=== PATIENT | male | born 1970 | race African-American/Black ===

== ENCOUNTER 2020-06-03 21:47 | Emergency (ER) | payer MEDICARE, MEDICAID, SELFPAY ==
--- NOTE | 2020-06-03 | ECG_ITS ---
Test Reason : CHEST PAIN Blood Pressure : / mmHG Vent. Rate : 108 BPM Atrial Rate : 108 BPM P-R Int : 158 ms QRS Dur : 074 ms QT Int : 324 ms P-R-T Axes : 039 004 018 degrees QTc Int : 434 ms Sinus tachycardia Otherwise normal ECG When compared with ECG of 19-JAN-2020 23:32, No significant change was found Referred By: Generic ED Physician Electronically Signed By:REBEKA HOLM
[2020-06-03 22:00] VITALS: BP 131/77; PULSE 109; RESP 18; TEMP 37.2; O2SAT 97; BMI 41.6
--- NOTE | 2020-06-03 23:14 | XR_ITS ---
EXAMINATION: CHEST 1 VIEW CLINICAL INFORMATION: Chest pain. COMPARISON: 01/19/2020. TECHNIQUE: An AP view of the chest is provided. FINDINGS: The cardiac silhouette is not enlarged. The mediastinal and hilar contours are unremarkable. There are neither pleural effusions nor pneumothoraces. There are no consolidations. The osseous structures are unremarkable. IMPRESSION: No evidence for acute disease.
--- NOTE | 2020-06-03 23:21 | ED.CHESTPAIN ---
HPI - Chest Pain General Chief Complaint: Chest Pain <Sofia Sandra NP - Last Filed: 06/04/20 01:19> Stated Complaint: Chest Pain <Sofia Sandra NP - Last Filed: 06/04/20 01:19> Time Seen by Provider: 06/03/20 23:14 <Sofia Sandra NP - Last Filed: 06/04/20 01:19> Source: patient <Sofia Sandra NP - Last Filed: 06/04/20 01:19> Mode of arrival: ambulatory <Sofia Sandra NP - Last Filed: 06/04/20:19> Limitations: no limitations <Sofia Sandra NP - Last Filed: 06/04/20 01:19> History of Present Illness HPI narrative: Patient presents with palpitations and chest pressure starting at 6:00 p.m. today. He has had several episodes of chest pain and palpitations over the Past week. this chest pain is accompanied with shortness of breath on exertion which is something he has experienced over the past 2 years Since his MS. He had 2 stents placed 2 years ago. he does have intermittent blurred vision, has had headaches since Friday and reports to have significant stress and anxiety at this time. He was told by his landlord that he needed to move because they are selling the house that he lives in. He does not report any fevers, chills, abdominal pain, abdominal distention, dysuria, hematuria, nausea, vomiting, diarrhea, constipation, wounds that will not heal, trauma, falls, suicidal ideation and homicidal ideation. He denies illicit drug use and alcohol use. <Sofia Sandra NP - Last Filed: 06/04/20 01:19> MD complaint: chest pain and chest discomfort <BOYD Brewster Last Filed: 06/04/20 01:19> Pertinent past history: coronary artery disease and prior MS <Sofia Sandra NP - Last Filed: 06/04/20 01:19> Onset (ago): week(s) ( Intermittent chest pain and palpitations over the past 1 week) <BOYD Brewster Last Filed: 06/04/20 01:19> Timing of current episode: episodic <BOYD Brewster Last Filed: 06/04/20 01:19> Prior episodes: Yes <Sofia Sandra NP - Last Filed: 06/04/20 01:19> Pain location: substernal <Sofia Sandra NP - Last Filed: 06/04/20 01:19> Pain radiation: none <Sofia Sandra [employer] - Last Filed: 06/04/20 01:19> Severity: moderate <Sofia Sandra NP - Last Filed: 06/04/20 01:19> Quality: tightness and heaviness <Sofia Sandra [employer] - Last Filed: 06/04/20 01:19> Relieving factors: nothing <Sofia Sandra NP - Last Filed: 06/04/20 01:19> Exacerbating factors: nothing <Sofia Sandra NP - Last Filed: 06/04/20 01:19> Context: recent illness <Sofia Sandra NP - Last Filed: 06/04/20 01:19> Associated symptoms: palpitations <Sofia Sandra NP - Last Filed: 06/04/20 01:19> Risk Factors Coronary artery disease risk factors: diabetes, hyperlipidemia and hypertension <Sofia Sandra NP - Last Filed: 06/04/20 01:19> Thoracic aortic dissection risk factors: longstanding hypertension <Sofia Sandra NP - Last Filed: 06/04/20 01:19> Pulmonary embolism risk factors: morbid obesity <Sofia Sandra NP - Last Filed: 06/04/20 01:19> Related Data Home Medications: Previous Rx's Medication Instructions Recorded hydroxyzine HCl 50 mg PO TID PRN #30 tab 06/04/20 <Sofia Sandra NP - Last Filed: 06/04/20 01:19> Allergies/Adverse Reactions: Allergies Allergy/AdvReac Type Severity Reaction Status Date / Time gabapentin Allergy Unknown sleepiness Verified 06/04/20 00:51 zolpidem Allergy Unknown inadequate Verified 06/04/20 00:51 response <Sofia Sandra NP - Last Filed: 06/04/20 01:19> Review of Systems Review of Systems: Yes all other systems are reviewed and are negative <Sofia Sandra NP - Last Filed: 06/04/20 01:19> Constitutional: Constitutional: Reports headache(s) <Candy Jocy, [employer] - Last Filed: 06/04/20 01:19> Eyes: Eyes: Reports blurry vision ( intermittent) <Candy Jocy, [employer] - Last Filed: 06/04/20 01:19> ENT: Reports headache(s) <Candy Jocy, [employer] - Last Filed: 06/04/20 01:19> Cardiovascular: Cardiovascular: Reports chest pain, Reports chest pain at rest, Reports chest pain with activity, Reports rapid heart rate and Reports dyspnea on exertion <Candy Jocy, [employer] - Last Filed: 06/04/20 01:19> Respiratory: Respiratory: Reports dyspnea on exertion <Candy Jocy, [employer] - Last Filed: 06/04/20 01:19> Gastrointestinal: Gastrointestinal: Reports no additional gastrointestinal complaints <Candy Jocy, [employer] - Last Filed: 06/04/20 01:19> Genitourinary: Genitourinary: Reports no additional male genitourinary complaints <Candy Jocy, [employer] - Last Filed: 06/04/20 01:19> Musculoskeletal: Musculoskeletal: Reports no additional musculoskeletal complaints <Candy Jocy, [employer] - Last Filed: 06/04/20 01:19> Integumentary/Breasts: Skin/Breast: Reports system reviewed and no additional complaints, except as docu <Candy Jocy, [employer] - Last Filed: 06/04/20 01:19> Neurologic: Reports system reviewed and no additional complaints, except as documented and Reports headache(s) <Candy Jocy, [employer] - Last Filed: 06/04/20 01:19> Psychiatric: Psychiatric: Reports anxiety <Candy Jocy, [employer] - Last Filed: 06/04/20 01:19> Endocrine: Endocrine: Reports no additional endocrine complaints <Candy Jocy, [employer] - Last Filed: 06/04/20 01:19> Hematologic/Lymphatic: Hematologic/Lymphatic: Reports no additional hematologic/lymphatic complaints <Candy Jocy, [employer] - Last Filed: 06/04/20 01:19> PMFSH Past Medical History Attestation statement: The following information was validated with the patient. <Candsandeep Sandra, [employer] - Last Filed: 06/04/20 01:19> Source: old records reviewed <Sofia Sandra NP - Last Filed: 06/04/20 01:19> Medical History: Medical History Cardiac arrhythmia Diabetes mellitus, type 2 <Sofia Sandra NP - Last Filed: 06/04/20 01:19> Social History Social History: Social History Alcohol intake: unknown Smoking Status: Unknown if ever smoked Smoked in Last 30 Days: No Use of substances other than those prescribed or required for medical reasons: No Advance Directives: No Advance Directives Information Provided: No <Sofia Sandra NP - Last Filed: 06/04/20 01:19> Physical Exam Vital Signs and I&O and Narrative: Vital Signs and I&O: Vital Signs Temp 99.0 F 06/03/20 22:00 Pulse 96 06/04/20 00:18 Resp 14 06/04/20 00:18 BP 115/79 06/04/20 00:18 Pulse Ox 96 06/04/20 00:18 Intake & Output 06/03/20 06/03/20 06/04/20 06:59 18:59 06:59 Weight 106.633 kg Body Mass Index 41.6 <Sofia Sandra NP - Last Filed: 06/04/20 01:19> Vital Signs and I&O: Vital Signs Temp 99.0 F 06/03/20 22:00 Pulse 96 06/04/20 00:18 Resp 14 06/04/20 00:18 BP 115/79 06/04/20 00:18 Pulse Ox 96 06/04/20 00:18 Intake & Output 06/03/20 06/03/20 06/04/20 06:59 18:59 06:59 Weight 106.633 kg Body Mass Index 41.6 <Addison Bustos DO - Last Filed: 06/04/20 01:26> Const: General: cooperative, healthy appearing, well developed, alert, awake, Physically active, acute distress mild and anxious <Sofia Sandra NP - Last Filed: 06/04/20 01:19> Nutritional Appearance: obese centrally obese <Sofia Sandra [employer] - Last Filed: 06/04/20 01:19> Orientation/consciousness: patient oriented x3 <Sofia Sandra [employer] - Last Filed: 06/04/20 01:19> Limitations: no limitations <Sofia Sandra [employer] - Last Filed: 06/04/20 01:19> HENMT: Head: Yes normal to inspection <Sofia Sandra [employer] - Last Filed: 06/04/20 01:19> Ears: hearing grossly normal bilaterally <Sofia Sandra [employer] - Last Filed: 06/04/20 01:19> General nose exam: Normal external nose present <Sofia Sandra [employer] - Last Filed: 06/04/20 01:19> Face and sinus: Yes normal facial exam <Sofia Sandra [employer] - Last Filed: 06/04/20 01:19> Mouth: Normal oral and palatal mucosa present <Sofia Sandra [employer] - Last Filed: 06/04/20 01:19> Throat: Yes posterior oropharynx normal and Yes uvula midline <Sofia Sandra [employer] - Last Filed: 06/04/20 01:19> Eyes: General: appearance normal, both eyes and all related structures <Sofia Sandra [employer] - Last Filed: 06/04/20 01:19> Pupils: Equal, round and reactive pupils present <Sofia Sandra [employer] - Last Filed: 06/04/20 01:19> EOM: EOMs intact bilaterally <Sofia Sandra [employer] - Last Filed: 06/04/20 01:19> Neck: Neck: Yes normal visual inspection, Yes full ROM, Yes no lymphadenopathy, Yes no meningeal signs and Yes trachea midline <Sofia Sandra [employer] - Last Filed: 06/04/20 01:19> Chest: Chest palpation & inspection: normal inspection of the chest <Sofia Sandra [employer] - Last Filed: 06/04/20 01:19> Resp: Effort & Inspection: normal respiratory effort and able to speak in complete sentences <Sofia Sandra [employer] - Last Filed: 06/04/20 01:19> Auscultation: clear to auscultation bilaterally <Sofia Sandra [employer] - Last Filed: 06/04/20 01:19> Cardio: Rate: tachycardic <Sofia Sandra [employer] - Last Filed: 06/04/20 01:19> Rhythm: regular rhythm <Sofia Sandra [employer] - Last Filed: 06/04/20 01:19> Peripheral pulses: radial pulses present and dorsalis pedis present <Sofia Sandra [employer] - Last Filed: 06/04/20 01:19> GI: Inspection: Yes normal to inspection and Yes obesity <Sofia Sandra [employer] - Last Filed: 06/04/20 01:19> Palpation (GI): Soft to palpation and Tenderness to palpation present (GI) in the epigastrum and in the RUQ; not at McBurney's point, not periumbilically, not suprapubicly, John's sign negative, obturator sign negative, psoas sign negative, with no rebound tenderness and Rovsing's sign negative <Sofia Sandra [employer] - Last Filed: 06/04/20 01:19> Auscultation: normal bowel sounds <Sofia Sandra [employer] - Last Filed: 06/04/20 01:19> : General: Yes no CVA tenderness <Sofia Sandra [employer] - Last Filed: 06/04/20 01:19> Back/Spine/Pelvis: Back: no CVA tenderness <Sofia Sandra [employer] - Last Filed: 06/04/20 01:19> Thoracic/Lumbar Spine: thoracic and lumbar spine normal to inspection <Sofia Sandra [employer] - Last Filed: 06/04/20 01:19> Skin: General skin exam: no rashes or lesions noted <Sofia Sandra [employer] - Last Filed: 06/04/20 01:19> Rashes: no rashes <Sofia Sandra [employer] - Last Filed: 06/04/20 01:19> Wounds: no wounds <Sofia Sandra [employer] - Last Filed: 06/04/20 01:19> Neuro: General: patient oriented x3 and no meningeal signs <Sofia Sandra [employer] - Last Filed: 06/04/20 01:19> Cranial nerves: Yes CN's II-XII intact bilaterally, Yes Facial sensation intact/muscles of mastication intact, Yes Intact sense of smell present and Yes Equal, round and reactive pupils present <Sofia Sandra NP - Last Filed: 06/04/20 01:19> Cognition (Neuro): normal cognition <Sofia Sandra NP - Last Filed: 06/04/20 01:19> Gait exam (Neuro): Normal gait present ( awkward but steady) <Sofia Sandra NP - Last Filed: 06/04/20 01:19> Motor exam (neuro): 5/5 motor strength present throughout <Sofia Sandra [employer] - Last Filed: 06/04/20 01:19> Extrem: General: Yes normal to inspection, Yes full ROM and Yes capillary refill normal <Sofia Sandra NP - Last Filed: 06/04/20 01:19> Psych: Appearance: grossly normal <Sofia Sandra NP - Last Filed: 06/04/20 01:19> Mental Status: mental status grossly normal <Sofia Sandra NP - Last Filed: 06/04/20 01:19> Attitude: cooperative <Sofia Sandra NP - Last Filed: 06/04/20 01:19> Thought process: Normal thought process present <Sofia Sandra NP - Last Filed: 06/04/20 01:19> Thought content: Normal thought content present <Sofia Sandra NP - Last Filed: 06/04/20 01:19> Insight: Good insight present (Psych) <Sofia Sandra NP - Last Filed: 06/04/20 01:19> Judgement: Good judgement present (Psych) <Sofia Sandra NP - Last Filed: 06/04/20 01:19> Course Course Hospital Course: 49-year-old male with past medical history of MS with stent placement, insulin-dependent diabetes, hypertension, obesity, presents with intermittent chest pain and palpitations over the past week. He does report significant stress as he was just asked to move out of his home because the house that he is living and has been sold. While this could be anxiety related he does have significant comorbidities, we will rule out ACS, acute abdomen as he does have epigastric and right upper quadrant pain. <Sofia Sandra NP - Last Filed: 06/04/20 01:19> MDM - Chest Pain Differential Diagnosis Differential diagnosis: Likely stable angina, st elevation myocardial infarction, costochondritis, chest pain and biliary colic <Sofia Sandra NP - Last Filed: 06/04/20 01:19> Medical Records Data Attestation: I reviewed the patient's medical records. <Sofia Sandra NP - Last Filed: 06/04/20 01:19> Lab Data Attestation: I reviewed the patient's lab results. <Sofia Sandra NP - Last Filed: 06/04/20 01:19> Result diagrams: : 06/03/20 23:37 06/03/20 23:37 <Sofia Sandra NP - Last Filed: 06/04/20 01:19> Labs: Lab Results 06/03/20 06/03/20 06/03/20 Range/Units 23:37 23:37 23:37 WBC 9.5 (4.8-10.8) X10*3/uL RBC 4.60 (4.60-5.80) X10*6/uL Hgb 13.7 L (14.0-18.0) g/dl Hct 40.3 L (42-52) % MCV 87.6 (80-98) fL MCH 29.8 (27.0-33.0) pg MCHC 34.0 (31.0-36.0) g/dl RDW 13.2 (11.0-16.0) % Plt Count 300 (160-400) X10*3/uL MPV 10.4 (9.4-12.4) fL Immature Gran % (Auto) 0.3 (0.0-0.4) % Neut % (Auto) 55.3 (45-73) % Lymph % (Auto) 31.5 (20-40) % [place] % (Auto) 10.3 (2-11) % Eos % (Auto) 2.5 (0-4) % Baso % (Auto) 0.1 (0-2) % Neut # (Auto) 5.3 (2.0-8.3) X10*3/uL Lymph # (Auto) 3.0 (1.2-4.9) X10*3/uL [place] # (Auto) 1.0 (0.1-1.2) X10*3/uL Eos # (Auto) 0.2 (0.0-0.4) X10*3/uL Baso # (Auto) 0.0 (0.0-0.2) X10*3/uL Abs Immat Gran (auto) 0.03 (0.00-0.03) X10*3/uL Absolute Nucleated RBC 0.000 (0.0-0.012) X10*3/uL Nucleated RBC % (auto) 0.0 (0.0-0.2) /100WBC PT 10.6 L (10.8-13.0) SEC INR 0.9 (0.9-1.1) Sodium 139 (135-145) mmol/L Potassium 4.3 (3.3-5.1) mmol/l Chloride 103 (96-108) mmol/L Carbon Dioxide 26 (22-29) mmol/L Anion Gap 14 (12-20) BUN 16 (9-16) mg/dL Creatinine 1.07 (0.5-1.4) mg/dL Estim Creat Clear Calc 90.7 Estimated GFR > 60 Random Glucose 88 (60-115) mg/dL Calcium 9.2 (8.4-10.2) mg/dL Magnesium 2.0 (1.6-2.6) mg/dL Total Bilirubin 0.3 (0.0-1.0) mg/dL Direct Bilirubin < 0.2 (0.0-0.5) mg/dL AST 26 (5-37) U/L ALT 35 (0-40) U/L Alkaline Phosphatase 77 (39-117) U/L Troponin I High Sens (<3.5-35.0) ng/L B-Natriuretic Peptide (<100) pg/mL Total Protein 7.0 (6.5-8.0) g/dL Albumin 4.4 (3.5-5.0) g/dL Lipase 51 (8-78) U/L 06/03/20 06/03/20 Range/Units 23:37 23:37 WBC (4.8-10.8) X10*3/uL RBC (4.60-5.80) X10*6/uL Hgb (14.0-18.0) g/dl Hct (42-52) % MCV (80-98) fL MCH (27.0-33.0) pg MCHC (31.0-36.0) g/dl RDW (11.0-16.0) % Plt Count (160-400) X10*3/uL MPV (9.4-12.4) fL Immature Gran % (Auto) (0.0-0.4) % Neut % (Auto) (45-73) % Lymph % (Auto) (20-40) % [place] % (Auto) (2-11) % Eos % (Auto) (0-4) % Baso % (Auto) (0-2) % Neut # (Auto) (2.0-8.3) X10*3/uL Lymph # (Auto) (1.2-4.9) X10*3/uL [place] # (Auto) (0.1-1.2) X10*3/uL Eos # (Auto) (0.0-0.4) X10*3/uL Baso # (Auto) (0.0-0.2) X10*3/uL Abs Immat Gran (auto) (0.00-0.03) X10*3/uL Absolute Nucleated RBC (0.0-0.012) X10*3/uL Nucleated RBC % (auto) (0.0-0.2) /100WBC PT (10.8-13.0) SEC INR (0.9-1.1) Sodium (135-145) mmol/L Potassium (3.3-5.1) mmol/l Chloride (96-108) mmol/L Carbon Dioxide (22-29) mmol/L Anion Gap (12-20) BUN (9-16) mg/dL Creatinine (0.5-1.4) mg/dL Estim Creat Clear Calc Estimated GFR Random Glucose (60-115) mg/dL Calcium (8.4-10.2) mg/dL Magnesium (1.6-2.6) mg/dL Total Bilirubin (0.0-1.0) mg/dL Direct Bilirubin (0.0-0.5) mg/dL AST (5-37) U/L ALT (0-40) U/L Alkaline Phosphatase (39-117) U/L Troponin I High Sens < 3.5 (<3.5-35.0) ng/L B-Natriuretic Peptide < 10 (<100) pg/mL Total Protein (6.5-8.0) g/dL Albumin (3.5-5.0) g/dL Lipase (8-78) U/L <Sofia Sandra NP - Last Filed: 06/04/20 01:19> Lab Results 06/03/20 06/03/20 06/03/20 Range/Units 23:37 23:37 23:37 WBC 9.5 (4.8-10.8) X10*3/uL RBC 4.60 (4.60-5.80) X10*6/uL Hgb 13.7 L (14.0-18.0) g/dl Hct 40.3 L (42-52) % MCV 87.6 (80-98) fL MCH 29.8 (27.0-33.0) pg MCHC 34.0 (31.0-36.0) g/dl RDW 13.2 (11.0-16.0) % Plt Count 300 (160-400) X10*3/uL MPV 10.4 (9.4-12.4) fL Immature Gran % (Auto) 0.3 (0.0-0.4) % Neut % (Auto) 55.3 (45-73) % Lymph % (Auto) 31.5 (20-40) % [place] % (Auto) 10.3 (2-11) % Eos % (Auto) 2.5 (0-4) % Baso % (Auto) 0.1 (0-2) % Neut # (Auto) 5.3 (2.0-8.3) X10*3/uL Lymph # (Auto) 3.0 (1.2-4.9) X10*3/uL [place] # (Auto) 1.0 (0.1-1.2) X10*3/uL Eos # (Auto) 0.2 (0.0-0.4) X10*3/uL Baso # (Auto) 0.0 (0.0-0.2) X10*3/uL Abs Immat Gran (auto) 0.03 (0.00-0.03) X10*3/uL Absolute Nucleated RBC 0.000 (0.0-0.012) X10*3/uL Nucleated RBC % (auto) 0.0 (0.0-0.2) /100WBC PT 10.6 L (10.8-13.0) SEC INR 0.9 (0.9-1.1) Sodium 139 (135-145) mmol/L Potassium 4.3 (3.3-5.1) mmol/l Chloride 103 (96-108) mmol/L Carbon Dioxide 26 (22-29) mmol/L Anion Gap 14 (12-20) BUN 16 (9-16) mg/dL Creatinine 1.07 (0.5-1.4) mg/dL Estim Creat Clear Calc 90.7 Estimated GFR > 60 Random Glucose 88 (60-115) mg/dL Calcium 9.2 (8.4-10.2) mg/dL Magnesium 2.0 (1.6-2.6) mg/dL Total Bilirubin 0.3 (0.0-1.0) mg/dL Direct Bilirubin < 0.2 (0.0-0.5) mg/dL AST 26 (5-37) U/L ALT 35 (0-40) U/L Alkaline Phosphatase 77 (39-117) U/L Troponin I High Sens (<3.5-35.0) ng/L B-Natriuretic Peptide (<100) pg/mL Total Protein 7.0 (6.5-8.0) g/dL Albumin 4.4 (3.5-5.0) g/dL Lipase 51 (8-78) U/L 06/03/20 06/03/20 Range/Units 23:37 23:37 WBC (4.8-10.8) X10*3/uL RBC (4.60-5.80) X10*6/uL Hgb (14.0-18.0) g/dl Hct (42-52) % MCV (80-98) fL MCH (27.0-33.0) pg MCHC (31.0-36.0) g/dl RDW (11.0-16.0) % Plt Count (160-400) X10*3/uL MPV (9.4-12.4) fL Immature Gran % (Auto) (0.0-0.4) % Neut % (Auto) (45-73) % Lymph % (Auto) (20-40) % [place] % (Auto) (2-11) % Eos % (Auto) (0-4) % Baso % (Auto) (0-2) % Neut # (Auto) (2.0-8.3) X10*3/uL Lymph # (Auto) (1.2-4.9) X10*3/uL [place] # (Auto) (0.1-1.2) X10*3/uL Eos # (Auto) (0.0-0.4) X10*3/uL Baso # (Auto) (0.0-0.2) X10*3/uL Abs Immat Gran (auto) (0.00-0.03) X10*3/uL Absolute Nucleated RBC (0.0-0.012) X10*3/uL Nucleated RBC % (auto) (0.0-0.2) /100WBC PT (10.8-13.0) SEC INR (0.9-1.1) Sodium (135-145) mmol/L Potassium (3.3-5.1) mmol/l Chloride (96-108) mmol/L Carbon Dioxide (22-29) mmol/L Anion Gap (12-20) BUN (9-16) mg/dL Creatinine (0.5-1.4) mg/dL Estim Creat Clear Calc Estimated GFR Random Glucose (60-115) mg/dL Calcium (8.4-10.2) mg/dL Magnesium (1.6-2.6) mg/dL Total Bilirubin (0.0-1.0) mg/dL Direct Bilirubin (0.0-0.5) mg/dL AST (5-37) U/L ALT (0-40) U/L Alkaline Phosphatase (39-117) U/L Troponin I High Sens < 3.5 (<3.5-35.0) ng/L B-Natriuretic Peptide < 10 (<100) pg/mL Total Protein (6.5-8.0) g/dL Albumin (3.5-5.0) g/dL Lipase (8-78) U/L <Addison Bustos DO - Last Filed: 06/04/20 01:26> ECG Data ECG #1: Attestation: I personally reviewed and interpreted this ECG as follows: <Sofia Sandra NP - Last Filed: 06/04/20:19> ECG interpretation date: 06/03/20 <Sofia Sandra NP - Last Filed: 06/04/20:19> ECG interpretation time: 21:54 <Sofia Sandra NP - Last Filed: 06/04/20:19> Interpretation: sinus tachycardia at 108 beats per minute. CO interval 158, QT 324, QTC 434. No indication of ST elevation or depression. Otherwise normal EKG. No significant changes found when compared to EKG of January 19, 2020, which is similar with no changes when compared to September 12, 2019. <Sofia Sandra NP - Last Filed: 06/04/20 01:19> Discharge Plan Discharge Clinical Impression: Anxiety Chest pain Qualifiers: Chest pain type: unspecified Qualified Code(s): R07.9 - Chest pain, unspecified <Sofia Sandra NP - Last Filed: 06/04/20 01:19> Patient Disposition: Home, Self-Care <Sofia Sandra NP - Last Filed: 06/04/20:19> Instructions: Chest Pain (ED), Anxiety (ED) <Sofia Sandra NP - Last Filed: 06/04/20 01:19> Additional Instructions: you were evaluated for chest pain. Please follow-up with primary care for provider in 3-5 days. You also described a very stressful home situation. We prescribed hydroxyzine for anxiety. Please take this medication as directed. Please follow-up with primary care provider as needed. Return to the emergency department for any new, concerning, worsening symptoms. <Sofia Sandra NP - Last Filed: 06/04/20 01:19> Prescriptions: New hydroxyzine HCl 50 mg tablet 50 mg PO TID PRN (Reason: anxiety) Qty: 30 RF: 0 <Sofia Sandra NP - Last Filed: 06/04/20 01:19> Interventions: ED Discharge Assessment Last Done: 06/04/20 01:00 <Sofia Sandra NP - Last Filed: 06/04/20 01:19> Discharge Date/Time: 06/04/20 01:03 <Sofia Sandra NP - Last Filed: 06/04/20 01:19>
[2020-06-03 23:42] LABS: MANUAL DIFF FLAG NO
[2020-06-03 23:44] LABS: Basophils Percent Auto 0.1 % (0-2); Eosinophils Absolute Auto 0.2 X10*3/uL (0.0-0.4); Eosinophils Percent Auto 2.5 % (0-4); Hematocrit 40.3 % (42-52); Hemoglobin 13.7 g/dl (14.0-18.0); Imm Gran Abs Auto 0.03 X10*3/uL (0.00-0.03); Imm Gran Pct Auto 0.3 % (0.0-0.4); Lymphocytes Percent Auto 31.5 % (20-40); Mean Corpuscular Hemoglobin 29.8 pg (27.0-33.0); Mean Corpuscular Volume 87.6 fL (80-98); Mean Platelet Volume 10.4 fL (9.4-12.4); Monocytes Percent Auto 10.3 % (2-11); Neutrophils Absolute Auto 5.3 X10*3/uL (2.0-8.3); Neutrophils Percent Auto 55.3 % (45-73); Platelet Count 300 X10*3/uL (160-400); Red Cell Distribution Width 13.2 % (11.0-16.0); White Blood Count 9.5 X10*3/uL (4.8-10.8)
[2020-06-03 23:49] LABS: INTERNATIONAL NORM RATIO 0.9 (0.9-1.1); Prothrombin Time 10.6 SEC (10.8-13.0)
[2020-06-04 00:13] LABS: Alanine Aminotransferase 35 U/L (0-40); Albumin Level 4.4 g/dL (3.5-5.0); Alkaline Phosphatase 77 U/L (39-117); Anion Gap 14 (12-20); Aspartate Amino Transferase 26 U/L (5-37); Bilirubin Direct < 0.2 mg/dL (0.0-0.5); Bilirubin Total 0.3 mg/dL (0.0-1.0); Blood Urea Nitrogen 16 mg/dL (9-16); Calcium 9.2 mg/dL (8.4-10.2); Carbon Dioxide 26 mmol/L (22-29); Chloride 103 mmol/L (96-108); Creatinine Clr Calc Pharmacy 90.7; Estimated Glomerular Filt Rate > 60; Glucose Random 88 mg/dL (60-115); Lipase 51 U/L (8-78); Potassium 4.3 mmol/l (3.3-5.1); Sodium 139 mmol/L (135-145)
[2020-06-04 00:17] LABS: B Type Natriuretic Peptide < 10 pg/mL (<100)
[2020-06-04 00:18] VITALS: BP 115/79; PULSE 96; RESP 14; O2SAT 96
[2020-06-04 00:18] LABS: Troponin-I High Sensitivity < 3.5 ng/L (<3.5-35.0)
[2020-06-04] MEDS: hydrOXYzine HCL 50 MG TABLET PO (00:55)
== END 2020-06-04 01:03 | disposition home or self-care (01) ==
PROVIDERS: Nurse Practitioner Family; Emergency Provider Emergency Medicine; PCP Internal Medicine
DX: R07.9 Chest pain, unspecified (principal); F41.9 Anxiety disorder, unspecified; E11.9 Type 2 diabetes mellitus without complications; Z79.84 Long term (current) use of oral hypoglycemic drugs
CPT/HCPCS: 36415; 71045; 80048; 80076; 83690; 83735; 83880; 84484; 85025; 85610; 93005; 93010; 99283; 99284

== ENCOUNTER → 2020-06-20 14:16 | Outpatient (BNVA) | payer MEDICARE, MEDICAID, SELFPAY | PROVIDERS: PCP Internal Medicine; Referring Provider Internal Medicine; Visit Provider Nurse Practitioner Gerontology | DX: E11.42 Type 2 diabetes mellitus with diabetic polyneuropathy (principal); I10 Essential (primary) hypertension; E78.5 Hyperlipidemia, unspecified; E66.01 Morbid (severe) obesity due to excess calories; R79.89 Other specified abnormal findings of blood chemistry | CPT/HCPCS: 99213 ==

== ENCOUNTER 2020-06-21 07:01 | Outpatient (REF) | payer MEDICARE, MEDICAID, SELFPAY ==
[2020-06-21 07:43] LABS: Estimated Average Glucose 134 mg/dL; Hemoglobin A1c % 6.3 %
[2020-06-21 08:07] LABS: Free T4 (Free Thyroxine) 1.08 ng/dL (0.71-1.85); Thyroid Stimulating Hormone 2.16 mIU/mL (0.32-4.0)
== END 2020-06-21 07:02 | disposition home or self-care (01) ==
LOC: HO.LAB 07:01
PROVIDERS: PCP Internal Medicine; Visit Provider Nurse Practitioner Gerontology
DX: E11.42 Type 2 diabetes mellitus with diabetic polyneuropathy (principal); R79.89 Other specified abnormal findings of blood chemistry
CPT/HCPCS: 83036; 84439; 84443

== ENCOUNTER 2020-07-06 23:04 | Emergency (ER) | payer MEDICARE, MEDICAID, SELFPAY ==
[2020-07-07 01:00] VITALS: BP 121/69; PULSE 97; RESP 16; TEMP 36.8; O2SAT 97; BMI 41.1
--- NOTE | 2020-07-07 01:05 | XR_ITS ---
EXAMINATION: LEFT KNEE 2 VIEWS CLINICAL INFORMATION: Arthritis. Concern for effusion. COMPARISON: None. TECHNIQUE: AP and lateral views of the left knee were obtained. FINDINGS: There are no fractures or dislocations. There is no knee joint effusion. There is no significant soft tissue swelling. There is mild narrowing to the patellofemoral compartment. XR/XR knee LT 2V IMPRESSION: Mild joint space narrowing. No fracture or joint effusion demonstrable.
--- NOTE | 2020-07-07 01:12 | ED.LOWEXIN ---
HPI - Extremity Injury (Lower) General Chief Complaint: Extremity Injury, Lower Stated Complaint: R knee pain Time Seen by Provider: 07/07/20 01:04 Source: patient Mode of arrival: ambulatory Limitations: no limitations History of Present Illness HPI Narrative: patient's history of osteoarthritis noticed increasing pain in left knee for last few days got worse today with swelling increases pain on going on stairs patient has right knee replacement about 1 year ago patient denied any injury to the left knee. No history of gout no fever chills or skin color change around the left knee Related Data Home Medications Medication Instructions Recorded Confirmed allopurinol 100 mg tablet 100 mg PO DAILY 06/20/20 06/20/20 aspirin 81 mg tablet,delayed 81 mg PO DAILY 06/20/20 06/20/20 release blood sugar diagnostic #10 ea 06/20/20 06/20/20 dulaglutide 1.5 mg/0.5 mL 1.5 mg SUBCUT QWEEK 06/20/20 06/20/20 subcutaneous pen injector gabapentin 300 mg capsule 300 mg PO TID 06/20/20 06/20/20 glimepiride 1 mg tablet 1 mg PO DAILY 06/20/20 06/20/20 lancets 28 gauge #100 ea 06/20/20 06/20/20 lisinopril 10 mg tablet 10 mg PO DAILY 06/20/20 06/20/20 ropinirole 4 mg tablet 4 mg PO TID 06/20/20 06/20/20 Previous Rx's Medication Instructions Recorded hydroxyzine HCl 50 mg PO TID PRN #30 tab 06/04/20 metformin 500 mg tablet 1,000 mg PO BID 30 Days #120 tab 06/11/20 empagliflozin 25 mg tablet 25 mg PO QAM #30 tab 06/19/20 atorvastatin 80 mg tablet 80 mg PO DAILY #90 tab 06/28/20 metoprolol tartrate 50 mg tablet 50 mg PO BID #180 tab 06/28/20 tramadol 50 mg tablet 50 mg PO DAILY 30 Days #30 tab 06/28/20 Allergies Allergy/AdvReac Type Severity Reaction Status Date / Time gabapentin AdvReac Unknown sleepiness Verified 06/20/20 14:23 zolpidem AdvReac Unknown inadequate Verified 06/20/20 14:23 response Review of Systems Review of Systems: Yes all other systems are reviewed and are negative PMF Past Medical History Medical History Arthritis BMI 40.0-44.9, adult CAD (coronary artery disease) Cardiac arrhythmia Chronic back pain Diabetes mellitus, type 2 Erectile dysfunction Essential hypertension GERD (gastroesophageal reflux disease) Hyperlipidemia LDL goal <70 Kidney stones Morbid obesity due to excess calories RLS (restless legs syndrome) Type 2 diabetes mellitus with diabetic polyneuropathy Surgical History H/O heart artery stent History of arthroplasty of right knee Hx of left knee surgery Hx of lithotripsy Family History Family History Mother Diabetes Sister Diabetes Social History Social History Alcohol intake: unknown Smoking Status: Unknown if ever smoked Advance Directives: No Advance Directives Information Provided: No Physical Exam Vital Signs: Vital Signs: Last Vital Signs Temp 98.3 F 07/07/20 01:00 Pulse 97 07/07/20 01:00 Resp 16 07/07/20 01:00 BP 121/69 07/07/20 01:00 Pulse Ox 97 07/07/20 01:00 Body Mass Index 41.1 Appearance: Alert. Oriented X3. No acute distress. ENT: Pharynx normal. Neck: Normal inspection. Neck supple. CVS: Normal heart rate and rhythm. Pulses normal. Respiratory: No respiratory distress. Breath sounds normal. Abdomen: Soft and nontender. Skin: Skin warm and dry. Normal skin color. Normal skin turgor. Extremities: No lower extremity edema. Good range of movement diffuse swelling of left knee with mild effusion medial joint tenderness present crepitation on flexion and extension of the knee skin color normal patient able to ambulate Neuro: Oriented X 3. No motor deficit. No sensory deficit. Course Course Course Narrative: patient x-ray showed arthritis. Will put an Anish wrap advised to follow with Ortho Discharge Plan Discharge Prescriptions: No Action metformin 500 mg tablet 1,000 mg PO BID 30 Days Qty: 120 RF: 3 Jardiance 25 mg tablet 25 mg PO QAM Qty: 30 RF: 3 atorvastatin 80 mg tablet 80 mg PO DAILY Qty: 90 RF: 1 metoprolol tartrate 50 mg tablet 50 mg PO BID Qty: 180 RF: 1 tramadol 50 mg tablet 50 mg PO DAILY 30 Days Qty: 30 RF: 0 hydroxyzine HCl 50 mg tablet 50 mg PO TID PRN (Reason: anxiety) Qty: 30 RF: 0 aspirin [Adult Low Dose Aspirin] 81 mg tablet,delayed release (DR/EC) 81 mg PO DAILY RF: 0 lisinopril 10 mg tablet 10 mg PO DAILY RF: 0 gabapentin 300 mg capsule 300 mg PO TID RF: 0 ropinirole 4 mg tablet 4 mg PO TID RF: 0 glimepiride 1 mg tablet 1 mg PO DAILY RF: 0 allopurinol 100 mg tablet 100 mg PO DAILY RF: 0 (DME) FreeStyle Lite Strips Strip See Rx Instructions .ROUTE .MEDSUPPLY Qty: 10 RF: 0 (DME) lancets [FreeStyle Lancets] 28 gauge misc See Rx Instructions .ROUTE .MEDSUPPLY Qty: 100 RF: 0 Trulicity 1.5 mg/0.5 mL pen injector 1.5 mg subcut QWEEK RF: 0
[2020-07-07] MEDS: Ketorolac Tromethamine 60 MG/2 ML VIAL IM (01:24)
== END 2020-07-07 01:43 | disposition home or self-care (01) ==
PROVIDERS: Emergency Provider Internal Medicine; PCP Internal Medicine
DX: M17.11 Unilateral primary osteoarthritis, right knee (principal); I25.10 Atherosclerotic heart disease of native coronary artery without angina pectoris; Z79.899 Other long term (current) drug therapy
CPT/HCPCS: 73560; 96372; 99284; J1885

== ENCOUNTER → 2020-07-26 08:56 | Outpatient (BNVA) | payer MEDICARE, MEDICAID, SELFPAY | PROVIDERS: PCP Internal Medicine; Visit Provider Anesthesiology | DX: M79.2 Neuralgia and neuritis, unspecified (principal); E66.01 Morbid (severe) obesity due to excess calories; Z96.651 Presence of right artificial knee joint | CPT/HCPCS: 99202 ==

== ENCOUNTER 2020-08-07 13:05 | Outpatient (RCR) | payer MEDICARE, MEDICAID, SELFPAY | END 2020-08-07 23:55 | disposition home or self-care (01) | LOC: HO.PAOS 13:05 | PROVIDERS: Referring Provider Anesthesiology; Visit Provider Counselor Mental Health | DX: F43.21 Adjustment disorder with depressed mood (principal) | CPT/HCPCS: 90791 ==

== ENCOUNTER → 2020-08-09 08:50 | Outpatient (BNVA) | payer MEDICARE, MEDICAID, SELFPAY | PROVIDERS: PCP Internal Medicine; Referring Provider Internal Medicine; Visit Provider Anesthesiology | DX: E66.01 Morbid (severe) obesity due to excess calories (principal); Z96.651 Presence of right artificial knee joint; M79.2 Neuralgia and neuritis, unspecified; Z76.89 Persons encountering health services in other specified circumstances | CPT/HCPCS: 99211 ==

== ENCOUNTER 2020-08-15 05:35 | Outpatient (REF) | payer MEDICARE, MEDICAID, SELFPAY ==
--- NOTE | 2020-08-15 08:41 | FL_ITS ---
EXAMINATION: XR FLUOROSCOPY WITH IMAGES CLINICAL INFORMATION: M79.2 - Neuralgia and neuritis, unspecified COMPARISON: Standing AP knees radiograph 08/16/2020 TECHNIQUE: Fluoroscopy performed by Xochitl Boateng NP. Fluoroscopy time: 1 second. DAP: 0.50 Gycm2 Images: 2 FINDINGS: There is spinal needle adjacent to mid aspect proximal tibia medial side. There is hardware consistent with prior knee arthroplasty. There is a small round artifact overlying the tibia likely on the image monitor. FL/FL guidance in treatment room IMPRESSION: Fluoroscopy for pain management procedure.
== END 2020-08-15 05:36 | disposition home or self-care (01) ==
LOC: HO.RADIR 05:35
PROVIDERS: Visit Provider Anesthesiology
DX: M79.2 Neuralgia and neuritis, unspecified (principal); E66.01 Morbid (severe) obesity due to excess calories; Z96.651 Presence of right artificial knee joint
CPT/HCPCS: 64454; J0690

== ENCOUNTER 2020-08-16 13:44 | Outpatient (REF) | payer MEDICARE, MEDICAID, SELFPAY ==
--- NOTE | 2020-08-16 13:58 | XR_ITS ---
EXAMINATION: LEFT HAND, LEFT KNEE AND BILATERAL KNEES AP STANDING. CLINICAL INFORMATION: Injury. Pain. COMPARISON: None TECHNIQUE: Left hand 3 views. AP bilateral knee 1 view. Left knee 2 views. FINDINGS: LEFT HAND: There is no visible acute fracture, dislocation or subluxation. There is loss of PIP and DIP joints of all digits with hypertrophic spurring DIP joint second digit and PIP joint first digit with mild soft tissue swelling. Mild loss of first carpometacarpal joint space is seen as well. BILATERAL AP KNEES STANDING: There is a total right knee prosthesis with prosthetic components in satisfactory alignment. There is moderate loss of medial compartment joint space with periapical spurring. The lateral compartment joint space is normal. No bony erosive changes, acute fracture or dislocation seen. LEFT KNEE: There is moderate loss of patellofemoral compartment joint space with periarticular spurring. There is small anterior superior and inferior patellar enthesophytes. XR/XR knee LT 2V IMPRESSION: No acute fracture or dislocation left hand or wrist. Degenerative arthritic changes of PIP and DIP joints. Total right knee prosthesis in satisfactory alignment. There is moderate loss of patellofemoral and medial compartment joint space with periarticular spurring left knee. No loose bodies or bony erosive changes. No visible acute fracture or dislocation.
--- NOTE | 2020-08-16 13:58 | XR_ITS ---
EXAMINATION: LEFT HAND, LEFT KNEE AND BILATERAL KNEES AP STANDING. CLINICAL INFORMATION: Injury. Pain. COMPARISON: None TECHNIQUE: Left hand 3 views. AP bilateral knee 1 view. Left knee 2 views. FINDINGS: LEFT HAND: There is no visible acute fracture, dislocation or subluxation. There is loss of PIP and DIP joints of all digits with hypertrophic spurring DIP joint second digit and PIP joint first digit with mild soft tissue swelling. Mild loss of first carpometacarpal joint space is seen as well. BILATERAL AP KNEES STANDING: There is a total right knee prosthesis with prosthetic components in satisfactory alignment. There is moderate loss of medial compartment joint space with periapical spurring. The lateral compartment joint space is normal. No bony erosive changes, acute fracture or dislocation seen. LEFT KNEE: There is moderate loss of patellofemoral compartment joint space with periarticular spurring. There is small anterior superior and inferior patellar enthesophytes. XR/XR knee standing BI IMPRESSION: No acute fracture or dislocation left hand or wrist. Degenerative arthritic changes of PIP and DIP joints. Total right knee prosthesis in satisfactory alignment. There is moderate loss of patellofemoral and medial compartment joint space with periarticular spurring left knee. No loose bodies or bony erosive changes. No visible acute fracture or dislocation.
== END 2020-08-16 13:45 | disposition home or self-care (01) ==
LOC: HO.HOSX 13:44
PROVIDERS: PCP Internal Medicine; Visit Provider Orthopaedic Surgery
DX: M17.12 Unilateral primary osteoarthritis, left knee (principal); M25.561 Pain in right knee
CPT/HCPCS: 20610; 73560; 73565; 99212; J1040

== ENCOUNTER 2020-08-16 18:09 | Emergency (ER) | payer MEDICARE, MEDICAID, SELFPAY ==
--- NOTE | 2020-08-16 | XR_ITS ---
EXAMINATION: LEFT HAND, LEFT KNEE AND BILATERAL KNEES AP STANDING. CLINICAL INFORMATION: Injury. Pain. COMPARISON: None TECHNIQUE: Left hand 3 views. AP bilateral knee 1 view. Left knee 2 views. FINDINGS: LEFT HAND: There is no visible acute fracture, dislocation or subluxation. There is loss of PIP and DIP joints of all digits with hypertrophic spurring DIP joint second digit and PIP joint first digit with mild soft tissue swelling. Mild loss of first carpometacarpal joint space is seen as well. BILATERAL AP KNEES STANDING: There is a total right knee prosthesis with prosthetic components in satisfactory alignment. There is moderate loss of medial compartment joint space with periapical spurring. The lateral compartment joint space is normal. No bony erosive changes, acute fracture or dislocation seen. LEFT KNEE: There is moderate loss of patellofemoral compartment joint space with periarticular spurring. There is small anterior superior and inferior patellar enthesophytes. XR/XR hand LT min 3V IMPRESSION: No acute fracture or dislocation left hand or wrist. Degenerative arthritic changes of PIP and DIP joints. Total right knee prosthesis in satisfactory alignment. There is moderate loss of patellofemoral and medial compartment joint space with periarticular spurring left knee. No loose bodies or bony erosive changes. No visible acute fracture or dislocation.
[2020-08-16 20:01] VITALS: BP 160/61; PULSE 116; RESP 18; TEMP 36.3; O2SAT 98; BMI 39.8
--- NOTE | 2020-08-16 21:37 | ED_ITS ---
HPI - Extremity Problem General Chief complaint: Extremity Injury, Upper Stated complaint: Cat bite Time Seen by Provider: 08/16/20 21:37 Source: patient Mode of arrival: ambulatory Limitations: no limitations History of Present Illness HPI Narrative: This is a 50-year-old male who presents after stating the [place] holding a transmission collapsed onto his left hand at approximately 5:00 p.m. this evening and he states he is now experiencing pain when he flexes and extends his thumb. He denies any numbness or tingling into the thumb and he endorses that his tetanus was approximately 2 years ago. Related Data Home Medications Medication Instructions Recorded Confirmed allopurinol 100 mg tablet 100 mg PO DAILY 06/20/20 08/09/20 aspirin 81 mg tablet,delayed 81 mg PO DAILY 06/20/20 08/09/20 release blood sugar diagnostic #10 ea 06/20/20 08/09/20 gabapentin 300 mg capsule 300 mg PO TID 06/20/20 08/09/20 glimepiride 1 mg tablet 1 mg PO DAILY 06/20/20 08/09/20 lancets 28 gauge #100 ea 06/20/20 08/09/20 lisinopril 10 mg tablet 10 mg PO DAILY 06/20/20 08/09/20 ropinirole 4 mg tablet 4 mg PO TID 06/20/20 08/09/20 Previous Rx's Medication Instructions Recorded hydroxyzine HCl 50 mg PO TID PRN #30 tab 06/04/20 metformin 500 mg tablet 1,000 mg PO BID 30 Days #120 tab 06/11/20 empagliflozin 25 mg tablet 25 mg PO QAM #30 tab 06/19/20 atorvastatin 80 mg tablet 80 mg PO DAILY #90 tab 06/28/20 metoprolol tartrate 50 mg tablet 50 mg PO BID #180 tab 06/28/20 diclofenac sodium 50 mg PO Q12H PRN #20 tab 07/07/20 dulaglutide 1.5 mg/0.5 mL 1.5 mg SUBCUT QWEEK #2 ml 07/11/20 subcutaneous pen injector naloxone 4 mg/actuation nasal spray 4 mg INTRANASAL Q3M PRN #2 ea 08/02/20 hydrocodone 5 mg-acetaminophen 325 1 tab PO TID PRN 30 Days #90 tab 08/09/20 mg tablet Allergies Allergy/AdvReac Type Severity Reaction Status Date / Time gabapentin AdvReac Unknown sleepiness Verified 08/16/20 14:10 zolpidem AdvReac Unknown inadequate Verified 08/16/20 14:10 response Review of Systems Review of Systems: Pertinent positives and negatives as stated in HPI 10 point review of systems is otherwise negative. PMFSH Past Medical History Source: nursing notes reviewed Medical History Arthritis BMI 40.0-44.9, adult CAD (coronary artery disease) Cardiac arrhythmia Chronic back pain Diabetes Diabetes mellitus, type 2 Erectile dysfunction Essential hypertension GERD (gastroesophageal reflux disease) HTN (hypertension) Hyperlipidemia LDL goal <70 IDDM (insulin dependent diabetes mellitus) Intractable neuropathic pain of right knee Kidney stones Morbid obesity Morbid obesity due to excess calories RLS (restless legs syndrome) Type 2 diabetes mellitus with diabetic polyneuropathy Surgical History H/O heart artery stent History of arthroplasty of right knee Hx of left knee surgery Hx of lithotripsy Status post total knee replacement, right Family History Family History Mother Diabetes Sister Diabetes Social History Social History Household Members: Friend(s) Alcohol intake: never Smoking Status: Never smoker Advance Directives: No Advance Directives Information Provided: Yes Physical Exam Vital Signs: Vital Signs: Last Vital Signs Temp 97.3 F 08/16/20 20:01 Pulse 116 H 08/16/20 20:01 Resp 18 08/16/20 20:01 BP 160/61 H 08/16/20 20:01 Pulse Ox 98 08/16/20 20:01 Body Mass Index 39.8 VITAL SIGNS: Reviewed. GENERAL: Well developed, well nourished, in no acute distress. HEAD: Normocephalic/atraumatic, EYES: PERRLA, EOMI intact without pain, no nystagmus/pallor/icterus noted EARS: Ext canals without abnormality, TMs non-bulging and non-erythematous NOSE: Nares patent bilateral OROPHARYNX: no oral lesions noted, posterior pharynx clear and non-erythematous without noted tonsillar enlargement/erythema/exudates NECK: Supple, no adenopathy LUNGS: Normal breath sounds. No adventitious sounds or accessory muscle use. SpO2<98> CARDIOVASCULAR: Regular rate and rhythm without noted murmurs, no JVD or lower extremity edema. ABDOMEN: Soft, non-tender, non-distended with bowel sounds. No rigidity. No guarding. No palpable masses or hernias noted MUSCULOSKELETAL: No tenderness, deformities, or effusions noted on gross inspection. EXTREMITIES: No cyanosis, clubbing or edema; LEFT HAND: There is a small abrasion to the webspace between the left thumb and index finger but otherwise no noted deformity, no snuffbox tenderness, patient has full range of motion but with discomfort, capillary refill is less than 3 seconds SKIN: Inspection of the skin reveals no rashes, ulcerations, jaundice, pallor, or petechiae. NEUROLOGIC: Alert and oriented x 4. Strength and sensation to light touch were grossly intact x 4. Course Course Course Narrative: This is a 50-year-old male with history and clinical presentation most consistent with soft tissue contusion given that he has maintained full range of motion and x-ray is negative for any acute fractures or dislocations. Patient will be discharged with a course of NSAIDs and strongly encouraged to follow up with primary care provider for re-evaluation. Discharge Plan Discharge Clinical Impression: Contusion of hand, left Qualifiers: Encounter type: initial encounter Qualified Code(s): S60.222A - Contusion of left hand, initial encounter Patient Disposition: Home, Self-Care Instructions: Contusion in Adults (ED) Additional Instructions: 1. Tylenol 1000 mg, por v?a oral, cada 6 horas seg?n sea necesario para controlar el dolor. No exceda los 4000 mg en 24 horas. 2. Deber?a poder usar masters receta actual de diclofenaco, que se receta seg?n sea necesario para un control adicional del dolor. ?selo katarzyna se indica en la receta. 3. Ramírez un seguimiento con masters proveedor de atenci?n primaria para la reevaluaci?n y el manejo ambulatorio. El paciente y / o la teresa reconocen que comprenden los resultados (seg?n corresponda), el diagn?stico, el plan de tratamiento, la necesidad de seguimiento y los s?ntomas que deber?an impulsar el regreso a la tanvi de emergencias. Prescriptions: No Action metformin 500 mg tablet 1,000 mg PO BID 30 Days Qty: 120 RF: 3 Jardiance 25 mg tablet 25 mg PO QAM Qty: 30 RF: 3 atorvastatin 80 mg tablet 80 mg PO DAILY Qty: 90 RF: 1 metoprolol tartrate 50 mg tablet 50 mg PO BID Qty: 180 RF: 1 Trulicity 1.5 mg/0.5 mL pen injector 1.5 mg subcut QWEEK Qty: 2 RF: 1 Narcan 4 mg/actuation spray,non-aerosol 4 mg intranasal Q3M PRN (Reason: opioid overdose) Qty: 2 RF: 0 hydrocodone-acetaminophen [Harwood] 5-325 mg tablet 1 tab PO TID PRN (Reason: pain) 30 Days Qty: 90 RF: 0 hydroxyzine HCl 50 mg tablet 50 mg PO TID PRN (Reason: anxiety) Qty: 30 RF: 0 diclofenac sodium 50 mg tablet,delayed release (DR/EC) 50 mg PO Q12H PRN (Reason: pain) Qty: 20 RF: 0 aspirin [Adult Low Dose Aspirin] 81 mg tablet,delayed release (DR/EC) 81 mg PO DAILY RF: 0 lisinopril 10 mg tablet 10 mg PO DAILY RF: 0 gabapentin 300 mg capsule 300 mg PO TID RF: 0 ropinirole 4 mg tablet 4 mg PO TID RF: 0 glimepiride 1 mg tablet 1 mg PO DAILY RF: 0 allopurinol 100 mg tablet 100 mg PO DAILY RF: 0 (DME) FreeStyle Lite Strips Strip See Rx Instructions .ROUTE .MEDSUPPLY Qty: 10 RF: 0 (DME) lancets [FreeStyle Lancets] 28 gauge misc See Rx Instructions .ROUTE .MEDSUPPLY Qty: 100 RF: 0 Referrals: Peggy Barber MD [Primary Care Provider] - 2 days (Re-evaluation left hand contusion) Print Language: Macedonian
[2020-08-16] MEDS: Acetaminophen 325 MG TABLET 975 MG PO (22:29)
[2020-08-16] MEDS: Ketorolac Tromethamine 15 MG/ML VIAL IM (22:31)
== END 2020-08-16 22:45 | disposition home or self-care (01) ==
PROVIDERS: Emergency Provider Student in an Organized Health Care Education/Training Program; PCP Internal Medicine
DX: S60.222A Contusion of left hand, initial encounter (principal); S60.512A Abrasion of left hand, initial encounter; W20.8XXA Other cause of strike by thrown, projected or falling object, initial encounter; E11.9 Type 2 diabetes mellitus without complications; I10 Essential (primary) hypertension; Y93.89 Activity, other specified; Y92.9 Unspecified place or not applicable; Y99.9 Unspecified external cause status; Z79.4 Long term (current) use of insulin
CPT/HCPCS: 73130; 96372; 99284; J1885

== ENCOUNTER → 2020-08-21 10:34 | Outpatient (BNVA) | payer MEDICARE, MEDICAID, SELFPAY | PROVIDERS: PCP Internal Medicine; Referring Provider Internal Medicine; Visit Provider Anesthesiology | DX: E66.01 Morbid (severe) obesity due to excess calories (principal); M79.2 Neuralgia and neuritis, unspecified; Z96.651 Presence of right artificial knee joint | CPT/HCPCS: Q3014 ==

== ENCOUNTER → 2020-09-07 09:02 | Outpatient (BNVA) | payer MEDICARE, MEDICAID, SELFPAY | PROVIDERS: PCP Internal Medicine; Visit Provider Anesthesiology | DX: E66.01 Morbid (severe) obesity due to excess calories (principal); Z96.651 Presence of right artificial knee joint; M79.2 Neuralgia and neuritis, unspecified | CPT/HCPCS: 99212 ==

== ENCOUNTER → 2020-09-25 13:42 | Outpatient (BNVA) | payer MEDICARE, MEDICAID, SELFPAY | PROVIDERS: PCP Internal Medicine; Visit Provider Nurse Practitioner Gerontology | DX: E11.42 Type 2 diabetes mellitus with diabetic polyneuropathy (principal); I10 Essential (primary) hypertension; E78.5 Hyperlipidemia, unspecified; E66.01 Morbid (severe) obesity due to excess calories | CPT/HCPCS: 82947; 99212 ==

== ENCOUNTER → 2020-09-28 14:21 | Outpatient (BNVA) | payer MEDICARE, MEDICAID, SELFPAY | PROVIDERS: PCP Internal Medicine; Visit Provider Anesthesiology | DX: M79.2 Neuralgia and neuritis, unspecified (principal); E66.01 Morbid (severe) obesity due to excess calories; Z96.651 Presence of right artificial knee joint; Z79.899 Other long term (current) drug therapy | CPT/HCPCS: 99212 ==

== ENCOUNTER → 2020-10-26 15:32 | Outpatient (BNVA) | payer MEDICARE, MEDICAID, SELFPAY | PROVIDERS: PCP Internal Medicine; Visit Provider Anesthesiology | DX: E66.01 Morbid (severe) obesity due to excess calories (principal); M79.2 Neuralgia and neuritis, unspecified; Z96.651 Presence of right artificial knee joint | CPT/HCPCS: 99212 ==

== ENCOUNTER → 2020-10-30 12:44 | Outpatient (BNVA) | payer MEDICARE, MEDICAID, SELFPAY | PROVIDERS: PCP Internal Medicine; Visit Provider Nurse Practitioner Gerontology | DX: E11.42 Type 2 diabetes mellitus with diabetic polyneuropathy (principal); I10 Essential (primary) hypertension; E78.5 Hyperlipidemia, unspecified; E66.01 Morbid (severe) obesity due to excess calories | CPT/HCPCS: 82947; 99212 ==

== ENCOUNTER → 2020-11-13 12:00 | Outpatient (BNVA) | payer MEDICARE, MEDICAID, SELFPAY | PROVIDERS: PCP Internal Medicine; Visit Provider Nurse Practitioner Gerontology | DX: E11.42 Type 2 diabetes mellitus with diabetic polyneuropathy (principal); E66.01 Morbid (severe) obesity due to excess calories; Z68.41 Body mass index [BMI] 40.0-44.9, adult; E78.5 Hyperlipidemia, unspecified; I10 Essential (primary) hypertension; Z79.84 Long term (current) use of oral hypoglycemic drugs; Z71.3 Dietary counseling and surveillance | CPT/HCPCS: 82947; 99212 ==

== ENCOUNTER 2020-11-15 08:20 | Outpatient (REF) | payer MEDICARE, MEDICAID, SELFPAY ==
[2020-11-15 09:28] LABS: Creatinine Urine 79.46 mg/dL
[2020-11-15 09:30] LABS: Alanine Aminotransferase 35 U/L (0-40); Albumin Level 4.5 g/dL (3.5-5.0); Alkaline Phosphatase 98 U/L (39-117); Anion Gap 14 (12-20); Aspartate Amino Transferase 23 U/L (5-37); Bilirubin Total 0.8 mg/dL (0.0-1.0); Blood Urea Nitrogen 12 mg/dL (9-16); Calcium 9.5 mg/dL (8.4-10.2); Carbon Dioxide 27 mmol/L (22-29); Chloride 100 mmol/L (96-108); Cholesterol 132 mg/dL; Estimated Glomerular Filt Rate > 60; Glucose Fasting 119 mg/dL (60-99); HDL Cholesterol 36 mg/dL; LDL Cholesterol Calculated 68 mg/dl; Potassium 4.4 mmol/L (3.3-5.1); Sodium 137 mmol/L (135-145); Total Protein 7.4 g/dL (6.5-8.0); Triglycerides 144 mg/dL
[2020-11-16 13:16] LABS: LDL Cholesterol Direct 71 mg/dL (<100)
== END 2020-11-15 08:21 | disposition home or self-care (01) ==
LOC: HO.LAB 08:20
PROVIDERS: PCP Internal Medicine; Visit Provider Nurse Practitioner Gerontology
DX: E11.42 Type 2 diabetes mellitus with diabetic polyneuropathy (principal)
CPT/HCPCS: 36415; 80053; 80061; 82043; 83721

== ENCOUNTER → 2020-11-23 15:29 | Outpatient (BNVA) | payer MEDICARE, MEDICAID, SELFPAY | PROVIDERS: PCP Internal Medicine; Visit Provider Anesthesiology | DX: E66.01 Morbid (severe) obesity due to excess calories (principal); T84.84XA Pain due to internal orthopedic prosthetic devices, implants and grafts, initial encounter; Z96.651 Presence of right artificial knee joint; M79.2 Neuralgia and neuritis, unspecified | CPT/HCPCS: 99212 ==

== ENCOUNTER → 2020-11-28 09:45 | Outpatient (BNVA) | payer MEDICARE, MEDICAID, SELFPAY | PROVIDERS: PCP Internal Medicine; Visit Provider Orthopaedic Surgery | DX: M17.12 Unilateral primary osteoarthritis, left knee (principal) | CPT/HCPCS: 20610; 99212; J1040 ==

== ENCOUNTER 2020-12-15 09:53 | Day surgery (SDC) | payer MEDICARE, MEDICAID, SELFPAY ==
--- NOTE | 2020-12-13 13:18 | HO.ANESPROP2 ---
Documented by User: Ailyn Willett 12/13/20 13:21 HPI - Anesthesia Eval Consult details Narrative: 50yo M for Right Infrapatellar Saphenous Nerve Stimulator Trial Routine cardiology OV 08/2020 - stable for f/u in 1 year [facility] Active Problems Active Problems: All Active Problems (Updated 12/11/20 @ 11:56 by Yun Cummings) Primary osteoarthritis of left knee (Acute) Coarse tremors (Acute) Intractable neuropathic pain of right knee (Acute) Status post total knee replacement, right (Acute) Morbid obesity (Acute) Type 2 diabetes mellitus with diabetic polyneuropathy (Acute) Essential hypertension (Acute) Hyperlipidemia LDL goal <70 (Acute) Morbid obesity due to excess calories (Acute) Past Medical History Medical History Arthritis BMI 40.0-44.9, adult CAD (coronary artery disease) Cardiac arrhythmia Chronic back pain Coarse tremors Diabetes mellitus, type 2 Erectile dysfunction Essential hypertension GERD (gastroesophageal reflux disease) HTN (hypertension) Hyperlipidemia LDL goal <70 IDDM (insulin dependent diabetes mellitus) Intractable neuropathic pain of right knee Kidney stones Morbid obesity Morbid obesity due to excess calories SHARONDA (obstructive sleep apnea) RLS (restless legs syndrome) Type 2 diabetes mellitus with diabetic polyneuropathy Family History Family History Mother Diabetes Sister Diabetes Surgical History Surgical History H/O heart artery stent History of arthroplasty of right knee Hx of left knee surgery Hx of lithotripsy Status post total knee replacement, right Social History Social History Household Members: Family and Friend(s) Alcohol intake: former Smoking Status: Never smoker Tobacco Type: Cigarette Advance Directives: No Advance Directives Information Provided: Yes Meds Allergies Allergy/AdvReac Type Severity Reaction Status Date / Time gabapentin AdvReac Unknown sleepiness Verified 11/23/20 15:45 zolpidem AdvReac Unknown inadequate Verified 11/23/20 15:45 response Home Medications Medication Instructions Recorded Confirmed Last Taken Type allopurinol 100 mg tablet 100 mg PO DAILY 06/20/20 12/11/20 Unknown History blood sugar diagnostic #10 ea 06/20/20 11/23/20 Unknown History lancets 28 gauge #100 ea 06/20/20 11/23/20 Unknown History lisinopril 10 mg tablet 10 mg PO DAILY 06/20/20 12/11/20 Unknown History ropinirole 4 mg tablet 4 mg PO TID 06/20/20 12/11/20 Unknown History amlodipine 2.5 mg tablet 2.5 mg PO DAILY 09/25/20 12/11/20 Unknown History Exam Exam Date and Time: December 13, 2020 1318 Pertinent Lab Results Pertinent Lab Results: Laboratory Tests 06/03/20 11/15/20 23:37 08:31 WBC 9.5 Hgb 13.7 L Hct 40.3 L Plt Count 300 Sodium 137 Potassium 4.4 Chloride 100 Carbon Dioxide 27 BUN 12 Creatinine 0.92 Narrative Narrative: EKG 06/2020 Vent. Rate : 108 BPM Atrial Rate : 108 BPM P-R Int : 158 ms QRS Dur : 074 ms QT Int : 324 ms P-R-T Axes : 039 004 018 degrees QTc Int : 434 ms Sinus tachycardia Otherwise normal ECG When compared with ECG of 19-JAN-2020 23:32, No significant change was found Assessment and Plan Assessment Anesthesia Assessment: Chart Reviewed Documented by User: Smiley Batista 12/15/20 10:43 [facility] Past Medical History Medical History Arthritis BMI 40.0-44.9, adult CAD (coronary artery disease) Cardiac arrhythmia Chronic back pain Coarse tremors Diabetes mellitus, type 2 Erectile dysfunction Essential hypertension GERD (gastroesophageal reflux disease) HTN (hypertension) Hyperlipidemia LDL goal <70 IDDM (insulin dependent diabetes mellitus) Intractable neuropathic pain of right knee Kidney stones Morbid obesity Morbid obesity due to excess calories SHARONDA (obstructive sleep apnea) RLS (restless legs syndrome) Type 2 diabetes mellitus with diabetic polyneuropathy Family History Family History Mother Diabetes Sister Diabetes Surgical History Surgical History H/O heart artery stent History of arthroplasty of right knee Hx of left knee surgery Hx of lithotripsy Status post total knee replacement, right Social History Social History Household Members: Family and Friend(s) Alcohol intake: former Smoking Status: Never smoker Tobacco Type: Cigarette Advance Directives: No Advance Directives Information Provided: Yes Meds Allergies Allergy/AdvReac Type Severity Reaction Status Date / Time gabapentin AdvReac Unknown sleepiness Verified 11/23/20 15:45 zolpidem AdvReac Unknown inadequate Verified 11/23/20 15:45 response Home Medications Medication Instructions Recorded Confirmed Last Taken Type allopurinol 100 mg tablet 100 mg PO DAILY 06/20/20 12/11/20 Unknown History blood sugar diagnostic #10 ea 06/20/20 11/23/20 Unknown History lancets 28 gauge #100 ea 06/20/20 11/23/20 Unknown History lisinopril 10 mg tablet 10 mg PO DAILY 06/20/20 12/11/20 Unknown History ropinirole 4 mg tablet 4 mg PO TID 06/20/20 12/11/20 Unknown History amlodipine 2.5 mg tablet 2.5 mg PO DAILY 09/25/20 12/11/20 Unknown History Exam Airway Mallampati Class: II TM Dist: >3cm Neck ROM: Full Loose/Missing/Broken Teeth: No Heart: RRR Lungs: CTA Assessment and Plan Assessment Anesthesia Assessment: Anesthesia Plan Discussed and Chart Reviewed Final Anesthetic Review NPO: Yes ASA Class: III Final Preanesthetic Review: Meds/Allgs Chart Reviewed, Consent Obtained/Reviewed and Anes Risks/Benef Reviewed Patient Risk: Intermediate Procedure Risk: Intermediate Anesthetic Plan Anesthetic Plan: MAC: Disposition: Standard PACU
[2020-12-15] VITALS (7 sets, daily range): BP systolic 122–136; BP diastolic 59–89; PULSE 80–100; RESP 12–20; TEMP 36.1–36.9; O2SAT 92–99; BMI 40.4
--- NOTE | ~2020-12-15 | FL_ITS ---
EXAMINATION: XR FLUOROSCOPY WITH IMAGES CLINICAL INFORMATION: Peripheral stimulator trial COMPARISON: None. TECHNIQUE: Fluoroscopy performed by Dr. Santosh Paz. Fluoroscopy time: 0.7 minutes DAP: 3.3 Gycm2 Images: 2 FINDINGS: Fluoroscopy guidance was provided for peripheral stimulator trial of the right knee. Images demonstrate lead projecting over the proximal tibial shaft. Right knee replacement is partially visualized. FL/FL guidance in OR IMPRESSION: Fluoroscopy guidance for peripheral stimulator trial of the right knee
[2020-12-15 10:33] LABS: Glucose, Whole Blood 120 mg/dL (60-115)
[2020-12-15] MEDS: Lactated Ringers 1,000 ML 100 ML IVCONT (10:54)
--- NOTE | 2020-12-15 12:37 | MHC.SHP ---
Pre-Procedural Eval Section A The patient is an INPATIENT: No Changes since office visit: Yes Patient answered all questions The History & Physical has been completed within 30 days and I have reviewed it.: No Section B Chief Complaint: Intractable Neuropathic pain of right knee Details of Present Illness: as above Relevant Family History (Specify if Yes): No Relevant Social History: None Present Medications: see Short Stay Collaborative assessment Medical History: No relevant PMH History of Previous Operations: Relevant previous surgery/procedure and date(s) Allergies: Allergies Allergy/AdvReac Type Severity Reaction Status Date / Time gabapentin AdvReac Unknown sleepiness Verified 11/23/20 15:45 zolpidem AdvReac Unknown inadequate Verified 11/23/20 15:45 response Review of Systems Sugical H&P ROS: Negative: Constitution, Cardiovascular, Respiratory, Neurological, Psychiatric, Hem-Onc, Allergic/Immunologic, Gastrointestinal, Genitourinary, Musculoskeletal, Integumentary, Endocrine and Eyes/Ears/Nose/Throat Exam Surgical H&P Exam: Normal: HEENT, Normal: Heart, Normal: Lungs, Normal: Abdomen, Normal: Skin and Normal: Neurological and Significant Findings: Extremities (s/p TKR left) Plan Diagnosis/Plan: Unchanged I have reviewed the history and physical and performed a pertinent physical examination on my patient. No changes have occurred unless specified.
--- NOTE | 2020-12-15 14:09 | PM.OP ---
Brief Operative Note Date of Service: 12/15/20 Pre-op diagnosis: Severe right knee pain, neuropathic pain right knee. Post-op diagnosis: same Procedure: Trial of stimulation infrapatellar saphenous nerve on the right stim wave Implants: None term Surgeon: Santosh Paz MD Anesthesia: GLMA Estimated blood loss (mL): 1 Pathology: none sent Condition: stable Disposition: PACU
--- NOTE | 2020-12-15 16:33 | P.OP_ITS ---
Operative Note Operative Note Date of Service: 12/15/20 Narrative: Mr. Almaraz is very pleasant Tristanian-speaking 50 years old gentleman who came today into the operating room for the trial of peripheral nerve stimulation right infrapatellar saphenous nerve with stim wave technology. Preoperatively patient received 2 g cefazolin _approximately 30 minutes before the procedure. After obtaining informed consent patient was brought to the operating room, he was positioned supine on operating table, [place] [employer] monitors were applied and patient induced with general anesthesia LMA. Time-out was performed delineating correct site, side, the nature of the pro cedure, patient's allergy, preoperative antibiotic. All operating room staff was participating in OR time-out procedure. Patient's entire light rib right leg below the level of mid thigh was prepped with ChloraPrep twice and draped with full extremity drape with sterile foot cover. Sterilely draped C-arm was brought over operating field and picture of tibial bone was delineated on the screen. The target for the electrode position was chosen as the connection of the metaphysis and diaphysis of the medial silhouette of the right tibial bone. The projection of the point of interest to the skin was injected with small amount of mixture of lidocaine and bupivacaine. After that 22 gauge 3-1/2 inch spinal needle was driven to point of interest on anterior posterior and lateral views. When needle was appreciated on lateral view in mid shaft of the bone this was chosen as the final needle position. After that approximately 15 cm below the level of the needle in the projection of the mid shaft of the tibial bone on medial surface of the right sheen local anesthetic lidocaine was injected and small elier was performed using 11 blade scalpel. After that 16 gauge 6 in coude malleable introducer needle was inserted through the skin elier and need was advanced along side the medial border of the tibial bone in mid shaft position to were the projection of the spinal needle. When introducer needle reached the destination and was positioned in just above the projection of the spinal needle alongside the medial border of tibial border metaphysis on AP view and in mid shaft of the nee dle on the lateral view the guitar wire was inserted through the needle and advanced little bit further into the tissues. After that the stimulating electrode was inserted into the needle and position alongside the medial border of the tibial bone on AP projection and in mid shaft of the needle on the lateral projection. The navigating stylet was removed from the electrode and stimulating copper wire was inserted into the electrode. The electrode was glue to the skin using Steri-Strips after needle removal. Care was taking not to dislodge electrode with needle removal. After that sterile dressing with bacitracin was obtained and applied to the area of the injections. It was taped with Coban tape to the patient's leg. The stimulating paddle was applied over the electrodes antenna and taped to the skin. After that the patient was awaken extubated and transferred stable to PACU. He tolerated procedure well. He will continue oral antibiotics.
--- NOTE | 2020-12-19 07:06 | W.PM.OPN ---
Operative Note Operative Note Date of Service: 12/15/20 Narrative: Genicular nerve stimulation trial infrapatellar saphenous nerve stimulation. The patient was explained an informed consent with help of hospital staff pharmacist hospital. All risks benefits and alternatives were explained. The patient came to the OR where he was positioned supine on OR table. ASA monitors were applied and general anesthesia with LMA was induced. Time out was performed delineating correct site and side of the procedure, risks of DVT, risks of fire, preoperative antibiotics were discussed during the time out. The patient was positioned supine on the operating table with left leg elevated on a gel being. the patient's entire leg from the mid thigh all the way down to the toes was prepped with ChloraPrep twice. The foot was protected with the sterile foot cover and after that fenestrated drape was applied to the leg. Attention was concentrated on the INFRAPATELLAR SAPHENOUS NERVE. Sterilely draped C-arm was brought over the operating field and sq picture of tibial bone was demonstrated on the screen. The point of interest was delineated as the connection between metaphysis and diaphysis of the medial site of the tibial bone. 22 gauge 3-1/2 inch needle was driven to the point of interest where the advancement of the medial line of the shaft of the tibial bone changed its direction and formed an angle. The position of the needle in the projection of mid shaft of the bone was verified on anterior posterior view. The insertion of the 14 gauge introducer needle was performed 8 cm below the forementioned 22 gauge needle in the projection of the mid shaft of the tibial bone on the medial side. A guitar wire was inserted into the introducer needle and spread on anterior posterior and lateral views alongside the medial border of the tibial bone on anterior posterior view and in the projection of the mid shaft of the bone on the lateral view. Upon completion of the advancement of the guitar wire it was removed and stimulator catheter was inserted and advanced in the same fashion. After that the guiding stylet was removed from the stimulator catheter and antenna hydraulic lift operator copper wire was inserted into the catheter. After that the position of the catheter was verified again on anterior posterior and lateral views. At this moment the patient was awaken and stimulation was applied. Patient reported stimulation as vibration in the knee. The introducer needle was withdrawn. Care was taken not to dislodge the wire. Steri-Strips were applied to the entrance point of the catheter through the skin after benzoin application to the skin. The catheter outside of the skin was positioned in vertical fashion alongside the patient's medial flores. Sterile dressing Tegaderms were applied to the area of the operation. The patient was awaken and moved outside of the operating room to the recovery room where he recovered uneventfully.
== END 2020-12-15 15:08 ==
LOC: HO.SSS 09:53
PROVIDERS: PCP Internal Medicine; Visit Provider Anesthesiology
PROC: (CPT 64555; principal; 2020-12-15 12:10)
DX: M79.2 Neuralgia and neuritis, unspecified (principal); M25.561 Pain in right knee; I10 Essential (primary) hypertension; G47.33 Obstructive sleep apnea (adult) (pediatric); E11.42 Type 2 diabetes mellitus with diabetic polyneuropathy; E66.01 Morbid (severe) obesity due to excess calories; Z68.41 Body mass index [BMI] 40.0-44.9, adult; Z79.4 Long term (current) use of insulin; Z79.899 Other long term (current) drug therapy; Z79.82 Long term (current) use of aspirin
CPT/HCPCS: 64555; 82947; C1778; C1897; J0690; J2250; J2405; J3010

== ENCOUNTER → 2020-12-20 09:48 | Outpatient (BNVA) | payer MEDICARE, MEDICAID, SELFPAY | PROVIDERS: PCP Internal Medicine; Visit Provider Anesthesiology | DX: E66.01 Morbid (severe) obesity due to excess calories (principal); Z96.651 Presence of right artificial knee joint; M79.2 Neuralgia and neuritis, unspecified | CPT/HCPCS: 99212 ==

== ENCOUNTER → 2020-12-22 10:03 | Outpatient (BNVA) | payer MEDICARE, MEDICAID, SELFPAY | PROVIDERS: PCP Internal Medicine; Visit Provider Nurse Practitioner Family | DX: E66.01 Morbid (severe) obesity due to excess calories (principal); M79.2 Neuralgia and neuritis, unspecified; Z96.651 Presence of right artificial knee joint | CPT/HCPCS: 99212 ==

== ENCOUNTER 2021-01-07 16:39 | Emergency (ER) | payer MEDICARE, MEDICAID, SELFPAY ==
--- NOTE | ~2021-01-07 | XR_ITS ---
EXAMINATION: XR KNEE, LEFT CLINICAL INFORMATION: Knee pain status post fall COMPARISON: Knee radiographs 08/16/2020 as well as multiple other radiographs dating back to 05/04/2015 TECHNIQUE: 5 views of the left knee. FINDINGS: Tricompartmental degenerative changes are present with marginal tibial plateau osteophytes as well as bilateral lateral femoral condyle osteophytes. Narrowing is noted in the patellofemoral joint with osteophyte seen arising from the femoral condyles anteriorly and the posterior patella most marked inferiorly. Some rounded rim calcified material is seen inferior to the patella which probably represents intra-articular calcified free joint body. MRI of the knee would be helpful for further evaluation. XR/XR knee LT 4V IMPRESSION: Tricompartmental degenerative changes intra-articular calcified free joint body. This was not present in 2015 has been seen on more recent radiographs. MRI may be useful for further evaluation.
[2021-01-07 17:12] VITALS: BP 118/70; PULSE 101; RESP 16; TEMP 37.1; O2SAT 98; BMI 41.6
--- NOTE | 2021-01-07 18:53 | ED_ITS ---
HPI - Extremity Injury (Lower) General Chief Complaint: Extremity Injury, Lower Stated Complaint: L knee pain/R ear ache Time Seen by Provider: 01/07/21 17:04 Source: patient Mode of arrival: ambulatory History of Present Illness HPI Narrative: 50-year-old male with a past medical history of CAD, arthritis, chronic back pain, diabetes, hypertension, GERD, SHARONDA, presenting to the ED complaining of acute on chronic left knee pain s/p mechanical fall 1 week ago landing on left side, denies head trauma or LOC. Reports tripped over wiring, denies symptoms prior to fall including CP/SOB. Also reports right ear pain since last night with muffled hearing and radiation to throat. Denies fever, chills, drainage from ear, cough, recent swimming MD complaint: knee injury Related Data Home Medications Medication Instructions Recorded Confirmed allopurinol 100 mg tablet 100 mg PO DAILY 06/20/20 12/22/20 blood sugar diagnostic #10 ea 06/20/20 12/22/20 lancets 28 gauge #100 ea 06/20/20 12/22/20 lisinopril 10 mg tablet 10 mg PO DAILY 06/20/20 12/22/20 ropinirole 4 mg tablet 4 mg PO TID 06/20/20 12/22/20 amlodipine 2.5 mg tablet 2.5 mg PO DAILY 09/25/20 12/22/20 Previous Rx's Medication Instructions Recorded hydroxyzine HCl 50 mg PO TID PRN #30 tab 06/04/20 atorvastatin 80 mg tablet 80 mg PO DAILY #90 tab 06/28/20 metoprolol tartrate 50 mg tablet 50 mg PO BID #180 tab 06/28/20 diclofenac sodium 50 mg PO Q12H PRN #20 tab 07/07/20 naloxone 4 mg/actuation nasal spray 4 mg INTRANASAL Q3M PRN #2 ea 08/02/20 metformin 500 mg tablet 1,000 mg PO BID #360 tab 09/17/20 empagliflozin 25 mg tablet 25 mg PO QAM #30 tab 10/15/20 dulaglutide 1.5 mg/0.5 mL 1.5 mg SUBCUT QWEEK #2 ml 10/30/20 subcutaneous pen injector sildenafil 100 mg tablet 100 mg PO DAILY PRN 30 Days #20 tab 11/13/20 aspirin 81 mg tablet,delayed 81 mg PO DAILY #90 tab 11/26/20 release cephalexin 500 mg tablet 1,000 mg PO Q8H 2 Days #12 tab 12/20/20 oxycodone 5 mg tablet 5 mg PO TID PRN 30 Days #90 tab 12/20/20 acetaminophen [Tylenol Extra 500 mg PO Q6H PRN #20 tab 01/07/21 Strength] amoxicillin-pot clavulanate 1 tab PO Q12H 7 Days #14 tab 01/07/21 [Augmentin] ciprofloxacin-dexamethasone 4 drp OTIC (EARS) BID 7 Days #7.5 01/07/21 [Ciprodex] ml lidocaine [Lidoderm] 1 patch TOPICAL DAILY PRN #30 ea 01/07/21 MDD remove after 12 hours Allergies Allergy/AdvReac Type Severity Reaction Status Date / Time gabapentin AdvReac Unknown sleepiness Verified 12/22/20 10:19 zolpidem AdvReac Unknown inadequate Verified 12/22/20 10:19 response Review of Systems Review of Systems: Constitutional: No Fever, No Chills, No Fatigue, No Malaise ENT/Mouth: + decreased hearing to right ear hearing loss, + Ear Pain, No Nasal Congestion, No Sinus Pain, No Hoarseness, + sore throat, No Rhinorrhea, No Swallowing Difficulty Eyes: No Eye Pain, No Discharge, No Vision Changes Cardiovascular: No Chest Pain, No SOB Respiratory: No Cough, No Dyspnea Gastrointestinal: No Nausea, No Vomiting, No Abdominal pain Musculoskeletal: + joint pain, No Myalgias, + Joint Swelling Skin: No Skin Lesions, No rash Neuro: No Weakness, No Numbness, No Paresthesias, no LOC, no head trauma, no lightheadedness/dizziness Yes all other systems are reviewed and are negative COUNTS INCLUDE 234 BEDS AT THE [facility] Past Medical History Attestation statement: The following information was validated with the patient. Medical History Arthritis BMI 40.0-44.9, adult CAD (coronary artery disease) Cardiac arrhythmia Chronic back pain Coarse tremors Diabetes mellitus, type 2 Erectile dysfunction Essential hypertension GERD (gastroesophageal reflux disease) HTN (hypertension) Hyperlipidemia LDL goal <70 IDDM (insulin dependent diabetes mellitus) Intractable neuropathic pain of right knee Kidney stones Morbid obesity Morbid obesity due to excess calories SHARONDA (obstructive sleep apnea) RLS (restless legs syndrome) Type 2 diabetes mellitus with diabetic polyneuropathy Surgical History H/O heart artery stent History of arthroplasty of right knee Hx of left knee surgery Hx of lithotripsy Status post total knee replacement, right Family History Family History Mother Diabetes Sister Diabetes Social History Social History Household Members: Family and Friend(s) Alcohol intake: former Smoking Status: Never smoker Tobacco Type: Cigarette Smoked in Last 30 Days: No Use of substances other than those prescribed or required for medical reasons: No Any prior treatment program specific to substance use: No Advance Directives: No Advance Directives Information Provided: No Physical Exam Vital Signs: Vital Signs: Last Vital Signs Temp 98.8 F 01/07/21 17:12 Pulse 101 H 01/07/21 17:12 Resp 16 01/07/21 17:12 BP 118/70 01/07/21 17:12 Pulse Ox 98 01/07/21 17:12 Body Mass Index 41.6 Const: General: cooperative, healthy appearing and no acute distress Orientation/consciousness: patient oriented x3 Limitations: no limitations HENMT: Other: Cerumen impaction on the right cleared partially with this syringe irrigation/soaking. Visible TM with cloudiness. Right internal canal swollen. Mastoid normal Head: Yes normal to inspection Ears: hearing grossly normal bilaterally, TM normal on the left, mastoids normal, external ear abnormal auricular tenderness on the right and pain with movement of external ear on the right, no periauricular adenopathy and unable to visualize TM on the right (Due to cerumen impaction) General nose exam: Normal external nose present Face and sinus: Yes normal facial exam Mouth: Normal oral and palatal mucosa present Throat: Yes posterior oropharynx normal, Yes tonsils normal, Yes uvula midline, No abnormal tonsil and No peritonsillar mass Eyes: General: appearance normal, both eyes and all related structures EOM: EOMs intact bilaterally Neck: Neck: Yes normal visual inspection and Yes no lymphadenopathy Resp: Effort & Inspection: normal respiratory effort Cardio: Rate: regular rate GI: Inspection: Yes normal to inspection Skin: Rashes: no rashes Wounds: no wounds Neuro: General: patient oriented x3 Extrem: Other: Left knee with slight suprapatellar swelling and tenderness to palpation greater at lateral aspect. Decreased extension secondary to pain. Flexion intact. Neurovascularly intact. No evidence of cellulitis General: Yes normal to inspection Course Course Course Narrative: XR knee LT 4V IMPRESSION: Tricompartmental degenerative changes intra-articular calcified free joint body. This was not present in 2015 has been seen on more recent radiographs. MRI may be useful for further evaluation. >Findings discussed with patient with doorshaker. Recommended MRI which was discussed with patient. Anish wrap applied for comfort. Is to follow up with PCP/Orthopedics MDM - Extremity Injury (Lower) MDM Narrative Medical decision making narrative: 50-year-old male with a past medical history of CAD, arthritis, chronic back pain, diabetes, hypertension, GERD, SHARONDA, presenting to the ED complaining of acute on chronic left knee pain s/p mechanical fall 1 week ago landing on left side, denies head trauma or LOC. Also reports right ear pain since last night with muffled hearing and radiation to throat. On exam VSS, NAD, physical exam as above. Right TM cerumen impaction partially cleared with syringe irrigation/soaking. Consistent with otitis media and externa. Left knee concerning for ligamentous/tendon injury. Rule out fracture. Plan: X-rays, DC with antibiotic Medical Records Attestation: I reviewed the patient's medical records. Discharge Plan Discharge Clinical Impression: Osteoarthritis of left knee Qualifiers: Osteoarthritis type: unspecified Qualified Code(s): M17.12 - Unilateral primary osteoarthritis, left knee Otitis externa Qualifiers: Otitis externa type: unspecified type Chronicity: acute Laterality: right Qualified Code(s): H60.501 - Unspecified acute noninfective otitis externa, right ear Otitis media Qualifiers: Otitis media type: unspecified Chronicity: acute Qualified Code(s): H66.90 - Otitis media, unspecified, unspecified ear Patient Disposition: Home, Self-Care Instructions: Osteoarthritis (ED), Ear Infection (ED) Additional Instructions: Your x-ray showed degenerative changes of your left knee worse from prior X rays, an MRI is recommended. Take Tylenol at home for pain. Wear Anish wrap as needed. Ciprodex drops will help with your external ear infection/inflammation. Augmentin as an oral antibiotic that will help with your inner ear infection. Take as prescribed. Follow up with her doctor. If h er symptoms persist or worsen, fever, persistent or worsening ear pain please return to the ED for follow-up with ENT as needed Stevens radiograf?a mostr? cambios degenerativos de stevens rodilla izquierda peores de los anahi X anteriores, se recomienda rene resonancia magn?jem. [place] Tylenol en casa para el dolor. Use rene envoltura Anish seg?n sea necesario. Las gotas de Ciprodex ayudar?n con stevens infecci?n / inflamaci?n del o?do externo. Augmentin katarzyna antibi?radha oral que ayudar? con stevens infecci?n del o?do interno. Luz Marina seg?n lo prescrito. Ramírez un seguimiento con stevens m?dico. Si carol s?ntomas persisten o em peoran, fiebre, dolor de o?do persistente o que empeora, regrese al servicio de urgencias para un seguimiento con ENT seg?n sea necesario Prescriptions: New ciprofloxacin-dexamethasone [Ciprodex] 0.3-0.1 % drops,suspension 4 drp otic (ears) BID 7 Days Qty: 7.5 RF: 0 lidocaine [Lidoderm] 5 % adhesive patch,medicated 1 patch topical DAILY MDD remove after 12 hours PRN (Reason: pain) Qty: 30 RF: 0 acetaminophen [Tylenol Extra Strength] 500 mg tablet 500 mg PO Q6H PRN (Reason: pain or fever) Qty: 20 RF: 0 amoxicillin-pot clavulanate [Augmentin] 875-125 mg tablet 1 tab PO Q12H 7 Days Qty: 14 RF: 0 No Action atorvastatin 80 mg tablet 80 mg PO DAILY Qty: 90 RF: 1 metoprolol tartrate 50 mg tablet 50 mg PO BID Qty: 180 RF: 1 Narcan 4 mg/actuation spray,non-aerosol 4 mg intranasal Q3M PRN (Reason: opioid overdose) Qty: 2 RF: 0 metformin 500 mg tablet 1,000 mg PO BID Qty: 360 RF: 1 empagliflozin [Jardiance] 25 mg tablet 25 mg PO QAM Qty: 30 RF: 1 Trulicity 1.5 mg/0.5 mL pen injector 1.5 mg subcut QWEEK Qty: 2 RF: 3 sildenafil 100 mg tablet 100 mg PO DAILY PRN (Reason: sexual activity) 30 Days Qty: 20 RF: 0 aspirin 81 mg tablet,delayed release (DR/EC) 81 mg PO DAILY Qty: 90 RF: 1 hydroxyzine HCl 50 mg tablet 50 mg PO TID PRN (Reason: anxiety) Qty: 30 RF: 0 diclofenac sodium 50 mg tablet,delayed release (DR/EC) 50 mg PO Q12H PRN (Reason: pain) Qty: 20 RF: 0 lisinopril 10 mg tablet 10 mg PO DAILY RF: 0 ropinirole 4 mg tablet 4 mg PO TID RF: 0 allopurinol 100 mg tablet 100 mg PO DAILY RF: 0 (DME) FreeStyle Lite Strips Strip See Rx Instructions .ROUTE .MEDSUPPLY Qty: 10 RF: 0 (DME) lancets [FreeStyle Lancets] 28 gauge misc See Rx Instructions .ROUTE .MEDSUPPLY Qty: 100 RF: 0 amlodipine 2.5 mg tablet 2.5 mg PO DAILY RF: 0 cephalexin 500 mg tablet 1,000 mg PO Q8H 2 Days Qty: 12 RF: 0 oxycodone 5 mg tablet 5 mg PO TID PRN (Reason: pain) 30 Days Qty: 90 RF: 0 Referrals: Alia Blair MD [Physician] - 1 week Peggy Barber MD [Primary Care Provider] - 2 days Interventions: ED Discharge Assessment Last Done: 01/07/21 20:16 Discharge Date/Time: 01/07/21 20:18 Print Language: Lithuanian
--- NOTE | 2021-01-07 19:03 | PC.NURSE ---
BOYD CHAKRABORTY TO FLUSH OUT RIGHT EAR.
== END 2021-01-07 20:18 | disposition home or self-care (01) ==
PROVIDERS: Emergency Provider Emergency Medicine; PCP Internal Medicine
DX: M17.12 Unilateral primary osteoarthritis, left knee (principal); H66.91 Otitis media, unspecified, right ear; H60.501 Unspecified acute noninfective otitis externa, right ear; I25.10 Atherosclerotic heart disease of native coronary artery without angina pectoris; E11.9 Type 2 diabetes mellitus without complications; I10 Essential (primary) hypertension; Z79.899 Other long term (current) drug therapy; Z87.891 Personal history of nicotine dependence
CPT/HCPCS: 73564; 99284

== ENCOUNTER → 2021-01-17 13:02 | Outpatient (BNVA) | payer MEDICARE, MEDICAID, SELFPAY | PROVIDERS: PCP Internal Medicine; Visit Provider Anesthesiology | DX: M79.2 Neuralgia and neuritis, unspecified (principal); E66.01 Morbid (severe) obesity due to excess calories; Z96.651 Presence of right artificial knee joint; M17.12 Unilateral primary osteoarthritis, left knee | CPT/HCPCS: 99212 ==

== ENCOUNTER 2021-02-01 09:05 | Outpatient (REF) | payer MEDICARE, MEDICAID, SELFPAY ==
--- NOTE | ~2021-02-01 | US_ITS ---
EXAMINATION: US RETROPERITONEAL LIMITED (RENAL ONLY) CLINICAL INFORMATION: Renal calculus. COMPARISON: [facility] dated 12/08/2019 and 11/24/2018. Renals only ultrasound dated 12/01/2019 and 11/24/2018. CT abdomen and pelvis without contrast dated 11/18/2019. TECHNIQUE: Real-time imaging of the kidneys. FINDINGS: RIGHT KIDNEY: 12.4 x 5.4 x 5.0 cm (SAG x AP x TRV). An interpolar echogenic focus measures 0.4 cm. No hydronephrosis. LEFT KIDNEY: 13.4 x 5.8 x 6.5 cm (SAG x AP x TRV). An interpolar anechoic cyst measures 1.3 cm. No nephrolithiasis Color Doppler showed no abnormal vascular flow. US/US renal BI IMPRESSION: 1. Nonobstructing interpolar right intrarenal calculus without significant change. The previously seen lower pole calculus was not visualized. 2. Small left renal cyst demonstrates benign features without significant change.
== END 2021-02-01 09:06 | disposition home or self-care (01) ==
LOC: HO.US 09:05
PROVIDERS: PCP Internal Medicine; Visit Provider Urology
DX: N20.0 Calculus of kidney (principal)
CPT/HCPCS: 76775

== ENCOUNTER → 2021-02-26 12:36 | Outpatient (BNVA) | payer MEDICARE, MEDICAID, SELFPAY | PROVIDERS: PCP Internal Medicine; Visit Provider Anesthesiology | DX: E66.01 Morbid (severe) obesity due to excess calories (principal); M79.2 Neuralgia and neuritis, unspecified; Z96.651 Presence of right artificial knee joint | CPT/HCPCS: 99212 ==

== ENCOUNTER 2021-02-27 05:45 | Outpatient (REF) | payer MEDICARE, MEDICAID, SELFPAY ==
--- NOTE | ~2021-02-27 | FL_ITS ---
EXAMINATION: XR FLUOROSCOPY WITH IMAGES CLINICAL INFORMATION: Unilateral primary osteoarthritis COMPARISON: None. TECHNIQUE: Fluoroscopy performed by Xochitl Boateng NP. Fluoroscopy time: 0.1 minutes DAP: 1.26 Gycm2 Images: 3 FINDINGS: There are needles placed along the lateral cortex of distal femur and medial cortex of proximal tibia. The joint space is maintained normal. The soft tissues are normal FL/FL guidance in treatment room IMPRESSION: Fluoroscopy was provided to referring physician for pain management.
== END 2021-02-27 05:46 | disposition home or self-care (01) ==
LOC: HO.RADIR 05:45
PROVIDERS: Visit Provider Anesthesiology
DX: M17.12 Unilateral primary osteoarthritis, left knee (principal); M79.2 Neuralgia and neuritis, unspecified; E66.01 Morbid (severe) obesity due to excess calories; Z96.651 Presence of right artificial knee joint
CPT/HCPCS: 64454

== ENCOUNTER → 2021-03-08 11:15 | Outpatient (BNVA) | payer MEDICARE, MEDICAID, SELFPAY | PROVIDERS: PCP Internal Medicine; Visit Provider Anesthesiology | DX: E66.01 Morbid (severe) obesity due to excess calories (principal); M79.2 Neuralgia and neuritis, unspecified; Z96.651 Presence of right artificial knee joint | CPT/HCPCS: Q3014 ==

== ENCOUNTER 2021-03-12 12:47 | Outpatient (REF) | payer MEDICARE, MEDICAID, SELFPAY ==
--- NOTE | ~2021-03-12 | XR_ITS ---
EXAMINATION: XR ABDOMEN KUB CLINICAL INDICATION: Nephrolithiasis COMPARISON: Previous renal ultrasound January 2021, [facility] December [address] of the abdomen and pelvis October 2019 TECHNIQUE: AP view of the abdomen. FINDINGS: There are 3 small 2 mm densities projecting over the lower pole of the right kidney and one 2 mm density projecting over the lower pole of the left kidney questionable for small stones. There are stable left pelvic calcifications probably representing calcified phleboliths. Bowel gas pattern and bony structures are unremarkable. XR/XR KUB IMPRESSION: Question small bilateral renal stones.
== END 2021-03-12 12:48 | disposition home or self-care (01) ==
LOC: HO.XRAY 12:47
PROVIDERS: Visit Provider Urology
DX: N20.0 Calculus of kidney (principal)
CPT/HCPCS: 74018

== ENCOUNTER → 2021-03-16 10:18 | Outpatient (BNVA) | payer MEDICARE, MEDICAID, SELFPAY | PROVIDERS: PCP Internal Medicine; Visit Provider Urology | DX: Z13.89 Encounter for screening for other disorder (principal) | CPT/HCPCS: 99212 ==

== ENCOUNTER 2021-03-21 08:01 | Outpatient (REF) | payer MEDICARE, MEDICAID, SELFPAY ==
[2021-03-21 08:38] LABS: MANUAL DIFF FLAG NO
[2021-03-21 08:48] LABS: White Blood Count 10.2 X10*3/uL (4.8-10.8)
[2021-03-21 08:49] LABS: Basophils Percent Auto 0.3 % (0-2); Eosinophils Absolute Auto 0.3 X10*3/uL (0.0-0.4); Eosinophils Percent Auto 2.7 % (0-4); Hematocrit 42.5 % (42-52); Hemoglobin 14.1 g/dl (14.0-18.0); Imm Gran Abs Auto 0.04 X10*3/uL (0.00-0.03); Imm Gran Pct Auto 0.4 % (0.0-0.4); Lymphocytes Absolute Auto 2.6 X10*3/uL (1.2-4.9); Lymphocytes Percent Auto 25.7 % (20-40); Mean Corpuscular HGB Conc 33.2 g/dl (31.0-36.0); Mean Corpuscular Hemoglobin 29.1 pg (27.0-33.0); Mean Corpuscular Volume 87.6 fL (80-98); Mean Platelet Volume 10.6 fL (9.4-12.4); Monocytes Absolute Auto 1.1 X10*3/uL (0.1-1.2); Monocytes Percent Auto 10.4 % (2-11); Neutrophils Absolute Auto 6.2 X10*3/uL (2.0-8.3); Neutrophils Percent Auto 60.5 % (45-73); Platelet Count 272 X10*3/uL (160-400); Red Blood Count 4.85 X10*6/uL (4.60-5.80); Red Cell Distribution Width 13.5 % (11.0-16.0)
[2021-03-21 09:31] LABS: Alanine Aminotransferase 32 U/L (0-40); Albumin Level 4.5 g/dL (3.5-5.0); Alkaline Phosphatase 93 U/L (39-117); Anion Gap 14 (12-20); Aspartate Amino Transferase 24 U/L (5-37); Bilirubin Total 0.8 mg/dL (0.0-1.0); Blood Urea Nitrogen 12 mg/dL (9-16); Calcium 8.9 mg/dL (8.4-10.2); Carbon Dioxide 24 mmol/L (22-29); Chloride 102 mmol/L (96-108); Cholesterol 119 mg/dL; Estimated Glomerular Filt Rate > 60; Glucose Fasting 126 mg/dL (60-99); HDL Cholesterol 31 mg/dL; Iron 75 mcg/dL (45-160); LDL Cholesterol Calculated 63 mg/dl; Percent Iron Saturation 20 % (15-50); Sodium 136 mmol/L (135-145); Total Iron Binding Capacity 370 mcg/dL (228-428); Total Protein 7.4 g/dL (6.5-8.0); Triglycerides 127 mg/dL; Unsaturated Iron Binding 295 ug/dL; Uric Acid 4.5 mg/dL (3.4-7.0)
[2021-03-21 10:12] LABS: Creatinine Urine 108.05 mg/dL; Microalbum/Creatinine Ratio Ur 43.4 ug/mg cr
[2021-03-31 08:06] LABS: Vitamin D 25-OH, D2 <4 ng/mL; Vitamin D 25-OH, D3 31 ng/mL; Vitamin D 25-OH, Total 31 ng/mL (30-100)
== END 2021-03-21 08:02 | disposition home or self-care (01) ==
LOC: HO.LAB 08:01
PROVIDERS: PCP Internal Medicine; Visit Provider Internal Medicine
DX: M10.9 Gout, unspecified (principal); D64.9 Anemia, unspecified; E78.5 Hyperlipidemia, unspecified; E11.42 Type 2 diabetes mellitus with diabetic polyneuropathy; E55.9 Vitamin D deficiency, unspecified
CPT/HCPCS: 36415; 80053; 80061; 82043; 82306; 83540; 84550; 85025

== ENCOUNTER → 2021-03-29 14:19 | Outpatient (BNVA) | payer MEDICARE, MEDICAID, SELFPAY | PROVIDERS: PCP Internal Medicine; Visit Provider Anesthesiology | DX: Z51.81 Encounter for therapeutic drug level monitoring (principal); M79.2 Neuralgia and neuritis, unspecified; E66.01 Morbid (severe) obesity due to excess calories; Z96.651 Presence of right artificial knee joint | CPT/HCPCS: 99212 ==

== ENCOUNTER → 2021-04-20 09:35 | Outpatient (BNVA) | payer MEDICARE, MEDICAID, SELFPAY | PROVIDERS: PCP Internal Medicine; Visit Provider Nurse Practitioner Family | DX: K59.01 Slow transit constipation (principal) | CPT/HCPCS: 99202 ==

== ENCOUNTER → 2021-04-25 10:11 | Outpatient (BNVA) | payer MEDICARE, MEDICAID, SELFPAY | PROVIDERS: PCP Internal Medicine; Visit Provider Anesthesiology | DX: Z51.81 Encounter for therapeutic drug level monitoring (principal); M79.2 Neuralgia and neuritis, unspecified; E66.01 Morbid (severe) obesity due to excess calories; Z96.651 Presence of right artificial knee joint | CPT/HCPCS: 99212 ==

== ENCOUNTER 2021-05-01 06:20 | Outpatient (REF) | payer MEDICARE, MEDICAID, SELFPAY ==
--- NOTE | ~2021-05-01 | FL_ITS ---
EXAMINATION: XR FLUOROSCOPY WITH IMAGES CLINICAL INFORMATION: Neurology in the right is COMPARISON: February 27, 2021 TECHNIQUE: Fluoroscopy performed by Dr. Santosh Paz. Fluoroscopy time: 0.6 seconds DAP: 4.83 Gycm2 Images: 3 FINDINGS: 3 lateral images of the right knee performed. Patient status post right knee arthroplasty. Stimulator wires are seen with to overlying the anterior aspect of the distal femur and one overlying the proximal tibia. FL/FL guidance in treatment room IMPRESSION: Fluoroscopy for pain management with what appears to be stimulator wires.
== END 2021-05-01 06:21 | disposition home or self-care (01) ==
LOC: HO.RADIR 06:20
PROVIDERS: Visit Provider Anesthesiology
DX: M79.2 Neuralgia and neuritis, unspecified (principal); E66.01 Morbid (severe) obesity due to excess calories; Z96.651 Presence of right artificial knee joint
CPT/HCPCS: 64624; J0690; J3300

== ENCOUNTER → 2021-05-21 12:13 | Outpatient (BNVA) | payer MEDICARE, MEDICAID, SELFPAY | PROVIDERS: PCP Internal Medicine; Visit Provider Nurse Practitioner Gerontology | DX: E11.21 Type 2 diabetes mellitus with diabetic nephropathy (principal); E11.42 Type 2 diabetes mellitus with diabetic polyneuropathy; I10 Essential (primary) hypertension; I25.10 Atherosclerotic heart disease of native coronary artery without angina pectoris; E78.5 Hyperlipidemia, unspecified; E66.01 Morbid (severe) obesity due to excess calories; Z68.41 Body mass index [BMI] 40.0-44.9, adult; Z95.5 Presence of coronary angioplasty implant and graft; Z88.6 Allergy status to analgesic agent; Z88.8 Allergy status to other drugs, medicaments and biological substances; Z79.84 Long term (current) use of oral hypoglycemic drugs; Z79.899 Other long term (current) drug therapy | CPT/HCPCS: 82947; 99212 ==

== ENCOUNTER → 2021-05-23 08:06 | Outpatient (BNVA) | payer MEDICARE, MEDICAID, SELFPAY | PROVIDERS: PCP Internal Medicine; Referring Provider Internal Medicine; Visit Provider Nurse Practitioner Family | DX: Z51.81 Encounter for therapeutic drug level monitoring (principal); M79.2 Neuralgia and neuritis, unspecified; E66.01 Morbid (severe) obesity due to excess calories; Z96.651 Presence of right artificial knee joint; Z12.11 Encounter for screening for malignant neoplasm of colon; K58.2 Mixed irritable bowel syndrome; K21.9 Gastro-esophageal reflux disease without esophagitis | CPT/HCPCS: 99212 ==

== ENCOUNTER 2021-06-07 10:57 | Emergency (ER) | payer MEDICARE, MEDICAID, SELFPAY ==
[2021-06-07 12:03] VITALS: BP 127/69; PULSE 100; RESP 18; TEMP 36.2; O2SAT 98; BMI 35.4
--- NOTE | 2021-06-07 13:40 | ED.WOUNDLAC ---
HPI - Wound/Laceration General Chief Complaint: Wound/Laceration Stated Complaint: finger laceration Time Seen by Provider: 06/07/21 13:40 Source: patient Mode of arrival: ambulatory Limitations: language barrier History of Present Illness HPI narrative: 50-year-old male with past medical history of kidney stone, diabetes, hypertension, hyperlipidemia is here today after cutting his left hand index finger. Patient reports that he was reaching in to a bag and cut his finger on gambling box person. Patient reports that he had tetanus vaccine 2 years ago. Bleeding controlled. Patient denies cutting deep into the bone. Onset (ago): minute(s) Related Data Home Medications Medication Instructions Recorded Confirmed allopurinol 100 mg tablet 100 mg PO DAILY 06/20/20 05/21/21 lancets 28 gauge (FreeStyle #100 ea 06/20/20 05/21/21 Lancets) lisinopril 10 mg tablet 10 mg PO DAILY 06/20/20 05/21/21 amlodipine 2.5 mg tablet 2.5 mg PO DAILY 09/25/20 05/21/21 blood sugar diagnostic (FreeStyle #10 ea 05/21/21 05/21/21 Lite Strips) Previous Rx's Medication Instructions Recorded atorvastatin 80 mg tablet 80 mg PO DAILY #90 tab 06/28/20 metoprolol tartrate 50 mg tablet 50 mg PO BID #180 tab 06/28/20 diclofenac sodium 50 mg 50 mg PO Q12H PRN #20 tab 07/07/20 tablet,delayed release aspirin 81 mg tablet,delayed 81 mg PO DAILY #90 tab 11/26/20 release tadalafil 10 mg tablet 10 mg PO DAILY 90 Days #90 tab 03/16/21 sertraline 25 mg tablet 25 mg PO DAILY 90 Days #90 tab 03/20/21 dulaglutide 3 mg/0.5 mL 3 mg SUBCUT QWEEK 28 Days #2 ml 05/21/21 subcutaneous pen injector (Trulicity) empagliflozin 25 mg tablet 25 mg PO QAM #30 tab 05/21/21 (Jardiance) metformin 500 mg tablet 1,000 mg PO BID #360 tab 05/21/21 docusate sodium 100 mg capsule 100 mg PO BEDTIME #30 cap 05/23/21 omeprazole 20 mg capsule,delayed 20 mg PO BID 90 Days #180 cap 05/23/21 release oxycodone 5 mg tablet 5 mg PO TID PRN 30 Days #90 tab 05/23/21 sennosides 8.6 mg tablet (Natural 8.6 mg PO BEDTIME #30 tab 05/23/21 Senna Laxative) ropinirole 4 mg tablet 4 mg PO .every 6 hours 30 Days 06/02/21 #120 tab cephalexin 500 mg capsule 500 mg PO QID 7 Days #28 cap 06/07/21 tramadol 50 mg tablet 50 mg PO Q8H PRN 30 Days #90 tab 06/07/21 Allergies Allergy/AdvReac Type Severity Reaction Status Date / Time gabapentin AdvReac Intermediate sleepiness Verified 06/07/21 12:03 zolpidem AdvReac Intermediate inadequate Verified 06/07/21 12:03 response Review of Systems Review of Systems: Constitutional : No Weight loss, No Fever, No Chills, No Night Sweats, No Fatigue, No Malaise ENT/Mouth : No Hearing loss, No Ear Pain, No Nasal Congestion, No Sinus Pain, No Hoarseness, No sore throat, No Rhinorrhea, No Swallowing Difficulty Eyes: No Eye Pain, No Swelling, No Redness, No Foreign Body, No Discharge, No Vision Changes Cardiovascular : No Chest Pain, No SOB, No Dyspnea on Exertion, No Orthopnea, No Edema, No Palpitations Respiratory : No Cough, No Sputum, No Wheezing, No Smoke Exposure, No Dyspnea Gastrointestinal : No Nausea, No Vomiting, No Diarrhea, No Constipation, No abdominal Pain, No Hematochezia, No Melena Genitourinary : no irregular bleeding, No Dysuria, No Urinary Frequency, No Hematuria, No Urinary Incontinence, No Urgency, No Flank Pain, No Urinary Flow Changes, No Hesitancy Musculoskeletal : No joint pain, No Myalgias, No Joint Swelling Skin : No Skin Lesions, No rash, left index finger laceration Neuro : No Weakness, No Numbness, No Paresthesias, No Loss of Consciousness, No Dizziness, No Headache Yes all other systems are reviewed and are negative [facility] Past Medical History Medical History Arthritis BMI 40.0-44.9, adult CAD (coronary artery disease) Cardiac arrhythmia Chronic back pain Coarse tremors Depression with anxiety Diabetes mellitus, type 2 Erectile dysfunction Essential hypertension GERD (gastroesophageal reflux disease) Gout HTN (hypertension) Hyperlipidemia LDL goal <70 IDDM (insulin dependent diabetes mellitus) Intractable neuropathic pain of right knee Kidney stones Morbid obesity Morbid obesity due to excess calories SHARONDA (obstructive sleep apnea) RLS (restless legs syndrome) Type 2 diabetes mellitus with diabetic polyneuropathy Surgical History H/O heart artery stent History of arthroplasty of right knee Hx of left knee surgery Hx of lithotripsy Status post total knee replacement, right Family History Family History Mother Diabetes Sister Diabetes Social History Social History Household Members: Family and Friend(s) Housing: Apartment Alcohol intake: former Patient Tobacco Use Status: Never used Tobacco e-Cigarette/Vaping Use: Never Used Second Hand Smoke Exposure: No Advance Directives: No Advance Directives Information Provided: No service: No Current occupational status: disabled Physical Exam Vital Signs: Vital Signs: Last Vital Signs Temp 97.2 F 06/07/21 12:03 Pulse 100 06/07/21 12:03 Resp 18 06/07/21 12:03 BP 127/69 06/07/21 12:03 Pulse Ox 98 06/07/21 12:03 Body Mass Index 35.4 Const: General: healthy appearing, no acute distress and well developed Nutritional Appearance: well nourished Orientation/consciousness: patient oriented x3 Neck: Neck: Yes normal visual inspection, Yes full ROM and Yes trachea midline Thyroid: Thyroid normal Resp: Auscultation: clear to auscultation bilaterally Cardio: Rate: regular rate Rhythm: regular rhythm GI: Inspection: Yes normal to inspection and No distended Palpation (GI): No hepatosplenomegaly present Auscultation: normal bowel sounds Skin: General skin exam: elasticity normal, turgor normal and dry skin Neuro: General: patient oriented x3 Extrem: Right upper extremity: normal to inspection, full ROM and normal capillary refill Left upper extremity: full ROM, normal capillary refill and hand (Left index finger 1 cm laceration) Course Course Course Narrative: 50-year-old male is here today for left index finger laceration. Patient reports that he cut his finger on box supervisor sintering plant. Cut is about 2 mm deep to distal portion of his finger. Patient had tetanus 2 years ago. Will suture, will use lidocaine before. Will medicate the patient with Keflex. He is diabetic we will send him home with antibiotic for prophylaxis. Procedures Laceration Laceration 1: Site: hand (Index finger) Side (If applicable): left Size (cm): 1.2 Description: linear Depth: involves muscle layer Local Anesthetic: lidocaine 2% Amount of anesthesia used (mL): 3 Pre-repair: irrigated extensively Skin layer closed with: nylon Size (cm): 5-0 Number of sutures: 3 Technique: simple, interrupted Discharge Plan Discharge Clinical Impression: Laceration Patient Disposition: Home, Self-Care Instructions: Finger Laceration (ED) Additional Instructions: Lo vieron aqu? hoy por rene laceraci?n en el dedo ?ndice courtney. Se colocaron yonathan suturas. Le administrar? antibi?radha para prevenir rene infecci?n. Ramírez un seguimiento para la eliminaci?n de la sutura en 7 a 10 d?as con masters PCP o aqu?. Prescriptions: New cephalexin 500 mg capsule 500 mg PO QID 7 Days Qty: 28 RF: 0 No Action atorvastatin 80 mg tablet 80 mg PO DAILY Qty: 90 RF: 1 metoprolol tartrate 50 mg tablet 50 mg PO BID Qty: 180 RF: 1 aspirin 81 mg tablet,delayed release (DR/EC) 81 mg PO DAILY Qty: 90 RF: 1 ropinirole 4 mg tablet 4 mg PO .every 6 hours 30 Days Qty: 120 RF: 3 tramadol 50 mg tablet 50 mg PO Q8H PRN (Reason: pain) 30 Days Qty: 90 RF: 0 diclofenac sodium 50 mg tablet,delayed release (DR/EC) 50 mg PO Q12H PRN (Reason: pain) Qty: 20 RF: 0 sertraline 25 mg tablet 25 mg PO DAILY 90 Days Qty: 90 RF: 1 lisinopril 10 mg tablet 10 mg PO DAILY RF: 0 allopurinol 100 mg tablet 100 mg PO DAILY RF: 0 (DME) lancets [FreeStyle Lancets] 28 gauge misc See Rx Instructions .ROUTE .MEDSUPPLY Qty: 100 RF: 0 (DME) FreeStyle Lite Strips Strip See Rx Instructions .ROUTE .MEDSUPPLY Qty: 10 RF: 0 amlodipine 2.5 mg tablet 2.5 mg PO DAILY RF: 0 Trulicity 3 mg/0.5 mL pen injector 3 mg subcut QWEEK 28 Days Qty: 2 RF: 6 Jardiance 25 mg tablet 25 mg PO QAM Qty: 30 RF: 6 metformin 500 mg tablet 1,000 mg PO BID Qty: 360 RF: 1 oxycodone 5 mg tablet 5 mg PO TID PRN (Reason: pain) 30 Days Qty: 90 RF: 0 tadalafil 10 mg tablet 10 mg PO DAILY 90 Days Qty: 90 RF: 0 omeprazole 20 mg capsule,delayed release(DR/EC) 20 mg PO BID 90 Days Qty: 180 RF: 2 docusate sodium 100 mg capsule 100 mg PO BEDTIME Qty: 30 RF: 3 sennosides [Natural Senna Laxative] 8.6 mg tablet 8.6 mg PO BEDTIME Qty: 30 RF: 2 Interventions: ED Discharge Assessment Last Done: 06/07/21 15:20 Discharge Date/Time: 06/07/21 15:21
[2021-06-07] MEDS: Lidocaine HCl 2 % MPF 5 ML VIAL INFILTRATI (15:18)
[2021-06-07] MEDS: cephALEXin 500 MG CAPSULE PO (15:18)
== END 2021-06-07 15:21 | disposition home or self-care (01) ==
PROVIDERS: Emergency Provider Emergency Medicine
DX: S61.211A Laceration without foreign body of left index finger without damage to nail, initial encounter (principal); E11.9 Type 2 diabetes mellitus without complications; I10 Essential (primary) hypertension; I25.10 Atherosclerotic heart disease of native coronary artery without angina pectoris; Z79.82 Long term (current) use of aspirin; Z79.84 Long term (current) use of oral hypoglycemic drugs; Z79.899 Other long term (current) drug therapy; W45.8XXA Other foreign body or object entering through skin, initial encounter; Y93.9 Activity, unspecified; Y92.9 Unspecified place or not applicable; Y99.9 Unspecified external cause status
CPT/HCPCS: 12041; 99283; 99284

== ENCOUNTER → 2021-06-20 13:23 | Outpatient (BNVA) | payer MEDICARE, MEDICAID, SELFPAY | PROVIDERS: Visit Provider Anesthesiology | DX: Z51.81 Encounter for therapeutic drug level monitoring (principal); M79.2 Neuralgia and neuritis, unspecified; E66.01 Morbid (severe) obesity due to excess calories; Z96.651 Presence of right artificial knee joint | CPT/HCPCS: 99212 ==

== ENCOUNTER 2021-07-19 00:03 | Emergency (ER) | payer MEDICARE, MEDICAID, SELFPAY ==
[2021-07-19 00:14] VITALS: BP 136/75; PULSE 98; RESP 16; TEMP 37.3; O2SAT 97; BMI 41.6
--- NOTE | 2021-07-19 00:27 | ED_ITS ---
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 This is type 2 diabetic patient uncircumcised, came in with infection on the foreskin of his penis, patient had it once before, declined any fever chills, no dysuria or frequent urination, patient is sexually active with 1 partner, patient declined any absolute risk of STD, no discharge, no lesion Rash on the penis. Related Data Home Medications Medication Instructions Recorded Confirmed allopurinol 100 mg tablet 100 mg PO DAILY 06/20/20 05/21/21 lancets 28 gauge (FreeStyle #100 ea 06/20/20 05/21/21 Lancets) lisinopril 10 mg tablet 10 mg PO DAILY 06/20/20 05/21/21 amlodipine 2.5 mg tablet 2.5 mg PO DAILY 09/25/20 05/21/21 blood sugar diagnostic (FreeStyle #10 ea 05/21/21 05/21/21 Lite Strips) Previous Rx's Medication Instructions Recorded atorvastatin 80 mg tablet 80 mg PO DAILY #90 tab 06/28/20 metoprolol tartrate 50 mg tablet 50 mg PO BID #180 tab 06/28/20 diclofenac sodium 50 mg 50 mg PO Q12H PRN #20 tab 07/07/20 tablet,delayed release aspirin 81 mg tablet,delayed 81 mg PO DAILY #90 tab 11/26/20 release tadalafil 10 mg tablet 10 mg PO DAILY 90 Days #90 tab 03/16/21 sertraline 25 mg tablet 25 mg PO DAILY 90 Days #90 tab 03/20/21 dulaglutide 3 mg/0.5 mL 3 mg (0.5 mL) SUBCUT QWEEK 28 Days 05/21/21 subcutaneous pen injector #2 ml (Trulicity) empagliflozin 25 mg tablet 25 mg PO QAM #30 tab 05/21/21 (Jardiance) metformin 500 mg tablet 1,000 mg PO BID #360 tab 05/21/21 docusate sodium 100 mg capsule 100 mg PO BEDTIME #30 cap 05/23/21 omeprazole 20 mg capsule,delayed 20 mg PO BID 90 Days #180 cap 05/23/21 release sennosides 8.6 mg tablet (Natural 8.6 mg PO BEDTIME #30 tab 05/23/21 Senna Laxative) ropinirole 4 mg tablet 4 mg PO .every 6 hours 30 Days 06/02/21 #120 tab cephalexin 500 mg capsule 500 mg PO QID 7 Days #28 cap 06/07/21 tramadol 50 mg tablet 50 mg PO Q8H PRN 30 Days #90 tab 06/07/21 oxycodone 5 mg tablet 5 mg PO TID PRN 30 Days #90 tab 06/20/21 nystatin 100,000 unit/gram topical 1 appl TOPICAL TID #30 g 07/19/21 cream Allergies Allergy/AdvReac Type Severity Reaction Status Date / Time gabapentin AdvReac Intermediate sleepiness Verified 06/07/21 12:03 zolpidem AdvReac Intermediate inadequate Verified 06/07/21 12:03 response Review of Systems Review of Systems: all other systems are reviewed and are negative Constitutional: Reports as per HPI and Reports no additional constitutional complaints Eyes: Reports as per HPI and Reports no additional eye complaints Reports system reviewed and no additional complaints, except as documented Cardiovascular: Reports as per HPI and Reports no additional cardiovascular complaints Respiratory: Reports as per HPI and Reports no additional respiratory complaints Gastrointestinal: Reports as per HPI and Reports no additional gastrointestinal complaints Genitourinary: Reports no additional female genitourinary complaints Musculoskeletal: Reports no additional musculoskeletal complaints Skin/Breast: Reports system reviewed and no additional complaints, except as docu Psychiatric: Reports no additional psychiatric complaints Endocrine: Reports no additional endocrine complaints Hematologic/Lymphatic: Reports no additional hematologic/lymphatic complaints Allergic/Immunologic: Reports no additional allergic/immunologic complaints Reports system reviewed and no additional complaints, except as documented and Reports Abnormal speech present [facility] Past Medical History Medical History Arthritis BMI 40.0-44.9, adult CAD (coronary artery disease) Cardiac arrhythmia Chronic back pain Coarse tremors Depression with anxiety Diabetes mellitus, type 2 Erectile dysfunction Essential hypertension GERD (gastroesophageal reflux disease) Gout HTN (hypertension) Hyperlipidemia LDL goal <70 IDDM (insulin dependent diabetes mellitus) Intractable neuropathic pain of right knee Kidney stones Morbid obesity Morbid obesity due to excess calories SHARONDA (obstructive sleep apnea) RLS (restless legs syndrome) Type 2 diabetes mellitus with diabetic polyneuropathy Surgical History H/O heart artery stent History of arthroplasty of right knee Hx of left knee surgery Hx of lithotripsy Status post total knee replacement, right Family History Family History Mother Diabetes Sister Diabetes Social History Social History Household Members: Family and Friend(s) Housing: Apartment Alcohol intake: former Patient Tobacco Use Status: Never used Tobacco e-Cigarette/Vaping Use: Never Used Second Hand Smoke Exposure: No Use of substances other than those prescribed or required for medical reasons: No Advance Directives: No Advance Directives Information Provided: Yes service: No Current occupational status: disabled Physical Exam Vital Signs: Vital Signs: Last Vital Signs Temp 99.2 F 07/19/21 00:14 Pulse 98 07/19/21 00:14 Resp 16 07/19/21 00:14 BP 136/75 07/19/21 00:14 Pulse Ox 97 07/19/21 00:14 Body Mass Index 41.6 vital signs have been reviewed as appeared to be correct. Blood pressure normal. Heart rate normal. Respiration rate normal. Temperature normal. Oxygen saturation normal. Appearance: Alert. Oriented X3. No acute distress. Head: Normal external exam. Normocephalic. Atraumatic. No Connolly signs noted. No raccoon eyes noted Eyes: PERRLA. EOMI. Conjunctiva and sclera normal. Eyelids normal. ENT: TM's Normal. Pharynx normal. Uvula midline. Moist mucous membranes. No trismus noted. No drooling noted. No muffled voice noted. Neck: Normal inspection. Neck supple. FROM. No adenopathy. Thyroid Normal. No meningeal signs. No neck mass noted. CVS: Normal heart rate and rhythm. Heart sound normal. No murmurs noted. Pulses normal throughout. Respiratory: No respiratory distress. Painless inspiration. Breath sounds normal. No wheezes/rales/rhonchi noted. Chest nontender. No accessory muscle usage noted or decreased air movement noted. Abdomen: Soft and nontender. Bowel sounds normal in all 4 quadrants. No distention noted. No organomegaly noted. No visible injury noted. exam: Uncircumcised, redness on the glans penis and foreskin. Back: No CVA tenderness. Full range of motion noted. Skin: Skin warm and dry. Normal skin color. Normal skin turgor. No rashes/lesions/lacerations noted. Extremities: No lower extremity edema. Extremities exhibit normal range of mo tion. Extremities nontender. Neuro: Oriented X 3. Cranial nerve exam: II-XII are grossly intact No motor deficit. No sensory deficit. Reflexes normal. Course Course Course Narrative: assessment and plan. 5I year male diabetic, uncircumcised with Recurrent balanitis. Start patient on nystatin cream, patient was educated to keep his diabetes under good control, keep the area dry and clean, follow-up with urologist to discuss benefit of circumcision. Medical Decision Making Lab Data Lab results reviewed: Yes I reviewed the patient's lab results. Labs: Lab Results 07/19/21 07/19/21 Range/Units 00:25 00:36 POC Glucose 151 H (60-115) mg/dL Urine Color YELLOW Urine Appearance CLEAR Urine pH 6.0 (5.0-8.0) Ur Specific [place] 1.015 (1.005-1.025) Urine Protein NEG (NEG-TRACE) MG/DL Urine Glucose (UA) >=1000 H (NEG) MG/DL Urine Ketones NEG (NEG) MG/DL Urine Blood TRACE (NEG) Urine Nitrite NEG (NEG) Ur Leukocyte Esterase NEG (NEG) Urine RBC 0-2 (0) /HPF Urine WBC 0 (0-4) /HPF Ur Squamous Epith Cells TRACE /LPF Urine Bacteria NONE /LPF Urine Mucus 1+ /LPF Discharge Plan Discharge Clinical Impression: Candidal balanitis Patient Disposition: Home, Self-Care Instructions: Balanitis (ED) Prescriptions: New nystatin 100,000 unit/gram cream 1 appl topical TID Qty: 30 RF: 0 No Action atorvastatin 80 mg tablet 80 mg PO DAILY Qty: 90 RF: 1 metoprolol tartrate 50 mg tablet 50 mg PO BID Qty: 180 RF: 1 aspirin 81 mg tablet,delayed release (DR/EC) 81 mg PO DAILY Qty: 90 RF: 1 ropinirole 4 mg tablet 4 mg PO .every 6 hours 30 Days Qty: 120 RF: 3 tramadol 50 mg tablet 50 mg PO Q8H PRN (Reason: pain) 30 Days Qty: 90 RF: 0 diclofenac sodium 50 mg tablet,delayed release (DR/EC) 50 mg PO Q12H PRN (Reason: pain) Qty: 20 RF: 0 cephalexin 500 mg capsule 500 mg PO QID 7 Days Qty: 28 RF: 0 sertraline 25 mg tablet 25 mg PO DAILY 90 Days Qty: 90 RF: 1 lisinopril 10 mg tablet 10 mg PO DAILY RF: 0 allopurinol 100 mg tablet 100 mg PO DAILY RF: 0 (DME) lancets [FreeStyle Lancets] 28 gauge misc See Rx Instructions .ROUTE .MEDSUPPLY Qty: 100 RF: 0 (DME) FreeStyle Lite Strips Strip See Rx Instructions .ROUTE .MEDSUPPLY Qty: 10 RF: 0 amlodipine 2.5 mg tablet 2.5 mg PO DAILY RF: 0 Trulicity 3 mg/0.5 mL pen injector 3 mg subcut QWEEK 28 Days Qty: 2 RF: 6 Jardiance 25 mg tablet 25 mg PO QAM Qty: 30 RF: 6 metformin 500 mg tablet 1,000 mg PO BID Qty: 360 RF: 1 oxycodone 5 mg tablet 5 mg PO TID PRN (Reason: pain) 30 Days Qty: 90 RF: 0 tadalafil 10 mg tablet 10 mg PO DAILY 90 Days Qty: 90 RF: 0 omeprazole 20 mg capsule,delayed release(DR/EC) 20 mg PO BID 90 Days Qty: 180 RF: 2 docusate sodium 100 mg capsule 100 mg PO BEDTIME Qty: 30 RF: 3 sennosides [Natural Senna Laxative] 8.6 mg tablet 8.6 mg PO BEDTIME Qty: 30 RF: 2 Referrals: Mulugeta Bailey MD [Physician] - 2 days Physician,Susanne Ball [Primary Care Provider] - 2 days
[2021-07-19 00:29] LABS: Glucose, Whole Blood 151 mg/dL (60-115)
--- NOTE | 2021-07-19 00:36 | PC.NURSE ---
Pt a&o, no sob or chest pain. pt report have foreskin of penis red and tender. He had a similar episode last month. pt able to urinate , no foul odor. pt does report pain. provider into do a physical exam. Poc care completed and urine collected and sent.
[2021-07-19 00:41] LABS: Appearance Urine CLEAR; Color Urine YELLOW; Glucose Urine UA >=1000 MG/DL (NEG); Leukocyte Esterase Urine NEG (NEG); Nitrite Urine NEG (NEG); Specific Gravity - Urine 1.015 (1.005-1.025); UACC Culture Trigger NO; Urine Blood TRACE (NEG); Urine Ketones NEG (NEG); Urine Protein NEG (NEG-TRACE)
[2021-07-19 00:50] LABS: Mucus Urine 1+ /LPF; Squamous Epithelial Cell Urine TRACE /LPF
[2021-07-19 00:51] LABS: RBC Urine 0-2 /HPF (0); WBC Urine 0 /HPF (0-4)
[2021-07-19] MEDS: Ibuprofen 600 MG TABLET PO (00:52)
--- NOTE | 2021-07-19 00:57 | PC.NURSE ---
pt medicated per Mar.
== END 2021-07-19 01:33 | disposition home or self-care (01) ==
PROVIDERS: Emergency Provider Emergency Medicine
DX: B37.42 Candidal balanitis (principal); E11.9 Type 2 diabetes mellitus without complications; I10 Essential (primary) hypertension; E78.5 Hyperlipidemia, unspecified; Z79.02 Long term (current) use of antithrombotics/antiplatelets; Z79.82 Long term (current) use of aspirin; Z79.899 Other long term (current) drug therapy; Z79.4 Long term (current) use of insulin
CPT/HCPCS: 81001; 82947; 99212; 99283; 99284

== ENCOUNTER → 2021-08-09 13:57 | Outpatient (BNVA) | payer MEDICARE, MEDICAID, SELFPAY | PROVIDERS: PCP Internal Medicine; Referring Provider Nurse Practitioner Family; Visit Provider Internal Medicine | DX: I25.10 Atherosclerotic heart disease of native coronary artery without angina pectoris (principal); I35.9 Nonrheumatic aortic valve disorder, unspecified; I10 Essential (primary) hypertension; E11.42 Type 2 diabetes mellitus with diabetic polyneuropathy; E66.01 Morbid (severe) obesity due to excess calories; G47.33 Obstructive sleep apnea (adult) (pediatric) | CPT/HCPCS: 93005; 99212 ==

== ENCOUNTER → 2021-08-13 15:08 | Outpatient (BNVA) | payer MEDICARE, MEDICAID, SELFPAY | PROVIDERS: PCP Internal Medicine; Visit Provider Anesthesiology | DX: Z51.81 Encounter for therapeutic drug level monitoring (principal); F11.20 Opioid dependence, uncomplicated; M79.2 Neuralgia and neuritis, unspecified; E66.01 Morbid (severe) obesity due to excess calories; Z96.651 Presence of right artificial knee joint | CPT/HCPCS: 99212 ==

== ENCOUNTER 2021-08-28 05:58 | Outpatient (REF) | payer MEDICARE, MEDICAID, SELFPAY ==
--- NOTE | ~2021-08-28 | FL_ITS ---
EXAMINATION: XR FLUOROSCOPY WITH IMAGES CLINICAL INFORMATION: M17.12 - Unilateral primary osteoarthritis, left knee COMPARISON: Fluoroscopic spot views 02/27/2021 TECHNIQUE: Fluoroscopy performed by pain management physician. Fluoroscopy time: 0.2 minutes DAP: 0.608 Gycm2 Images: 2 FINDINGS: There are spinal needles adjacent to the distal femoral shaft, medial and lateral sides, mid depth. There is a spinal needle adjacent to the proximal tibia on medial side mid depth. FL/FL guidance in treatment room IMPRESSION: Fluoroscopy for pain management procedures.
== END 2021-08-28 05:59 | disposition home or self-care (01) ==
LOC: HO.RADIR 05:58
PROVIDERS: Visit Provider Anesthesiology
DX: M17.12 Unilateral primary osteoarthritis, left knee (principal); M79.2 Neuralgia and neuritis, unspecified; E66.01 Morbid (severe) obesity due to excess calories; Z96.651 Presence of right artificial knee joint
CPT/HCPCS: 64454

== ENCOUNTER 2021-08-31 23:03 | Emergency (ER) | payer MEDICARE, MEDICAID, SELFPAY ==
[2021-08-31 23:19] VITALS: BP 134/81; PULSE 99; RESP 15; O2SAT 97; BMI 41.6
--- NOTE | 2021-08-31 23:27 | ED_ITS ---
HPI - Eye Problem General Chief complaint: Eye Problems Stated complaint: Eye Injury? Time Seen by Provider: 08/31/21 23:26 Source: patient Mode of arrival: ambulatory Limitations: no limitations History of Present Illness HPI Narrative: Patient was working on the car staring wheel fluid went into his right eye yesterday since then increased redness and watering which is getting worse Related Data Home Medications Medication Instructions Recorded Confirmed allopurinol 100 mg tablet 100 mg PO DAILY 06/20/20 08/09/21 lancets 28 gauge (FreeStyle #100 ea 06/20/20 08/09/21 Lancets) lisinopril 10 mg tablet 10 mg PO DAILY 06/20/20 08/09/21 blood sugar diagnostic (FreeStyle #10 ea 05/21/21 08/09/21 Lite Strips) Previous Rx's Medication Instructions Recorded atorvastatin 80 mg tablet 80 mg PO DAILY #90 tab 06/28/20 metoprolol tartrate 50 mg tablet 50 mg PO BID #180 tab 06/28/20 aspirin 81 mg tablet,delayed 81 mg PO DAILY #90 tab 11/26/20 release tadalafil 10 mg tablet 10 mg PO DAILY 90 Days #90 tab 03/16/21 sertraline 25 mg tablet 25 mg PO DAILY 90 Days #90 tab 03/20/21 dulaglutide 3 mg/0.5 mL 3 mg (0.5 mL) SUBCUT QWEEK 28 Days 05/21/21 subcutaneous pen injector #2 ml (Trulicity) empagliflozin 25 mg tablet 25 mg PO QAM #30 tab 05/21/21 (Jardiance) metformin 500 mg tablet 1,000 mg PO BID #360 tab 05/21/21 docusate sodium 100 mg capsule 100 mg PO BEDTIME #30 cap 05/23/21 omeprazole 20 mg capsule,delayed 20 mg PO BID 90 Days #180 cap 05/23/21 release sennosides 8.6 mg tablet (Natural 8.6 mg PO BEDTIME #30 tab 05/23/21 Senna Laxative) ropinirole 4 mg tablet 4 mg PO .every 6 hours 30 Days 06/02/21 #120 tab nystatin 100,000 unit/gram topical 1 appl TOPICAL TID #30 g 07/19/21 cream oxycodone 5 mg tablet 5 mg PO TID PRN 30 Days #90 tab 08/13/21 ketorolac 0.5 % eye drops (Acular) 1 drp OPHTHALMIC (EYE) Q6-8H PRN 08/31/21 #5 ml tobramycin 0.3 % eye drops 2 drp OPHTHALMIC-RIGHT Q4H #5 ml 08/31/21 Allergies Allergy/AdvReac Type Severity Reaction Status Date / Time gabapentin AdvReac Intermediate sleepiness Verified 08/28/21 13:15 zolpidem AdvReac Intermediate inadequate Verified 08/28/21 13:15 response Review of Systems Review of Systems: Yes all other systems are reviewed and are negative [facility] Past Medical History Medical History Arthritis BMI 40.0-44.9, adult CAD (coronary artery disease) Cardiac arrhythmia Chronic back pain Coarse tremors Depression with anxiety Diabetes mellitus, type 2 Erectile dysfunction Essential hypertension GERD (gastroesophageal reflux disease) Gout HTN (hypertension) Hyperlipidemia LDL goal <70 IDDM (insulin dependent diabetes mellitus) Intractable neuropathic pain of right knee Kidney stones Morbid obesity Morbid obesity due to excess calories SHARONDA (obstructive sleep apnea) RLS (restless legs syndrome) Type 2 diabetes mellitus with diabetic polyneuropathy Surgical History H/O heart artery stent History of arthroplasty of right knee Hx of left knee surgery Hx of lithotripsy Status post total knee replacement, right Family History Family History Mother Diabetes Sister Diabetes Social History Social History Household Members: Family and Friend(s) Housing: Apartment Alcohol intake: former Patient Tobacco Use Status: Never used Tobacco e-Cigarette/Vaping Use: Never Used Second Hand Smoke Exposure: No Advance Directives: No Advance Directives Information Provided: Yes service: No Current occupational status: disabled Physical Exam Vital Signs: Vital Signs: Last Vital Signs Pulse 99 08/31/21 23:19 Resp 15 08/31/21 23:19 BP 134/81 08/31/21 23:19 Pulse Ox 97 08/31/21 23:19 BMI result Body Mass Index 41.6 Eyes: Visual Ricketts: normal visual ricketts by confrontation Eyelids: Yes eyelids normal Conjunctivae: conjunctival abnormal (Injected conjunctiva right) right Sclerae: scleral abnormal (Injected right) Corneas: corneas normal and fluorescein used (Negative uptake) Direct Ophthalmoscopy: normal light reflex Discharge Plan Discharge Clinical Impression: Conjunctivitis Patient Disposition: Home, Self-Care Instructions: Conjunctivitis (ED) Additional Instructions: You have chemical conjunctivitis in right eye Use eyedrops as advised till heals completely Tiene conjuntivitis qu?jemma en el be derecho. Use gotas para los ojos katarzyna se recomienda hasta que sane por completo Prescriptions: New ketorolac [Acular] 0.5 % drops 1 drp ophthalmic (eye) Q6-8H PRN (Reason: itching) Qty: 5 RF: 0 tobramycin 0.3 % drops 2 drp ophthalmic-Right Q4H Qty: 5 RF: 0 No Action atorvastatin 80 mg tablet 80 mg PO DAILY Qty: 90 RF: 1 metoprolol tartrate 50 mg tablet 50 mg PO BID Qty: 180 RF: 1 aspirin 81 mg tablet,delayed release (DR/EC) 81 mg PO DAILY Qty: 90 RF: 1 ropinirole 4 mg tablet 4 mg PO .every 6 hours 30 Days Qty: 120 RF: 3 nystatin 100,000 unit/gram cream 1 appl topical TID Qty: 30 RF: 0 sertraline 25 mg tablet 25 mg PO DAILY 90 Days Qty: 90 RF: 1 lisinopril 10 mg tablet 10 mg PO DAILY RF: 0 allopurinol 100 mg tablet 100 mg PO DAILY RF: 0 (DME) lancets [FreeStyle Lancets] 28 gauge misc See Rx Instructions .ROUTE .MEDSUPPLY Qty: 100 RF: 0 (DME) FreeStyle Lite Strips Strip See Rx Instructions .ROUTE .MEDSUPPLY Qty: 10 RF: 0 Trulicity 3 mg/0.5 mL pen injector 3 mg subcut QWEEK 28 Days Qty: 2 RF: 6 Jardiance 25 mg tablet 25 mg PO QAM Qty: 30 RF: 6 metformin 500 mg tablet 1,000 mg PO BID Qty: 360 RF: 1 tadalafil 10 mg tablet 10 mg PO DAILY 90 Days Qty: 90 RF: 0 omeprazole 20 mg capsule,delayed release(DR/EC) 20 mg PO BID 90 Days Qty: 180 RF: 2 docusate sodium 100 mg capsule 100 mg PO BEDTIME Qty: 30 RF: 3 sennosides [Natural Senna Laxative] 8.6 mg tablet 8.6 mg PO BEDTIME Qty: 30 RF: 2 oxycodone 5 mg tablet 5 mg PO TID PRN (Reason: pain) 30 Days Qty: 90 RF: 0 Interventions: ED Discharge Assessment Last Done: 08/31/21 23:58 Discharge Date/Time: 08/31/21 23:59 Print Language: German
[2021-08-31] MEDS: Tobramycin Sulfate 0.3% Sol Op 5 ML BTL 2 DROP EYE-RIGHT (23:38)
[2021-08-31] MEDS: Fluorescein Sodium STRIP 1 STRIP EYE-RIGHT (23:38)
== END 2021-08-31 23:59 | disposition home or self-care (01) ==
PROVIDERS: Emergency Provider Internal Medicine
DX: T65.891A Toxic effect of other specified substances, accidental (unintentional), initial encounter (principal); T26.61XA Corrosion of cornea and conjunctival sac, right eye, initial encounter; Y93.89 Activity, other specified; Y92.017 Garden or yard in single-family (private) house as the place of occurrence of the external cause; Y99.9 Unspecified external cause status
CPT/HCPCS: 99284

== ENCOUNTER → 2021-09-05 16:43 | Outpatient (BNVA) | payer MEDICARE, MEDICAID, SELFPAY | PROVIDERS: Visit Provider Anesthesiology | DX: Z13.89 Encounter for screening for other disorder (principal) | CPT/HCPCS: 99212 ==

== ENCOUNTER → 2021-09-17 14:45 | Outpatient (BNVA) | payer MEDICARE, MEDICAID, SELFPAY | PROVIDERS: Visit Provider Anesthesiology | DX: Z51.81 Encounter for therapeutic drug level monitoring (principal); F11.20 Opioid dependence, uncomplicated; M17.0 Bilateral primary osteoarthritis of knee; M79.2 Neuralgia and neuritis, unspecified; G90.523 Complex regional pain syndrome I of lower limb, bilateral; E66.01 Morbid (severe) obesity due to excess calories; Z96.651 Presence of right artificial knee joint; Z68.41 Body mass index [BMI] 40.0-44.9, adult | CPT/HCPCS: 99212 ==

== ENCOUNTER 2021-10-01 21:24 | Emergency (ER) | payer MEDICARE, MEDICAID, SELFPAY ==
--- NOTE | 2021-10-01 | ECG_ITS ---
Test Reason : CHEST PAIN Blood Pressure : / mmHG Vent. Rate : 108 BPM Atrial Rate : 108 BPM P-R Int : 136 ms QRS Dur : 092 ms QT Int : 326 ms P-R-T Axes : 062 017 016 degrees QTc Int : 436 ms Sinus tachycardia Otherwise normal ECG When compared with ECG of 03-JUN-2020 21:54, No significant change was found Referred By: Generic ED Physician Electronically Signed By:ED LAGUNAS
--- NOTE | ~2021-10-01 | XR_ITS ---
EXAMINATION: XR CHEST CLINICAL INFORMATION: Chest pain COMPARISON: Chest x-ray 06/03/2020 TECHNIQUE: Frontal view of the chest was obtained. 9:50 PM FINDINGS: No significant abnormality is noted involving the heart, lungs, mediastinum, bony thorax or soft tissues. XR/XR chest 1V IMPRESSION: Unremarkable examination.
[2021-10-01 21:27] VITALS: BP 151/92; PULSE 104; RESP 20; TEMP 36.8; O2SAT 97; BMI 41.6
[2021-10-01 21:59] LABS: MANUAL DIFF FLAG NO
[2021-10-01 22:00] LABS: Basophils Percent Auto 0.2 % (0-2); Eosinophils Absolute Auto 0.3 X10*3/uL (0.0-0.4); Eosinophils Percent Auto 3.2 % (0-4); Hematocrit 41.7 % (42.0-52.0); Hemoglobin 14.2 g/dl (14.0-18.0); Imm Gran Abs Auto 0.05 X10*3/uL (0.00-0.03); Imm Gran Pct Auto 0.6 % (0.0-0.4); Lymphocytes Percent Auto 35.3 % (20-40); Mean Corpuscular HGB Conc 34.1 g/dl (31.0-36.0); Mean Corpuscular Hemoglobin 29.6 pg (27.0-33.0); Mean Corpuscular Volume 87.1 fL (80.0-98.0); Mean Platelet Volume 10.3 fL (9.4-12.4); Monocytes Absolute Auto 0.7 X10*3/uL (0.1-1.2); Monocytes Percent Auto 8.5 % (2-11); Neutrophils Absolute Auto 4.4 x10*3/uL (2.0-8.3); Neutrophils Percent Auto 52.2 % (45-73); Platelet Count 286 X10*3/uL (160-400); Red Blood Count 4.79 X10*6/uL (4.60-5.80); Red Cell Distribution Width 13.1 % (11.0-16.0); White Blood Count 8.5 X10*3/uL (4.8-10.8)
[2021-10-01 22:34] LABS: Anion Gap 13 (12-20); Blood Urea Nitrogen 16 mg/dL (9-16); Calcium 9.4 mg/dL (8.4-10.2); Carbon Dioxide 25 mmol/L (22-29); Chloride 103 mmol/L (96-108); Creatinine Clr Calc Pharmacy 88.6; Estimated Glomerular Filt Rate > 60; Glucose Random 187 mg/dL (60-115); Potassium 4.2 mmol/L (3.3-5.1); Sodium 137 mmol/L (135-145)
--- NOTE | 2021-10-01 23:38 | ED_ITS ---
HPI - Chest Pain General Chief Complaint: Chest Pain Stated Complaint: chest pain Time Seen by Provider: 10/01/21 23:38 Source: patient Mode of arrival: ambulatory Limitations: no limitations History of Present Illness HPI narrative: Patient history of coronary artery disease status post 2 stents placed in 2019 comes here for intermittent chest pain started around 16:00 today with slight shortness of breath on ambulation no radiation of the pain since patient had stent placed did not have any significant pain is a first-time patient coming to the hospital for chest pain chest pain is not similar to what she had heart attack 2 years ago this pain feels different which more sharp in character lasting only for few seconds Related Data Home Medications Medication Instructions Recorded Confirmed allopurinol 100 mg tablet 100 mg PO DAILY 06/20/20 08/09/21 lancets 28 gauge (FreeStyle #100 ea 06/20/20 08/09/21 Lancets) lisinopril 10 mg tablet 10 mg PO DAILY 06/20/20 08/09/21 blood sugar diagnostic (FreeStyle #10 ea 05/21/21 08/09/21 Lite Strips) Previous Rx's Medication Instructions Recorded atorvastatin 80 mg tablet 80 mg PO DAILY #90 tab 06/28/20 metoprolol tartrate 50 mg tablet 50 mg PO BID #180 tab 06/28/20 aspirin 81 mg tablet,delayed 81 mg PO DAILY #90 tab 11/26/20 release tadalafil 10 mg tablet 10 mg PO DAILY 90 Days #90 tab 03/16/21 dulaglutide 3 mg/0.5 mL 3 mg (0.5 mL) SUBCUT QWEEK 28 05/21/21 Days subcutaneous pen injector #2 ml (Trulicity) empagliflozin 25 mg tablet 25 mg PO QAM #30 tab 05/21/21 (Jardiance) metformin 500 mg tablet 1,000 mg PO BID #360 tab 05/21/21 docusate sodium 100 mg capsule 100 mg PO BEDTIME #30 cap 05/23/21 omeprazole 20 mg capsule,delayed 20 mg PO BID 90 Days #180 cap 05/23/21 release sennosides 8.6 mg tablet (Natural 8.6 mg PO BEDTIME #30 tab 05/23/21 Senna Laxative) nystatin 100,000 unit/gram topical 1 appl TOPICAL TID #30 g 07/19/21 cream ketorolac 0.5 % eye drops (Acular) 1 drp OPHTHALMIC (EYE) Q6-8H PRN 08/31/21 #5 ml tobramycin 0.3 % eye drops 2 drp OPHTHALMIC-RIGHT Q4H #5 ml 08/31/21 sertraline 25 mg tablet 25 mg PO DAILY 90 Days #90 tab 09/14/21 oxycodone 5 mg tablet 5 mg PO TID PRN 30 Days #90 tab 09/17/21 ropinirole 4 mg tablet 4 mg PO .every 6 hours 30 Days 09/30/21 #120 tab Allergies Allergy/AdvReac Type Severity Reaction Status Date / Time gabapentin AdvReac Intermediate sleepiness Verified 10/01/21 21:32 zolpidem AdvReac Intermediate inadequate Verified 10/01/21 21:32 response Review of Systems Verdana 4l Review of Systems: Yes all other systems are reviewed and Verdana 4d are negative [facility] Past Medical History Medical History Arthritis Bilateral primary osteoarthritis of knee BMI 40.0-44.9, adult CAD (coronary artery disease) Cardiac arrhythmia Chronic back pain Coarse tremors Complex regional pain syndrome i of lower limb, bilateral Depression with anxiety Diabetes mellitus, type 2 Erectile dysfunction Essential hypertension GERD (gastroesophageal reflux disease) Gout HTN (hypertension) Hyperlipidemia LDL goal <70 IDDM (insulin dependent diabetes mellitus) Intractable neuropathic pain of right knee Kidney stones Morbid obesity Morbid obesity due to excess calories SHARONDA (obstructive sleep apnea) RLS (restless legs syndrome) Type 2 diabetes mellitus with diabetic polyneuropathy Surgical History H/O heart artery stent History of arthroplasty of right knee Hx of left knee surgery Hx of lithotripsy Status post total knee replacement, right Family History Family History Mother Diabetes Sister Diabetes Social History Social History Household Members: Family and Friend(s) Housing: Apartment Alcohol intake: former Patient Tobacco Use Status: Never used Tobacco e-Cigarette/Vaping Use: Never Used Second Hand Smoke Exposure: No Advance Directives: No service: No Current occupational status: disabled Physical Exam Verdana 4l Vital Signs: Verdana 4d Verdana 4d Vital Signs: Verdana 4d Verdana 4Bd Last Vital Signs Verdana 4d Spectrographer New 4d César Milligan 4d Temp 98.3 F 10/02/21 00:00 César New 4d Pulse 103 H 10/02/21 00:39 César Milligan 4d Resp 19 10/02/21 00:00 BP 121/96 H 10/02/21 00:39 Pulse Ox 97 10/02/21 00:00 BMI result Body Mass Index 41.6 Appearance: Alert. Oriented X3. No acute distress. Eyes: PERRLA, No Nystagmus ENT: Pharynx normal. Oral Mucosa moist Neck: Normal inspection. Neck supple. CVS: Normal heart rate and rhythm. Pulses normal. Left chest wall tenderness+ Respiratory: No respiratory distress. Equal air entry bilateral, no wheezing/rales/rhonchi Abdomen: Soft and nontender. Bowel sounds are present, no mass palpable, no CVA tenderness Skin: Skin warm and dry. Normal skin color. Normal skin turgor. Extremities: No lower extremity edema. No calf tenderness Neuro: Oriented X 3. MDM - Chest Pain MDM Narrative Medical decision making narrative: Patient atypical chest pain with significant cardiac history 2 sets of cardiac enzymes are negative without any acute ischemic EKG changes. Patient advised to follow with waste examiner to have further evaluation Lab Data Attestation: I reviewed the patient's lab results. Result diagrams: 10/01/21 21:38 10/01/21 21:38 Labs: Lab Results 10/01/21 10/01/21 10/01/21 Range/Units 21:38 21:38 21:38 WBC 8.5 (4.8-10.8) X10*3/uL RBC 4.79 (4.60-5.80) X10*6/uL Hgb 14.2 (14.0-18.0) g/dl Hct 41.7 L (42.0-52.0) % MCV 87.1 (80.0-98.0) fL MCH 29.6 (27.0-33.0) pg MCHC 34.1 (31.0-36.0) g/dl RDW 13.1 (11.0-16.0) % Plt Count 286 (160-400) X10*3/uL MPV 10.3 (9.4-12.4) fL Immature Gran % (Auto) 0.6 H (0.0-0.4) % Neut % (Auto) 52.2 (45-73) % Lymph % (Auto) 35.3 (20-40) % Pepin % (Auto) 8.5 (2-11) % Eos % (Auto) 3.2 (0-4) % Baso % (Auto) 0.2 (0-2) % Lymph # (Auto) 3.0 (1.2-4.9) X10*3/uL Pepin # (Auto) 0.7 (0.1-1.2) X10*3/uL Eos # (Auto) 0.3 (0.0-0.4) X10*3/uL Baso # (Auto) 0.0 (0.0-0.2) X10*3/uL Abs Immat Gran (auto) 0.05 H (0.00-0.03) X10*3/uL Absolute Neuts (auto) 4.4 (2.0-8.3) x10*3/uL Absolute Nucleated RBC 0.000 (0.0-0.012) X10*3/uL Nucleated RBC % (auto) 0.0 (0.0-0.2) /100WBC Sodium 137 (135-145) mmol/L Potassium 4.2 (3.3-5.1) mmol/L Chloride 103 (96-108) mmol/L Carbon Dioxide 25 (22-29) mmol/L Anion Gap 13 (12-20) BUN 16 (9-16) mg/dL Creatinine 1.07 (0.5-1.4) mg/dL Estim Creat Clear Calc 88.6 Estimated GFR > 60 Random Glucose 187 H D (60-115) mg/dL Calcium 9.4 (8.4-10.2) mg/dL Troponin I High Sens 4.0 (<3.5-35.0) ng/L B-Natriuretic Peptide (<100) pg/mL 10/02/21 Range/Units 00:22 WBC (4.8-10.8) X10*3/uL RBC (4.60-5.80) X10*6/uL Hgb (14.0-18.0) g/dl Hct (42.0-52.0) % MCV (80.0-98.0) fL MCH (27.0-33.0) pg MCHC (31.0-36.0) g/dl RDW (11.0-16.0) % Plt Count (160-400) X10*3/uL MPV (9.4-12.4) fL Immature Gran % (Auto) (0.0-0.4) % Neut % (Auto) (45-73) % Lymph % (Auto) (20-40) % Pepin % (Auto) (2-11) % Eos % (Auto) (0-4) % Baso % (Auto) (0-2) % Lymph # (Auto) (1.2-4.9) X10*3/uL Pepin # (Auto) (0.1-1.2) X10*3/uL Eos # (Auto) (0.0-0.4) X10*3/uL Baso # (Auto) (0.0-0.2) X10*3/uL Abs Immat Gran (auto) (0.00-0.03) X10*3/uL Absolute Neuts (auto) (2.0-8.3) x10*3/uL Absolute Nucleated RBC (0.0-0.012) X10*3/uL Nucleated RBC % (auto) (0.0-0.2) /100WBC Sodium (135-145) mmol/L Potassium (3.3-5.1) mmol/L Chloride (96-108) mmol/L Carbon Dioxide (22-29) mmol/L Anion Gap (12-20) BUN (9-16) mg/dL Creatinine (0.5-1.4) mg/dL Estim Creat Clear Calc Estimated GFR Random Glucose (60-115) mg/dL Calcium (8.4-10.2) mg/dL Troponin I High Sens < 3.5 (<3.5-35.0) ng/L B-Natriuretic Peptide < 10 (<100) pg/mL ECG Data ECG #1: Attestation: I personally reviewed and interpreted this ECG as follows: Interpretation: Sinus rhythm heart rate 108 beats per minute normal intervals normal axis no acute ST-T changes Discharge Plan Discharge Clinical Impression: Chest pain Patient Disposition: Home, Self-Care Instructions: Chest Pain (DC) Additional Instructions: Follow up with waste examiner for further evaluation report to the ER if pain gets worse Take medicine on time as prescribed Prescriptions: No Action atorvastatin 80 mg tablet 80 mg PO DAILY Qty: 90 1RF metoprolol tartrate 50 mg tablet 50 mg PO BID Qty: 180 1RF aspirin 81 mg tablet,delayed release (DR/EC) 81 mg PO DAILY Qty: 90 1RF sertraline 25 mg tablet 25 mg PO DAILY 90 Days Qty: 90 1RF ropinirole 4 mg tablet 4 mg PO .every 6 hours 30 Days Qty: 120 3RF nystatin 100,000 unit/gram cream 1 appl topical TID Qty: 30 0RF ketorolac [Acular] 0.5 % drops 1 drp ophthalmic (eye) Q6-8H PRN (Reason: itching) Qty: 5 0RF Rx Instructions: begin 24 hours prior to surgery tobramycin 0.3 % drops 2 drp ophthalmic-Right Q4H Qty: 5 0RF lisinopril 10 mg tablet 10 mg PO DAILY 0RF allopurinol 100 mg tablet 100 mg PO DAILY 0RF (DME) lancets [FreeStyle Lancets] 28 gauge misc See Rx Instructions .ROUTE .MEDSUPPLY Qty: 100 0RF Rx Instructions: As directed (DME) FreeStyle Lite Strips Strip See Rx Instructions .ROUTE .MEDSUPPLY Qty: 10 0RF Rx Instructions: As directed three times daily Trulicity 3 mg/0.5 mL pen injector 3 mg subcut QWEEK 28 Days Qty: 2 6RF Jardiance 25 mg tablet 25 mg PO QAM Qty: 30 6RF metformin 500 mg tablet 1,000 mg PO BID Qty: 360 1RF tadalafil 10 mg tablet 10 mg PO DAILY 90 Days Qty: 90 0RF omeprazole 20 mg capsule,delayed release(DR/EC) 20 mg PO BID 90 Days Qty: 180 2RF docusate sodium 100 mg capsule 100 mg PO BEDTIME Qty: 30 3RF Rx Instructions: orlando rene capsula cada noche sennosides [Natural Senna Laxative] 8.6 mg tablet 8.6 mg PO BEDTIME Qty: 30 2RF Rx Instructions: orlando rene tableta cada noche oxycodone 5 mg tablet 5 mg PO TID PRN (Reason: pain) 30 Days Qty: 90 0RF Print Language: Polish
[2021-10-02] VITALS: BP 140/87; PULSE 98; RESP 19; TEMP 36.8; O2SAT 97
[2021-10-02 00:39] VITALS: BP 121/96; PULSE 103
[2021-10-02] MEDS: Nitroglycerin 2 % Oint 1 GM Packet 0.5 INCH TRANSDERMA (00:39)
[2021-10-02 01:02] LABS: B Type Natriuretic Peptide < 10 pg/mL (<100); Troponin-I High Sensitivity < 3.5 ng/L (<3.5-35.0)
[2021-10-02 01:35] VITALS: BP 112/68; PULSE 98; RESP 18; O2SAT 96
--- NOTE | 2021-10-02 01:37 | PC.NURSE ---
pt chest pain has completey resolved, pt has no difficutly breathing, skin pink warm and dry and feels ready for discharge.
== END 2021-10-02 01:49 | disposition home or self-care (01) ==
PROVIDERS: Emergency Provider Internal Medicine; PCP Internal Medicine
DX: R07.9 Chest pain, unspecified (principal); R06.02 Shortness of breath; I10 Essential (primary) hypertension; E11.9 Type 2 diabetes mellitus without complications; E78.5 Hyperlipidemia, unspecified; Z79.4 Long term (current) use of insulin; Z79.02 Long term (current) use of antithrombotics/antiplatelets; Z79.899 Other long term (current) drug therapy
CPT/HCPCS: 36415; 71045; 80048; 83880; 84484; 85025; 93005; 99284

== ENCOUNTER → 2021-10-15 14:21 | Outpatient (BNVA) | payer MEDICARE, MEDICAID, SELFPAY | PROVIDERS: PCP Internal Medicine; Visit Provider Anesthesiology | DX: Z51.81 Encounter for therapeutic drug level monitoring (principal); F11.20 Opioid dependence, uncomplicated; M79.2 Neuralgia and neuritis, unspecified; M17.0 Bilateral primary osteoarthritis of knee; G90.523 Complex regional pain syndrome I of lower limb, bilateral; E66.01 Morbid (severe) obesity due to excess calories; Z96.651 Presence of right artificial knee joint; Z68.41 Body mass index [BMI] 40.0-44.9, adult | CPT/HCPCS: 99212 ==

== ENCOUNTER → 2021-11-05 10:04 | Outpatient (REF) | payer MEDICARE, MEDICAID, SELFPAY ==
--- NOTE | 2021-11-05 10:07 | CA_ITS ---
Transthoracic Echocardiogram Patient (Last, First, Middle): Chirag Mauricio, Gender: Male Date of : 1970 Age: 51 Procedure Date: 11/05/2021 Procedure Type: Transthoracic Echocardiogram Location: OP Height: 160.02 cm Weight: 104.33 kg BSA: 2.05 m2 Heart Rate: bpm BP: 130 / 80 mmHg Janitorial Services Supervisor: VH/OT Referring MD: Lenny Angel MD Product Safety Head: Jose Olivier MD Symptoms: I35.9 - Nonrheumatic aortic valve disorder, unspecified Study Quality: Fair ECG Rhythm: Sinus Conclusions: - 1. Normal LV systolic function with impaired relaxation filling pattern with regional wall motion abnormality in RCA territory 2. Moderate aortic stenosis 3. Normal RV systolic pressure 4. No gross pericardial effusion Findings Left Ventricle Normal left ventricular size and systolic function. There is mildly increased left ventricular wall thickness. The visually estimated ejection fraction is between 55-60%. Spectral Doppler is indicative of an impaired relaxation filling pattern. E/E prime ratio is between 8 and 15 consistent with indeterminate filling pressures. Wall Motion Rest Echo Findings The basal inferior and basal inferoseptal segments are hypokinetic. All other scored wall segments showed normal motion. Right Ventricle Normal right ventricular cavity size and systolic function. Atria The left atrium is likely dilated. There is no evidence of interatrial shunt. The right atrium is normal in size. Aortic Valve The aortic valve was not well visualized. There is moderate calcification of the aortic valve. There is moderate aortic valve stenosis. The peak aortic gradient is 25 mmHg.The mean gradient is 15 mmHg. The aortic valve area is 1.25 cm2. There is no aortic valve regurgitation. Mitral Valve There is mild anterior mitral leaflet thickening. There is moderate mitral annular calcification. There is trace mitral valve regurgitation. There is no mitral valve stenosis. Pulmonic Valve The pulmonic valve was not well visualized. Tricuspid Valve There is trace tricuspid valve regurgitation. The right ventricular systolic pressure is normal. The right ventricular systolic pressure is 19 mmHg. There is no evidence of pulmonary hypertension. Great Vessels All visible segments of the aorta are normal in size. The pulmonary artery was not well visualized. Venous The inferior vena cava is normal in size and collapses greater than 50% with inspiration. Pericardium/Pleural There is no evidence of pericardial effusion. Prior Study Comparison No prior study available for comparison. Measurements 2D Linear Measurements IVSd: 1.20 0.6-0.9/0.6-1.0 cm LVIDd: 5.08 3.9-5.3/4.2-5.9 cm LVIDd Index: 2.48 2.4-3.2/2.2-3.1 cm/m2 LVIDs: 3.08 2.0-3.6 cm LVPWd: 1.22 0.7-1.1 cm LA Diam: 3.50 2.7-3.8/3.0-4.0 cm LAIDs Index: 1.71 1.5-2.3 cm/m2 LV Mass: 302.41 67-162/88-224 g LV Mass Index: 147.52 43-95/49-115 g/m2 LVOT Diam: 2.20 3.0+(-)1.3 cm Mitral Valve MV Pk E: 0.88 MV PK A: 0.99 MV Decel Time: 115.00 E/A: 0.90 E'Lateral: 6.74 E'Medial: 5.84 E/E' Med: 15.00 E/E' Lat: 13.00 PHT: 34.00 MVA PHT: 6.47 Decel [place]: 7.66 Aortic Valve AoV Pk Nico: 2.52 AoV Mn Nico: 1.86 AoV VTI: 0.53 AoV Pk Grad: 25.00 Aov Mn Grad: 15.00 MAR Cont.VTI: 1.25 LVOT LVOT Pk Nico: 0.86 LVOT Mn Nico: 0.61 LVOT VTI: 0.17 LVOT Pk Grad: 3.00 LVOT Mn Grad: 2.00 LVOT Diam: 2.20 LVOT Area: 3.80 Diastolic Function MV Pk E: 0.88 MV Pk A: 0.99 E/A: 0.90 E'Medial: 5.84 E/E' Med: 15.00 E' Laterial: 6.74 E/E' Lat: 13.00 Right Ventricle TAPSE (mm): 22.00 TVS' Nico: 11.00 Tricuspid Valve TR Pk Nico: 1.99 TR Pk Grad: 16.00 RA Press: 3.00 RVSP: 19.00 Great Vessels Aorta Ao Asc: 3.20 2.1-3.4 cm Pulmonary Valve PV Pk Nico: 1.29 Peak PV Grad: 7.00 Updated in Other Vendor System with Status of Final Jose Olivier MD electronically signed on 11/05/2021 12:07:10 PM with status of Final
== END ==
LOC: HO.CARD 10:04
PROVIDERS: Visit Provider Internal Medicine
DX: I35.9 Nonrheumatic aortic valve disorder, unspecified (principal)
CPT/HCPCS: 93306

== ENCOUNTER → 2021-11-15 14:03 | Outpatient (BNVA) | payer MEDICARE, MEDICAID, SELFPAY | PROVIDERS: PCP Internal Medicine; Referring Provider Internal Medicine; Visit Provider Internal Medicine | DX: I25.10 Atherosclerotic heart disease of native coronary artery without angina pectoris (principal); I10 Essential (primary) hypertension; I35.0 Nonrheumatic aortic (valve) stenosis; E11.42 Type 2 diabetes mellitus with diabetic polyneuropathy; E66.01 Morbid (severe) obesity due to excess calories; G47.33 Obstructive sleep apnea (adult) (pediatric) | CPT/HCPCS: 99212 ==

== ENCOUNTER → 2021-11-19 12:59 | Outpatient (BNVA) | payer MEDICARE, MEDICAID, SELFPAY | PROVIDERS: PCP Internal Medicine; Visit Provider Anesthesiology | DX: Z51.81 Encounter for therapeutic drug level monitoring (principal); F11.20 Opioid dependence, uncomplicated; M79.2 Neuralgia and neuritis, unspecified; M17.0 Bilateral primary osteoarthritis of knee; G90.523 Complex regional pain syndrome I of lower limb, bilateral; E66.01 Morbid (severe) obesity due to excess calories; Z96.651 Presence of right artificial knee joint; Z68.41 Body mass index [BMI] 40.0-44.9, adult | CPT/HCPCS: 99212 ==

== ENCOUNTER → 2021-12-13 10:16 | Outpatient (BNVA) | payer MEDICARE, MEDICAID, SELFPAY | PROVIDERS: PCP Internal Medicine; Visit Provider Anesthesiology | DX: Z51.81 Encounter for therapeutic drug level monitoring (principal); F11.20 Opioid dependence, uncomplicated | CPT/HCPCS: 99211 ==

== ENCOUNTER → 2021-12-20 12:13 | Outpatient (BNVA) | payer MEDICARE, MEDICAID, SELFPAY | PROVIDERS: Visit Provider Nurse Practitioner Gerontology | DX: E11.42 Type 2 diabetes mellitus with diabetic polyneuropathy (principal); E11.21 Type 2 diabetes mellitus with diabetic nephropathy; I10 Essential (primary) hypertension; E78.5 Hyperlipidemia, unspecified; E66.01 Morbid (severe) obesity due to excess calories; Z68.41 Body mass index [BMI] 40.0-44.9, adult; Z79.84 Long term (current) use of oral hypoglycemic drugs | CPT/HCPCS: 82947; 83036; 99212 ==

== ENCOUNTER → 2022-01-10 10:18 | Outpatient (BNVA) | payer MEDICARE, MEDICAID, SELFPAY | PROVIDERS: Visit Provider Anesthesiology | DX: Z13.89 Encounter for screening for other disorder (principal) ==

== ENCOUNTER → 2022-02-06 08:39 | Outpatient (BNVA) | payer MEDICARE, MEDICAID, SELFPAY | PROVIDERS: Visit Provider Anesthesiology | DX: Z51.81 Encounter for therapeutic drug level monitoring (principal); F11.20 Opioid dependence, uncomplicated | CPT/HCPCS: 99211 ==

== ENCOUNTER 2022-02-26 13:08 | Outpatient (REF) | payer MEDICARE, MEDICAID, SELFPAY ==
--- NOTE | ~2022-02-26 | US_ITS ---
EXAMINATION: US RETROPERITONEAL LIMITED (RENAL ONLY) CLINICAL INFORMATION: Calculus of kidney. COMPARISON: X-ray KUB 03/12/2021 and 12/08/2019. Ultrasound. 02/01/2021. TECHNIQUE: Real-time imaging of the kidneys. FINDINGS: RIGHT KIDNEY: 12.4 x 5.5 x 6.3 cm (SAG x AP x TRV). The kidney is normal in size, contour, and echogenicity. Renal cortical thickness is normal. There is a 5 mm stone in the upper pole. No focal parenchymal lesions or hydronephrosis. LEFT KIDNEY: 13.4 x 5.8 x 5.5 cm (SAG x AP x TRV). The kidney is normal in size, contour, and echogenicity. Renal cortical thickness is normal. There is a 4 mm stone in the upper pole. There is a 1 cm cyst in the upper to midpole. No renal hydronephrosis. US/US renal BI IMPRESSION: Bilateral renal stones. Small left renal cyst.
== END 2022-02-26 13:09 | disposition home or self-care (01) ==
LOC: HO.US 13:08
PROVIDERS: Visit Provider Urology
DX: N20.0 Calculus of kidney (principal)
CPT/HCPCS: 76775

== ENCOUNTER → 2022-03-06 08:31 | Outpatient (BNVA) | payer MEDICARE, MEDICAID, SELFPAY | PROVIDERS: Visit Provider Anesthesiology | DX: Z13.89 Encounter for screening for other disorder (principal) | CPT/HCPCS: 99211 ==

== ENCOUNTER 2022-03-06 16:39 | Emergency (ER) | payer MEDICARE, MEDICAID, SELFPAY ==
--- NOTE | ~2022-03-06 | XR_ITS ---
EXAMINATION: XR SHOULDER, LEFT CLINICAL INFORMATION: Left shoulder injury COMPARISON: None TECHNIQUE: Three views of the left shoulder. FINDINGS: Visualized portion of the proximal left humerus demonstrate no fracture. Humeral head demonstrates good articulation with the glenoid fossa. There is a small osteophyte off the inferior glenoid. Mild soft tissue calcification region of the greater tuberosity. Possible subcentimeter intra-articular loose body within the inferior glenohumeral joint. The acromioclavicular joint demonstrates only mild hypertrophic changes. Visualized left-sided ribs and lung parenchyma are unremarkable. Cardiac stent is noted. XR/XR shoulder LT min 2V IMPRESSION: Mild degenerative changes of the left shoulder without fracture or dislocation.
[2022-03-06 17:03] VITALS: BP 132/72; PULSE 89; RESP 19; TEMP 36.4; O2SAT 98; BMI 39.8
--- NOTE | 2022-03-06 20:02 | ED.EXTPRO ---
HPI - Extremity Problem General Chief complaint: Extremity Injury, Upper Stated complaint: left shoulder pain Time Seen by Provider: 03/06/22 17:59 Source: patient Mode of arrival: ambulatory Limitations: no limitations History of Present Illness HPI Narrative: 51-year-old male presents with left shoulder pain after trying to catch a heavy tool box from falling. States that he caught the box in his hand and felt some pulling in his shoulder, and is unable to fully move the shoulder and arm. MD Complaint: extremity pain Onset (ago): hour(s) (Within the hour of arrival) Pain Consistency: constant Location: left and upper extremity Severity scale (1-10): 8 Quality: aching Radiation: none Relieving factors: nothing Exacerbating factors: range of motion and palpation Associated symptoms: denies other symptoms Related Data Home Medications Medication Instructions Recorded Confirmed allopurinol 100 mg tablet 100 mg PO DAILY 06/20/20 03/06/22 lancets 28 gauge (FreeStyle #100 ea 06/20/20 03/06/22 Lancets) lisinopril 10 mg tablet 10 mg PO DAILY 06/20/20 03/06/22 blood sugar diagnostic (FreeStyle #10 ea 05/21/21 03/06/22 Lite Strips) Previous Rx's Medication Instructions Recorded aspirin 81 mg tablet,delayed 81 mg PO DAILY #90 tabs 11/26/20 release tadalafil 10 mg tablet 10 mg PO DAILY sexual activity 90 03/16/21 days #90 tabs dulaglutide 3 mg/0.5 mL 3 mg (0.5 mL) subcut QWEEK 28 days 05/21/21 subcutaneous pen injector #2 mL (Trulicity) docusate sodium 100 mg capsule 100 mg PO BEDTIME #30 caps 05/23/21 omeprazole 20 mg capsule,delayed 20 mg PO BID 90 days #180 caps 05/23/21 release sennosides 8.6 mg tablet (Natural 8.6 mg PO BEDTIME constipation #30 05/23/21 Senna Laxative) tabs nystatin 100,000 unit/gram topical 1 appl topical TID #30 grams 07/19/21 cream ketorolac 0.5 % eye drops (Acular) 1 drp ophthalmic (eye) Q6-8H PRN 08/31/21 itching #5 mL tobramycin 0.3 % eye drops 2 drp ophthalmic-Right Q4H #5 mL 08/31/21 sertraline 25 mg tablet 25 mg PO DAILY 90 days #90 tabs 09/14/21 atorvastatin 80 mg tablet 80 mg PO DAILY #90 tabs 10/04/21 metoprolol tartrate 50 mg tablet 50 mg PO BID #180 tabs 10/04/21 metformin 500 mg tablet 1,000 mg PO BID #360 tabs 11/11/21 empagliflozin 25 mg tablet 25 mg PO QAM #30 tabs 12/03/21 (Jardiance) blood sugar diagnostic (FreeStyle #50 ea 12/20/21 Precision Sanket Strips) gabapentin 100 mg capsule 200 mg PO BEDTIME #60 caps 12/20/21 ropinirole 4 mg tablet 4 mg PO .every 6 hours 30 days 12/28/21 #120 tabs oxycodone 5 mg tablet 5 mg PO TID PRN pain 30 days #90 01/12/22 tabs Allergies Allergy/AdvReac Type Severity Reaction Status Date / Time gabapentin AdvReac Intermediate sleepiness Verified 03/06/22 17:03 zolpidem AdvReac Intermediate inadequate Verified 03/06/22 17:03 response Review of Systems Review of Systems: Constitutional: No Fever, No Chills ENT/Mouth: No Ear Pain, No Hoarseness, No sore throat Eyes: No Eye Pain, No Swelling, No Redness, No Foreign Body Cardiovascular: No Chest Pain, No SOB Respiratory: No Cough, No Dyspnea Gastrointestinal: No Nausea, No Vomiting, No Diarrhea, No abdominal Pain Genitourinary: No Dysuria, No Hematuria Musculoskeletal: positive left shoulder pain, No Myalgias, No Joint Swelling Skin: No Skin lacerations, No rash Neuro: No Weakness, No Numbness, No Paresthesias, No Loss of Consciousness, No Dizziness, No Headache Psych: No Anxiety/Panic, No Depression Heme/Lymph: no easy bruising, no Lymphadenopathy Endocrine: No Polyuria, No Polydipsia Yes all other systems are reviewed and are negative [facility] Past Medical History Attestation statement: The following information was validated with the patient. Source: old records reviewed Medical History Arthritis Bilateral primary osteoarthritis of knee BMI 40.0-44.9, adult CAD (coronary artery disease) Cardiac arrhythmia Chronic back pain Coarse tremors Complex regional pain syndrome i of lower limb, bilateral Depression with anxiety Diabetes mellitus, type 2 Erectile dysfunction Essential hypertension GERD (gastroesophageal reflux disease) Gout HTN (hypertension) Hyperlipidemia LDL goal <70 IDDM (insulin dependent diabetes mellitus) Intractable neuropathic pain of right knee Kidney stones Morbid obesity Morbid obesity due to excess calories SHARONDA (obstructive sleep apnea) RLS (restless legs syndrome) Type 2 diabetes mellitus with diabetic polyneuropathy Surgical History H/O heart artery stent History of arthroplasty of right knee Hx of left knee surgery Hx of lithotripsy Status post total knee replacement, right Family History Family History Mother Diabetes Sister Diabetes Social History Social History Household Members: Family and Friend(s) Housing: Apartment Alcohol intake: never Patient Tobacco Use Status: Never used Tobacco e-Cigarette/Vaping Use: Never Used Second Hand Smoke Exposure: No Advance Directives: No Advance Directives Information Provided: Yes service: No Current occupational status: disabled Physical Exam Vital Signs: Vital Signs: Last Vital Signs Temp 97.6 F 03/06/22 17:03 Pulse 89 03/06/22 17:03 Resp 19 03/06/22 17:03 BP 132/72 03/06/22 17:03 Pulse Ox 98 03/06/22 17:03 O2 Del Method 03/06/22 17:03 BMI result Body Mass Index 39.8 Appearance: Alert. Oriented X3. No acute distress. Eyes: Pupils equal, round and reactive to light. ENT: Pharynx normal. Neck: Normal inspection. Neck supple. CVS: Normal heart rate and rhythm. Pulses normal. Respiratory: No respiratory distress. Breath sounds normal. Abdomen: Soft and nontender. Skin: Skin warm and dry. Normal skin color. Normal skin turgor. Extremities: Brisk capillary refill and equal pulses to bilateral upper extremities. Decreased flexion extension abduction adduction and internal and external rotation to left shoulder. Able to pronate and supinate the wrist without difficulty. Flexion and extension of the elbow within normal limits. Strength 5/5 to bilateral hands and digits. Tenderness noted on minimal palpation to the acromioclavicular joint, and coracoacromial ligament. Neuro: No motor deficit. No sensory deficit. Cranial nerves 2-12 intact. Course Course Course Narrative: 51-year-old male presents with left upper extremity injury after trying to catch a heavy object that was falling. X-rays were completed in the emergency department waiting room, shows some degenerative changes to the left shoulder without fracture or dislocation, noted to have small osteophytes of the inferior glenoid and soft tissue calcification of the greater tuberosity. Physical exam indicates possible tendon injury to the acromioclavicular joint, and coracoacromial ligament, with significant decrease in active range of motion. Patient does have significant pain on passive range of motion to the left upper extremity. Plan of care is for sling and swathe, follow-up with Orthopedics, Tylenol and Motrin as needed for pain management. Rest ice and elevation. rn lpn cna utilized all correspondence. Google translate utilized for discharge instructions. Patient verbalized understanding of and agrees to plan of care discharge home. Verbalized understanding of signs and symptoms indicating need for emergent intervention. MDM - Extremity (Nontraumatic) MDM Narrative Medical decision making narrative: Fracture, dislocation, muscle strain, tendon injury, ligament injury Medical Records Attestation: I reviewed the patient's medical records. Imaging Data Left shoulder x-ray: Attestation: I personally reviewed and interpreted this imaging study as follows: Radiologist's impression: EXAMINATION: XR SHOULDER, LEFT CLINICAL INFORMATION: Left shoulder injury? COMPARISON: None? TECHNIQUE: Three views of the left shoulder. FINDINGS: Visualized portion of the proximal left humerus demonstrate no fracture. Humeral head demonstrates good articulation with the glenoid fossa. There is a small osteophyte off the inferior glenoid. Mild soft tissue calcification region of the greater tuberosity. Possible subcentimeter intra-articular loose body within the inferior glenohumeral joint. The acromioclavicular joint demonstrates only mild hypertrophic changes. Visualized left-sided ribs and lung parenchyma are unremarkable. Cardiac stent is noted. XR/XR shoulder LT min 2V IMPRESSION: Mild degenerative changes of the left shoulder without fracture or dislocation. Discharge Plan Discharge Clinical Impression: Arthritis of shoulder, Disorder of ligament of shoulder Patient Disposition: Home, Self-Care Instructions: Shoulder Sprain (ED), Arthritis (ED) Additional Instructions: Le evaluaron por dolor en el hombro. Las radiograf?as del hombro indican artritis y cambios degenerativos en la articulaci?n. Stevens examen f?sico es consistente con rene lesi?n de ligamento. Por favor, mantenga stevens brazo en cabestrillo y vendaje. Sparks Tylenol 650 mg cada 6 horas seg?n sea necesario y Motrin 600 mg cada 6 horas seg?n sea necesario para controlar el dolor. Anote a qu? hora art estos medicamentos para evitar rene sobredosis accidental. Descanse y eleve la extremidad para ayudar a reducir el dolor y la hinchaz?n. Seguimiento con ortopedia. Lo he referido a Negin BLANCHARD. por favor llame y solicite rene radha. Anna por elegir amita departamento de emergencias para stevens evaluaci?n. Por favor, simba un seguimiento con el m?dico de atenci?n primaria seg?n sea necesario. Regrese al departamento de emergencias por cualquier s?ntoma nuevo, preocupante o que empeore. You were evaluated for shoulder pain. Shoulder x-rays indicate arthritis and degenerative changes in the joint. Your physical exam is consistent with a ligament injury. Please keep your arm in sling and swathe. Take Tylenol 650 mg every 6 hours as needed and Motrin 600 mg every 6 hours as needed for pain management. Write down what time you take these medications to prevent accidental overdose. Rest and elevate the extremity to help reduce pain and swelling. Follow-up with orthopedics. I have referred you to Negin BLANCHARD. please call and request an appointment. Thank you for choosing this emergency department for evaluation. Please follow-up with primary care physician as needed. Return to the emergency department for any new, concerning, or worsening symptoms. Prescriptions: No Action aspirin 81 mg tablet,delayed release (DR/EC) 81 mg PO DAILY Qty: 90 1RF sertraline 25 mg tablet 25 mg PO DAILY 90 Days Qty: 90 1RF atorvastatin 80 mg tablet 80 mg PO DAILY Qty: 90 1RF metoprolol tartrate 50 mg tablet 50 mg PO BID Qty: 180 1RF metformin 500 mg tablet 1,000 mg PO BID Qty: 360 1RF Jardiance 25 mg tablet 25 mg PO QAM Qty: 30 4RF ropinirole 4 mg tablet 4 mg PO .every 6 hours 30 Days Qty: 120 3RF oxycodone 5 mg tablet 5 mg PO TID PRN (Reason: pain) 30 Days Qty: 90 0RF nystatin 100,000 unit/gram cream 1 appl topical TID Qty: 30 0RF ketorolac [Acular] 0.5 % drops 1 drp ophthalmic (eye) Q6-8H PRN (Reason: itching) Qty: 5 0RF Rx Instructions: begin 24 hours prior to surgery tobramycin 0.3 % drops 2 drp ophthalmic-Right Q4H Qty: 5 0RF lisinopril 10 mg tablet 10 mg PO DAILY allopurinol 100 mg tablet 100 mg PO DAILY (DME) lancets [FreeStyle Lancets] 28 gauge misc See Rx Instructions .ROUTE .MEDSUPPLY Qty: 100 Rx Instructions: As directed (DME) FreeStyle Lite Strips Strip See Rx Instructions .ROUTE .MEDSUPPLY Qty: 10 Rx Instructions: As directed three times daily Trulicity 3 mg/0.5 mL pen injector 3 mg subcut QWEEK 28 Days Qty: 2 6RF tadalafil 10 mg tablet 10 mg PO DAILY 90 Days Qty: 90 0RF omeprazole 20 mg capsule,delayed release(DR/EC) 20 mg PO BID 90 Days Qty: 180 2RF docusate sodium 100 mg capsule 100 mg PO BEDTIME Qty: 30 3RF Rx Instructions: [place] rene capsula cada noche sennosides [Natural Senna Laxative] 8.6 mg tablet 8.6 mg PO BEDTIME Qty: 30 2RF Rx Instructions: [place] rene tableta cada noche gabapentin 100 mg capsule 200 mg PO BEDTIME Qty: 60 3RF (DME) FreeStyle Precision Sanket Strips Strip See Rx Instructions .ROUTE .MEDSUPPLY Qty: 50 11RF Rx Instructions: As directed twice a day Referrals: Negin Topete PA-C [Physician [employer]] - (Left shoulder arthritis, possible AC ligament injury) Interventions: ED Discharge Assessment Last Done: 03/06/22 21:30 Discharge Date/Time: 03/06/22 21:31
== END 2022-03-06 21:31 | disposition home or self-care (01) ==
PROVIDERS: Emergency Provider Emergency Medicine Emergency Medical Services; PCP Internal Medicine
DX: M19.012 Primary osteoarthritis, left shoulder (principal); M24.212 Disorder of ligament, left shoulder; I10 Essential (primary) hypertension; E78.5 Hyperlipidemia, unspecified
CPT/HCPCS: 73030; 99211; 99283; 99284

== ENCOUNTER → 2022-03-15 13:14 | Outpatient (BNVA) | payer MEDICARE, MEDICAID, SELFPAY | PROVIDERS: PCP Internal Medicine; Visit Provider Urology | DX: N20.0 Calculus of kidney (principal); E11.69 Type 2 diabetes mellitus with other specified complication; N52.1 Erectile dysfunction due to diseases classified elsewhere; N28.1 Cyst of kidney, acquired | CPT/HCPCS: 99212 ==

== ENCOUNTER → 2022-04-03 08:14 | Outpatient (BNVA) | payer MEDICARE, MEDICAID, SELFPAY | PROVIDERS: PCP Internal Medicine; Visit Provider Anesthesiology | DX: F11.20 Opioid dependence, uncomplicated (principal); M17.0 Bilateral primary osteoarthritis of knee; M79.2 Neuralgia and neuritis, unspecified; G90.523 Complex regional pain syndrome I of lower limb, bilateral; E66.01 Morbid (severe) obesity due to excess calories; Z96.651 Presence of right artificial knee joint; Z68.39 Body mass index [BMI] 39.0-39.9, adult | CPT/HCPCS: 99212 ==

== ENCOUNTER 2022-04-16 06:18 | Outpatient (REF) | payer MEDICARE, MEDICAID, SELFPAY | END 2022-04-16 06:19 | disposition home or self-care (01) | LOC: HO.RADIR 06:18 | PROVIDERS: Visit Provider Anesthesiology | DX: M79.2 Neuralgia and neuritis, unspecified (principal); G90.523 Complex regional pain syndrome I of lower limb, bilateral; M17.12 Unilateral primary osteoarthritis, left knee; E66.01 Morbid (severe) obesity due to excess calories; Z96.651 Presence of right artificial knee joint | CPT/HCPCS: 64447; J2795 ==

== ENCOUNTER → 2022-04-22 09:00 | Outpatient (BNVA) | payer MEDICARE, MEDICAID, SELFPAY | PROVIDERS: PCP Internal Medicine; Visit Provider Anesthesiology | DX: M79.2 Neuralgia and neuritis, unspecified (principal); E66.01 Morbid (severe) obesity due to excess calories; G90.523 Complex regional pain syndrome I of lower limb, bilateral; M17.0 Bilateral primary osteoarthritis of knee; Z96.651 Presence of right artificial knee joint; Z68.39 Body mass index [BMI] 39.0-39.9, adult | CPT/HCPCS: 99212 ==

== ENCOUNTER → 2022-05-01 13:30 | Outpatient (BNVA) | payer MEDICARE, MEDICAID, SELFPAY | PROVIDERS: PCP Internal Medicine; Visit Provider Anesthesiology | DX: Z51.81 Encounter for therapeutic drug level monitoring (principal); F11.20 Opioid dependence, uncomplicated; M17.0 Bilateral primary osteoarthritis of knee; M79.2 Neuralgia and neuritis, unspecified; G90.523 Complex regional pain syndrome I of lower limb, bilateral; E66.01 Morbid (severe) obesity due to excess calories; Z68.39 Body mass index [BMI] 39.0-39.9, adult; Z96.651 Presence of right artificial knee joint | CPT/HCPCS: 99212 ==

== ENCOUNTER → 2022-05-29 13:06 | Outpatient (BNVA) | payer MEDICARE, MEDICAID, SELFPAY | PROVIDERS: PCP Internal Medicine; Visit Provider Anesthesiology | DX: Z79.891 Long term (current) use of opiate analgesic (principal) | CPT/HCPCS: 99211 ==

== ENCOUNTER 2022-06-06 09:41 | Day surgery (SDC) | payer MEDICARE, MEDICAID, SELFPAY ==
[2022-05-31 14:24] VITALS: BMI 39.3
--- NOTE | 2022-06-05 10:39 | HO.ANESPROP2 ---
Documented by User: Ailyn Willett NP 06/05/22 10:42 HPI - Anesthesia Eval Consult details Narrative: 51yo M for Left Femoral Nerve Stim Trial of peripheral nerve stimulation Stable at 10/2021 cardiac visit with yearly f/u. (CAD with PR/Stents 2017) [facility] Active Problems Active Problems: All Active Problems (Updated 05/31/22 @ 14:21 by Nena Flores RN) Primary osteoarthritis of left knee (Acute) Aortic valve calcification (Acute) Atherosclerotic cardiovascular disease (Acute) Non-rheumatic aortic stenosis (Acute) Erectile dysfunction associated with type 2 diabetes mellitus (Acute) Complex regional pain syndrome i of lower limb, bilateral (Acute) Bilateral primary osteoarthritis of knee (Acute) SHARONDA (obstructive sleep apnea) (Acute) Gout (Acute) Depression with anxiety (Acute) Erectile dysfunction (Acute) Kidney stones (Acute) Coarse tremors (Acute) Intractable neuropathic pain of right knee (Acute) Status post total knee replacement, right (Acute) Morbid obesity (Acute) Type 2 diabetes mellitus with diabetic polyneuropathy (Acute) Essential hypertension (Acute) Hyperlipidemia LDL goal <70 (Acute) Morbid obesity due to excess calories (Acute) Past Medical History Medical History (Updated 05/31/22 @ 14:21 by Nena Flores RN) Arthritis Bilateral primary osteoarthritis of knee BMI 40.0-44.9, adult CAD (coronary artery disease) Cardiac arrhythmia Chronic back pain Coarse tremors Complex regional pain syndrome i of lower limb, bilateral Depression with anxiety Diabetes mellitus, type 2 Erectile dysfunction Essential hypertension GERD (gastroesophageal reflux disease) Gout HTN (hypertension) Hyperlipidemia LDL goal <70 IDDM (insulin dependent diabetes mellitus) Intractable neuropathic pain of right knee Kidney stones Morbid obesity Morbid obesity due to excess calories SHARONDA (obstructive sleep apnea) RLS (restless legs syndrome) Type 2 diabetes mellitus with diabetic polyneuropathy Family History Family History Mother Diabetes Sister Diabetes Surgical History Surgical History (Updated 05/31/22 @ 14:23 by Nena Flores RN) H/O heart artery stent History of arthroplasty of right knee Hx of left knee surgery Hx of lithotripsy Social History Social History Household Members: Family and Friend(s) Housing: Apartment Alcohol intake: never Patient Tobacco Use Status: Never used Tobacco e-Cigarette/Vaping Use: Never Used Second Hand Smoke Exposure: No service: No Current occupational status: disabled Meds Allergies Allergy/AdvReac Type Severity Reaction Status Date / Time gabapentin AdvReac Intermediate sleepiness Verified 05/29/22 13:47 zolpidem AdvReac Intermediate inadequate Verified 05/29/22 13:47 response Home Medications Medication Instructions Recorded Confirmed Last Taken Type allopurinol 100 mg tablet 100 mg PO DAILY 06/20/20 05/31/22 Unknown History lancets 28 gauge (FreeStyle #100 ea 06/20/20 05/29/22 Unknown History Lancets) lisinopril 10 mg tablet 10 mg PO DAILY 06/20/20 05/31/22 Unknown History blood sugar diagnostic (FreeStyle #10 ea 05/21/21 05/29/22 Unknown History Lite Strips) Exam Exam Date and Time: June 05, 2022 104 Height,Weight and Vital Signs: Height 5 ft 3 in Weight 100.754 kg Narrative Narrative: EKG 09/2021 Vent. Rate : 108 BPM ? ? Atrial Rate : 108 BPM ?? P-R Int : 136 ms? QRS Dur : 092 ms ? ? QT Int : 326 ms ? ? ? P-R-T Axes : 062 017 016 degrees ?? QTc Int : 436 ms ? Sinus tachycardia Otherwise normal ECG When compared with ECG of 03-JUN-2020 21:54, No significant change was found From 10/2021 cardiac office visit: Status post LAD as well as circumflex stenting from 2018.? Repeat catheterization same year with patent stents.? Otherwise, nonobstructive disease.? Stress perfusion imaging from 2019 without any clear ischemia but only 5.8 Mets exercise capacity, 68% of max predicted heart rate.? In the recent echocardiogram, there is basal inferior/basal inferoseptal hypokinesis but otherwise unremarkable.? Possibly from prior coronary disease.? We can continue medical therapy for stable CAD as he has no symptoms. Assessment and Plan Assessment Anesthesia Assessment: Chart Reviewed Documented by User: Darnell Hilario MD 06/06/22 16:31 HPI - Anesthesia Eval Consult details Narrative: 51yo M for Left Femoral Nerve Stim Trial of peripheral nerve stimulation Stable at 10/2021 cardiac visit with yearly f/u. (CAD with PR/Stents 2017) Functional status greater than 4 METS [facility] Past Medical History Medical History (Updated 05/31/22 @ 14:21 by Nena Flores, JACKY) Arthritis Bilateral primary osteoarthritis of knee BMI 40.0-44.9, adult CAD (coronary artery disease) Cardiac arrhythmia Chronic back pain Coarse tremors Complex regional pain syndrome i of lower limb, bilateral Depression with anxiety Diabetes mellitus, type 2 Erectile dysfunction Essential hypertension GERD (gastroesophageal reflux disease) Gout HTN (hypertension) Hyperlipidemia LDL goal <70 IDDM (insulin dependent diabetes mellitus) Intractable neuropathic pain of right knee Kidney stones Morbid obesity Morbid obesity due to excess calories SHARONDA (obstructive sleep apnea) RLS (restless legs syndrome) Type 2 diabetes mellitus with diabetic polyneuropathy Family History Family History Mother Diabetes Sister Diabetes Family history of problems with anesthesia: No Surgical History Surgical History (Updated 05/31/22 @ 14:23 by Nena Flores RN) H/O heart artery stent History of arthroplasty of right knee Hx of left knee surgery Hx of lithotripsy History of Problems with Anesthesia: No Social History Social History Household Members: Family and Friend(s) Housing: Apartment Alcohol intake: never Patient Tobacco Use Status: Never used Tobacco e-Cigarette/Vaping Use: Never Used Second Hand Smoke Exposure: No service: No Current occupational status: disabled Meds Allergies Allergy/AdvReac Type Severity Reaction Status Date / Time gabapentin AdvReac Intermediate sleepiness Verified 05/29/22 13:47 zolpidem AdvReac Intermediate inadequate Verified 05/29/22 13:47 response Home Medications Medication Instructions Recorded Confirmed Last Taken Type allopurinol 100 mg tablet 100 mg PO DAILY 06/20/20 05/31/22 Unknown History lancets 28 gauge (FreeStyle #100 ea 06/20/20 05/29/22 Unknown History Lancets) lisinopril 10 mg tablet 10 mg PO DAILY 06/20/20 05/31/22 Unknown History blood sugar diagnostic (FreeStyle #10 ea 05/21/21 05/29/22 Unknown History Lite Strips) Exam Airway Mallampati Class: IV TM Dist: <=3cm Neck ROM: Full Loose/Missing/Broken Teeth: Yes Heart: S1,S2 Lungs: b/l breath sounds Assessment and Plan Assessment Anesthesia Assessment: Anesthesia Plan Discussed Final Anesthetic Review Family History of Problems with Anesthesia: No History of Problems with Anesthesia: No NPO: Yes ASA Class: III Final Preanesthetic Review: Meds/Allgs Chart Reviewed, Consent Obtained/Reviewed and Anes Risks/Benef Reviewed Patient Risk: Intermediate Procedure Risk: Intermediate Anesthetic Plan Anesthetic Plan: GA Disposition: Standard PACU
[2022-06-06] VITALS (7 sets, daily range): BP systolic 121–165; BP diastolic 77–96; PULSE 89–99; RESP 13–20; TEMP 36.1–36.6; O2SAT 94–97; BMI 40.4
[2022-06-06 10:01] LABS: Glucose, Whole Blood 107 mg/dL (60-115)
[2022-06-06] MEDS: Lactated Ringers 1,000 ML 100 ML IVCONT (10:52)
--- NOTE | 2022-06-06 11:30 | MHC.SHP ---
Pre-Procedural Eval Section A Date of Service: 06/06/22 Section B Chief Complaint: Bilateral primary osteoarthritis of knee Details of Present Illness: as above Relevant Family History (Specify if Yes): No Present Medications: see Short Stay Collaborative assessment Medical History: No relevant PMH History of Previous Operations: No relevant previous surgery Allergies: Allergies Allergy/AdvReac Type Severity Reaction Status Date / Time gabapentin AdvReac Intermediate sleepiness Verified 05/29/22 13:47 zolpidem AdvReac Intermediate inadequate Verified 05/29/22 13:47 response Review of Systems Sugical H&P ROS: Negative: Constitution, Cardiovascular, Respiratory, Neurological, Psychiatric, Hem-Onc, Allergic/Immunologic, Gastrointestinal, Genitourinary, Musculoskeletal, Integumentary, Endocrine and Eyes/Ears/Nose/Throat Exam Surgical H&P Exam: Normal: HEENT, Normal: Heart, Normal: Lungs, Normal: Extremities, Normal: Abdomen, Normal: Skin and Normal: Neurological Plan Diagnosis/Plan: Unchanged I have reviewed the history and physical and performed a pertinent physical examination on my patient. No changes have occurred unless specified.
[2022-06-06 12:25] LABS: MRSA Nasal PCR NEGATIVE (Negative); SA Nasal PCR POSITIVE (Negative)
--- NOTE | 2022-06-06 13:20 | PM.OP ---
Brief Operative Note Date of Service: 06/06/22 Pre-op diagnosis: left hip osteoarthritis Post-op diagnosis: same Procedure: PNS left femoral nerve Implants: none permanent Surgeon: Santosh Paz MD Was an Psychologist Clinical used for this Procedure?: No Estimated blood loss (mL): 1 Pathology: none sent Condition: stable Disposition: PACU
--- NOTE | 2022-06-06 13:25 | W.PM.OPN ---
Operative Note Operative Note Date of Service: 06/06/22 Narrative: Chirag is very pleasant Macedonian speaking gentleman who is suffering from consequences of severe arthritis of the left lower extremity, Complex regional pain syndrome of the left lower extremity with intractable pain in the projection of the left knee.? Today he came to the operating room for trial of peripheral nerve-left nerve femoral nerve stimulation stimwave technology in the attempt to alleviate her left knee pain. ?The informed consent was obtained before procedure delineating the risks of bleeding,? abscess, other infection, osteomyelitis, damage to the peripheral nerves, risk of paralysis and risk of loss of sensation.? After that the patient came to the operating room, HE was positioned supine on the operating table with elevation of the?left hip. ASA monitors were applied and the patient was induced with general endotracheal anesthesia. Time-out was performed delineating correct patient's name and date of , site, side of the procedure, need of antibiotics, risk of fire.? Before the procedure the patient received 2 GRAMS of cefazolin. Abdominal pannus was shifted cephalad using the silk tape. The patient's left groin was prepped with ChloraPrep and draped with full body drape.? Sterilely draped ultrasound probe was brought on the operating field and picture of femoral artery? and femoral nerve were delineated on the screen. 3 cm below the level of the ultrasound probe in the right groin the local anesthetic lidocaine mixture with bupivacaine was injected into the skin and subcutaneous tissue in the direction to the femoral nerve.? 18 gauge introducer needle was inserted through the skin and advanced paralel? to the ultrasound plain fashion to the femoral artery and femoral nerve.? When the tip of the needle entered the space below femoral nerve the needle stylet was removed? and stimulating lead with electrodes array was inserted into the needle and advanced into the foremention position. The testing device was sterilely draped and brought over the operating field.? It was positioned on the outside end of the electrode.? The area of the skin surrounding the electrode was smeared with Mastisol, and the electrode was fix it to the skin using long Steri-Strips. Upon completion of the procedure sterile dressing was applied to the area of injections, the electrode array and the area of the injections was taped to the skin.? The stimulating antenna was applied on top of the area of the dressing to correspond to the maintenance custodian electrodes of the wire device. Upon completion of the procedure patient was awaken he was taken outside of the operating room to recovery room where he recovered uneventfully.? He went home without immediate complications.?
[2022-06-07 12:54] LABS: Glucose, Whole Blood 20 mg/dL (60-115)
== END 2022-06-06 14:45 | disposition home or self-care (01) ==
PROVIDERS: Nurse Practitioner Family; PCP Internal Medicine; Visit Provider Anesthesiology
PROC: (CPT 64555; principal; 2022-06-06 11:30)
DX: M17.12 Unilateral primary osteoarthritis, left knee (principal); G90.522 Complex regional pain syndrome I of left lower limb; M25.562 Pain in left knee; M79.2 Neuralgia and neuritis, unspecified; Z96.651 Presence of right artificial knee joint; E66.01 Morbid (severe) obesity due to excess calories; Z68.39 Body mass index [BMI] 39.0-39.9, adult; I25.10 Atherosclerotic heart disease of native coronary artery without angina pectoris; Z98.61 Coronary angioplasty status; I10 Essential (primary) hypertension; G47.33 Obstructive sleep apnea (adult) (pediatric); E78.5 Hyperlipidemia, unspecified; E11.42 Type 2 diabetes mellitus with diabetic polyneuropathy; Z79.4 Long term (current) use of insulin; Z79.899 Other long term (current) drug therapy
CPT/HCPCS: 64555; 82947; 87640; 87641; C1778; J0690; J1100; J2250; J2405; J2795; J3010

== ENCOUNTER → 2022-06-12 09:21 | Outpatient (BNVA) | payer MEDICARE, MEDICAID, SELFPAY | PROVIDERS: PCP Internal Medicine; Visit Provider Anesthesiology | DX: M79.2 Neuralgia and neuritis, unspecified (principal); M17.0 Bilateral primary osteoarthritis of knee; G90.523 Complex regional pain syndrome I of lower limb, bilateral; E66.01 Morbid (severe) obesity due to excess calories; Z96.651 Presence of right artificial knee joint | CPT/HCPCS: 99212 ==

== ENCOUNTER → 2022-06-26 10:44 | Outpatient (BNVA) | payer MEDICARE, MEDICAID, SELFPAY | PROVIDERS: PCP Internal Medicine; Visit Provider Anesthesiology | DX: Z51.81 Encounter for therapeutic drug level monitoring (principal); F11.20 Opioid dependence, uncomplicated; E66.01 Morbid (severe) obesity due to excess calories; M79.2 Neuralgia and neuritis, unspecified; M17.0 Bilateral primary osteoarthritis of knee; G90.523 Complex regional pain syndrome I of lower limb, bilateral; Z96.651 Presence of right artificial knee joint | CPT/HCPCS: 99212 ==

== ENCOUNTER 2022-06-28 09:40 | Day surgery (SDC) | payer MEDICARE, MEDICAID, SELFPAY ==
--- NOTE | 2022-06-27 09:46 | P.CONAN_ITS ---
Documented by User: Ailyn Willett NP 06/27/22 09:50 HPI - Anesthesia Eval Consult details Narrative: 52yo M for Left Femoral Nerve Peripheral Nerve Stimulator Implant s/p trial 06/2022 with GA-ETT 7.5 Stable at 10/2021 cardiac visit with yearly f/u. (CAD with LA/Stents 2018) [facility] Active Problems Active Problems: All Active Problems (Updated 06/24/22 @ 16:29 by Yun Cummings, RN) Status post total knee replacement, right (Acute) Primary osteoarthritis of left knee (Acute) Aortic valve calcification (Acute) Atherosclerotic cardiovascular disease (Acute) Non-rheumatic aortic stenosis (Acute) Erectile dysfunction associated with type 2 diabetes mellitus (Acute) Complex regional pain syndrome i of lower limb, bilateral (Acute) Bilateral primary osteoarthritis of knee (Acute) SHARONDA (obstructive sleep apnea) (Acute) Gout (Acute) Depression with anxiety (Acute) Erectile dysfunction (Acute) Kidney stones (Acute) Coarse tremors (Acute) Intractable neuropathic pain of right knee (Acute) Morbid obesity (Acute) Type 2 diabetes mellitus with diabetic polyneuropathy (Acute) Essential hypertension (Acute) Hyperlipidemia LDL goal <70 (Acute) Morbid obesity due to excess calories (Acute) Past Medical History Medical History (Updated 06/24/22 @ 16:29 by Yun Cummings, JACKY) Arthritis Bilateral primary osteoarthritis of knee BMI 40.0-44.9, adult CAD (coronary artery disease) Cardiac arrhythmia Chronic back pain Coarse tremors Complex regional pain syndrome i of lower limb, bilateral Depression with anxiety Diabetes mellitus, type 2 Erectile dysfunction Essential hypertension GERD (gastroesophageal reflux disease) Gout HTN (hypertension) Hyperlipidemia LDL goal <70 IDDM (insulin dependent diabetes mellitus) Intractable neuropathic pain of right knee Kidney stones Morbid obesity Morbid obesity due to excess calories On beta rayo at home SHARONDA (obstructive sleep apnea) RLS (restless legs syndrome) Type 2 diabetes mellitus with diabetic polyneuropathy Family History Family History Mother Diabetes Sister Diabetes Family history of problems with anesthesia: No Surgical History Surgical History (Updated 05/31/22 @ 14:23 by Nena Flores RN) H/O heart artery stent History of arthroplasty of right knee Hx of left knee surgery Hx of lithotripsy History of Problems with Anesthesia: No Social History Social History Household Members: Family and Friend(s) Housing: Apartment Alcohol intake: never Patient Tobacco Use Status: Never used Tobacco e-Cigarette/Vaping Use: Never Used Second Hand Smoke Exposure: No Use of substances other than those prescribed or required for medical reasons: No Are you DNR?: No Advance Directives: No Advance Directives Information Provided: Yes service: No Current occupational status: disabled Meds Allergies Allergy/AdvReac Type Severity Reaction Status Date / Time gabapentin AdvReac Intermediate sleepiness Verified 06/26/22 11:02 zolpidem AdvReac Intermediate inadequate Verified 06/26/22 11:02 response Home Medications Medication Instructions Recorded Confirmed Last Taken Type allopurinol 100 mg tablet 100 mg PO DAILY 06/20/20 06/24/22 Unknown History lancets 28 gauge (FreeStyle #100 ea 06/20/20 06/12/22 Unknown History Lancets) blood sugar diagnostic (FreeStyle #10 ea 05/21/21 06/12/22 Unknown History Lite Strips) Exam Exam Date and Time: June 27, 2022 0946 Narrative Narrative: EKG 09/2021 Vent. Rate : 108 BPM ? ? Atrial Rate : 108 BPM ?? P-R Int : 136 ms? QRS Dur : 092 ms ? ? QT Int : 326 ms ? ? ? P-R-T Axes : 062 017 016 degrees ?? QTc Int : 436 ms ? Sinus tachycardia Otherwise normal ECG When compared with ECG of 03-JUN-2020 21:54, No significant change was found From 10/2021 cardiac office visit: Status post LAD as well as circumflex stenting from 2018.? Repeat catheterization same year with patent stents.? Otherwise, nonobstructive disease.? Stress perfusion imaging from 2019 without any clear ischemia but only 5.8 Mets exercise capacity, 68% of max predicted heart rate.? In the recent echocardiogram, there is basal inferior/basal inferoseptal hypokinesis but otherwise unremarkable.? Possibly from prior coronary disease.? We can continue medical therapy for stable CAD as he has no symptoms. Assessment and Plan Assessment Anesthesia Assessment: Chart Reviewed Final Anesthetic Review Family History of Problems with Anesthesia: No History of Problems with Anesthesia: No Documented by User: Serafin King MD 06/28/22 10:26 [facility] Past Medical History Medical History (Updated 06/24/22 @ 16:29 by Yun Cummings, RN) Arthritis Bilateral primary osteoarthritis of knee BMI 40.0-44.9, adult CAD (coronary artery disease) Cardiac arrhythmia Chronic back pain Coarse tremors Complex regional pain syndrome i of lower limb, bilateral Depression with anxiety Diabetes mellitus, type 2 Erectile dysfunction Essential hypertension GERD (gastroesophageal reflux disease) Gout HTN (hypertension) Hyperlipidemia LDL goal <70 IDDM (insulin dependent diabetes mellitus) Intractable neuropathic pain of right knee Kidney stones Morbid obesity Morbid obesity due to excess calories On beta rayo at home SHARONDA (obstructive sleep apnea) RLS (restless legs syndrome) Type 2 diabetes mellitus with diabetic polyneuropathy Family History Family History Mother Diabetes Sister Diabetes Surgical History Surgical History (Updated 05/31/22 @ 14:23 by Nena Flores RN) H/O heart artery stent History of arthroplasty of right knee Hx of left knee surgery Hx of lithotripsy Social History Social History Household Members: Family and Friend(s) Housing: Apartment Alcohol intake: never Patient Tobacco Use Status: Never used Tobacco e-Cigarette/Vaping Use: Never Used Second Hand Smoke Exposure: No Use of substances other than those prescribed or required for medical reasons: No Are you DNR?: No Advance Directives: No Advance Directives Information Provided: Yes service: No Current occupational status: disabled Meds Allergies Allergy/AdvReac Type Severity Reaction Status Date / Time gabapentin AdvReac Intermediate sleepiness Verified 06/26/22 11:02 zolpidem AdvReac Intermediate inadequate Verified 06/26/22 11:02 response Home Medications Medication Instructions Recorded Confirmed Last Taken Type allopurinol 100 mg tablet 100 mg PO DAILY 06/20/20 06/24/22 Unknown History lancets 28 gauge (FreeStyle #100 ea 06/20/20 06/12/22 Unknown History Lancets) blood sugar diagnostic (FreeStyle #10 ea 05/21/21 06/12/22 Unknown History Lite Strips) Exam Airway Mallampati Class: III TM Dist: >3cm Loose/Missing/Broken Teeth: No Heart: rrr Lungs: clear Assessment and Plan Assessment Anesthesia Assessment: Anesthesia Plan Discussed Final Anesthetic Review NPO: Yes ASA Class: III Final Preanesthetic Review: No Changes in Pt Med Stat, Meds/Allgs Chart Reviewed, Consent Obtained/Reviewed and Anes Risks/Benef Reviewed Patient Risk: Intermediate Procedure Risk: Low Anesthetic Plan Anesthetic Plan: GA Disposition: Standard PACU
[2022-06-28] VITALS (8 sets, daily range): BP systolic 116–133; BP diastolic 62–77; PULSE 90–104; RESP 14–16; TEMP 36.3–36.5; O2SAT 88–97; BMI 40.5
--- NOTE | 2022-06-28 08:28 | P.OP_ITS ---
Operative Note Operative Note Date of Service: 06/28/22 Narrative: Chirag is very pleasant 52 y/o. male who is suffering from Complex regional pain syndrome of the left lower extremity and terminal left knee osteoarthritis.? He had a successful trial of peripheral nerve stimulator of fem oral nerve position.?He came today for implantation of permanent implant of peripheral nerve stimulator femoral nerve position. After obtaining informed consent the patient was taking into the operating room where he was positioned supine on the operating table.? [employer] monitors were applied and patient was induced with general anesthesia via LMA. After that time-out was performed delineating correct site and side of the procedure, name and date of of the patient, allergies, risk of fire, need for DVT prophylaxis, need for antibiotics.? The patient received 2 g of cefazolin approximately 30 minutes before the onset of the incision. The patient's right upper thigh and right groin were prepped with ChloraPrep and draped with sterile utility towels.? Sterilely draped? straight ultrasound probe was brought on to the operating field and sq picture of the femoral nerve position lateral to the femoral artery was clearly demonstrated on the screen.?He had femoris profunda artery splitting from the main femoral artery very high on the course of the artery. The decision was made to place the stimulating electrode in the vicinity of the femoral nerve under direct dissection. the area of the anterior thigh approximately 3 cm below the groin was injected with lidocaine 2% with bupivacain mixture 1:1, anfter that a vertical incision was made using 15 blade approximately 4 cm long. The wound was widened and deepened using electrocautery device and after that femoral artery pulsation was located and vertical incision and fascia melissa approximately [address] and lateral from femoral artery pulsation.? The stimulating electrode was inserted under fascia melissa and advanced to the poupart ligament level.? Two anchoring sutures were applied to underlying fascia to keep stimulating electrode in place.? After that thorough hemostasis was checked and the incision in fascia melissa was closed using 2-0 Polysorb suture.? The wound was irrigated with copious amount of saline with vancomycin and packed with saline with vancomycin saturated 4 x 4 .? After that approximately 25 cm below the level of this incision another vertical incision was made to accommodate the coil and the antenna.? The incision was made 3 cm long.? It widened and deepened to the subcutaneous tissues.? Thorough hemostasis was obtained.? After that tunneling device was used to connect both incisions and stimulating electrode was dislodged into lower incision.? Irrigation was performed on the lower incision.? The same solution with vancomycin was used.? After that the stimulating e lectrode was tied on itself and a coil was made out of the tail of stimulating electrode.? It was trimmed appropriately and inserted into the wound.? After that irrigation was repeated and both wounds were closed using 2-0 Polysorb sutures and the skin level was approximated using 2-0 Polysorb sutures as well.? Sebree were applied to the skin level.? Sterile dressing with bacitracin was applied and stimulating pad was applied to the level of the stimulating electrode.? It was taped to the skin using Medipore tape.? Upon completion of the procedure the patient was awaken extubated and transferred stable to the recovery room.
[2022-06-28 10:18] LABS: Glucose, Whole Blood 100 mg/dL (60-115)
[2022-06-28] MEDS: Lactated Ringers 1,000 ML 100 ML IVCONT (10:26)
--- NOTE | 2022-06-28 13:31 | P.BOP_ITS ---
Brief Operative Note Date of Service: 06/28/22 Pre-op diagnosis: Complex regional pain syndrome of the left lower extremity Post-op diagnosis: same Procedure: stim wave peripheral nerve stimulation left femoral nerve permanent implant Implants: stim wave stimulating wire Surgeon: Santosh Paz MD Anesthesia: GLMA Was an [employer] Project Manager used for this Procedure?: No Estimated blood loss (mL): 8 Pathology: none sent Condition: stable Disposition: PACU
[2022-06-28] MEDS: Acetaminophen 325 MG TABLET 650 MG PO (14:36)
[2022-06-28] MEDS: oxyCODONE HCl Immed Release 5 MG TABLET PO (14:36)
== END 2022-06-28 14:41 | disposition home or self-care (01) ==
PROVIDERS: PCP Internal Medicine; Visit Provider Anesthesiology
PROC: (CPT 64555; principal; 2022-06-28 11:20)
DX: G90.522 Complex regional pain syndrome I of left lower limb (principal); M17.12 Unilateral primary osteoarthritis, left knee; M79.2 Neuralgia and neuritis, unspecified; M10.9 Gout, unspecified; E66.01 Morbid (severe) obesity due to excess calories; I10 Essential (primary) hypertension; E11.9 Type 2 diabetes mellitus without complications; Z79.4 Long term (current) use of insulin; Z79.82 Long term (current) use of aspirin; Z79.899 Other long term (current) drug therapy; Z88.8 Allergy status to other drugs, medicaments and biological substances; Z96.651 Presence of right artificial knee joint
CPT/HCPCS: 64555; 82947; C1787; C1816; J0690; J1100; J2250; J2405; J2795; J3010; J3370

== ENCOUNTER → 2022-07-03 14:24 | Outpatient (BNVA) | payer MEDICARE, MEDICAID, SELFPAY | PROVIDERS: PCP Internal Medicine; Visit Provider Anesthesiology | DX: M79.2 Neuralgia and neuritis, unspecified (principal); M17.0 Bilateral primary osteoarthritis of knee; M54.50 Low back pain, unspecified; G90.523 Complex regional pain syndrome I of lower limb, bilateral; E66.01 Morbid (severe) obesity due to excess calories; Z68.41 Body mass index [BMI] 40.0-44.9, adult; Z96.651 Presence of right artificial knee joint | CPT/HCPCS: 99212 ==

== ENCOUNTER → 2022-07-10 14:26 | Outpatient (BNVA) | payer MEDICARE, MEDICAID, SELFPAY | PROVIDERS: PCP Internal Medicine; Visit Provider Anesthesiology | DX: M17.0 Bilateral primary osteoarthritis of knee (principal); M79.2 Neuralgia and neuritis, unspecified; G90.523 Complex regional pain syndrome I of lower limb, bilateral; E66.01 Morbid (severe) obesity due to excess calories; Z96.651 Presence of right artificial knee joint | CPT/HCPCS: 99212 ==

== ENCOUNTER → 2022-07-22 15:59 | Outpatient (BNVA) | payer MEDICARE, MEDICAID, SELFPAY | PROVIDERS: PCP Internal Medicine; Visit Provider Anesthesiology | DX: Z48.01 Encounter for change or removal of surgical wound dressing (principal) | CPT/HCPCS: 99211 ==

== ENCOUNTER → 2022-07-24 09:30 | Outpatient (BNVA) | payer MEDICARE, MEDICAID, SELFPAY | PROVIDERS: PCP Internal Medicine; Visit Provider Anesthesiology | DX: Z79.891 Long term (current) use of opiate analgesic (principal) | CPT/HCPCS: 99211 ==

== ENCOUNTER → 2022-07-29 08:02 | Outpatient (BNVA) | payer MEDICARE, MEDICAID, SELFPAY | PROVIDERS: PCP Internal Medicine; Visit Provider Anesthesiology | DX: G90.523 Complex regional pain syndrome I of lower limb, bilateral (principal); M17.0 Bilateral primary osteoarthritis of knee; M79.2 Neuralgia and neuritis, unspecified; E66.01 Morbid (severe) obesity due to excess calories; Z96.651 Presence of right artificial knee joint; Z68.39 Body mass index [BMI] 39.0-39.9, adult | CPT/HCPCS: 99212 ==

== ENCOUNTER → 2022-08-14 12:49 | Outpatient (BNVA) | payer MEDICARE, MEDICAID, SELFPAY | PROVIDERS: PCP Internal Medicine; Visit Provider Anesthesiology | DX: M79.2 Neuralgia and neuritis, unspecified (principal); M17.0 Bilateral primary osteoarthritis of knee; G90.523 Complex regional pain syndrome I of lower limb, bilateral; E66.01 Morbid (severe) obesity due to excess calories; Z68.41 Body mass index [BMI] 40.0-44.9, adult; Z79.891 Long term (current) use of opiate analgesic; Z96.651 Presence of right artificial knee joint | CPT/HCPCS: 99212 ==

== ENCOUNTER → 2022-09-26 07:37 | Outpatient (REF) | payer MEDICARE, MEDICAID, SELFPAY ==
--- NOTE | 2022-09-26 07:48 | CA_ITS ---
Transthoracic Echocardiogram Patient (Last, First, Middle): Chirag Mauricio, Gender: Male Date of : 1970 Age: 52 Procedure Date: 09/26/2022 Procedure Type: Transthoracic Echocardiogram Location: OP Height: 160.02 cm Weight: 102.06 kg BSA: 2.03 m2 Heart Rate: bpm BP: 118 / 76 mmHg Scallop Raker: RICHARDSON Referring MD: Lenny Angel MD Symptoms: I35.0 - Nonrheumatic aortic (valve) stenosis Study Quality: Fair ECG Rhythm: Sinus Conclusions: - The left ventricular systolic function is normal. The calculated ejection fraction is 56% by biplane method. - There is moderate aortic valve stenosis. - There is mild mitral annular calcification. Findings Left Ventricle Normal left ventricular cavity size. There is mildly increased left ventricular wall thickness. The left ventricular systolic function is normal. The calculated ejection fraction is 56% by biplane method. There is no evidence of regional wall motion abnormalities. Diastolic function is normal for age. Right Ventricle Normal right ventricular cavity size and systolic function. Atria Both atria are normal in size. Aortic Valve There is moderate calcification of the aortic valve. There is moderate aortic valve stenosis. The peak aortic velocity is 3.21 m/s with a calculated peak gradient of 41 mmHg. The mean gradient is 26 mmHg. The aortic valve area is 1.19 cm2. There is no aortic valve regurgitation. Mitral Valve The mitral valve appears normal. There is mild mitral annular calcification. There is no mitral valve regurgitation. There is no mitral valve stenosis. Pulmonic Valve The pulmonic valve is likely normal. Tricuspid Valve There is no tricuspid valve regurgitation. Tricuspid regurgitation envelope is inadequate for calculation of right ventricular systolic pressure. Great Vessels The asc aorta is normal in size. Small plaque is seen in the sinuses of Valsalva. Venous The inferior vena cava is normal in size and collapses greater than 50% with inspiration. Pericardium/Pleural There is no evidence of pericardial effusion. Prior Study Comparison Changes noted compared to prior study dated: 11/05/2021. Slight progression of aortic stenosis. Measurements 2D Linear Measurements IVSd: 1.19 0.6-0.9/0.6-1.0 cm LVIDd: 4.09 3.9-5.3/4.2-5.9 cm LVIDd Index: 2.01 2.4-3.2/2.2-3.1 cm/m2 LVIDs: 2.98 2.0-3.6 cm LVPWd: 1.19 0.7-1.1 cm LA Diam: 3.50 2.7-3.8/3.0-4.0 cm LAIDs Index: 1.72 1.5-2.3 cm/m2 LV Mass: 210.52 67-162/88-224 g LV Mass Index: 103.70 43-95/49-115 g/m2 LVOT Diam: 2.10 3.0+(-)1.3 cm 2D Systolic Function EF 4C: 57.30 >55% EF 2C: 56.70 >55% EF BiP: 56.30 >55% Mitral Valve MV Pk E: 1.05 MV PK A: 0.93 MV Decel Time: 294.00 E/A: 1.10 E'Lateral: 9.46 E'Medial: 7.29 E/E' Med: 14.40 E/E' Lat: 11.10 PHT: 86.00 MVA PHT: 2.56 Decel Zapata: 3.59 Aortic Valve AoV Pk Nico: 3.21 AoV Mn Nico: 2.45 AoV VTI: 0.70 AoV Pk Grad: 41.00 Aov Mn Grad: 26.00 MAR Cont.VTI: 1.19 LVOT LVOT Pk Nico: 1.22 LVOT Mn Nico: 0.85 LVOT VTI: 0.24 LVOT Pk Grad: 6.00 LVOT Mn Grad: 3.00 LVOT Diam: 2.10 LVOT Area: 3.46 Diastolic Function MV Pk E: 1.05 MV Pk A: 0.93 E/A: 1.10 E'Medial: 7.29 E/E' Med: 14.40 E' Laterial: 9.46 E/E' Lat: 11.10 Right Ventricle TAPSE (mm): 21.40 TVS' Nico: 12.80 Tricuspid Valve RA Press: 3.00 Great Vessels Aorta Sinus of Valsalva: 3.12 2.0-3.[address] [place]: 2.17 1.7-3.4 cm Ao Asc: 3.30 2.1-3.4 cm Updated in Other Vendor System with Status of Final Lenny Angel MD electronically signed on 09/28/2022 12:10:38 PM with status of Final
== END ==
LOC: HO.CARD 07:37
PROVIDERS: PCP Internal Medicine; Visit Provider Internal Medicine
DX: I35.0 Nonrheumatic aortic (valve) stenosis (principal)
CPT/HCPCS: 93306

== ENCOUNTER 2022-11-29 07:37 | Outpatient (REF) | payer MEDICARE, MEDICAID, SELFPAY ==
[2022-11-29 07:51] LABS: MANUAL DIFF FLAG NO
[2022-11-29 08:13] LABS: Basophils Percent Auto 0.4 % (0-2); Eosinophils Absolute Auto 0.3 X10*3/uL (0.0-0.4); Eosinophils Percent Auto 4.4 % (0-4); Hematocrit 41.9 % (42.0-52.0); Hemoglobin 14.3 g/dl (14.0-18.0); Imm Gran Abs Auto 0.01 X10*3/uL (0.00-0.03); Imm Gran Pct Auto 0.1 % (0.0-0.4); Lymphocytes Absolute Auto 2.5 X10*3/uL (1.2-4.9); Lymphocytes Percent Auto 33.6 % (20-40); Mean Corpuscular HGB Conc 34.1 g/dl (31.0-36.0); Mean Corpuscular Hemoglobin 29.6 pg (27.0-33.0); Mean Corpuscular Volume 86.7 fL (80.0-98.0); Mean Platelet Volume 10.5 fL (9.4-12.4); Monocytes Absolute Auto 0.8 X10*3/uL (0.1-1.2); Monocytes Percent Auto 10.7 % (2-11); Neutrophils Absolute Auto 3.8 x10*3/uL (2.0-8.3); Neutrophils Percent Auto 50.8 % (45-73); Platelet Count 258 X10*3/uL (160-400); Red Blood Count 4.83 X10*6/uL (4.60-5.80); Red Cell Distribution Width 13.2 % (11.0-16.0); White Blood Count 7.5 X10*3/uL (4.8-10.8)
[2022-11-29 08:43] LABS: Alanine Aminotransferase 33 U/L (0-40); Albumin Level 4.2 g/dL (3.5-5.0); Alkaline Phosphatase 85 U/L (39-117); Anion Gap 13 (12-20); Aspartate Amino Transferase 24 U/L (5-37); Bilirubin Total 0.7 mg/dL (0.0-1.0); Blood Urea Nitrogen 13 mg/dL (9-16); Carbon Dioxide 25 mmol/L (22-29); Chloride 105 mmol/L (96-108); Cholesterol 122 mg/dL; Estimated Glomerular Filt Rate > 60; Glucose Fasting 115 mg/dL (60-99); Glucose Random 115 mg/dL (60-115); HDL Cholesterol 31 mg/dL; LDL Cholesterol Calculated 73 mg/dl; Potassium 4.3 mmol/L (3.3-5.1); Sodium 139 mmol/L (135-145); Total Protein 6.8 g/dL (6.5-8.0); Triglycerides 90 mg/dL
[2022-11-29 08:45] LABS: Uric Acid 4.1 mg/dL (3.4-7.0)
[2022-11-29 08:55] LABS: Erythrocyte Sedimentation Rate 6 MM/HR (0-15)
[2022-11-29 08:59] LABS: Vitamin D 25-OH Total 21.4 ng/mL (>30)
[2022-11-29 09:13] LABS: Folate 11.9 ng/mL (> or = 4.0); Vitamin B12 220 pg/mL (200-900)
[2022-11-29 09:53] LABS: Creatinine Urine 84.17 mg/dL
== END 2022-11-29 07:38 | disposition home or self-care (01) ==
LOC: HO.LAB 07:37
PROVIDERS: Anesthesiology; PCP Internal Medicine; Visit Provider Internal Medicine
DX: M1A.09X0 Idiopathic chronic gout, multiple sites, without tophus (tophi) (principal); E55.9 Vitamin D deficiency, unspecified; E53.8 Deficiency of other specified B group vitamins; E78.5 Hyperlipidemia, unspecified; E11.9 Type 2 diabetes mellitus without complications
CPT/HCPCS: 36415; 80053; 80061; 82043; 82306; 82607; 82746; 84550; 85025; 85652

== ENCOUNTER → 2022-12-23 12:30 | Outpatient (BNVA) | payer MEDICARE, MEDICAID, SELFPAY | PROVIDERS: PCP Internal Medicine; Referring Provider Internal Medicine; Visit Provider Internal Medicine | DX: I25.10 Atherosclerotic heart disease of native coronary artery without angina pectoris (principal); I35.0 Nonrheumatic aortic (valve) stenosis; I10 Essential (primary) hypertension; E11.42 Type 2 diabetes mellitus with diabetic polyneuropathy; E66.01 Morbid (severe) obesity due to excess calories; G47.33 Obstructive sleep apnea (adult) (pediatric); Z68.41 Body mass index [BMI] 40.0-44.9, adult | CPT/HCPCS: 93005; 99212 ==

== ENCOUNTER 2023-01-03 07:45 | Outpatient (REF) | payer MEDICARE, MEDICAID, SELFPAY ==
--- NOTE | ~2023-01-03 | XR_ITS ---
EXAMINATION: XR knee standing BI, XR knee LT 2V CLINICAL INFORMATION: Reason for Exam M25.569 - Pain in unspecified knee COMPARISON: 01/07/2021 TECHNIQUE: 2 views of the left knee and standing view of the bilateral knees XR/XR knee LT 2V FINDINGS/IMPRESSION: * No acute fracture or dislocation. * Status post right total knee arthroplasty without evidence of hardware complication. * Moderate degenerative changes of the left knee joint with joint space narrowing of the medial tibiofemoral compartment and tricompartmental osteophytes with a small left suprapatellar effusion.
--- NOTE | ~2023-01-03 | XR_ITS ---
EXAMINATION: XR knee standing BI, XR knee LT 2V CLINICAL INFORMATION: Reason for Exam M25.569 - Pain in unspecified knee COMPARISON: 01/07/2021 TECHNIQUE: 2 views of the left knee and standing view of the bilateral knees XR/XR knee standing BI FINDINGS/IMPRESSION: * No acute fracture or dislocation. * Status post right total knee arthroplasty without evidence of hardware complication. * Moderate degenerative changes of the left knee joint with joint space narrowing of the medial tibiofemoral compartment and tricompartmental osteophytes with a small left suprapatellar effusion.
== END 2023-01-03 07:46 | disposition home or self-care (01) ==
LOC: HO.HOSX 07:45
PROVIDERS: Visit Provider Physician Assistant
DX: M17.12 Unilateral primary osteoarthritis, left knee (principal)
CPT/HCPCS: 73560; 73565; 99212

== ENCOUNTER → 2023-01-13 10:37 | Outpatient (BNVA) | payer MEDICARE, MEDICAID, SELFPAY | PROVIDERS: PCP Internal Medicine; Visit Provider Orthopaedic Surgery | DX: M17.12 Unilateral primary osteoarthritis, left knee (principal); E66.01 Morbid (severe) obesity due to excess calories; E11.9 Type 2 diabetes mellitus without complications; I25.10 Atherosclerotic heart disease of native coronary artery without angina pectoris; Z68.41 Body mass index [BMI] 40.0-44.9, adult | CPT/HCPCS: 99212 ==

== ENCOUNTER 2023-01-13 23:21 | Emergency (ER) | payer MEDICARE, MEDICAID, SELFPAY ==
--- NOTE | ~2023-01-13 | CT_ITS ---
EXAMINATION: CT ABDOMEN AND PELVIS WITHOUT CONTRAST CLINICAL INFORMATION: Right flank pain COMPARISON: CT abdomen/pelvis dated 11/18/2019 TECHNIQUE: Multidetector volumetric imaging was performed from the superior aspect of the liver through the pubic symphysis. Sagittal and coronal reformatted images were obtained on the technologist's workstation. This CT examination was performed using dose optimization techniques as appropriate, variously including the following: *Automated exposure control *Adjustment of mA and/or kV according to patient size (this includes techniques or standardized protocols for targeted exams where dose is matched to indication/reason for exam; i.e. extremities or head) *Use of iterative reconstruction technique DLP: 727 mGy-cm FINDINGS: LUNG BASES: The visualized lung bases are unremarkable. Coronary calcifications present. LIVER, GALLBLADDER, AND BILIARY TREE: The liver is normal in size, shape, and attenuation. No focal hepatic lesion or biliary ductal dilatation is present. Gallbladder physiologically contracted. PANCREAS: Unremarkable. SPLEEN: Unremarkable. ADRENAL GLANDS: Unremarkable. KIDNEYS AND URETERS: The kidneys are normal in size, shape, and attenuation. Multiple bilateral nonobstructive intrarenal calculi number at least 5 within the left kidney and 8-10 in the right kidney, though assessment of the upper pole of the right kidney is limited due to motion artifact. No hydronephrosis. No ureteral calculi. No perinephric abnormalities. BLADDER: Unremarkable. GASTROINTESTINAL TRACT: The small and large bowel are unremarkable. The appendix is unremarkable. ABDOMINAL WALL: No significant hernia is appreciated. LYMPH NODES: Normal. VASCULAR: Unremarkable. PELVIC VISCERA: Unremarkable. OSSEOUS STRUCTURES: Unremarkable. CT/CT abdomen pelvis wo IV con IMPRESSION: * No acute findings within the abdomen or pelvis to explain the patient's symptomatology. * Bilateral nonobstructive intrarenal calculi. No ureteral calculi or hydronephrosis.
[2023-01-13 23:22] VITALS: BP 137/74; PULSE 81; RESP 18; TEMP 35.9; O2SAT 95; BMI 39.2
[2023-01-13 23:59] LABS: MANUAL DIFF FLAG NO
[2023-01-14] LABS: Basophils Percent Auto 0.4 % (0-2); Eosinophils Absolute Auto 0.2 X10*3/uL (0.0-0.4); Eosinophils Percent Auto 2.5 % (0-4); Hematocrit 40.4 % (42.0-52.0); Hemoglobin 13.8 g/dl (14.0-18.0); Imm Gran Abs Auto 0.03 X10*3/uL (0.00-0.03); Imm Gran Pct Auto 0.4 % (0.0-0.4); Lymphocytes Absolute Auto 2.6 X10*3/uL (1.2-4.9); Lymphocytes Percent Auto 31.8 % (20-40); Mean Corpuscular HGB Conc 34.2 g/dl (31.0-36.0); Mean Corpuscular Hemoglobin 29.5 pg (27.0-33.0); Mean Corpuscular Volume 86.3 fL (80.0-98.0); Mean Platelet Volume 10.8 fL (9.4-12.4); Monocytes Absolute Auto 0.8 X10*3/uL (0.1-1.2); Monocytes Percent Auto 9.6 % (2-11); Neutrophils Absolute Auto 4.5 x10*3/uL (2.0-8.3); Neutrophils Percent Auto 55.3 % (45-73); Platelet Count 290 X10*3/uL (160-400); Red Blood Count 4.68 X10*6/uL (4.60-5.80); Red Cell Distribution Width 13.4 % (11.0-16.0)
[2023-01-14] LABS: Appearance Urine Clear; Color Urine Yellow; Glucose Urine UA >=1000 mg/dL (Negative); Leukocyte Esterase Urine Negative (Negative); Nitrite Urine Negative (Negative); Specific Gravity - Urine >= 1.030 (1.005-1.025); UMIC TRIGGER UACC YES; Urine Blood Negative (Negative); Urine Ketones Negative (Negative); Urine Protein Negative (Neg-Trace)
[2023-01-14 00:11] LABS: Anion Gap 14 (12-20); Blood Urea Nitrogen 14 mg/dL (9-16); Calcium 9.1 mg/dL (8.4-10.2); Carbon Dioxide 23 mmol/L (22-29); Chloride 104 mmol/L (96-108); Creatinine Clr Calc Pharmacy 88.3; Estimated Glomerular Filt Rate > 60; Glucose Random 210 mg/dL (60-115); Potassium 4.3 mmol/L (3.3-5.1); Sodium 137 mmol/L (135-145)
[2023-01-14 01:03] VITALS: BP 121/64; PULSE 84; RESP 16; TEMP 37; O2SAT 98
--- NOTE | 2023-01-14 01:04 | MHC.EDTECH ---
THIS PCT JUST ASSUMED CARE OF PATIENT ,VITALS SIGN TAKEN .
[2023-01-14 01:22] LABS: Bacteria Urine None Seen (None Seen); Hyaline Casts Urine 0-2 /LPF (0-2); RBC Urine 0-2 /HPF (0-2); Squamous Epithelial Cell Urine 0-2 /HPF (0-2); WBC Urine 0-5 /HPF (0-5)
[2023-01-14 01:56] VITALS: BP 122/50; RESP 16; TEMP 37.1; O2SAT 98
--- NOTE | 2023-01-14 02:26 | ED_ITS ---
HPI - Male Genitourinary General Chief complaint: Urogenital-Male Stated complaint: Flank pain Time Seen by Provider: 01/14/23 02:26 Source: patient Mode of arrival: ambulatory Limitations: no limitations History of Present Illness HPI Narrative: Patient history of kidney stones comes here for right flank pain for last 2 days or so with nausea no vomiting no diarrhea no fever no chills no hematuria no urinary symptoms patient had history of lithotripsy in the past Related Data Home Medications Medication Instructions Recorded Confirmed allopurinol 100 mg tablet 100 mg PO DAILY 06/20/20 12/23/22 lancets 28 gauge (FreeStyle #100 ea 06/20/20 12/23/22 Lancets) blood sugar diagnostic (FreeStyle #10 ea 05/21/21 12/23/22 Lite Strips) sertraline 25 mg tablet 25 mg PO DAILY 12/23/22 12/23/22 tadalafil 10 mg tablet 10 mg PO DAILY sexual activity 12/23/22 12/23/22 Previous Rx's Medication Instructions Recorded ketorolac 0.5 % eye drops (Acular) 1 drp ophthalmic (eye) Q6-8H PRN 08/31/21 itching #5 mL blood sugar diagnostic (FreeStyle #50 ea 12/20/21 Precision Sanket Strips) ropinirole 4 mg tablet 4 mg PO .every 6 hours 30 days 09/24/22 #120 tabs aspirin 81 mg tablet,delayed 81 mg PO DAILY #90 tabs 10/10/22 release empagliflozin 25 mg tablet 25 mg PO QAM #30 tabs 10/10/22 (Jardiance) omeprazole 20 mg capsule,delayed 20 mg PO BID 90 days #180 caps 10/10/22 release docusate sodium 100 mg capsule 100 mg PO BEDTIME #30 caps 10/24/22 lisinopril 10 mg tablet 10 mg PO DAILY 90 days #90 tabs 10/24/22 metformin 500 mg tablet 1,000 mg PO BID #360 tabs 10/24/22 metoprolol tartrate 50 mg tablet 50 mg PO BID #180 tabs 10/24/22 atorvastatin 80 mg tablet 80 mg PO DAILY #90 tabs 11/22/22 dulaglutide 0.75 mg/0.5 mL 0.75 mg (0.5 mL) subcut QWEEK 90 12/02/22 subcutaneous pen injector days #6.5 mL (Trulicity) tramadol 50 mg tablet 50 mg PO Q6H PRN pain #20 tabs 01/14/23 Allergies Allergy/AdvReac Type Severity Reaction Status Date / Time gabapentin AdvReac Intermediate sleepiness Verified 01/03/23 09:24 zolpidem AdvReac Intermediate inadequate Verified 01/03/23 09:24 response Review of Systems Review of Systems: Yes all other systems are reviewed and are negative PMFSH Past Medical History Medical History Arthritis Bilateral primary osteoarthritis of knee BMI 40.0-44.9, adult CAD (coronary artery disease) Cardiac arrhythmia Chronic back pain Coarse tremors Complex regional pain syndrome i of lower limb, bilateral Depression with anxiety Diabetes mellitus, type 2 Erectile dysfunction Essential hypertension GERD (gastroesophageal reflux disease) Gout HTN (hypertension) Hyperlipidemia LDL goal <70 IDDM (insulin dependent diabetes mellitus) Intractable neuropathic pain of right knee Kidney stones Morbid obesity Morbid obesity due to excess calories On beta rayo at home SHARONDA (obstructive sleep apnea) RLS (restless legs syndrome) Type 2 diabetes mellitus with diabetic polyneuropathy Surgical History H/O heart artery stent History of arthroplasty of right knee Hx of left knee surgery Hx of lithotripsy Family History Family History Mother Diabetes Sister Diabetes Social History Social History Household Members: Family and Friend(s) Housing: Apartment Alcohol intake: never Patient Tobacco Use Status: Never used Tobacco e-Cigarette/Vaping Use: Never Used Second Hand Smoke Exposure: No Advance Directives: No Advance Directives Information Provided: Yes service: No Current occupational status: disabled Cognitive needs: Yes Hearing needs: No Vision needs: No Physical Exam Vital Signs: Vital Signs: Last Vital Signs Temp 98.8 F 01/14/23 01:56 Pulse 84 01/14/23 01:03 Resp 16 01/14/23 01:56 BP 122/50 L 01/14/23 01:56 Pulse Ox 98 01/14/23 01:56 O2 Del Method Room Air 01/14/23 01:03 BMI result Body Mass Index 39.2 Appearance: Alert. Oriented X3. No acute distress. Eyes: PERRLA, No Nystagmus ENT: Pharynx normal. Oral Mucosa moist Neck: Normal inspection. Neck supple. CVS: Normal heart rate and rhythm. Pulses normal. Respiratory: No respiratory distress. Equal air entry bilateral, no wheezing/r ales/rhonchi Abdomen: Soft and nontender. Bowel sounds are present, no mass palpable, right CVA tenderness Skin: Skin warm and dry. Normal skin color. Normal skin turgor. Extremities: No lower extremity edema. No calf tenderness Neuro: Oriented X 3. No motor deficit. Medications Administered Discontinued Medications Generic Name Dose Route Start Last Admin Trade Name Freq PRN Reason Stop Dose Admin Sodium Chloride 1,000 mls @ 999 mls/hr 01/14/23 02:26 01/14/23 03:06 Ns IV 01/14/23 03:26 999 mls/hr .Q1H1M ONE Administration Ketorolac Tromethamine 30 mg 01/14/23 02:28 01/14/23 03:06 Ketorolac Tromethamine 30 Mg/Ml Vial IVPUSH 01/14/23 02:29 30 mg ONCE ONE Administration Morphine Sulfate 4 mg 01/14/23 02:26 01/14/23 03:06 Morphine Sulfate 4 Mg/Ml Cartridge IVPUSH 01/14/23 02:27 4 mg ONCE ONE Administration Protocol Ondansetron HCl 4 mg 01/14/23 02:26 01/14/23 03:06 Ondansetron Hcl 4 Mg/2 Ml Vial IVPUSH 01/14/23 02:27 4 mg ONCE ONE Administration Medical Decision Making Medical Decision Making [facility] Narrative: . Nonobstructive bilateral kidney stone lab workup negative patient feels much better after pain medication discharge patient home for flank pain likely musculoskeletal Lab Data [facility] Lab Attestation statement: I reviewed the patient's lab results. 01/13/23 23:32 01/13/23 23:32 Labs: Lab Results 01/13/23 01/13/23 01/13/23 Range/Units 23:32 23:32 23:53 WBC 8.0 (4.8-10.8) X10*3/uL RBC 4.68 (4.60-5.80) X10*6/uL Hgb 13.8 L (14.0-18.0) g/dl Hct 40.4 L (42.0-52.0) % MCV 86.3 (80.0-98.0) fL MCH 29.5 (27.0-33.0) pg MCHC 34.2 (31.0-36.0) g/dl RDW 13.4 (11.0-16.0) % Plt Count 290 (160-400) X10*3/uL MPV 10.8 (9.4-12.4) fL Immature Gran % (Auto) 0.4 (0.0-0.4) % Neut % (Auto) 55.3 (45-73) % Lymph % (Auto) 31.8 (20-40) % [place] % (Auto) 9.6 (2-11) % Eos % (Auto) 2.5 (0-4) % Baso % (Auto) 0.4 (0-2) % Lymph # (Auto) 2.6 (1.2-4.9) X10*3/uL [place] # (Auto) 0.8 (0.1-1.2) X10*3/uL Eos # (Auto) 0.2 (0.0-0.4) X10*3/uL Baso # (Auto) 0.0 (0.0-0.2) X10*3/uL Abs Immat Gran (auto) 0.03 (0.00-0.03) X10*3/uL Absolute Neuts (auto) 4.5 (2.0-8.3) x10*3/uL Absolute Nucleated RBC 0.000 (0.0-0.012) X10*3/uL Nucleated RBC % (auto) 0.0 (0.0-0.2) /100WBC Sodium 137 (135-145) mmol/L Potassium 4.3 (3.3-5.1) mmol/L Chloride 104 (96-108) mmol/L Carbon Dioxide 23 (22-29) mmol/L Anion Gap 14 (12-20) BUN 14 (9-16) mg/dL Creatinine 1.14 (0.5-1.4) mg/dL Estim Creat Clear Calc 88.3 Estimated GFR > 60 Random Glucose 210 H (60-115) mg/dL Calcium 9.1 (8.4-10.2) mg/dL Urine Color Yellow Urine Appearance Clear Urine pH 6.0 (5.0-9.0) Ur Specific [place] >= 1.030 H (1.005-1.025) Urine Protein Negative (Neg-Trace) mg/dL Urine Glucose (UA) >=1000 H (Negative) mg/dL Urine Ketones Negative (Negative) mg/dL Urine Blood Negative (Negative) Urine Nitrite Negative (Negative) Ur Leukocyte Esterase Negative (Negative) Urine RBC 0-2 (0-2) /HPF Urine WBC 0-5 (0-5) /HPF Ur Squamous Epith Cells 0-2 (0-2) /HPF Urine Bacteria None Seen (None Seen) Hyaline Casts 0-2 (0-2) /LPF Discharge Plan Discharge Clinical Impression: Flank pain Patient Disposition: Home, Self-Care Instructions: Flank Pain (ED) Additional Instructions: Cause of your flank pain is likely musculoskeletal no obstructive stone were seen Tramadol for pain Follow with PCP Es probable que la causa de masters dolor en el costado sea musculoesquel?radha. No se observaron c?lculos obstructivos. tramadol para el dolor Seguir con PCP Prescriptions: New tramadol 50 mg tablet 50 mg PO Q6H PRN (Reason: pain) Qty: 20 0RF No Action ropinirole 4 mg tablet 4 mg PO .every 6 hours 30 Days Qty: 120 3RF aspirin 81 mg tablet,delayed release (DR/EC) 81 mg PO DAILY Qty: 90 1RF Jardiance 25 mg tablet 25 mg PO QAM Qty: 30 4RF omeprazole 20 mg capsule,delayed release(DR/EC) 20 mg PO BID 90 Days Qty: 180 2RF docusate sodium 100 mg capsule 100 mg PO BEDTIME Qty: 30 3RF Rx Instructions: orlando rene capsula cada noche lisinopril 10 mg tablet 10 mg PO DAILY 90 Days Qty: 90 1RF metformin 500 mg tablet 1,000 mg PO BID Qty: 360 1RF metoprolol tartrate 50 mg tablet 50 mg PO BID Qty: 180 1RF atorvastatin 80 mg tablet 80 mg PO DAILY Qty: 90 1RF ketorolac [Acular] 0.5 % drops 1 drp ophthalmic (eye) Q6-8H PRN (Reason: itching) Qty: 5 0RF Rx Instructions: begin 24 hours prior to surgery Trulicity 0.75 mg/0.5 mL pen injector 0.75 mg subcut QWEEK 90 Days Qty: 6.5 1RF allopurinol 100 mg tablet 100 mg PO DAILY (DME) lancets [FreeStyle Lancets] 28 gauge misc See Rx Instructions .ROUTE .MEDSUPPLY Qty: 100 Rx Instructions: As directed (DME) FreeStyle Lite Strips Strip See Rx Instructions .ROUTE .MEDSUPPLY Qty: 10 Rx Instructions: As directed three times daily (DME) FreeStyle Precision Sanket Strips Strip See Rx Instructions .ROUTE .MEDSUPPLY Qty: 50 11RF Rx Instructions: As directed twice a day tadalafil 10 mg tablet 10 mg PO DAILY sertraline 25 mg tablet 25 mg PO DAILY Interventions: ED Discharge Assessment Last Done: 01/14/23 03:56 Discharge Date/Time: 01/14/23 04:02 Print Language: Slovenian
[2023-01-14] MEDS: Ketorolac Tromethamine 30 MG/ML VIAL IVPUSH (03:06)
[2023-01-14] MEDS: Morphine Sulfate 4 MG/ML CARTRIDGE IVPUSH (03:06)
[2023-01-14] MEDS: 0.9 % Sodium Chloride 1,000 ML 999 ML IV (03:06)
[2023-01-14] MEDS: ondansetron HCL 4 MG/2 ML VIAL IVPUSH (03:06)
== END 2023-01-14 04:02 | disposition home or self-care (01) ==
PROVIDERS: Emergency Provider Internal Medicine; PCP Internal Medicine
DX: R10.9 Unspecified abdominal pain (principal); N20.0 Calculus of kidney; E11.9 Type 2 diabetes mellitus without complications; I10 Essential (primary) hypertension; E78.5 Hyperlipidemia, unspecified; Z79.899 Other long term (current) drug therapy; Z79.02 Long term (current) use of antithrombotics/antiplatelets; Z79.85 Long-term (current) use of injectable non-insulin antidiabetic drugs; Z79.84 Long term (current) use of oral hypoglycemic drugs
CPT/HCPCS: 36415; 74176; 80048; 81001; 81003; 85025; 96361; 96374; 96375; 99284; J1885; J2270; J2405

== ENCOUNTER 2023-01-18 22:30 | Emergency (ER) | payer MEDICARE, MEDICAID, SELFPAY ==
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
[2023-01-18 22:49] VITALS: BP 133/70; PULSE 85; RESP 17; TEMP 36.6; O2SAT 98; BMI 40.9
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
[2023-01-19 00:55] VITALS: BP 133/78; PULSE 68; RESP 16; O2SAT 99
[2023-01-19] MEDS: oxyCODONE HCl Immed Release 5 MG TABLET PO (00:56)
== END 2023-01-19 02:08 | disposition home or self-care (01) ==
PROVIDERS: Emergency Provider Emergency Medicine; PCP Internal Medicine
DX: M79.18 Myalgia, other site (principal); S80.811A Abrasion, right lower leg, initial encounter; S50.812A Abrasion of left forearm, initial encounter; V28.39XA Person boarding or alighting other motorcycle injured in noncollision transport accident, initial encounter; Y93.89 Activity, other specified; Y92.9 Unspecified place or not applicable; Y99.9 Unspecified external cause status
CPT/HCPCS: 71101; 73090; 73110; 73590; 99283; 99284

== ENCOUNTER 2023-01-26 01:33 | Emergency (ER) | payer MEDICARE, MEDICAID, SELFPAY ==
[2023-01-26 01:44] VITALS: BP 129/73; PULSE 95; RESP 16; TEMP 36.8; O2SAT 97; BMI 39.9
[2023-01-26 02:52] VITALS: BP 114/53; PULSE 100; RESP 14; TEMP 37; O2SAT 97
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
--- NOTE | 2023-01-26 03:29 | ED_ITS ---
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 Related Data Home Medications Medication Instructions Recorded Confirmed allopurinol 100 mg tablet 100 mg PO DAILY 06/20/20 12/23/22 lancets 28 gauge (FreeStyle #100 ea 06/20/20 12/23/22 Lancets) blood sugar diagnostic (FreeStyle #10 ea 05/21/21 12/23/22 Lite Strips) sertraline 25 mg tablet 25 mg PO DAILY 12/23/22 12/23/22 tadalafil 10 mg tablet 10 mg PO DAILY sexual activity 12/23/22 12/23/22 Previous Rx's Medication Instructions Recorded ketorolac 0.5 % eye drops (Acular) 1 drp ophthalmic (eye) Q6-8H PRN 08/31/21 itching #5 mL blood sugar diagnostic (FreeStyle #50 ea 12/20/21 Precision Sanket Strips) ropinirole 4 mg tablet 4 mg PO .every 6 hours 30 days 09/24/22 #120 tabs aspirin 81 mg tablet,delayed 81 mg PO DAILY #90 tabs 10/10/22 release empagliflozin 25 mg tablet 25 mg PO QAM #30 tabs 10/10/22 (Jardiance) omeprazole 20 mg capsule,delayed 20 mg PO BID 90 days #180 caps 10/10/22 release docusate sodium 100 mg capsule 100 mg PO BEDTIME #30 caps 10/24/22 lisinopril 10 mg tablet 10 mg PO DAILY 90 days #90 tabs 10/24/22 metformin 500 mg tablet 1,000 mg PO BID #360 tabs 10/24/22 metoprolol tartrate 50 mg tablet 50 mg PO BID #180 tabs 10/24/22 atorvastatin 80 mg tablet 80 mg PO DAILY #90 tabs 11/22/22 dulaglutide 0.75 mg/0.5 mL 0.75 mg (0.5 mL) subcut QWEEK 90 12/02/22 subcutaneous pen injector days #6.5 mL (Trulicity) tramadol 50 mg tablet 50 mg PO Q6H PRN pain #20 tabs 01/14/23 oxycodone 5 mg tablet 5 mg PO BID PRN pain #5 tabs 01/19/23 ketorolac 10 mg tablet 10 mg PO Q6H PRN pain 5 days #10 01/26/23 tabs Allergies Allergy/AdvReac Type Severity Reaction Status Date / Time gabapentin AdvReac Intermediate sleepiness Verified 01/18/23 22:47 zolpidem AdvReac Intermediate inadequate Verified 01/18/23 22:47 response Review of Systems Review of Systems: Pertinent positives and negatives as stated in HPI [facility] Past Medical History Source: nursing notes reviewed Medical History Arthritis Bilateral primary osteoarthritis of knee BMI 40.0-44.9, adult CAD (coronary artery disease) Cardiac arrhythmia Chronic back pain Coarse tremors Complex regional pain syndrome i of lower limb, bilateral Depression with anxiety Diabetes mellitus, type 2 Erectile dysfunction Essential hypertension GERD (gastroesophageal reflux disease) Gout HTN (hypertension) Hyperlipidemia LDL goal <70 IDDM (insulin dependent diabetes mellitus) Intractable neuropathic pain of right knee Kidney stones Morbid obesity Morbid obesity due to excess calories On beta rayo at home SHARONDA (obstructive sleep apnea) RLS (restless legs syndrome) Type 2 diabetes mellitus with diabetic polyneuropathy Surgical History H/O heart artery stent History of arthroplasty of right knee Hx of left knee surgery Hx of lithotripsy Family History Family History Mother Diabetes Sister Diabetes Social History Social History Household Members: Family and Friend(s) Housing: Apartment Alcohol intake: never Patient Tobacco Use Status: Never used Tobacco Smoked in Last 30 Days: No e-Cigarette/Vaping Use: Never Used Second Hand Smoke Exposure: No Use of substances other than those prescribed or required for medical reasons: No Advance Directives: No Advance Directives Information Provided: Yes service: No Current occupational status: disabled Cognitive needs: Yes Hearing needs: No Vision needs: No Physical Exam ED Vital Signs: Vital Signs - 24 hr 01/26/23 01:44 01/26/23 02:52 Temperature 98.3 F 98.6 F Pulse Rate 95 100 Respiratory Rate 16 14 Blood Pressure 129/73 114/53 L Pulse Oximetry 97 97 Oxygen Delivery Method Room Air Room Air BMI result Body Mass Index 39.9 VITAL SIGNS: Reviewed. GENERAL: Well developed, well nourished, in no acute distress. HEAD: Normocephalic/atraumatic EYES: PERRLA, EOMI EARS: Ext canals without abnormality NOSE: Nares patent bilateral OROPHARYNX: no oral lesions noted, posterior pharynx clear NECK: Supple, no adenopathy LUNGS: Normal breath sounds. No adventitious sounds or accessory muscle use. SpO2<97>; CHEST WALL: There is patient reported tenderness on palpation, there is no noted deformity/ecchymosis/crepitus CARDIOVASCULAR: Regular rate and rhythm without noted murmurs ABDOMEN: Soft, non-tender, non-distended with bowel sounds. MUSCULOSKELETAL: No tenderness, deformities, or effusions noted on gross inspection. EXTREMITIES: No cyanosis, clubbing or edema. SKIN: Inspection of the skin reveals no rashes NEUROLOGIC: Alert and oriented x 4. Strength and sensation to light touch were grossly intact x 4. Medical Decision Making Medical Decision Making MDM Narrative: 52-year-old male with review of all all prior visits and based on my clinical exam patient persists with chronic chest wall discomfort, he was provided with combination analgesics and encouraged to follow-up with his primary care provider on Friday. He is otherwise discharged home in stable condition. Differential Diagnosis Please see the discussion above Discharge Plan Discharge Clinical Impression: Left-sided chest wall pain Patient Disposition: Home, Self-Care Instructions: Chest Wall Pain (ED) Additional Instructions: 1. Tylenol 1000 mg, por v?a oral, cada 6 horas seg?n sea necesario para controlar el dolor. No exceda los 4000 mg dentro de las 24 horas. 2. Parche de lidoca?na, aplique en el ?barbara de m?xima sensibilidad katarzyna se indica en el empaque exterior. 3. Ramírez un seguimiento con masters proveedor de atenci?n primaria el keely por la ma?tonie para un manejo ambulatorio adicional. Regrese a la tanvi de emergencias si los s?ntomas empeoran. 1. Tylenol 1000 mg, orally, every 6 hours as needed for pain control. Do not exceed 4000 mg within 24 hours. 2. Lidocaine patch, apply to area of maximal tenderness as directed on the outsi de packaging. 3. Follow-up with your primary care provider on Friday morning for further outpatient management. Return to the ER for any worsening symptoms. Prescriptions: New ketorolac 10 mg tablet 10 mg PO Q6H PRN (Reason: pain) 5 Days Qty: 10 0RF Rx Instructions: Patient received Toradol in the emergency room No Action ropinirole 4 mg tablet 4 mg PO .every 6 hours 30 Days Qty: 120 3RF aspirin 81 mg tablet,delayed release (DR/EC) 81 mg PO DAILY Qty: 90 1RF Jardiance 25 mg tablet 25 mg PO QAM Qty: 30 4RF omeprazole 20 mg capsule,delayed release(DR/EC) 20 mg PO BID 90 Days Qty: 180 2RF docusate sodium 100 mg capsule 100 mg PO BEDTIME Qty: 30 3RF Rx Instructions: orlando rene capsula cada noche lisinopril 10 mg tablet 10 mg PO DAILY 90 Days Qty: 90 1RF metformin 500 mg tablet 1,000 mg PO BID Qty: 360 1RF metoprolol tartrate 50 mg tablet 50 mg PO BID Qty: 180 1RF atorvastatin 80 mg tablet 80 mg PO DAILY Qty: 90 1RF ketorolac [Acular] 0.5 % drops 1 drp ophthalmic (eye) Q6-8H PRN (Reason: itching) Qty: 5 0RF Rx Instructions: begin 24 hours prior to surgery oxycodone 5 mg tablet 5 mg PO BID PRN (Reason: pain) Qty: 5 0RF Rx Instructions: Partial Fill upon patient request. tramadol 50 mg tablet 50 mg PO Q6H PRN (Reason: pain) Qty: 20 0RF Trulicity 0.75 mg/0.5 mL pen injector 0.75 mg subcut QWEEK 90 Days Qty: 6.5 1RF allopurinol 100 mg tablet 100 mg PO DAILY (DME) lancets [FreeStyle Lancets] 28 gauge misc See Rx Instructions .ROUTE .MEDSUPPLY Qty: 100 Rx Instructions: As directed (DME) FreeStyle Lite Strips Strip See Rx Instructions .ROUTE .MEDSUPPLY Qty: 10 Rx Instructions: As directed three times daily (DME) FreeStyle Precision Sanket Strips Strip See Rx Instructions .ROUTE .MEDSUPPLY Qty: 50 11RF Rx Instructions: As directed twice a day tadalafil 10 mg tablet 10 mg PO DAILY sertraline 25 mg tablet 25 mg PO DAILY Print Language: [place]ese
[2023-01-26] MEDS: Lidocaine 4 % Patch ADH..PATCH 1 PATCH TRANSDERMA (04:03)
[2023-01-26] MEDS: Ketorolac Tromethamine 15 MG/ML VIAL IM (04:04)
[2023-01-26] MEDS: Acetaminophen 325 MG TABLET 975 MG PO (04:04)
== END 2023-01-26 04:11 | disposition home or self-care (01) ==
PROVIDERS: Emergency Provider Student in an Organized Health Care Education/Training Program
DX: R07.89 Other chest pain (principal); I25.10 Atherosclerotic heart disease of native coronary artery without angina pectoris; E11.9 Type 2 diabetes mellitus without complications; Z79.899 Other long term (current) drug therapy; Z79.4 Long term (current) use of insulin
CPT/HCPCS: 96372; 99284; J1885

== ENCOUNTER → 2023-02-04 15:05 | Outpatient (BNVA) | payer MEDICARE, MEDICAID, SELFPAY | PROVIDERS: Visit Provider Urology | DX: E11.69 Type 2 diabetes mellitus with other specified complication (principal); N52.1 Erectile dysfunction due to diseases classified elsewhere; N20.0 Calculus of kidney | CPT/HCPCS: 99212 ==

== ENCOUNTER → 2023-02-06 08:56 | Outpatient (REF) | payer MEDICARE, MEDICAID, SELFPAY | LOC: HO.CARD 08:56 | PROVIDERS: PCP Internal Medicine; Visit Provider Internal Medicine | DX: Z13.89 Encounter for screening for other disorder (principal) ==

== ENCOUNTER → 2023-02-14 09:05 | Outpatient (REF) | payer MEDICARE, MEDICAID, SELFPAY ==
--- NOTE | ~2023-02-14 | NM_ITS ---
Myocardial perfusion study Indication: Precordial chest pain to evaluate for myocardial ischemia Technique: The patient was brought in for a Lexiscan perfusion study on 02/14/2023. Patient performed low-level exercise and was injected 0.4 mg of Lexiscan intravenously. Within a minute of injection, 35 mCi of sestamibi was given intravenously. Images were obtained using the SPECT gamma camera interlaced with the gating device. Images were obtained in supine position. Resting perfusion study was performed on 02/17/2023. Patient was administered 35 mCi of sestamibi intravenously at rest. Images were then obtained in supine position. Images obtained with and attenuation. Total DLP for 134 mGy-cm Images were processed with the software and compared side to side in short axis, horizontal long axis and vertical long axis views. Findings: The stress perfusion study showed non attenuated images show moderately reduced uptake in the inferoapical as well as the adjacent apical and distal lateral wall of the LV myocardium. Remainder of the LV myocardium is normally perfused. Attenuation corrected images show mildly reduced uptake in the inferoapical and apical wall of the LV myocardium.. The gated study shows normal LV systolic function with calculated LVEF of 52%. LV cavity is minimally dilated size. The gated study shows normal systolic wall thickening and contraction of segments. Resting study shows both attenuated as well as non attenuated images show normal uptake of radiotracer in all segments of LV myocardium.. Gating at rest reveals normal systolic wall motion with ejection fraction at 63%. The findings are consistent with mild to moderate intensity inferoapical and apical ischemia. NM/NM cardiolite stress test Impression: 1. Myocardial perfusion imaging study shows moderate intensity inferoapical and apical ischemia 2. Gated LVEF is 52% with stress and 63% with rest 3. Transient ischemic dilatation present EKG is nondiagnostic for ischemia
--- NOTE | 2023-02-14 09:09 | CA_ITS ---
Acquisition Time: 2023-02-14 09:23:44 Total Exercise Time: 00:02:00 Test Indications: PREOP Medications: SEE H Protocol: LEXISCAN Max HR: 114 BPM 67% of Pred: 168 BPM Max BP: 124/066 mmHG Max Work Load: 1.0 METS Pharmacolgical stress test with Lexiscan injection while sitting and kicking his legs, without anginal symptoms, without arrhythmias, with normotensive response to injection, without EKG changes. Nuclear images pending. Test reviewed with Dr. Olivier. Referred By: Lenny Angel Overread By: ELENA MORA
== END ==
LOC: HO.CARD 09:05
PROVIDERS: Visit Provider Internal Medicine
DX: R07.2 Precordial pain (principal); I25.119 Atherosclerotic heart disease of native coronary artery with unspecified angina pectoris
CPT/HCPCS: 78452; 93017; A9500; J0280; J2785

== ENCOUNTER 2023-02-22 20:18 | Emergency (ER) | payer MEDICARE, MEDICAID, SELFPAY ==
--- NOTE | ~2023-02-22 | XR_ITS ---
EXAMINATION: XR HIP, RIGHT CLINICAL INFORMATION: Pain COMPARISON: None available. TECHNIQUE: Two views of the right hip. Also single view pelvis FINDINGS: Pelvic image shows catheter overlying the left femoral neck and medial left thigh region. No acute bony finding. Detailed imaging of the right hip 2 views demonstrates the femoral head contour to be smooth. No bony erosion. There is degenerative change along the greater trochanter. The joint spaces fairly well-preserved. XR/XR hip RT min 2V IMPRESSION: Some degeneration is seen here. No acute bony finding
--- NOTE | ~2023-02-22 | US_ITS ---
EXAMINATION: US VENOUS ULTRASOUND WITH DOPPLER LOWER EXTREMITY, RIGHT CLINICAL INFORMATION: Right leg pain COMPARISON: None available. TECHNIQUE: Ultrasound of the deep veins is performed from the hip to the calf with compression sonography and color and pulse Doppler assessment. Spectral analysis with color-flow imaging is performed. FINDINGS: There is normal venous compression and respiratory variation and augmented flow. The visualized common femoral vein, superficial femoral vein, profunda femoral vein, popliteal vein, and the trifurcation region shows no evidence of deep venous thrombosis. There is no significant popliteal fossa cyst. Incidental note is made of 2 right inguinal normal-appearing lymph nodes measuring 1.0 cm and 1.7 cm. If the patient's symptoms persist, followup ultrasound in 5 days 7 days might be of value to exclude proximal propagation from a non-visualized calf vein. US/US venous duplex LE RT IMPRESSION: No DVT demonstrated in the right lower extremity.
--- NOTE | 2023-02-22 20:31 | ED_ITS ---
HPI - Extremity Injury (Lower) General Chief Complaint: Back Pain/Injury Stated Complaint: right leg pain Time Seen by Provider: 02/22/23 21:36 History of Present Illness HPI Narrative: Patient is a 52-year-old male presents today with having pain to the right hip area. Long history of diabetes. Patient was fine prior. Went to sit inside his car, then had sudden onset of pain. No fever no chills. No chest pain or shortness breath no abdominal pain no nausea no vomiting no incontinence. No history of similar pain in the past. Patient from home. Related Data Home Medications Medication Instructions Recorded Confirmed allopurinol 100 mg tablet 100 mg PO DAILY 06/20/20 02/04/23 lancets 28 gauge (FreeStyle #100 ea 06/20/20 02/04/23 Lancets) blood sugar diagnostic (FreeStyle #10 ea 05/21/21 02/04/23 Lite Strips) sertraline 25 mg tablet 25 mg PO DAILY 12/23/22 02/04/23 Previous Rx's Medication Instructions Recorded ketorolac 0.5 % eye drops (Acular) 1 drp ophthalmic (eye) Q6-8H PRN 08/31/21 itching #5 mL blood sugar diagnostic (FreeStyle #50 ea 12/20/21 Precision Sanket Strips) aspirin 81 mg tablet,delayed 81 mg PO DAILY #90 tabs 10/10/22 release empagliflozin 25 mg tablet 25 mg PO QAM #30 tabs 10/10/22 (Jardiance) omeprazole 20 mg capsule,delayed 20 mg PO BID 90 days #180 caps 10/10/22 release docusate sodium 100 mg capsule 100 mg PO BEDTIME #30 caps 10/24/22 lisinopril 10 mg tablet 10 mg PO DAILY 90 days #90 tabs 10/24/22 metformin 500 mg tablet 1,000 mg PO BID #360 tabs 10/24/22 metoprolol tartrate 50 mg tablet 50 mg PO BID #180 tabs 10/24/22 atorvastatin 80 mg tablet 80 mg PO DAILY #90 tabs 11/22/22 dulaglutide 0.75 mg/0.5 mL 0.75 mg (0.5 mL) subcut QWEEK 90 12/02/22 subcutaneous pen injector days #6.5 mL (Trulicity) tramadol 50 mg tablet 50 mg PO Q6H PRN pain #20 tabs 01/14/23 oxycodone 5 mg tablet 5 mg PO BID PRN pain #5 tabs 01/19/23 ketorolac 10 mg tablet 10 mg PO Q6H PRN pain 5 days #10 01/26/23 tabs tadalafil 10 mg tablet 10 mg PO DAILY sexual activity 90 02/04/23 days #90 tabs tadalafil 20 mg tablet 20 mg PO ONCE PRN sexual activity 02/04/23 30 days #30 tabs ibuprofen 400 mg tablet 400 mg PO Q6H PRN pain #20 tabs 02/23/23 ropinirole 4 mg tablet 4 mg PO .every 6 hours 30 days 02/23/23 #120 tabs Allergies Allergy/AdvReac Type Severity Reaction Status Date / Time gabapentin AdvReac Intermediate sleepiness Verified 02/22/23 20:35 zolpidem AdvReac Intermediate inadequate Verified 02/22/23 20:35 response Review of Systems Review of Systems: Positive pain to the hip on the right side. No nausea no vomiting. Yes all other systems are reviewed and are negative [facility] Past Medical History Attestation statement: The following information was validated with the patient. Medical History Arthritis Bilateral primary osteoarthritis of knee BMI 40.0-44.9, adult CAD (coronary artery disease) Cardiac arrhythmia Chronic back pain Coarse tremors Complex regional pain syndrome i of lower limb, bilateral Depression with anxiety Diabetes mellitus, type 2 Erectile dysfunction Essential hypertension GERD (gastroesophageal reflux disease) Gout HTN (hypertension) Hyperlipidemia LDL goal <70 IDDM (insulin dependent diabetes mellitus) Intractable neuropathic pain of right knee Kidney stones Morbid obesity Morbid obesity due to excess calories On beta rayo at home SHARONDA (obstructive sleep apnea) RLS (restless legs syndrome) Type 2 diabetes mellitus with diabetic polyneuropathy Surgical History H/O heart artery stent History of arthroplasty of right knee Hx of left knee surgery Hx of lithotripsy Family History Family History Mother Diabetes Sister Diabetes Social History Social History Household Members: Family and Friend(s) Housing: Apartment Alcohol intake: never Patient Tobacco Use Status: Never used Tobacco e-Cigarette/Vaping Use: Never Used Second Hand Smoke Exposure: No Advance Directives: No Advance Directives Information Provided: Yes service: No Current occupational status: disabled Cognitive needs: Yes Hearing needs: No Vision needs: No Physical Exam Vital Signs: Vital Signs: Last Vital Signs Temp 97.4 F 02/23/23 00:00 Pulse 104 H 02/23/23 00:00 Resp 16 02/23/23 00:00 BP 108/40 L 02/23/23 00:00 Pulse Ox 97 02/23/23 00:00 O2 Del Method Room Air 02/23/23 00:00 BMI result Body Mass Index 39.9 Appearance: Alert. Oriented X3. No acute distress. Eyes: Pupils equal, round and reactive to light. ENT: Pharynx normal. Neck: Normal inspection. Neck supple. No lymph nodes noted. No crepitus CVS: Normal heart rate and rhythm. Pulses normal. Normal S1 and S2 Respiratory: No respiratory distress. Breath sounds normal. No Wheezing. No rales Abdomen: Soft and nontender. No rigidity. No distention. good BS x4 Skin: Skin warm and dry. Normal skin color. Normal skin turgor. Extremities: No lower extremity edema. Neurovascular intact to all extremities. No Lacerations. No Rash Neuro: Oriented X 3. Sensation in the lower extremity intact. Pain on movement of the right hip. No pain on movement of the right knee. No tenderness on palpation of the right knee. No tenderness on palpation of the right ankle. No deformity noted in the right foot. Sensation over the right foot intact able to move his toes well. Course Course Course Narrative: This is an RME: Additional HPI, ROS, PE not included below will be deferred to primary provider. Patient is a 52-year-old male who presents to the emergency department for evaluation; Atraumatic right lower back pain radiating to the right hip and down the right leg. Onset 3 days ago, progressively worsening. Also reporting dysuria and chills with onset last night. Plan: Serum labs, urinalysis Medications Administered Discontinued Medications Generic Name Dose Route Start Last Admin Trade Name Freq PRN Reason Stop Dose Admin Hydromorphone HCl 0.5 mg 02/22/23 22:03 02/22/23 22:21 Hydromorphone Hcl 0.5 Mg/0.5 Ml Syringe IVPUSH 02/22/23 22:04 0.5 mg ONCE ONE Administration Protocol Ketorolac Tromethamine 15 mg 02/22/23 22:04 02/22/23 22:21 Ketorolac Tromethamine 15 Mg/Ml Vial IVPUSH 02/22/23 22:05 15 mg ONCE ONE Administration Medical Decision Making Medical Decision Making [facility] Narrative: Patient is a 52-year-old male complaining of pain to the hip after trying to get into his car. My interpretation of patient's x-ray of the hip showed no acute fracture. No dislocation. Distal pulses sensation intact. No gross swelling noted. A Doppler of the lower extremity showed no evidence of DVT. Given pain medication with good relief of symptoms. Likely musculoskeletal no evidence for ischemic like as patient good pulses distally P no evidence for skin infection on exam good movement of joints no evidence of septic arthritis history not con sistent with septic arthritis. Will discharge patient home. No cauda equina syndrome no bowel urinary incontinence. No focal weakness. Differential Diagnosis Differential Diagnoses: The differential diagnosis associated with the present ation includes Sprain, dislocation, fracture, cauda equina syndrome Lab Data [facility] Lab Attestation statement: I reviewed the patient's lab results. 02/22/23 20:46 02/22/23 20:46 Labs: Lab Results 02/22/23 02/22/23 02/22/23 Range/Units 20:46 20:46 23:22 WBC 9.3 (4.8-10.8) X10*3/uL RBC 4.64 (4.60-5.80) X10*6/uL Hgb 13.4 L (14.0-18.0) g/dl Hct 39.8 L (42.0-52.0) % MCV 85.8 (80.0-98.0) fL MCH 28.9 (27.0-33.0) pg MCHC 33.7 (31.0-36.0) g/dl RDW 13.2 (11.0-16.0) % Plt Count 240 (160-400) X10*3/uL MPV 9.9 (9.4-12.4) fL Immature Gran % (Auto) 0.3 (0.0-0.4) % Neut % (Auto) 66.9 (45-73) % Lymph % (Auto) 20.5 (20-40) % [place] % (Auto) 10.9 (2-11) % Eos % (Auto) 1.3 (0-4) % Baso % (Auto) 0.1 (0-2) % Lymph # (Auto) 1.9 (1.2-4.9) X10*3/uL [place] # (Auto) 1.0 (0.1-1.2) X10*3/uL Eos # (Auto) 0.1 (0.0-0.4) X10*3/uL Baso # (Auto) 0.0 (0.0-0.2) X10*3/uL Abs Immat Gran (auto) 0.03 (0.00-0.03) X10*3/uL Absolute Neuts (auto) 6.2 (2.0-8.3) x10*3/uL Absolute Nucleated RBC 0.000 (0.0-0.012) X10*3/uL Nucleated RBC % (auto) 0.0 (0.0-0.2) /100WBC Sodium 138 (135-145) mmol/L Potassium 3.9 (3.3-5.1) mmol/L Chloride 104 (96-108) mmol/L Carbon Dioxide 24 (22-29) mmol/L Anion Gap 14 (12-20) BUN 15 (9-16) mg/dL Creatinine 0.88 (0.5-1.4) mg/dL Estim Creat Clear Calc 104.1 Estimated GFR > 60 Random Glucose 112 (60-115) mg/dL Calcium 9.3 (8.4-10.2) mg/dL Total Bilirubin 0.7 (0.0-1.0) mg/dL AST 13 (5-37) U/L ALT 13 (0-40) U/L Alkaline Phosphatase 79 (39-117) U/L Total Protein 7.8 (6.5-8.0) g/dL Albumin 4.2 (3.5-5.0) g/dL Urine Color Yellow Urine Appearance Clear Urine pH 5.5 (5.0-9.0) Ur Specific [place] >= 1.030 H (1.005-1.025) Urine Protein 30 (1+) H (Neg-Trace) mg/dL Urine Glucose (UA) >=1000 H (Negative) mg/dL Urine Ketones Negative (Negative) mg/dL Urine Blood Negative (Negative) Urine Nitrite Negative (Negative) Ur Leukocyte Esterase Negative (Negative) Urine RBC 0-2 (0-2) /HPF Urine WBC 0-5 (0-5) /HPF Ur Squamous Epith Cells 0-2 (0-2) /HPF Urine Bacteria None Seen (None Seen) Hyaline Casts 0-2 (0-2) /LPF Independent Interpretation I performed an independent interpretation of an: Plain X-Ray Interpretation: X-ray of the hip was negative Radiology Impression Discussion of test interpretation with radiology: I have reviewed the radiologist's reading. Prescription Management I considered prescription management with: Pain Medication Chronic Conditions Patient?s care impacted by: Diabetes and Hypertension Discharge Plan Discharge Clinical Impression: Acute hip pain Patient Disposition: Home, Self-Care Instructions: Arthralgia (ED) Prescriptions: New ibuprofen 400 mg tablet 400 mg PO Q6H PRN (Reason: pain) Qty: 20 0RF No Action aspirin 81 mg tablet,delayed release (DR/EC) 81 mg PO DAILY Qty: 90 1RF Jardiance 25 mg tablet 25 mg PO QAM Qty: 30 4RF omeprazole 20 mg capsule,delayed release(DR/EC) 20 mg PO BID 90 Days Qty: 180 2RF docusate sodium 100 mg capsule 100 mg PO BEDTIME Qty: 30 3RF Rx Instructions: orlando rene capsula cada noche lisinopril 10 mg tablet 10 mg PO DAILY 90 Days Qty: 90 1RF metformin 500 mg tablet 1,000 mg PO BID Qty: 360 1RF metoprolol tartrate 50 mg tablet 50 mg PO BID Qty: 180 1RF atorvastatin 80 mg tablet 80 mg PO DAILY Qty: 90 1RF ropinirole 4 mg tablet 4 mg PO .every 6 hours 30 Days Qty: 120 3RF ketorolac [Acular] 0.5 % drops 1 drp ophthalmic (eye) Q6-8H PRN (Reason: itching) Qty: 5 0RF Rx Instructions: begin 24 hours prior to surgery oxycodone 5 mg tablet 5 mg PO BID PRN (Reason: pain) Qty: 5 0RF Rx Instructions: Partial Fill upon patient request. tramadol 50 mg tablet 50 mg PO Q6H PRN (Reason: pain) Qty: 20 0RF ketorolac 10 mg tablet 10 mg PO Q6H PRN (Reason: pain) 5 Days Qty: 10 0RF Rx Instructions: Patient received Toradol in the emergency room Trulicity 0.75 mg/0.5 mL pen injector 0.75 mg subcut QWEEK 90 Days Qty: 6.5 1RF allopurinol 100 mg tablet 100 mg PO DAILY (DME) lancets [FreeStyle Lancets] 28 gauge misc See Rx Instructions .ROUTE .MEDSUPPLY Qty: 100 Rx Instructions: As directed (DME) FreeStyle Lite Strips Strip See Rx Instructions .ROUTE .MEDSUPPLY Qty: 10 Rx Instructions: As directed three times daily (DME) FreeStyle Precision Sanket Strips Strip See Rx Instructions .ROUTE .MEDSUPPLY Qty: 50 11RF Rx Instructions: As directed twice a day sertraline 25 mg tablet 25 mg PO DAILY tadalafil 10 mg tablet 10 mg PO DAILY 90 Days Qty: 90 1RF tadalafil 20 mg tablet 20 mg PO ONCE PRN (Reason: sexual activity) 30 Days Qty: 30 0RF Rx Instructions: On demand medication take 60 minutes before intended activity Referrals: Peggy Barber MD [Primary Care Provider] - 02/25/23 Interventions: ED Discharge Assessment Last Done: 02/23/23 00:37 Discharge Date/Time: 02/23/23 00:38
[2023-02-22 20:32] VITALS: BP 129/72; PULSE 110; RESP 22; TEMP 36.6; O2SAT 99; BMI 39.9
[2023-02-22 20:51] LABS: MANUAL DIFF FLAG NO
[2023-02-22 20:52] LABS: Basophils Percent Auto 0.1 % (0-2); Eosinophils Absolute Auto 0.1 X10*3/uL (0.0-0.4); Eosinophils Percent Auto 1.3 % (0-4); Hematocrit 39.8 % (42.0-52.0); Hemoglobin 13.4 g/dl (14.0-18.0); Imm Gran Abs Auto 0.03 X10*3/uL (0.00-0.03); Imm Gran Pct Auto 0.3 % (0.0-0.4); Lymphocytes Absolute Auto 1.9 X10*3/uL (1.2-4.9); Lymphocytes Percent Auto 20.5 % (20-40); Mean Corpuscular HGB Conc 33.7 g/dl (31.0-36.0); Mean Corpuscular Hemoglobin 28.9 pg (27.0-33.0); Mean Corpuscular Volume 85.8 fL (80.0-98.0); Mean Platelet Volume 9.9 fL (9.4-12.4); Monocytes Percent Auto 10.9 % (2-11); Neutrophils Absolute Auto 6.2 x10*3/uL (2.0-8.3); Neutrophils Percent Auto 66.9 % (45-73); Platelet Count 240 X10*3/uL (160-400); Red Blood Count 4.64 X10*6/uL (4.60-5.80); Red Cell Distribution Width 13.2 % (11.0-16.0); White Blood Count 9.3 X10*3/uL (4.8-10.8)
[2023-02-22 21:06] LABS: Alanine Aminotransferase 13 U/L (0-40); Albumin Level 4.2 g/dL (3.5-5.0); Alkaline Phosphatase 79 U/L (39-117); Anion Gap 14 (12-20); Aspartate Amino Transferase 13 U/L (5-37); Bilirubin Total 0.7 mg/dL (0.0-1.0); Blood Urea Nitrogen 15 mg/dL (9-16); Calcium 9.3 mg/dL (8.4-10.2); Carbon Dioxide 24 mmol/L (22-29); Chloride 104 mmol/L (96-108); Creatinine Clr Calc Pharmacy 104.1; Estimated Glomerular Filt Rate > 60; Glucose Random 112 mg/dL (60-115); Potassium 3.9 mmol/L (3.3-5.1); Sodium 138 mmol/L (135-145); Total Protein 7.8 g/dL (6.5-8.0)
--- NOTE | 2023-02-22 21:53 | PC.NURSE ---
Pt reporting 10/10 pain in the right thigh that started last night when he was getting into his car. Pt reports pain feels like a pulling sensation and radiates down to his heel. Pt reported that touch to the toes feels like an electric shock. Pt has positive ROM and is able to wiggle his toes. Pedal pulses in tact bilaterally.
[2023-02-22 21:57] VITALS: BP 113/64; PULSE 98; RESP 20; TEMP 36.6; O2SAT 97
[2023-02-22] MEDS: Ketorolac Tromethamine 15 MG/ML VIAL IVPUSH (22:21)
[2023-02-22] MEDS: HYDROmorphone HCl 0.5 MG/0.5 ML SYRINGE IVPUSH (22:21)
[2023-02-22 23:32] LABS: Appearance Urine Clear; Color Urine Yellow; Glucose Urine UA >=1000 mg/dL (Negative); Leukocyte Esterase Urine Negative (Negative); Nitrite Urine Negative (Negative); PH 5.5 (5.0-9.0); Specific Gravity - Urine >= 1.030 (1.005-1.025); UMIC TRIGGER UACC YES; Urine Blood Negative (Negative); Urine Ketones Negative (Negative); Urine Protein 30 (1+) mg/dL (Neg-Trace)
[2023-02-22 23:37] LABS: Bacteria Urine None Seen (None Seen); Hyaline Casts Urine 0-2 /LPF (0-2); RBC Urine 0-2 /HPF (0-2); Squamous Epithelial Cell Urine 0-2 /HPF (0-2); WBC Urine 0-5 /HPF (0-5)
[2023-02-23] VITALS: BP 108/40; PULSE 104; RESP 16; TEMP 36.3; O2SAT 97
== END 2023-02-23 00:38 | disposition home or self-care (01) ==
PROVIDERS: Nurse Practitioner Family; Emergency Provider Emergency Medicine Emergency Medical Services; PCP Internal Medicine
DX: M25.551 Pain in right hip (principal); M54.50 Low back pain, unspecified; M79.604 Pain in right leg; E11.9 Type 2 diabetes mellitus without complications; I10 Essential (primary) hypertension; E78.5 Hyperlipidemia, unspecified; E66.9 Obesity, unspecified; Z68.39 Body mass index [BMI] 39.0-39.9, adult; Z79.899 Other long term (current) drug therapy; Z79.02 Long term (current) use of antithrombotics/antiplatelets; Z79.4 Long term (current) use of insulin
CPT/HCPCS: 36415; 73502; 80053; 81001; 85025; 93971; 96374; 96375; 99284; J1170; J1885

== ENCOUNTER → 2023-03-07 11:41 | Outpatient (BNVA) | payer MEDICARE, MEDICAID, SELFPAY | PROVIDERS: Visit Provider Nurse Practitioner Family ==

== ENCOUNTER 2023-03-16 13:03 | Emergency (ER) | payer MEDICARE, MEDICAID, SELFPAY ==
--- NOTE | ~2023-03-16 | XR_ITS ---
EXAMINATION: XR WRIST, RIGHT XR HAND, RIGHT CLINICAL INFORMATION: Atraumatic right hand and wrist pain. COMPARISON: None available. TECHNIQUE: PA, lateral, and oblique views of the right wrist and PA, lateral, and oblique views of the right hand FINDINGS: Mild to moderate distal interphalangeal degenerative joint changes are seen with joint space narrowing, periarticular sclerosis and marginal osteophyte formation. There is no acute fracture or dislocation. The carpal bones are normally aligned. The distal radius and ulna are intact. Moderate atherosclerosis is noted. Mild to moderate soft tissue swelling. XR/XR hand wrist RT IMPRESSION: Mild to moderate soft tissue swelling with acute underlying mild to moderate osteoarthritis. No overt fracture.
[2023-03-16 13:10] VITALS: BP 139/76; PULSE 74; RESP 20; TEMP 36.1; O2SAT 97; BMI 39.9
--- NOTE | 2023-03-16 13:13 | ED_ITS ---
HPI - Extremity Problem General Chief complaint: Extremity Injury, Upper Stated complaint: swollen R hand Time Seen by Provider: 03/16/23 13:38 Source: patient Mode of arrival: ambulatory Limitations: language barrier ( [place]ian-speaking front worker utilized) History of Present Illness HPI Narrative: patient is a 52-year-old male presents emergency department for evaluation of right hand/ wrist pain, fell predominantly to the palmar aspect. Pain began last night without any precipitating injury. 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 Denies any numbness or tingling or cold sensati on to the hand. Denies any fevers or chills Related Data Home Medications Medication Instructions Recorded Confirmed allopurinol 100 mg tablet 100 mg PO DAILY 06/20/20 02/04/23 lancets 28 gauge (FreeStyle #100 ea 06/20/20 02/04/23 Lancets) blood sugar diagnostic (FreeStyle #10 ea 05/21/21 02/04/23 Lite Strips) Previous Rx's Medication Instructions Recorded ketorolac 0.5 % eye drops (Acular) 1 drp ophthalmic (eye) Q6-8H PRN 08/31/21 itching #5 mL blood sugar diagnostic (FreeStyle #50 ea 12/20/21 Precision Sanket Strips) aspirin 81 mg tablet,delayed 81 mg PO DAILY #90 tabs 10/10/22 release empagliflozin 25 mg tablet 25 mg PO QAM #30 tabs 10/10/22 (Jardiance) omeprazole 20 mg capsule,delayed 20 mg PO BID 90 days #180 caps 10/10/22 release docusate sodium 100 mg capsule 100 mg PO BEDTIME #30 caps 10/24/22 lisinopril 10 mg tablet 10 mg PO DAILY 90 days #90 tabs 10/24/22 metformin 500 mg tablet 1,000 mg PO BID #360 tabs 10/24/22 metoprolol tartrate 50 mg tablet 50 mg PO BID #180 tabs 10/24/22 atorvastatin 80 mg tablet 80 mg PO DAILY #90 tabs 11/22/22 dulaglutide 0.75 mg/0.5 mL 0.75 mg (0.5 mL) subcut QWEEK 90 12/02/22 subcutaneous pen injector days #6.5 mL (Trulicity) tramadol 50 mg tablet 50 mg PO Q6H PRN pain #20 tabs 01/14/23 oxycodone 5 mg tablet 5 mg PO BID PRN pain #5 tabs 01/19/23 ketorolac 10 mg tablet 10 mg PO Q6H PRN pain 5 days #10 01/26/23 tabs tadalafil 10 mg tablet 10 mg PO DAILY sexual activity 90 02/04/23 days #90 tabs tadalafil 20 mg tablet 20 mg PO ONCE PRN sexual activity 02/04/23 30 days #30 tabs ibuprofen 400 mg tablet 400 mg PO Q6H PRN pain #20 tabs 02/23/23 ropinirole 4 mg tablet 4 mg PO .every 6 hours 30 days 02/23/23 #120 tabs bisacodyl 5 mg tablet,delayed 10 mg PO ONCE 1 day #2 tabs 03/07/23 release (Dulcolax (bisacodyl)) polyethylene glycol 3350 17 238 g PO ONCE #238 grams 03/07/23 gram/dose oral powder (Miralax) sertraline 25 mg tablet 25 mg PO DAILY 90 days #90 tabs 03/11/23 Allergies Allergy/AdvReac Type Severity Reaction Status Date / Time gabapentin AdvReac Intermediate sleepiness Verified 03/07/23 11:48 zolpidem AdvReac Intermediate inadequate Verified 03/07/23 11:48 response Review of Systems Review of Systems: Yes all other systems are reviewed and are negative PMFSH Past Medical History Attestation statement: The following information was validated with the patient. Source: old records reviewed Medical History Arthritis Bilateral primary osteoarthritis of knee BMI 40.0-44.9, adult CAD (coronary artery disease) Cardiac arrhythmia Chronic back pain Coarse tremors Complex regional pain syndrome i of lower limb, bilateral Depression with anxiety Diabetes mellitus, type 2 Erectile dysfunction Essential hypertension GERD (gastroesophageal reflux disease) Gout HTN (hypertension) Hyperlipidemia LDL goal <70 IDDM (insulin dependent diabetes mellitus) Intractable neuropathic pain of right knee Kidney stones Morbid obesity Morbid obesity due to excess calories On beta rayo at home SHARONDA (obstructive sleep apnea) RLS (restless legs syndrome) Type 2 diabetes mellitus with diabetic polyneuropathy Surgical History H/O heart artery stent History of arthroplasty of right knee Hx of left knee surgery Hx of lithotripsy Family History Family History Mother Diabetes Sister Diabetes Social History Social History Household Members: Family and Friend(s) Housing: Apartment Alcohol intake: never Patient Tobacco Use Status: Never used Tobacco e-Cigarette/Vaping Use: Never Used Second Hand Smoke Exposure: No Advance Directives: No Advance Directives Information Provided: Yes service: No Current occupational status: disabled Cognitive needs: Yes Hearing needs: No Vision needs: No Physical Exam Vital Signs: Vital Signs: Last Vital Signs Temp 97.9 F 03/16/23 15:14 Pulse 80 03/16/23 15:14 Resp 16 03/16/23 15:14 BP 125/70 03/16/23 15:14 Pulse Ox 96 03/16/23 15:14 O2 Del Method Room Air 03/16/23 15:14 BMI result Body Mass Index 39.9 Appearance: Alert.?Oriented to person, place and time. No acute distress.?Normal affect. Neck: Normal inspection.? Neck supple.?? CVS: Heart sounds normal. Normal heart rate and rhythm.? Pulses normal.?? Respiratory: No respiratory distress.? Lung sounds clear to auscultation bilaterally?? Skin: Skin warm and dry.? Normal skin color.?? Extremities: right wrist/ hand with no obvious deformity, mild decreased AROM, 2+ radial pulse bilaterally, neurovascularly intact distally Neuro: Moves all extremities spontaneously. Sensation intact bilaterally. No focal neuro deficits. Ambulates with normal steady gait. Course Course Course Narrative: SANAZ- 13:13PM - 52yoM who is [place]ian-speaking presenting to the ER with complaints of right hand/wrist pain at the palmar proximal aspect of the hand. He reports this started since last night. He denies any injury he noticed after he placed his hand on the wall. 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 Denies any fevers, chills, chest pain or shortness of breath, extremity edema, paresthesias or any other symptoms complaints or concerns at this time. Plan: Patient is stable to go back to the waiting room he will be evaluated in [facility] x-ray of right hand and wrist ordered at this time. Medical Decision Making Medical Decision Making [facility] Narrative: patient is a 52-year-old male who presents emergency department for evaluation of atraumatic right hand/ wrist pain as per HPI. At the time examination he is overall well-appearing. Physical examination does not appear consistent with septic arthritis. There is no obvious deformity suggesting fracture dislocation. XR imaging was obtained which does not reveal any fracture dislocation there is however presence of osteoarthritis. Suspect that most likely the repetitive motions at work or a potential subtle injury that went unnoticed by patient is the cause for his pain. Discussed treatment with a cetaminophen/ ibuprofen, Anish bandage, rest. Advised outpatient follow-up with his primary care provider. All questions answered. Stable for discharge Differential Diagnosis Differential Diagnoses: The differential diagnosis associated with the presentation includes ( fracture, dislocation, septic arthritis, osteoarthritis, sprain) Independent Interpretation I performed an independent interpretation of an: Plain X-Ray ( I have personally interpreted x-ray of the right wrist and agree with radiologist impression no acute fracture is noted) Radiology Impression Discussion of test interpretation with radiology: I have reviewed the rad iologist's reading. Radiologist Impression: XR/XR hand wrist RT IMPRESSION: Mild to moderate soft tissue swelling with acute underlying mild to moderate osteoarthritis. No overt fracture. External Record Review External record reviewed: Prior outpatient labs Prescription Management I considered prescription management with: Pain Medication ( after physical examination felt that management with acetaminophen/ ibuprofen would be most appropriate at this time.) Discharge Plan Discharge Clinical Impression: Osteoarthritis of right wrist Patient Disposition: Home, Self-Care Instructions: Osteoarthritis (ED) Prescriptions: No Action aspirin 81 mg tablet,delayed release (DR/EC) 81 mg PO DAILY Qty: 90 1RF Jardiance 25 mg tablet 25 mg PO QAM Qty: 30 4RF omeprazole 20 mg capsule,delayed release(DR/EC) 20 mg PO BID 90 Days Qty: 180 2RF docusate sodium 100 mg capsule 100 mg PO BEDTIME Qty: 30 3RF Rx Instructions: orlando rene capsula cada noche lisinopril 10 mg tablet 10 mg PO DAILY 90 Days Qty: 90 1RF metformin 500 mg tablet 1,000 mg PO BID Qty: 360 1RF metoprolol tartrate 50 mg tablet 50 mg PO BID Qty: 180 1RF atorvastatin 80 mg tablet 80 mg PO DAILY Qty: 90 1RF ropinirole 4 mg tablet 4 mg PO .every 6 hours 30 Days Qty: 120 3RF sertraline 25 mg tablet 25 mg PO DAILY 90 Days Qty: 90 1RF ketorolac [Acular] 0.5 % drops 1 drp ophthalmic (eye) Q6-8H PRN (Reason: itching) Qty: 5 0RF Rx Instructions: begin 24 hours prior to surgery oxycodone 5 mg tablet 5 mg PO BID PRN (Reason: pain) Qty: 5 0RF Rx Instructions: Partial Fill upon patient request. tramadol 50 mg tablet 50 mg PO Q6H PRN (Reason: pain) Qty: 20 0RF ketorolac 10 mg tablet 10 mg PO Q6H PRN (Reason: pain) 5 Days Qty: 10 0RF Rx Instructions: Patient received Toradol in the emergency room ibuprofen 400 mg tablet 400 mg PO Q6H PRN (Reason: pain) Qty: 20 0RF Trulicity 0.75 mg/0.5 mL pen injector 0.75 mg subcut QWEEK 90 Days Qty: 6.5 1RF allopurinol 100 mg tablet 100 mg PO DAILY (DME) lancets [FreeStyle Lancets] 28 gauge misc See Rx Instructions .ROUTE .MEDSUPPLY Qty: 100 Rx Instructions: As directed (DME) FreeStyle Lite Strips Strip See Rx Instructions .ROUTE .MEDSUPPLY Qty: 10 Rx Instructions: As directed three times daily (DME) FreeStyle Precision Sanket Strips Strip See Rx Instructions .ROUTE .MEDSUPPLY Qty: 50 11RF Rx Instructions: As directed twice a day bisacodyl [Dulcolax (bisacodyl)] 5 mg tablet,delayed release (DR/EC) 10 mg PO ONCE 1 Days Qty: 2 0RF Rx Instructions: take 2 tabs at noon the day before your colonoscopy polyethylene glycol 3350 [Miralax] 17 gram/dose powder 238 g PO ONCE Qty: 238 0RF Rx Instructions: As directed by gastroenterology department at [facility] tadalafil 10 mg tablet 10 mg PO DAILY 90 Days Qty: 90 1RF tadalafil 20 mg tablet 20 mg PO ONCE PRN (Reason: sexual activity) 30 Days Qty: 30 0RF Rx Instructions: On demand medication take 60 minutes before intended activity Referrals: Physician,Unknown J [Primary Care Provider] - Interventions: ED Discharge Assessment Last Done: 03/16/23 15:25 Discharge Date/Time: 03/16/23 15:26
[2023-03-16 15:14] VITALS: BP 125/70; PULSE 80; RESP 16; TEMP 36.6; O2SAT 96
== END 2023-03-16 15:26 | disposition home or self-care (01) ==
PROVIDERS: Emergency Provider Student in an Organized Health Care Education/Training Program
DX: M19.031 Primary osteoarthritis, right wrist (principal); M79.641 Pain in right hand
CPT/HCPCS: 73110; 73130; 99283

== ENCOUNTER 2023-03-17 14:59 | Emergency (ER) | payer MEDICARE, MEDICAID, SELFPAY ==
[2023-03-17 16:17] VITALS: BP 145/79; PULSE 102; RESP 20; TEMP 36.6; O2SAT 96; BMI 39.9
--- NOTE | 2023-03-17 16:17 | ED_ITS ---
HPI - General Adult General Chief complaint: Extremity Problem Stated complaint: seen yesterday for hand pain, worse today Time Seen by Provider: 03/17/23 21:38 Source: patient Mode of arrival: ambulatory Limitations: no limitations History of Present Illness HPI narrative: Wrist pain for 2 days. Was seen yesterday but today it was worse. Patient has DM, HTN, and cholesterol. No fever no redness. There is some swelling Related Data Home Medications Medication Instructions Recorded Confirmed allopurinol 100 mg tablet 100 mg PO DAILY 06/20/20 02/04/23 lancets 28 gauge (FreeStyle #100 ea 06/20/20 02/04/23 Lancets) blood sugar diagnostic (FreeStyle #10 ea 05/21/21 02/04/23 Lite Strips) Previous Rx's Medication Instructions Recorded ketorolac 0.5 % eye drops (Acular) 1 drp ophthalmic (eye) Q6-8H PRN 08/31/21 itching #5 mL blood sugar diagnostic (FreeStyle #50 ea 12/20/21 Precision Sanket Strips) aspirin 81 mg tablet,delayed 81 mg PO DAILY #90 tabs 10/10/22 release empagliflozin 25 mg tablet 25 mg PO QAM #30 tabs 10/10/22 (Jardiance) omeprazole 20 mg capsule,delayed 20 mg PO BID 90 days #180 caps 10/10/22 release docusate sodium 100 mg capsule 100 mg PO BEDTIME #30 caps 10/24/22 lisinopril 10 mg tablet 10 mg PO DAILY 90 days #90 tabs 10/24/22 metformin 500 mg tablet 1,000 mg PO BID #360 tabs 10/24/22 metoprolol tartrate 50 mg tablet 50 mg PO BID #180 tabs 10/24/22 atorvastatin 80 mg tablet 80 mg PO DAILY #90 tabs 11/22/22 dulaglutide 0.75 mg/0.5 mL 0.75 mg (0.5 mL) subcut QWEEK 90 12/02/22 subcutaneous pen injector days #6.5 mL (Trulicity) tramadol 50 mg tablet 50 mg PO Q6H PRN pain #20 tabs 01/14/23 oxycodone 5 mg tablet 5 mg PO BID PRN pain #5 tabs 01/19/23 ketorolac 10 mg tablet 10 mg PO Q6H PRN pain 5 days #10 01/26/23 tabs tadalafil 10 mg tablet 10 mg PO DAILY sexual activity 90 02/04/23 days #90 tabs tadalafil 20 mg tablet 20 mg PO ONCE PRN sexual activity 02/04/23 30 days #30 tabs ibuprofen 400 mg tablet 400 mg PO Q6H PRN pain #20 tabs 02/23/23 ropinirole 4 mg tablet 4 mg PO .every 6 hours 30 days 02/23/23 #120 tabs bisacodyl 5 mg tablet,delayed 10 mg PO ONCE 1 day #2 tabs 03/07/23 release (Dulcolax (bisacodyl)) polyethylene glycol 3350 17 238 g PO ONCE #238 grams 03/07/23 gram/dose oral powder (Miralax) sertraline 25 mg tablet 25 mg PO DAILY 90 days #90 tabs 03/11/23 naproxen 500 mg tablet (Naprosyn) 500 mg PO BID #20 tabs 03/17/23 Allergies Allergy/AdvReac Type Severity Reaction Status Date / Time gabapentin AdvReac Intermediate sleepiness Verified 03/07/23 11:48 zolpidem AdvReac Intermediate inadequate Verified 03/07/23 11:48 response [facility] Past Medical History Medical History Arthritis Bilateral primary osteoarthritis of knee BMI 40.0-44.9, adult CAD (coronary artery disease) Cardiac arrhythmia Chronic back pain Coarse tremors Complex regional pain syndrome i of lower limb, bilateral Depression with anxiety Diabetes mellitus, type 2 Erectile dysfunction Essential hypertension GERD (gastroesophageal reflux disease) Gout HTN (hypertension) Hyperlipidemia LDL goal <70 IDDM (insulin dependent diabetes mellitus) Intractable neuropathic pain of right knee Kidney stones Morbid obesity Morbid obesity due to excess calories On beta rayo at home SHARONDA (obstructive sleep apnea) RLS (restless legs syndrome) Type 2 diabetes mellitus with diabetic polyneuropathy Surgical History H/O heart artery stent History of arthroplasty of right knee Hx of left knee surgery Hx of lithotripsy Family History Family History Mother Diabetes Sister Diabetes Social History Social History Household Members: Family and Friend(s) Housing: Apartment Alcohol intake: never Patient Tobacco Use Status: Never used Tobacco e-Cigarette/Vaping Use: Never Used Second Hand Smoke Exposure: No Advance Directives: No Advance Directives Information Provided: Yes service: No Current occupational status: disabled Cognitive needs: Yes Hearing needs: No Vision needs: No Physical Exam ED Vital Signs: Vital Signs - 24 hr 03/17/23 16:17 Temperature 98 F Pulse Rate 102 H Respiratory Rate 20 Blood Pressure 145/79 H Pulse Oximetry 96 Oxygen Delivery Method Room Air BMI result Body Mass Index 39.9 Const Other: obese male looking older than stated age Nutritional Appearance: obese Orientation/consciousness: oriented to person and patient oriented x3 Limitations: no limitations HENMT Head: Yes normal to inspection Ears: external ears normal General nose exam: Normal external nose present Mouth: Normal oral and palatal mucosa present and oropharynx normal Throat: Yes posterior oropharynx normal Eyes General: appearance normal, both eyes and all related structures Neck Neck: Yes normal visual inspection Chest Chest palpation & inspection: normal inspection of the chest Resp Auscultation: clear to auscultation bilaterally Cardio Jugular venous distension: no JVD Rate: regular rate Rhythm: regular rhythm Heart sounds: S1 normal heart sound present and S2 normal heart sound present GI Inspection: Yes normal to inspection Palpation (GI): Soft to palpation, nontender and No hepatosplenomegaly present Auscultation: normal bowel sounds General: Yes no CVA tenderness Back/Spine/Pelvis Back: no CVA tenderness Skin General skin exam: no rashes or lesions noted Neuro General: oriented to person and patient oriented x3 Cranial nerves: Yes CN's II-XII intact bilaterally Motor exam (neuro): 5/5 motor strength present throughout Extrem Other: right wrist with swelling, no erythema, no warmth, pain with range of motion Psych Appearance: grossly normal Course Course Course Narrative: This is an RME: Additional HPI, ROS, PE not included below will be deferred to primary provider. 52-year-old male presenting to the emergency department for evaluation of right wrist pain. Patient was seen yesterday in the emergency room was told he had osteoarthritis. On examination limited range of motion of the right wrist, appears swollen warm to touch. No obvious erythema. No known history of gout. No fevers or chills. Had x-ray yesterday which revealed osteoarthritis. VSS Plan: Basic labs, inflammatory markers, uric acid for rule out gout. Reevaluation(s) Reevaluation #1: patient with osteoarthritis and inflammation will treat with NSAIDS Time: 22:10 Medical Decision Making Differential Diagnosis Differential Diagnoses: The differential diagnosis associated with the presentation includes (cellulitis, osteomyelitis, septic joint, gout, osteoarthritis) Admission/Observation Consideration of admission/observation: Escalation of care including admission/observation considered (this 52yo male dm, HTN who presents with swollen wrist was considered for admission) Lab Data MDM Lab Attestation statement: I reviewed the patient's lab results. (labs were significant for normal WBC with no bandemia, elevated glucose, elevated CRP with a normal sedrate) 03/17/23 17:25 03/17/23 17:25 Labs: Lab Results 03/17/23 03/17/23 03/17/23 Range/Units 17:25 17:25 17:25 WBC 10.7 (4.8-10.8) X10*3/uL RBC 4.78 (4.60-5.80) X10*6/uL Hgb 14.0 (14.0-18.0) g/dl Hct 41.8 L (42.0-52.0) % MCV 87.4 (80.0-98.0) fL MCH 29.3 (27.0-33.0) pg MCHC 33.5 (31.0-36.0) g/dl RDW 13.3 (11.0-16.0) % Plt Count 243 (160-400) X10*3/uL MPV 10.7 (9.4-12.4) fL Immature Gran % (Auto) 0.4 (0.0-0.4) % Neut % (Auto) 67.9 (45-73) % Lymph % (Auto) 20.4 (20-40) % [place] % (Auto) 9.0 (2-11) % Eos % (Auto) 1.9 (0-4) % Baso % (Auto) 0.4 (0-2) % Lymph # (Auto) 2.2 (1.2-4.9) X10*3/uL [place] # (Auto) 1.0 (0.1-1.2) X10*3/uL Eos # (Auto) 0.2 (0.0-0.4) X10*3/uL Baso # (Auto) 0.0 (0.0-0.2) X10*3/uL Abs Immat Gran (auto) 0.04 H (0.00-0.03) X10*3/uL Absolute Neuts (auto) 7.3 (2.0-8.3) x10*3/uL Absolute Nucleated RBC 0.000 (0.0-0.012) X10*3/uL Nucleated RBC % (auto) 0.0 (0.0-0.2) /100WBC ESR 14 (0-15) MM/HR Sodium 135 (135-145) mmol/L Potassium 3.6 (3.3-5.1) mmol/L Chloride 100 (96-108) mmol/L Carbon Dioxide 22 (22-29) mmol/L Anion Gap 17 (12-20) BUN 13 (9-16) mg/dL Creatinine 1.15 (0.5-1.4) mg/dL Estim Creat Clear Calc 79.6 Estimated GFR > 60 Random Glucose 261 H (60-115) mg/dL Uric Acid 5.2 (3.4-7.0) mg/dL Calcium 9.1 (8.4-10.2) mg/dL C-Reactive Protein 2.34 H (< or = 0.50) mg/dL C-React Prot High Sens 03/17/23 Range/Units 17:25 WBC (4.8-10.8) X10*3/uL RBC (4.60-5.80) X10*6/uL Hgb (14.0-18.0) g/dl Hct (42.0-52.0) % MCV (80.0-98.0) fL MCH (27.0-33.0) pg MCHC (31.0-36.0) g/dl RDW (11.0-16.0) % Plt Count (160-400) X10*3/uL MPV (9.4-12.4) fL Immature Gran % (Auto) (0.0-0.4) % Neut % (Auto) (45-73) % Lymph % (Auto) (20-40) % [place] % (Auto) (2-11) % Eos % (Auto) (0-4) % Baso % (Auto) (0-2) % Lymph # (Auto) (1.2-4.9) X10*3/uL [place] # (Auto) (0.1-1.2) X10*3/uL Eos # (Auto) (0.0-0.4) X10*3/uL Baso # (Auto) (0.0-0.2) X10*3/uL Abs Immat Gran (auto) (0.00-0.03) X10*3/uL Absolute Neuts (auto) (2.0-8.3) x10*3/uL Absolute Nucleated RBC (0.0-0.012) X10*3/uL Nucleated RBC % (auto) (0.0-0.2) /100WBC ESR (0-15) MM/HR Sodium (135-145) mmol/L Potassium (3.3-5.1) mmol/L Chloride (96-108) mmol/L Carbon Dioxide (22-29) mmol/L Anion Gap (12-20) BUN (9-16) mg/dL Creatinine (0.5-1.4) mg/dL Estim Creat Clear Calc Estimated GFR Random Glucose (60-115) mg/dL Uric Acid (3.4-7.0) mg/dL Calcium (8.4-10.2) mg/dL C-Reactive Protein (< or = 0.50) mg/dL C-React Prot High Sens Cancelled External Record Review External record reviewed: Outpatient record (reviewed) and Prior outpatient radiology (old xrays reviewed) Tests considered The following testing was considered but not selected: MRI of wrist considered but no evidence of osteomyelitis Prescription Management I considered prescription management with: Pain Medication (narcotics considered but NsaidS much better for the inflammation) and Antibiotic (considered but no evidence of infection) Chronic Conditions Patient?s care impacted by: Diabetes, Hypertension and Other (obesity) Discharge Plan Discharge Clinical Impression: Osteoarthritis Patient Disposition: Home, Self-Care Instructions: Osteoarthritis (ED) Prescriptions: New naproxen [Naprosyn] 500 mg tablet 500 mg PO BID Qty: 20 0RF No Action aspirin 81 mg tablet,delayed release (DR/EC) 81 mg PO DAILY Qty: 90 1RF Jardiance 25 mg tablet 25 mg PO QAM Qty: 30 4RF omeprazole 20 mg capsule,delayed release(DR/EC) 20 mg PO BID 90 Days Qty: 180 2RF docusate sodium 100 mg capsule 100 mg PO BEDTIME Qty: 30 3RF Rx Instructions: orlando rene capsula cada noche lisinopril 10 mg tablet 10 mg PO DAILY 90 Days Qty: 90 1RF metformin 500 mg tablet 1,000 mg PO BID Qty: 360 1RF metoprolol tartrate 50 mg tablet 50 mg PO BID Qty: 180 1RF atorvastatin 80 mg tablet 80 mg PO DAILY Qty: 90 1RF ropinirole 4 mg tablet 4 mg PO .every 6 hours 30 Days Qty: 120 3RF sertraline 25 mg tablet 25 mg PO DAILY 90 Days Qty: 90 1RF ketorolac [Acular] 0.5 % drops 1 drp ophthalmic (eye) Q6-8H PRN (Reason: itching) Qty: 5 0RF Rx Instructions: begin 24 hours prior to surgery oxycodone 5 mg tablet 5 mg PO BID PRN (Reason: pain) Qty: 5 0RF Rx Instructions: Partial Fill upon patient request. tramadol 50 mg tablet 50 mg PO Q6H PRN (Reason: pain) Qty: 20 0RF ketorolac 10 mg tablet 10 mg PO Q6H PRN (Reason: pain) 5 Days Qty: 10 0RF Rx Instructions: Patient received Toradol in the emergency room ibuprofen 400 mg tablet 400 mg PO Q6H PRN (Reason: pain) Qty: 20 0RF Trulicity 0.75 mg/0.5 mL pen injector 0.75 mg subcut QWEEK 90 Days Qty: 6.5 1RF allopurinol 100 mg tablet 100 mg PO DAILY (DME) lancets [FreeStyle Lancets] 28 gauge misc See Rx Instructions .ROUTE .MEDSUPPLY Qty: 100 Rx Instructions: As directed (DME) FreeStyle Lite Strips Strip See Rx Instructions .ROUTE .MEDSUPPLY Qty: 10 Rx Instructions: As directed three times daily (DME) FreeStyle Precision Sanket Strips Strip See Rx Instructions .ROUTE .MEDSUPPLY Qty: 50 11RF Rx Instructions: As directed twice a day bisacodyl [Dulcolax (bisacodyl)] 5 mg tablet,delayed release (DR/EC) 10 mg PO ONCE 1 Days Qty: 2 0RF Rx Instructions: take 2 tabs at noon the day before your colonoscopy polyethylene glycol 3350 [Miralax] 17 gram/dose powder 238 g PO ONCE Qty: 238 0RF Rx Instructions: As directed by gastroenterology department at [facility] tadalafil 10 mg tablet 10 mg PO DAILY 90 Days Qty: 90 1RF tadalafil 20 mg tablet 20 mg PO ONCE PRN (Reason: sexual activity) 30 Days Qty: 30 0RF Rx Instructions: On demand medication take 60 minutes before intended activity
[2023-03-17 17:38] LABS: MANUAL DIFF FLAG NO
[2023-03-17 17:42] LABS: Basophils Percent Auto 0.4 % (0-2); Eosinophils Absolute Auto 0.2 X10*3/uL (0.0-0.4); Eosinophils Percent Auto 1.9 % (0-4); Hematocrit 41.8 % (42.0-52.0); Imm Gran Abs Auto 0.04 X10*3/uL (0.00-0.03); Imm Gran Pct Auto 0.4 % (0.0-0.4); Lymphocytes Absolute Auto 2.2 X10*3/uL (1.2-4.9); Lymphocytes Percent Auto 20.4 % (20-40); Mean Corpuscular HGB Conc 33.5 g/dl (31.0-36.0); Mean Corpuscular Hemoglobin 29.3 pg (27.0-33.0); Mean Corpuscular Volume 87.4 fL (80.0-98.0); Mean Platelet Volume 10.7 fL (9.4-12.4); Neutrophils Absolute Auto 7.3 x10*3/uL (2.0-8.3); Neutrophils Percent Auto 67.9 % (45-73); Platelet Count 243 X10*3/uL (160-400); Red Blood Count 4.78 X10*6/uL (4.60-5.80); Red Cell Distribution Width 13.3 % (11.0-16.0); White Blood Count 10.7 X10*3/uL (4.8-10.8)
[2023-03-17 18:02] LABS: Anion Gap 17 (12-20); Blood Urea Nitrogen 13 mg/dL (9-16); C Reactive Protein 2.34 mg/dL (< or = 0.50); Calcium 9.1 mg/dL (8.4-10.2); Carbon Dioxide 22 mmol/L (22-29); Chloride 100 mmol/L (96-108); Creatinine Clr Calc Pharmacy 79.6; Estimated Glomerular Filt Rate > 60; Glucose Random 261 mg/dL (60-115); Potassium 3.6 mmol/L (3.3-5.1); Sodium 135 mmol/L (135-145); Uric Acid 5.2 mg/dL (3.4-7.0)
[2023-03-17 18:26] LABS: Erythrocyte Sedimentation Rate 14 MM/HR (0-15)
[2023-03-17] MEDS: Ketorolac Tromethamine 60 MG/2 ML VIAL IM (22:17)
== END 2023-03-17 22:31 | disposition home or self-care (01) ==
PROVIDERS: Physician Assistant Medical; Emergency Provider Emergency Medicine; PCP Internal Medicine
DX: M19.031 Primary osteoarthritis, right wrist (principal); E11.9 Type 2 diabetes mellitus without complications; I10 Essential (primary) hypertension; E78.5 Hyperlipidemia, unspecified; E66.9 Obesity, unspecified; Z68.39 Body mass index [BMI] 39.0-39.9, adult; Z79.82 Long term (current) use of aspirin; Z79.899 Other long term (current) drug therapy; Z79.4 Long term (current) use of insulin
CPT/HCPCS: 36415; 80048; 84550; 85025; 85652; 86140; 96372; 99283; 99284; J1885

== ENCOUNTER → 2023-03-24 08:37 | Outpatient (BNVA) | payer MEDICARE, MEDICAID, SELFPAY | PROVIDERS: Visit Provider Orthopaedic Surgery ==

== ENCOUNTER → 2023-03-25 23:59 | Outpatient (BNV) | payer MEDICARE, MEDICAID, SELFPAY | PROVIDERS: PCP Internal Medicine; Visit Provider Internal Medicine Cardiovascular Disease | DX: I25.110 Atherosclerotic heart disease of native coronary artery with unstable angina pectoris (principal) | CPT/HCPCS: 92928; 92978; 93571; 99152 ==

== ENCOUNTER 2023-04-03 10:54 | Outpatient (AMB) | payer MEDICARE, MEDICAID, SELFPAY ==
[2023-04-03 11:06] VITALS: BP 130/82; BMI 41.6
--- NOTE | 2023-04-03 11:06 | MHC.PC.OV ---
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 Accompanied by: Self / Same As Patient Allergies gabapentin Adverse Reaction (Intermediate, Verified 04/03/23 11:16) sleepiness zolpidem Adverse Reaction (Intermediate, Verified 04/03/23 11:16) inadequate response Medication List - Last Reconciled 04/03/23 by Peggy Brown MD allopurinol 100 mg PO DAILY aspirin 81 mg PO DAILY atorvastatin 80 mg PO DAILY bisacodyl (Dulcolax (bisacodyl)) 10 mg (2 x 5 mg) PO ONCE 1 day blood sugar diagnostic (FreeStyle Lite Strips) As directed three times daily blood sugar diagnostic (FreeStyle Precision Sanket Strips) As directed twice a day docusate sodium 100 mg PO BEDTIME dulaglutide (Trulicity) 0.75 mg (0.5 mL) subcut QWEEK 90 days empagliflozin (Jardiance) 25 mg PO QAM ibuprofen 400 mg PO Q6H PRN ketorolac 0.5% (Acular) 1 drp ophthalmic (eye) Q6-8H PRN ketorolac 10 mg PO Q6H PRN 5 days lancets (FreeStyle Lancets) As directed lisinopril 10 mg PO DAILY 90 days metformin 1,000 mg (2 x 500 mg) PO BID metoprolol tartrate 50 mg PO BID naproxen (Naprosyn) 500 mg PO BID omeprazole 20 mg PO BID 90 days oxycodone 5 mg PO BID PRN polyethylene glycol 3350 (Miralax) 238 grams PO ONCE ropinirole 4 mg PO .every 6 hours 30 days sertraline 25 mg PO DAILY 90 days tadalafil 10 mg PO DAILY 90 days tadalafil 20 mg PO ONCE PRN 30 days ticagrelor (Brilinta) 90 mg PO BID tramadol 50 mg PO Q6H PRN Tobacco use date assessed: 10/21/22 Dental Screening Dental Screen Date: 04/03/23 Did you have a dental visit in the last 12 months?: No Did you have a dental problem in the last 6 months where you did not have access to dental care?: No Was dental information given to patient?: Patient declined HPI HPI Comments History of Present Illness Details This is a 52-year-old male with diabetes mellitus type 2, hypertension, hyperlipidemia and morbid obesity that comes today for follow-up on his conditions. A1c within goal. Blood pressure stable. Lipid panel will be order and his LDL goal should be less than 70. He is morbidly obese with a BMI of 41.6 and was advised to do diet and exercise to reach BMI goal less than 30. No chest pain or shortness of breath. Had cardiac catheterization recently and was placed on Brilinta. Will see Cardiology is 04/09/2023. COUNTS INCLUDE 234 BEDS AT THE [facility] Medical History Arthritis Bilateral primary osteoarthritis of knee BMI 40.0-44.9, adult CAD (coronary artery disease) Cardiac arrhythmia Chronic back pain Coarse tremors Complex regional pain syndrome i of lower limb, bilateral Depression with anxiety Diabetes mellitus, type 2 Erectile dysfunction Essential hypertension GERD (gastroesophageal reflux disease) Gout HTN (hypertension) Hyperlipidemia LDL goal <70 IDDM (insulin dependent diabetes mellitus) Intractable neuropathic pain of right knee Kidney stones Morbid obesity Morbid obesity due to excess calories On beta rayo at home SHARONDA (obstructive sleep apnea) RLS (restless legs syndrome) Type 2 diabetes mellitus with diabetic polyneuropathy Surgical History H/O heart artery stent History of arthroplasty of right knee Hx of left knee surgery Hx of lithotripsy Family History Mother Diabetes Sister Diabetes Social History Household Members: Family and Friend(s) Housing: Apartment Alcohol intake: never Patient Tobacco Use Status: Never used Tobacco e-Cigarette/Vaping Use: Never Used Second Hand Smoke Exposure: No service: No Current occupational status: disabled Cognitive needs: Yes Hearing needs: No Vision needs: No Questionnaire Thrive Questionnaire Date Thrive assessed: 10/21/22 MORRO-7 AMB Questionnaire MORRO-7 Date MORRO - 7 assessed: 10/21/22 Source: Developed by Drs. Cipriano Durand, Klaudia Yu, Maninder Del Castillo and colleagues, with an educational krishna from [employer]. Review of Systems Const All systems reviewed & are unremarkable except as noted in HPI and below Eyes Reports no additional complaints, Denies change in vision and Denies other visual disturbances Card Denies chest pain at rest, Denies chest pain with activity, Denies edema, Denies irregular heart rhythm, Denies claudication, Denies dyspnea, Denies dyspnea on exertion, Denies orthopnea, Denies paroxysmal nocturnal dyspnea and Denies slow heart rate Resp Denies cough, Denies dyspnea and Denies dyspnea on exertion GI Denies abdominal pain, Denies change in bowel habits, Denies excessive flatus, Denies nausea and Denies vomiting Denies urinary hesitancy, Denies urinary incontinence and Denies urinary urgency Musc Denies abnormal gait, Denies atrophy, Denies deformity and Denies limited range of motion Skin/Breast Denies bleeding lesions, Denies changing lesions and Denies rash Neuro Denies abnormal gait and Denies lack of coordination Physical exam (Primary Care) Vital Signs: Last Vital Signs BP 130/82 04/03/23 11:06 BMI result Body Mass Index 41.6 Tobacco/Smoking Status: Tobacco use Status Tobacco use date assessed 10/21/22 04/03/23 11:10 Patient Tobacco Use Status Never used Tobacco 04/03/23 11:10 e-Cigarette/Vaping Use Never Used 04/03/23 11:10 Thrive Assessment: Date of Thrive Assessment Date Thrive assessed 10/21/22 04/03/23 11:10 Eyes General: appearance normal, both eyes and all related structures Eyelids: Yes eyelids normal Conjunctivae: conjunctivae normal Neck Neck: Yes normal visual inspection and Yes supple Resp Effort & Inspection: normal respiratory effort Auscultation: clear to auscultation bilaterally Cardio Jugular venous distension: no JVD Rate: regular rate Rhythm: regular rhythm Heart sounds: S1 normal heart sound present and S2 normal heart sound present Extrem General: Yes full ROM Results AMB Hemoglobin A1c AMB Hemoglobin A1c 6.5 % Last Edit by ODALYS Giron on 04/03/23 11:13 Results Reviewed Results Reviewed: Laboratory Last Values Hgb A1c (Clinic) 6.5 % (4.0-6.0) H 04/03/23 11:02 Assessment and Plan Assessment & Plan (1) Diabetes: Code(s): E11.9 - Type 2 diabetes mellitus without complications Plan: Continue Trulicity, Jardiance and metformin. A1c goal is equal or less than 7%. (2) Morbid obesity with BMI of 40.0-44.9, adult: Code(s): E66.01 - Morbid (severe) obesity due to excess calories; Z68.41 - Body mass index [BMI] 40.0-44.9, adult Plan: Start diet and exercise. BMI goal is less than 30. (3) Essential hypertension: Code(s): I10 - Essential (primary) hypertension Plan: Continue lisinopril. Blood pressure goal is equal or less than 130/80. (4) Hyperlipidemia LDL goal <70: Code(s): E78.5 - Hyperlipidemia, unspecified Plan: Continue statins. LDL goal should be less than 70. Orders: Orders IRON PROFILE Today D64.9 - Anemia, unspecified Vitamin D 25-OH Total Today E55.9 - Vitamin D deficiency, unspecified Complete Blood Count Auto Diff Today D64.9 - Anemia, unspecified AMB Hemoglobin A1c Today E11.42 - Type 2 diabetes mellitus with diabetic polyneuropathy Coding Level of Care Code Est Pt Level 4 (56575) Diagnoses Diabetes E11.9 Morbid obesity with BMI of 40.0-44.9, adult E66.01; Z68.41 Essential hypertension I10 Hyperlipidemia LDL goal <70 E78.5 Time Spent (min) 23
== END 2023-04-03 11:24 | disposition home or self-care (01) ==
PROVIDERS: Visit Provider Internal Medicine
DX: E11.42 Type 2 diabetes mellitus with diabetic polyneuropathy (principal); E66.01 Morbid (severe) obesity due to excess calories; Z68.41 Body mass index [BMI] 40.0-44.9, adult; I10 Essential (primary) hypertension; E78.5 Hyperlipidemia, unspecified
CPT/HCPCS: 83036; 99214

== ENCOUNTER 2023-04-06 03:08 | Emergency (ER) | payer MEDICARE, MEDICAID, SELFPAY ==
--- NOTE | ~2023-04-06 | XR_ITS ---
EXAMINATION: XR CHEST CLINICAL INFORMATION: Difficulty breathing COMPARISON: 01/18/2023 TECHNIQUE: 2 views of the chest were obtained. FINDINGS: Normal symmetric lung volumes. No parenchymal consolidation. No pleural effusion. No pneumothorax. Cardiomediastinal silhouette and pulmonary vascularity are within normal limits. No acute osseous abnormalities. XR/XR chest 2V IMPRESSION: No acute findings
[2023-04-06 03:45] VITALS: BP 142/92; PULSE 90; RESP 16; TEMP 36.6; O2SAT 95; BMI 41.3
--- NOTE | 2023-04-06 04:10 | ECG_ITS ---
Test Reason : CHEST PAIN Blood Pressure : / mmHG Vent. Rate : 084 BPM Atrial Rate : 084 BPM P-R Int : 154 ms QRS Dur : 078 ms QT Int : 358 ms P-R-T Axes : 029 -01 012 degrees QTc Int : 423 ms Normal sinus rhythm Normal ECG When compared with ECG of 01-OCT-2021 21:26, T wave amplitude has increased in Anterior leads Referred By: Generic ED Physician Electronically Signed By:ED LAGUNAS
[2023-04-06 07:06] VITALS: BP 151/86; PULSE 75; RESP 22; TEMP 36.6; O2SAT 95
[2023-04-06 07:28] LABS: MANUAL DIFF FLAG NO
[2023-04-06 07:30] LABS: Basophils Percent Auto 0.3 % (0-2); Eosinophils Absolute Auto 0.2 X10*3/uL (0.0-0.4); Eosinophils Percent Auto 2.7 % (0-4); Hematocrit 41.8 % (42.0-52.0); Hemoglobin 13.9 g/dl (14.0-18.0); Imm Gran Abs Auto 0.04 X10*3/uL (0.00-0.03); Imm Gran Pct Auto 0.4 % (0.0-0.4); Lymphocytes Absolute Auto 2.1 X10*3/uL (1.2-4.9); Mean Corpuscular HGB Conc 33.3 g/dl (31.0-36.0); Mean Corpuscular Hemoglobin 28.8 pg (27.0-33.0); Mean Corpuscular Volume 86.7 fL (80.0-98.0); Mean Platelet Volume 10.1 fL (9.4-12.4); Monocytes Absolute Auto 0.9 X10*3/uL (0.1-1.2); Monocytes Percent Auto 9.7 % (2-11); Neutrophils Absolute Auto 5.8 x10*3/uL (2.0-8.3); Neutrophils Percent Auto 63.9 % (45-73); Platelet Count 271 X10*3/uL (160-400); Red Blood Count 4.82 X10*6/uL (4.60-5.80); Red Cell Distribution Width 13.5 % (11.0-16.0)
[2023-04-06 07:43] LABS: Alanine Aminotransferase 28 U/L (0-40); Albumin Level 4.3 g/dL (3.5-5.0); Alkaline Phosphatase 95 U/L (39-117); Anion Gap 14 (12-20); Aspartate Amino Transferase 24 U/L (5-37); Bilirubin Total 0.5 mg/dL (0.0-1.0); Blood Urea Nitrogen 13 mg/dL (9-16); Calcium 9.4 mg/dL (8.4-10.2); Carbon Dioxide 25 mmol/L (22-29); Chloride 102 mmol/L (96-108); Creatinine Clr Calc Pharmacy 102.6; Estimated Glomerular Filt Rate > 60; Glucose Random 164 mg/dL (60-115); Sodium 137 mmol/L (135-145); Total Protein 7.5 g/dL (6.5-8.0)
[2023-04-06 07:51] LABS: Troponin-I High Sensitivity < 2.7 ng/L (<3.5-35.0)
[2023-04-06 09:14] VITALS: BP 138/85; PULSE 80; RESP 16; O2SAT 98
--- NOTE | 2023-04-06 09:17 | ED.SOB ---
HPI - SOB/Dyspnea General Chief Complaint: Dyspnea Stated Complaint: difficulty breathing Time Seen by Provider: 04/06/23 08:51 Source: patient Mode of arrival: ambulatory Limitations: no limitations History of Present Illness HPI Narrative: this is a 52 years old male with history of CAD status post stent a [facility] on February 23 presented to emergency department with chief complaint of shortness of breath on exertion ongoing for few days. Also has a chest pain under the breast no radiations. Denies any fever chills. Pertinent past history: other (CAD) Onset (ago): day(s) (2) Timing: intermittent Exacerbating factors: exertion Relieving factors: nothing Associated symptoms: denies other symptoms Related Data Home Medications Medication Instructions Recorded Confirmed allopurinol 100 mg tablet 100 mg PO DAILY 06/20/20 04/03/23 lancets 28 gauge (FreeStyle #100 ea 06/20/20 04/03/23 Lancets) blood sugar diagnostic (FreeStyle #10 ea 05/21/21 04/03/23 Lite Strips) ticagrelor 90 mg tablet (Brilinta) 90 mg PO BID 04/03/23 04/03/23 Previous Rx's Medication Instructions Recorded ketorolac 0.5 % eye drops (Acular) 1 drp ophthalmic (eye) Q6-8H PRN 08/31/21 itching #5 mL blood sugar diagnostic (FreeStyle #50 ea 12/20/21 Precision Sanket Strips) aspirin 81 mg tablet,delayed 81 mg PO DAILY #90 tabs 10/10/22 release empagliflozin 25 mg tablet 25 mg PO QAM #30 tabs 10/10/22 (Jardiance) omeprazole 20 mg capsule,delayed 20 mg PO BID 90 days #180 caps 10/10/22 release docusate sodium 100 mg capsule 100 mg PO BEDTIME #30 caps 10/24/22 lisinopril 10 mg tablet 10 mg PO DAILY 90 days #90 tabs 10/24/22 metformin 500 mg tablet 1,000 mg PO BID #360 tabs 10/24/22 metoprolol tartrate 50 mg tablet 50 mg PO BID #180 tabs 10/24/22 atorvastatin 80 mg tablet 80 mg PO DAILY #90 tabs 11/22/22 dulaglutide 0.75 mg/0.5 mL 0.75 mg (0.5 mL) subcut QWEEK 90 12/02/22 subcutaneous pen injector days #6.5 mL (Trulicity) tramadol 50 mg tablet 50 mg PO Q6H PRN pain #20 tabs 01/14/23 oxycodone 5 mg tablet 5 mg PO BID PRN pain #5 tabs 01/19/23 ketorolac 10 mg tablet 10 mg PO Q6H PRN pain 5 days #10 01/26/23 tabs tadalafil 10 mg tablet 10 mg PO DAILY sexual activity 90 02/04/23 days #90 tabs tadalafil 20 mg tablet 20 mg PO ONCE PRN sexual activity 02/04/23 30 days #30 tabs ibuprofen 400 mg tablet 400 mg PO Q6H PRN pain #20 tabs 02/23/23 ropinirole 4 mg tablet 4 mg PO .every 6 hours 30 days 02/23/23 #120 tabs bisacodyl 5 mg tablet,delayed 10 mg PO ONCE 1 day #2 tabs 03/07/23 release (Dulcolax (bisacodyl)) polyethylene glycol 3350 17 238 g PO ONCE #238 grams 03/07/23 gram/dose oral powder (Miralax) sertraline 25 mg tablet 25 mg PO DAILY 90 days #90 tabs 03/11/23 naproxen 500 mg tablet (Naprosyn) 500 mg PO BID #20 tabs 03/17/23 Allergies Allergy/AdvReac Type Severity Reaction Status Date / Time gabapentin AdvReac Intermediate sleepiness Verified 04/03/23 11:16 zolpidem AdvReac Intermediate inadequate Verified 04/03/23 11:16 response Review of Systems Constitutional: Constitutional: Reports no additional constitutional complaints ENT: Reports system reviewed and no additional complaints, except as documented Cardiovascular: Cardiovascular: Reports dyspnea on exertion Respiratory: Respiratory: Reports dyspnea on exertion Neurologic: Reports system reviewed and no additional complaints, except as documented PMFSH Past Medical History Medical History Arthritis Bilateral primary osteoarthritis of knee BMI 40.0-44.9, adult CAD (coronary artery disease) Cardiac arrhythmia Chronic back pain Coarse tremors Complex regional pain syndrome i of lower limb, bilateral Depression with anxiety Diabetes mellitus, type 2 Erectile dysfunction Essential hypertension GERD (gastroesophageal reflux disease) Gout HTN (hypertension) Hyperlipidemia LDL goal <70 IDDM (insulin dependent diabetes mellitus) Intractable neuropathic pain of right knee Kidney stones Morbid obesity Morbid obesity due to excess calories On beta rayo at home SHARONDA (obstructive sleep apnea) RLS (restless legs syndrome) Type 2 diabetes mellitus with diabetic polyneuropathy Surgical History H/O heart artery stent History of arthroplasty of right knee Hx of left knee surgery Hx of lithotripsy Family History Family History Mother Diabetes Sister Diabetes Social History Social History Household Members: Family and Friend(s) Housing: Apartment Alcohol intake: never Patient Tobacco Use Status: Never used Tobacco e-Cigarette/Vaping Use: Never Used Second Hand Smoke Exposure: No Advance Directives: No Advance Directives Information Provided: Yes service: No Current occupational status: disabled Cognitive needs: Yes Hearing needs: No Vision needs: No Physical Exam Vital Signs: Vital Signs: Last Vital Signs Temp 97.8 F 04/06/23 07:06 Pulse 80 04/06/23 09:14 Resp 16 04/06/23 09:14 BP 138/85 04/06/23 09:14 Pulse Ox 98 04/06/23 09:14 O2 Del Method Room Air 04/06/23 09:14 BMI result Body Mass Index 41.3 Const: General: healthy appearing, comfortable, no acute distress, well developed, alert and awake HEENT: Head: Yes normal to inspection Ears: hearing grossly normal bilaterally Face and sinus: Yes normal facial exam Mouth: Normal oral and palatal mucosa present Neck: Neck: Yes normal visual inspection and Yes full ROM Chest: Chest palpation & inspection: normal inspection of the chest Resp: Effort & Inspection: normal respiratory effort Auscultation: clear to auscultation bilaterally Cardio: Jugular venous distension: no JVD Rate: regular rate Rhythm: regular rhythm GI: Inspection: Yes normal to inspection Palpation (GI): Soft to palpation, not firm and nontender : General: Yes no CVA tenderness Back/Spine/Pelvis: Back: no CVA tenderness Skin: General skin exam: no rashes or lesions noted, elasticity normal and turgor normal Lesions: no lesions Rashes: no rashes Trauma: no lacerations or abrasions Extrem: General: Yes normal to inspection, Yes full ROM and Yes capillary refill normal Right upper extremity: normal to inspection Left upper extremity: normal to inspection Course Reevaluation(s) Reevaluation #1: I reviewed the record of the cath from [facility] 03/25/23 pt had in stent restenosis LAD a new stent was placed Time: 09:40 Reevaluation #2: I discussed the case with cardiology Dr Angel who know pt well if tropi X 2 flat OK to d/c Time: 10:05 Reevaluation #3: He has appointment 04/[address] Angel Time: 10:07 Additional Reevaluation(s): 10:29 feels well at this time no chest pain no SOB Medical Decision Making Medical Decision Making [facility] Narrative: Patient presented shortness of breath on exertion will obtain troponin, D-dimer, BNP, chest x-ray Differential Diagnosis Differential Diagnoses: The differential diagnosis associated with the presentation includes CHF/ PE /pneumo thorax Admission/Observation Consideration of admission/observation: Escalation of care including admission/observation considered Consult Healthcare Provider Management of the patient was discussed with: Hog Raiser expanding machine operator Dr Angel Lab Data [facility] Lab Attestation statement: I reviewed the patient's lab results. 04/06/23 07:23 08 07:23 Labs: Lab Results 04/06/23 04/06/23 04/06/23 Range/Units 07:23 07:23 07:23 WBC 9.0 (4.8-10.8) X10*3/uL RBC 4.82 (4.60-5.80) X10*6/uL Hgb 13.9 L (14.0-18.0) g/dl Hct 41.8 L (42.0-52.0) % MCV 86.7 (80.0-98.0) fL MCH 28.8 (27.0-33.0) pg MCHC 33.3 (31.0-36.0) g/dl RDW 13.5 (11.0-16.0) % Plt Count 271 (160-400) X10*3/uL MPV 10.1 (9.4-12.4) fL Immature Gran % (Auto) 0.4 (0.0-0.4) % Neut % (Auto) 63.9 (45-73) % Lymph % (Auto) 23.0 (20-40) % [place] % (Auto) 9.7 (2-11) % Eos % (Auto) 2.7 (0-4) % Baso % (Auto) 0.3 (0-2) % Lymph # (Auto) 2.1 (1.2-4.9) X10*3/uL [place] # (Auto) 0.9 (0.1-1.2) X10*3/uL Eos # (Auto) 0.2 (0.0-0.4) X10*3/uL Baso # (Auto) 0.0 (0.0-0.2) X10*3/uL Abs Immat Gran (auto) 0.04 H (0.00-0.03) X10*3/uL Absolute Neuts (auto) 5.8 (2.0-8.3) x10*3/uL Absolute Nucleated RBC 0.000 (0.0-0.012) X10*3/uL Nucleated RBC % (auto) 0.0 (0.0-0.2) /100WBC D-Dimer High Sensitivty NG/ML Sodium 137 (135-145) mmol/L Potassium 4.0 (3.3-5.1) mmol/L Chloride 102 (96-108) mmol/L Carbon Dioxide 25 (22-29) mmol/L Anion Gap 14 (12-20) BUN 13 (9-16) mg/dL Creatinine 0.91 (0.5-1.4) mg/dL Estim Creat Clear Calc 102.6 Estimated GFR > 60 Random Glucose 164 H (60-115) mg/dL Calcium 9.4 (8.4-10.2) mg/dL Total Bilirubin 0.5 (0.0-1.0) mg/dL AST 24 (5-37) U/L ALT 28 (0-40) U/L Alkaline Phosphatase 95 (39-117) U/L Troponin I High Sens < 2.7 (<3.5-35.0) ng/L B-Natriuretic Peptide (<100) pg/mL Total Protein 7.5 (6.5-8.0) g/dL Albumin 4.3 (3.5-5.0) g/dL 04/06/23 04/06/2304/06/23 Range/Units 09:19 09:19 09:19 WBC (4.8-10.8) X10*3/uL RBC (4.60-5.80) X10*6/uL Hgb (14.0-18.0) g/dl Hct (42.0-52.0) % MCV (80.0-98.0) fL MCH (27.0-33.0) pg MCHC (31.0-36.0) g/dl RDW (11.0-16.0) % Plt Count (160-400) X10*3/uL MPV (9.4-12.4) fL Immature Gran % (Auto) (0.0-0.4) % Neut % (Auto) (45-73) % Lymph % (Auto) (20-40) % [place] % (Auto) (2-11) % Eos % (Auto) (0-4) % Baso % (Auto) (0-2) % Lymph # (Auto) (1.2-4.9) X10*3/uL [place] # (Auto) (0.1-1.2) X10*3/uL Eos # (Auto) (0.0-0.4) X10*3/uL Baso # (Auto) (0.0-0.2) X10*3/uL Abs Immat Gran (auto) (0.00-0.03) X10*3/uL Absolute Neuts (auto) (2.0-8.3) x10*3/uL Absolute Nucleated RBC (0.0-0.012) X10*3/uL Nucleated RBC % (auto) (0.0-0.2) /100WBC D-Dimer High Sensitivty < 150 NG/ML Sodium (135-145) mmol/L Potassium (3.3-5.1) mmol/L Chloride (96-108) mmol/L Carbon Dioxide (22-29) mmol/L Anion Gap (12-20) BUN (9-16) mg/dL Creatinine (0.5-1.4) mg/dL Estim Creat Clear Calc Estimated GFR Random Glucose (60-115) mg/dL Calcium (8.4-10.2) mg/dL Total Bilirubin (0.0-1.0) mg/dL AST (5-37) U/L ALT (0-40) U/L Alkaline Phosphatase (39-117) U/L Troponin I High Sens < 2.7 (<3.5-35.0) ng/L B-Natriuretic Peptide < 10 (<100) pg/mL Total Protein (6.5-8.0) g/dL Albumin (3.5-5.0) g/dL Independent Interpretation I performed an independent interpretation of an: EKG and Plain X-Ray Interpretation: normal sinus rhythm a rate [address]-T changes # EKG NSR 77 no ischemic changes Radiology Impression Discussion of test interpretation with radiology: I have reviewed the radiologist's reading. Radiologist Impression: Accession Number(s): [id number] cc: Generic ED Physician~ EXAMINATION: XR CHEST CLINICAL INFORMATION: Difficulty breathing COMPARISON: 01/18/2023 TECHNIQUE: 2 views of the chest were obtained. FINDINGS: Normal symmetric lung volumes. No parenchymal consolidation. No pleural effusion. No pneumothorax.? Cardiomediastinal silhouette and pulmonary vascularity are within normal limits. No acute osseous abnormalities. XR/XR chest 2V IMPRESSION: No acute findings Dictated By: Gabe Thao MD Signed By: <Electronically signed by Gabe Thao MD in OV> 04/06/23 0448 External Record Review External record reviewed: Inpatient record and Outpatient record reviewed cath from [facility] Chronic Conditions Patient?s care impacted by: Diabetes and Other (CAD) Discharge Plan Discharge Clinical Impression: Shortness of breath Patient Disposition: Home, Self-Care Instructions: Dyspnea (ED) Additional Instructions: keep your appointment with the expanding machine operator on April 09 as scheduled, return if you are worse any concern Prescriptions: No Action aspirin 81 mg tablet,delayed release (DR/EC) 81 mg PO DAILY Qty: 90 1RF Jardiance 25 mg tablet 25 mg PO QAM Qty: 30 4RF omeprazole 20 mg capsule,delayed release(DR/EC) 20 mg PO BID 90 Days Qty: 180 2RF docusate sodium 100 mg capsule 100 mg PO BEDTIME Qty: 30 3RF Rx Instructions: orlando rene capsula cada noche lisinopril 10 mg tablet 10 mg PO DAILY 90 Days Qty: 90 1RF metformin 500 mg tablet 1,000 mg PO BID Qty: 360 1RF metoprolol tartrate 50 mg tablet 50 mg PO BID Qty: 180 1RF atorvastatin 80 mg tablet 80 mg PO DAILY Qty: 90 1RF ropinirole 4 mg tablet 4 mg PO .every 6 hours 30 Days Qty: 120 3RF sertraline 25 mg tablet 25 mg PO DAILY 90 Days Qty: 90 1RF ketorolac [Acular] 0.5 % drops 1 drp ophthalmic (eye) Q6-8H PRN (Reason: itching) Qty: 5 0RF Rx Instructions: begin 24 hours prior to surgery oxycodone 5 mg tablet 5 mg PO BID PRN (Reason: pain) Qty: 5 0RF Rx Instructions: Partial Fill upon patient request. naproxen [Naprosyn] 500 mg tablet 500 mg PO BID Qty: 20 0RF tramadol 50 mg tablet 50 mg PO Q6H PRN (Reason: pain) Qty: 20 0RF ketorolac 10 mg tablet 10 mg PO Q6H PRN (Reason: pain) 5 Days Qty: 10 0RF Rx Instructions: Patient received Toradol in the emergency room ibuprofen 400 mg tablet 400 mg PO Q6H PRN (Reason: pain) Qty: 20 0RF Trulicity 0.75 mg/0.5 mL pen injector 0.75 mg subcut QWEEK 90 Days Qty: 6.5 1RF Brilinta 90 mg tablet 90 mg PO BID allopurinol 100 mg tablet 100 mg PO DAILY (DME) lancets [FreeStyle Lancets] 28 gauge misc See Rx Instructions .ROUTE .MEDSUPPLY Qty: 100 Rx Instructions: As directed (DME) FreeStyle Lite Strips Strip See Rx Instructions .ROUTE .MEDSUPPLY Qty: 10 Rx Instructions: As directed three times daily (DME) FreeStyle Precision Sanket Strips Strip See Rx Instructions .ROUTE .MEDSUPPLY Qty: 50 11RF Rx Instructions: As directed twice a day bisacodyl [Dulcolax (bisacodyl)] 5 mg tablet,delayed release (DR/EC) 10 mg PO ONCE 1 Days Qty: 2 0RF Rx Instructions: take 2 tabs at noon the day before your colonoscopy polyethylene glycol 3350 [Miralax] 17 gram/dose powder 238 g PO ONCE Qty: 238 0RF Rx Instructions: As directed by gastroenterology department at [facility] tadalafil 10 mg tablet 10 mg PO DAILY 90 Days Qty: 90 1RF tadalafil 20 mg tablet 20 mg PO ONCE PRN (Reason: sexual activity) 30 Days Qty: 30 0RF Rx Instructions: On demand medication take 60 minutes before intended activity Referrals: Lenny Angel MD [Physician] - 3 days Interventions: ED Discharge Assessment Last Done: 04/06/23 11:09 Discharge Date/Time: 04/06/23 11:10
[2023-04-06 09:49] LABS: B Type Natriuretic Peptide < 10 pg/mL (<100)
[2023-04-06 09:50] LABS: D Dimer High Sensitivity < 150 NG/ML
[2023-04-06 09:52] LABS: Troponin-I High Sensitivity < 2.7 ng/L (<3.5-35.0)
--- NOTE | 2023-04-06 10:05 | ECG_ITS ---
Test Reason : CP Blood Pressure : / mmHG Vent. Rate : 077 BPM Atrial Rate : 077 BPM P-R Int : 154 ms QRS Dur : 078 ms QT Int : 372 ms P-R-T Axes : 028 003 015 degrees QTc Int : 420 ms Normal sinus rhythm Normal ECG When compared with ECG of 06-APR-2023 04:14, No significant change was found Referred By: Ashutosh Walker Electronically Signed By:Mike Mario
== END 2023-04-06 11:10 | disposition home or self-care (01) ==
PROVIDERS: Emergency Provider Emergency Medicine; PCP Internal Medicine
DX: R06.02 Shortness of breath (principal); I25.10 Atherosclerotic heart disease of native coronary artery without angina pectoris; R07.89 Other chest pain; Z79.899 Other long term (current) drug therapy
CPT/HCPCS: 36415; 71046; 80053; 83880; 84484; 85025; 85379; 93005; 99284

== ENCOUNTER → 2023-04-06 04:10 | Outpatient (BNV) | payer MEDICARE, MEDICAID, SELFPAY | PROVIDERS: Emergency Provider Emergency Medicine; PCP Internal Medicine; Visit Provider Internal Medicine | DX: R07.9 Chest pain, unspecified (principal) | CPT/HCPCS: 93010 ==

== ENCOUNTER 2023-04-09 12:30 | Outpatient (AMB) | payer MEDICARE, MEDICAID, SELFPAY ==
--- NOTE | 2023-04-09 12:38 | MHC.OFFVIS ---
Intake Vital Signs 04/09/23 12:40 Height 5 ft 3 in Weight 235 lb 7.259 oz BMI 41.7 BP 120/78 Blood Pressure Location Lt brachial Position Sitting Pulse 63 Intake Visit Reasons: Follow up post cardiac cath Intake Note: follow up cath Pelts Skinner Required: Yes Pelts Skinner Language: Noodle Catalyst Maker Name: Patricia [id number] Accompanied by: Spouse Allergies gabapentin Adverse Reaction (Intermediate, Verified 04/09/23 12:39) sleepiness zolpidem Adverse Reaction (Intermediate, Verified 04/09/23 12:39) inadequate response Medication List - Last Reconciled 04/09/23 by Lenny Angel MD aspirin 81 mg PO DAILY atorvastatin 80 mg PO DAILY bisacodyl (Dulcolax (bisacodyl)) 10 mg (2 x 5 mg) PO ONCE 1 day blood sugar diagnostic (FreeStyle Lite Strips) As directed three times daily blood sugar diagnostic (FreeStyle Precision Sanket Strips) As directed twice a day docusate sodium 100 mg PO BEDTIME dulaglutide (Trulicity) 0.75 mg (0.5 mL) subcut QWEEK 90 days empagliflozin (Jardiance) 25 mg PO QAM ibuprofen 400 mg PO Q6H PRN ketorolac 0.5% (Acular) 1 drp ophthalmic (eye) Q6-8H PRN ketorolac 10 mg PO Q6H PRN 5 days lancets (FreeStyle Lancets) As directed lisinopril 10 mg PO DAILY 90 days metformin 1,000 mg (2 x 500 mg) PO BID metoprolol tartrate 50 mg PO BID naproxen (Naprosyn) 500 mg PO BID omeprazole 20 mg PO BID 90 days polyethylene glycol 3350 (Miralax) 238 grams PO ONCE ropinirole 4 mg PO .every 6 hours 30 days sertraline 25 mg PO DAILY tadalafil 10 mg PO DAILY 90 days ticagrelor (Brilinta) 90 mg PO BID HPI HPI Comments History of Present Illness Details Chirag is here for follow up regarding coronary disease. Previously seeing [facility]. He had a non ST elevation myocardial infarction in 2018. At that time, underwent cardiac catheterization and LAD/circumflex stenting. Subsequently, it seems that he had another catheterization few months later for chest pain but that showed patent stents. Multiple vascular risk factors including obesity, diabetes, hypertension, dyslipidemia, obstructive sleep apnea. More recently, he underwent stress testing due to upcoming knee surgery. That was positive for ischemia leading to our cardiac catheterization. That showed InStent restenoses in the mid LAD stent status post balloon angioplasty/drug-eluting stent. He is generally feeling okay. No clear angina. [facility] Medical History (Updated 04/09/23 @ 13:10 by Lenny Angel MD) Arthritis Bilateral primary osteoarthritis of knee BMI 40.0-44.9, adult CAD (coronary artery disease) Cardiac arrhythmia Chronic back pain Coarse tremors Complex regional pain syndrome i of lower limb, bilateral Depression with anxiety Diabetes mellitus, type 2 Erectile dysfunction Essential hypertension GERD (gastroesophageal reflux disease) Gout HTN (hypertension) Hyperlipidemia LDL goal <70 IDDM (insulin dependent diabetes mellitus) Intractable neuropathic pain of right knee Kidney stones Morbid obesity due to excess calories On beta rayo at home SHARONDA (obstructive sleep apnea) RLS (restless legs syndrome) Type 2 diabetes mellitus with diabetic polyneuropathy Surgical History H/O heart artery stent History of arthroplasty of right knee Hx of left knee surgery Hx of lithotripsy Family History Mother Diabetes Sister Diabetes Social History Household Members: Family and Friend(s) Housing: Apartment Alcohol intake: never Patient Tobacco Use Status: Never used Tobacco e-Cigarette/Vaping Use: Never Used Second Hand Smoke Exposure: No service: No Current occupational status: disabled Cognitive needs: Yes Hearing needs: No Vision needs: No Review of Systems Const Denies weakness ENT Denies dizziness Card Denies chest pain, Denies chest pain with activity, Denies syncope, Denies rapid heart rate, Denies pedal edema, Denies edema, Denies leg edema, Denies lightheadedness, Denies palpitations, Denies dyspnea, Denies dyspnea on exertion and Denies orthopnea Resp Denies cough, Denies dyspnea and Denies dyspnea on exertion GI Denies hematochezia and Denies change in stool character Musc Denies abnormal gait, Denies muscle cramps, Denies muscle weakness, Denies numbness, Denies radiating pain into limb and Denies tingling Neuro Denies abnormal gait, Denies dizziness, Denies syncope, Denies numbness, Denies tingling and Denies weakness Endo Denies palpitations Physical Exam Vital Signs: Last Vital Signs Pulse 63 04/09/23 12:40 BP 120/78 04/09/23 12:40 BMI result Body Mass Index 41.7 Const General: comfortable and no acute distress Orientation/consciousness: patient oriented x3 HEENT Other: Unremarkable Head: Yes normal to inspection Neck Neck: Yes normal visual inspection Chest Chest palpation & inspection: normal inspection of the chest Resp Auscultation: clear to auscultation bilaterally Cardio Palpation: normal PMI Heart sounds: S1 normal heart sound present, S2 normal heart sound present, no gallops, no murmurs and no rubs GI Palpation (GI): Soft to palpation Back/Spine/Pelvis Other: unremarkable Skin General skin exam: no rashes or lesions noted Neuro General: patient oriented x3 Extrem General: Yes normal to inspection Psych Mental Status: mental status grossly normal Assessment & Plan Assessment & Plan (1) Atherosclerotic cardiovascular disease: Code(s): I25.10 - Atherosclerotic heart disease of [place] coronary artery without angina pectoris Plan: Status post LAD as well as circumflex stenting from 2018. In the most recent cardiac catheterization, InStent restenoses in the mid LAD stent. Ostial LAD about 30-40% stenosis. Status post balloon angioplasty/drug-eluting stent. Continue aspirin indefinitely. Brilinta for 1 year. On high-dose statins. (2) Non-rheumatic aortic stenosis: Code(s): I35.0 - Nonrheumatic aortic (valve) stenosis Plan: Moderate aortic stenosis. Can be followed with echocardiograms. (3) Type 2 diabetes mellitus with diabetic polyneuropathy: Code(s): E11.42 - Type 2 diabetes mellitus with diabetic polyneuropathy Qualifiers: Diabetes mellitus retirement insulin use: without customer success associate use Qualified Code(s): E11.42 - Type 2 diabetes mellitus with diabetic polyneuropathy Plan: He is on Trulicity, Jardiance and metformin. Hemoglobin A1c is reasonable at 6.5%. (4) Essential hypertension: Code(s): I10 - Essential (primary) hypertension Plan: Stable blood pressure. On lisinopril. (5) Morbid obesity due to excess calories: Code(s): E66.01 - Morbid (severe) obesity due to excess calories Plan: He is morbidly obese but his weight has not changed much. If able to lose, will be of great help. (6) Preoperative cardiovascular examination: Code(s): Z01.810 - Encounter for preprocedural cardiovascular examination Plan: If completely elective knee surgery, then probably due to after 6 months when Brilinta can be held and he can just remain on aspirin for the surgery. If it is urgent, then there would be increased bleeding risk due to being on both aspirin/Brilinta. Medications: Changed From sertraline 25 mg PO DAILY 90 days 90 tabs 1RF F41.8 - Other specified anxiety disorders To sertraline 25 mg PO DAILY F41.8 - Other specified anxiety disorders Coding Level of Care Code Est Pt Level 4 (98712) Diagnoses Atherosclerotic cardiovascular disease I25.10 Non-rheumatic aortic stenosis I35.0 Type 2 diabetes mellitus with diabetic polyneuropathy E11.42 Diabetes mellitus retirement insulin use: without customer success associate use Essential hypertension I10 Morbid obesity due to excess calories E66.01 Preoperative cardiovascular examination Z01.810
[2023-04-09 12:40] VITALS: BP 120/78; PULSE 63; BMI 41.7
== END 2023-04-09 12:56 | disposition home or self-care (01) ==
PROVIDERS: PCP Internal Medicine; Referring Provider Internal Medicine; Visit Provider Internal Medicine
DX: I25.10 Atherosclerotic heart disease of native coronary artery without angina pectoris (principal); I35.0 Nonrheumatic aortic (valve) stenosis; E11.42 Type 2 diabetes mellitus with diabetic polyneuropathy; I10 Essential (primary) hypertension; E66.01 Morbid (severe) obesity due to excess calories; Z01.810 Encounter for preprocedural cardiovascular examination
CPT/HCPCS: 99214

== ENCOUNTER → 2023-04-09 12:30 | Outpatient (BNVA) | payer MEDICARE, MEDICAID, SELFPAY | PROVIDERS: PCP Internal Medicine; Referring Provider Internal Medicine; Visit Provider Internal Medicine | DX: Z01.810 Encounter for preprocedural cardiovascular examination (principal); I25.10 Atherosclerotic heart disease of native coronary artery without angina pectoris; I35.0 Nonrheumatic aortic (valve) stenosis; I10 Essential (primary) hypertension; E11.42 Type 2 diabetes mellitus with diabetic polyneuropathy; E66.01 Morbid (severe) obesity due to excess calories; Z68.41 Body mass index [BMI] 40.0-44.9, adult | CPT/HCPCS: 99212 ==

== ENCOUNTER 2023-04-21 06:06 | Outpatient (REF) | payer MEDICARE, MEDICAID, SELFPAY ==
[2023-04-25 18:48] LABS: Testosterone, Free 54.3 pg/mL (35.0-155.0); Testosterone, Total 208 ng/dL (250-1100)
== END 2023-04-21 06:07 | disposition home or self-care (01) ==
LOC: HO.LAB 06:06
PROVIDERS: Urology; PCP Internal Medicine; Visit Provider Internal Medicine
DX: E11.69 Type 2 diabetes mellitus with other specified complication (principal); N52.1 Erectile dysfunction due to diseases classified elsewhere
CPT/HCPCS: 36415; 84402; 84403

== ENCOUNTER 2023-08-29 02:03 | Emergency (ER) | payer MEDICARE, MEDICAID, SELFPAY ==
[2023-08-29 02:18] VITALS: BP 138/86; PULSE 88; RESP 18; TEMP 37.2; O2SAT 96; BMI 41.6
[2023-08-29] MEDS: Acetaminophen 325 MG TABLET 650 MG PO (03:41)
[2023-08-29 03:46] LABS: Appearance Urine Clear; Color Urine Yellow; Glucose Urine UA >=1000 mg/dL (Negative); Leukocyte Esterase Urine Negative (Negative); Nitrite Urine Negative (Negative); PH 6.5 (5.0-9.0); Specific Gravity - Urine >= 1.030 (1.005-1.025); UMIC TRIGGER UACC YES; Urine Blood Trace (Negative); Urine Ketones Negative (Negative); Urine Protein Trace mg/dL (Neg-Trace)
[2023-08-29 03:51] LABS: Bacteria Urine None Seen (None Seen); Hyaline Casts Urine 0-2 /LPF (0-2); RBC Urine 0-2 /HPF (0-2); Squamous Epithelial Cell Urine 0-2 /HPF (0-2); WBC Urine 0-5 /HPF (0-5)
[2023-08-29 04:59] VITALS: BP 114/82; PULSE 91; RESP 17; TEMP 36.7; O2SAT 97
--- NOTE | 2023-08-29 06:27 | ED.SKABFB ---
HPI - Skin/Abscess/Foreign Bdy General Chief complaint: Skin/Abscess/Foreign Body Stated complaint: groin pain ? Time Seen by Provider: 08/29/23 05:56 Source: patient Mode of arrival: ambulatory Limitations: no limitations History of Present Illness HPI narrative: Patient comes to the emergency room complaining of pain in the right inguinal area. Patient states the skin is erythematous and has been present for 3 days. Started as a pimple and now the redness is spreading. Patient denies fever chills, no drainage present. Patient denies testicular pain, no abdominal pain Related Data Home Medications Medication Instructions Recorded Confirmed lancets 28 gauge (FreeStyle #100 ea 06/20/20 04/09/23 Lancets) blood sugar diagnostic (FreeStyle #10 ea 05/21/21 04/09/23 Lite Strips) ticagrelor 90 mg tablet (Brilinta) 90 mg PO BID 04/03/23 04/09/23 sertraline 25 mg tablet 25 mg PO DAILY 04/09/23 04/09/23 Previous Rx's Medication Instructions Recorded ketorolac 0.5 % eye drops (Acular) 1 drp ophthalmic (eye) Q6-8H PRN 08/31/21 itching #5 mL blood sugar diagnostic (FreeStyle #50 ea 12/20/21 Precision Snaket Strips) aspirin 81 mg tablet,delayed 81 mg PO DAILY #90 tabs 10/10/22 release empagliflozin 25 mg tablet 25 mg PO QAM #30 tabs 10/10/22 (Jardiance) omeprazole 20 mg capsule,delayed 20 mg PO BID 90 days #180 caps 10/10/22 release docusate sodium 100 mg capsule 100 mg PO BEDTIME #30 caps 10/24/22 atorvastatin 80 mg tablet 80 mg PO DAILY #90 tabs 11/22/22 ketorolac 10 mg tablet 10 mg PO Q6H PRN pain 5 days #10 01/26/23 tabs tadalafil 10 mg tablet 10 mg PO DAILY sexual activity 90 02/04/23 days #90 tabs ibuprofen 400 mg tablet 400 mg PO Q6H PRN pain #20 tabs 02/23/23 bisacodyl 5 mg tablet,delayed 10 mg (2 x 5 mg) PO ONCE 1 day #2 03/07/23 release (Dulcolax (bisacodyl)) tabs polyethylene glycol 3350 17 238 g PO ONCE #238 grams 03/07/23 gram/dose oral powder (Miralax) naproxen 500 mg tablet (Naprosyn) 500 mg PO BID #20 tabs 03/17/23 lisinopril 10 mg tablet 10 mg PO DAILY 90 days #90 tabs 04/11/23 metformin 500 mg tablet 1,000 mg (2 x 500 mg) PO BID #360 05/05/23 tabs metoprolol tartrate 50 mg tablet 50 mg PO BID #180 tabs 05/05/23 dulaglutide 0.75 mg/0.5 mL 0.75 mg (0.5 mL) subcut QWEEK 90 06/06/23 subcutaneous pen injector days #6.5 mL (Trulicity) ropinirole 4 mg tablet 4 mg PO .every 6 hours 30 days 08/16/23 #120 tabs cephalexin 500 mg capsule 500 mg PO BID #20 caps 08/29/23 doxycycline hyclate 100 mg capsule 100 mg PO BID #20 caps 08/29/23 ibuprofen 600 mg tablet 600 mg PO TID PRN fever or pain 08/29/23 #14 tabs Allergies Allergy/AdvReac Type Severity Reaction Status Date / Time gabapentin AdvReac Intermediate sleepiness Verified 08/29/23 02:22 zolpidem AdvReac Intermediate inadequate Verified 08/29/23 02:22 response Review of Systems Review of Systems: Constitutional : No Weight loss, No Fever, No Chills, No Night Sweats, No Fatigue, No Malaise ENT/Mouth : No Hearing loss, No Ear Pain, No Nasal Congestion, No Sinus Pain, No Hoarseness, No sore throat, No Rhinorrhea, No Swallowing Difficulty Eyes: No Eye Pain, No Swelling, No Redness, No Foreign Body, No Discharge, No Vision Changes Cardiovascular : No Chest Pain, No SOB, No Dyspnea on Exertion, No Orthopnea, No Edema, No Palpitations Respiratory : No Cough, No Sputum, No Wheezing, No Smoke Exposure, No Dyspnea Gastrointestinal : No Nausea, No Vomiting, No Diarrhea, No Constipation, No abdominal Pain, No Hematochezia, No Melena Genitourinary : no irregular bleeding, No Dysuria, No Urinary Frequency, No Hematuria, No Urinary Incontinence, No Urgency, No Flank Pain, No Urinary Flow Changes, No Hesitancy Musculoskeletal : No joint pain, No Myalgias, No Joint Swelling Skin : Complaining of skin redness and very tender to touch around the right inguinal area Neuro : No Weakness, No Numbness, No Paresthesias, No Loss of Consciousness, No Dizziness, No Headache Psych : No Anxiety/Panic, No Depression, No SI/HI/AH/VH, No Social Issues, Heme/Lymph: No Bruising, No Bleeding,No Lymphadenopathy Endocrine : No Polyuria, No Polydipsia, No Temperature Intolerance [facility] Past Medical History Medical History On beta rayo at home Complex regional pain syndrome i of lower limb, bilateral Bilateral primary osteoarthritis of knee Gout Depression with anxiety SHARONDA (obstructive sleep apnea) Coarse tremors IDDM (insulin dependent diabetes mellitus) HTN (hypertension) Intractable neuropathic pain of right knee CAD (coronary artery disease) Erectile dysfunction Chronic back pain RLS (restless legs syndrome) GERD (gastroesophageal reflux disease) Kidney stones Arthritis Essential hypertension Hyperlipidemia LDL goal <70 Morbid obesity due to excess calories BMI 40.0-44.9, adult Type 2 diabetes mellitus with diabetic polyneuropathy Cardiac arrhythmia Diabetes mellitus, type 2 Surgical History H/O heart artery stent History of arthroplasty of right knee Hx of left knee surgery Hx of lithotripsy Family History Family History Mother Diabetes Sister Diabetes Social History Social History Household Members: Family and Friend(s) Housing: Apartment Alcohol intake: never Patient Tobacco Use Status: Never used Tobacco e-Cigarette/Vaping Use: Never Used Second Hand Smoke Exposure: No Use of substances other than those prescribed or required for medical reasons: No Advance Directives: No Advance Directives Information Provided: Yes service: No Current occupational status: disabled Cognitive needs: Yes Hearing needs: No Vision needs: No Physical Exam Vital Signs: Vital Signs: Last Vital Signs Temp 98.0 F 08/29/23 04:59 Pulse 91 08/29/23 04:59 Resp 17 08/29/23 04:59 BP 114/82 08/29/23 04:59 Pulse Ox 97 08/29/23 04:59 O2 Del Method Room Air 08/29/23 04:59 BMI result Body Mass Index 41.6 Const: Other: Appearance: Alert. Oriented X3. No acute distress. Eyes: Pupils equal, round and reactive to light. ENT: Pharynx normal. Neck: Normal inspection. Neck supple. No lymph nodes noted. No crepitus CVS: Normal heart rate and rhythm. Pulses normal. Normal S1 and S2 Respiratory: No respiratory distress. Breath sounds normal. No Wheezing. No rales Abdomen: Soft and nontender. No rigidity. No distention. Skin: There is erythema in the right inguinal area. There are 2 areas of erythema, Ultrasound shows 1 area is cobblestone pattern, no abscess. The 2nd zone of erythema, there is a 1 cm superficial area that could possibly contain pus. Extremities: No lower extremity edema. No Lacerations. No Rash Neuro: Oriented X 3. No motor deficit. No sensory deficit. Moving all extremities. No slurred speech. CN 2 through 12 grossly intact Psych: calm, cooperative, normal affect Medications Administered Discontinued Medications Generic Name Dose Route Start Last Admin Trade Name Ilirq PRN Reason Stop Dose Admin Acetaminophen 650 mg 08/29/23 03:34 08/29/23 03:41 Acetaminophen 325 Mg Tablet PO 08/29/23 03:35 650 mg ONCE ONE Administration Medical Decision Making Medical Decision Making MDM Narrative: -I discussed the physical exam with the patient. It is possible that we may not extract pus. However, there is a capsular may be containing pus. Patient agreeable to procedure. The area was cleaned and numbed with 1% lidocaine. Needle aspiration with an 18 gauge needle was attempted, less than 1 mL of pus was extracted. -in the ED, patient was given p.o. Keflex and doxycycline Differential Diagnosis Differential Diagnoses: The differential diagnosis associated with the presentation includes (Cellulitis, abscess) Lab Data Labs: Lab Results 08/29/23 Range/Units 03:37 Urine Color Yellow Urine Appearance Clear Urine pH 6.5 (5.0-9.0) Ur Specific Grandy >= 1.030 H (1.005-1.025) Urine Protein Trace (Neg-Trace) mg/dL Urine Glucose (UA) >=1000 H (Negative) mg/dL Urine Ketones Negative (Negative) mg/dL Urine Blood Trace H (Negative) Urine Nitrite Negative (Negative) Ur Leukocyte Esterase Negative (Negative) Urine RBC 0-2 (0-2) /HPF Urine WBC 0-5 (0-5) /HPF Ur Squamous Epith Cells 0-2 (0-2) /HPF Urine Bacteria None Seen (None Seen) Hyaline Casts 0-2 (0-2) /LPF Discharge Plan Discharge Clinical Impression: Cellulitis Patient Disposition: Home, Self-Care Instructions: Cellulitis (ED) Additional Instructions: Please follow-up with your primary care physician tomorrow. If you have any worsening or new symptoms, please return to the emergency room or call 911 Prescriptions: New cephalexin 500 mg capsule 500 mg PO BID Qty: 20 0RF doxycycline hyclate 100 mg capsule 100 mg PO BID Qty: 20 0RF ibuprofen 600 mg tablet 600 mg PO TID PRN (Reason: fever or pain) Qty: 14 0RF No Action aspirin 81 mg tablet,delayed release (DR/EC) 81 mg PO DAILY Qty: 90 1RF Jardiance 25 mg tablet 25 mg PO QAM Qty: 30 4RF omeprazole 20 mg capsule,delayed release(DR/EC) 20 mg PO BID 90 Days Qty: 180 2RF docusate sodium 100 mg capsule 100 mg PO BEDTIME Qty: 30 3RF Rx Instructions: [place] rene capsula cada noche atorvastatin 80 mg tablet 80 mg PO DAILY Qty: 90 1RF lisinopril 10 mg tablet 10 mg PO DAILY 90 Days Qty: 90 1RF metoprolol tartrate 50 mg tablet 50 mg PO BID Qty: 180 1RF metformin 500 mg tablet 1,000 mg PO BID Qty: 360 1RF Trulicity 0.75 mg/0.5 mL pen injector 0.75 mg subcut QWEEK 90 Days Qty: 6.5 1RF ropinirole 4 mg tablet 4 mg PO .every 6 hours 30 Days Qty: 120 3RF ketorolac [Acular] 0.5 % drops 1 drp ophthalmic (eye) Q6-8H PRN (Reason: itching) Qty: 5 0RF Rx Instructions: begin 24 hours prior to surgery naproxen [Naprosyn] 500 mg tablet 500 mg PO BID Qty: 20 0RF ketorolac 10 mg tablet 10 mg PO Q6H PRN (Reason: pain) 5 Days Qty: 10 0RF Rx Instructions: Patient received Toradol in the emergency room ibuprofen 400 mg tablet 400 mg PO Q6H PRN (Reason: pain) Qty: 20 0RF Brilinta 90 mg tablet 90 mg PO BID (DME) lancets [FreeStyle Lancets] 28 gauge misc See Rx Instructions .ROUTE .MEDSUPPLY Qty: 100 Rx Instructions: As directed (DME) FreeStyle Lite Strips Strip See Rx Instructions .ROUTE .MEDSUPPLY Qty: 10 Rx Instructions: As directed three times daily (DME) FreeStyle Precision Sanket Strips Strip See Rx Instructions .ROUTE .MEDSUPPLY Qty: 50 11RF Rx Instructions: As directed twice a day bisacodyl [Dulcolax (bisacodyl)] 5 mg tablet,delayed release (DR/EC) 10 mg PO ONCE 1 Days Qty: 2 0RF Rx Instructions: take 2 tabs at noon the day before your colonoscopy polyethylene glycol 3350 [Miralax] 17 gram/dose powder 238 g PO ONCE Qty: 238 0RF Rx Instructions: As directed by gastroenterology department at [facility] tadalafil 10 mg tablet 10 mg PO DAILY 90 Days Qty: 90 1RF sertraline 25 mg tablet 25 mg PO DAILY
[2023-08-29] MEDS: cephALEXin 500 MG CAPSULE PO (06:33)
[2023-08-29] MEDS: Doxycycline Monohydrate 100 MG CAPSULE PO (06:33)
[2023-08-29] MEDS: Lidocaine HCl 1 % MPF 5 ML VIAL INFILTRATI (06:33)
--- NOTE | 2023-08-29 06:40 | PC.NURSE ---
pt medicated per mar upon discharge, reviewed discharge instructions with pt. pt verbalized understanding. no sign of distress.
== END 2023-08-29 06:41 | disposition home or self-care (01) ==
PROVIDERS: Emergency Provider Emergency Medicine
DX: L03.311 Cellulitis of abdominal wall (principal); R10.30 Lower abdominal pain, unspecified; E11.9 Type 2 diabetes mellitus without complications; I10 Essential (primary) hypertension; E78.5 Hyperlipidemia, unspecified
CPT/HCPCS: 10160; 81001; 99284

== ENCOUNTER 2023-09-11 03:20 | Emergency (ER) | payer MEDICARE, MEDICAID, SELFPAY ==
--- NOTE | ~2023-09-11 | CT_ITS ---
EXAMINATION: HEAD CT WITHOUT CONTRAST CERVICAL SPINE CT WITHOUT CONTRAST CLINICAL INFORMATION: Possible fall. COMPARISON: None. TECHNIQUE: Contiguous axial imaging of the head was performed without the administration of IV contrast. Axial multidetector volumetric images were also performed through the cervical spine without intravenous contrast. Multiplanar reconstructed images in coronal and sagittal orientations were submitted. This CT examination was performed using dose optimization techniques as appropriate, variously including the following: *Automated exposure control *Adjustment of mA and/or kV according to patient size (this includes techniques or standardized protocols for targeted exams where dose is matched to indication/reason for exam; i.e. extremities or head) *Use of iterative reconstruction technique DOSE: 1412 mGy-cm FINDINGS: HEAD: There is no evidence of acute intracranial hemorrhage or territorial infarction. No abnormal mass-effect or midline shift. No extra-axial fluid collections. Linda to white matter differentiation is well preserved. The ventricles are normal in size and configuration. There is no abnormal attenuation within the brain parenchyma. The soft tissues and osseous structures are normal. The sinuses and mastoid air cells are clear. CERVICAL SPINE: Vertebral body heights are normal. No fractures of the vertebral bodies or posterior elements. Vertebral alignment is normal. No subluxation. The craniocervical and atlantoaxial articulations are normal. Minimal degenerative disc disease in the cervical spine, characterized primarily by small endplate osteophytes. Minimal facet arthropathy at the C6 to C7 level bilaterally.. Central canal and neural foramina appear patent without appreciable stenoses. No significant paravertebral soft tissue swelling. Atherosclerotic calcifications are present in the carotid arteries. Imaged portions of the lung apices are clear. CT/CT cervical spine wo IV con IMPRESSION: 1. No acute intracranial pathology. 2. No acute fracture or malalignment in the cervical spine.
[2023-09-11 03:32] VITALS: BP 138/79; PULSE 91; RESP 18; TEMP 36.7; O2SAT 96; BMI 41.6
--- NOTE | 2023-09-11 04:00 | ED.FALL ---
HPI - Fall General Chief Complaint: Headache Stated Complaint: fall head strike Time Seen by Provider: 09/11/23 03:57 Source: patient Mode of arrival: ambulatory Limitations: no limitations History of Present Illness HPI Narrative: Patient diabetic, coronary artery disease status post stent on Brilinta 2 days ago patient while coming out of the car slipped on black ice and fell hitting his head to the ground patient was days lost consciousness? For about 10-15 minute no seizures patient vomited once since then patient feeling off with severe headache in the back of the head and the neck on arrival patient's blood sugar was 528. Patient check his blood sugar earlier was 160 said that he had heavy meal and at lab on 8 just prior to arrival usually patient's blood sugar is less than 200 on metformin Related Data Home Medications Medication Instructions Recorded Confirmed lancets 28 gauge (FreeStyle #100 ea 06/20/20 04/09/23 Lancets) blood sugar diagnostic (FreeStyle #10 ea 05/21/21 04/09/23 Lite Strips) ticagrelor 90 mg tablet (Brilinta) 90 mg PO BID 04/03/23 04/09/23 sertraline 25 mg tablet 25 mg PO DAILY 04/09/23 04/09/23 Previous Rx's Medication Instructions Recorded ketorolac 0.5 % eye drops (Acular) 1 drp ophthalmic (eye) Q6-8H PRN 08/31/21 itching #5 mL blood sugar diagnostic (FreeStyle #50 ea 12/20/21 Precision Sanket Strips) aspirin 81 mg tablet,delayed 81 mg PO DAILY #90 tabs 10/10/22 release empagliflozin 25 mg tablet 25 mg PO QAM #30 tabs 10/10/22 (Jardiance) omeprazole 20 mg capsule,delayed 20 mg PO BID 90 days #180 caps 10/10/22 release docusate sodium 100 mg capsule 100 mg PO BEDTIME #30 caps 10/24/22 ketorolac 10 mg tablet 10 mg PO Q6H PRN pain 5 days #10 01/26/23 tabs tadalafil 10 mg tablet 10 mg PO DAILY sexual activity 90 02/04/23 days #90 tabs ibuprofen 400 mg tablet 400 mg PO Q6H PRN pain #20 tabs 02/23/23 bisacodyl 5 mg tablet,delayed 10 mg (2 x 5 mg) PO ONCE 1 day #2 07/07/23 release (Dulcolax (bisacodyl)) tabs polyethylene glycol 3350 17 238 g PO ONCE #238 grams 03/07/23 gram/dose oral powder (Miralax) naproxen 500 mg tablet (Naprosyn) 500 mg PO BID #20 tabs 03/17/23 lisinopril 10 mg tablet 10 mg PO DAILY 90 days #90 tabs 04/11/23 metformin 500 mg tablet 1,000 mg (2 x 500 mg) PO BID #360 05/05/23 tabs metoprolol tartrate 50 mg tablet 50 mg PO BID #180 tabs 05/05/23 dulaglutide 0.75 mg/0.5 mL 0.75 mg (0.5 mL) subcut QWEEK 90 06/06/23 subcutaneous pen injector days #6.5 mL (Trulicity) ropinirole 4 mg tablet 4 mg PO .every 6 hours 30 days 08/16/23 #120 tabs cephalexin 500 mg capsule 500 mg PO BID #20 caps 08/29/23 doxycycline hyclate 100 mg capsule 100 mg PO BID #20 caps 08/29/23 ibuprofen 600 mg tablet 600 mg PO TID PRN fever or pain 08/29/23 #14 tabs atorvastatin 80 mg tablet 80 mg PO DAILY #90 tabs 09/08/23 Allergies Allergy/AdvReac Type Severity Reaction Status Date / Time gabapentin AdvReac Intermediate sleepiness Verified 09/11/23 03:32 zolpidem AdvReac Intermediate inadequate Verified 09/11/23 03:32 response Review of Systems Review of Systems: Yes all other systems are reviewed and are negative PMFSH Past Medical History Onset Date is defined in the Problem List Problems that require an onset date and time if occurred within 24 hrs of arrival to the ED Aortic Dissection and Rupture; Neurologic impairment; Cardiopulmonary Arrest; Endotracheal Intubation; Insertion or Replacement of Mechanical Circulatory Assist Device Medical History On beta rayo at home Complex regional pain syndrome i of lower limb, bilateral Bilateral primary osteoarthritis of knee Gout Depression with anxiety SHARONDA (obstructive sleep apnea) Coarse tremors IDDM (insulin dependent diabetes mellitus) HTN (hypertension) Intractable neuropathic pain of right knee CAD (coronary artery disease) Erectile dysfunction Chronic back pain RLS (restless legs syndrome) GERD (gastroesophageal reflux disease) Kidney stones Arthritis Essential hypertension Hyperlipidemia LDL goal <70 Morbid obesity due to excess calories BMI 40.0-44.9, adult Type 2 diabetes mellitus with diabetic polyneuropathy Cardiac arrhythmia Diabetes mellitus, type 2 Surgical History History of arthroplasty of right knee Hx of left knee surgery Hx of lithotripsy H/O heart artery stent Family History Family History Mother Diabetes Sister Diabetes Social History Social History Household Members: Family and Friend(s) Housing: Apartment Alcohol intake: never Patient Tobacco Use Status: Never used Tobacco Smoked in Last 30 Days: No e-Cigarette/Vaping Use: Never Used Second Hand Smoke Exposure: No Use of substances other than those prescribed or required for medical reasons: No Advance Directives: No Advance Directives Information Provided: No service: No Current occupational status: disabled Cognitive needs: Yes Hearing needs: No Vision needs: No Physical Exam Vital Signs: Vital Signs: Last Vital Signs Temp 98.2 F 09/11/23 05:39 Pulse 85 09/11/23 05:39 Resp 18 09/11/23 05:39 BP 117/63 09/11/23 05:39 Pulse Ox 95 09/11/23 05:39 O2 Del Method Room Air 09/11/23 05:39 BMI result Body Mass Index 41.6 Appearance: Alert. Oriented X3. No acute distress. Eyes: PERRLA, No Nystagmus ENT: Pharynx normal. Oral Mucosa moist AT NC Neck: Normal inspection. Neck supple. No midline tenderness CVS: Normal heart rate and rhythm. Pulses normal. Respiratory: No respiratory distress. Equal air entry bilateral, no wheezing/rales/rhonchi Abdomen: Soft and nontender. Bowel sounds are present, no mass palpable, no CVA tenderness Skin: Skin warm and dry. Normal skin color. Normal skin turgor. Extremities: No lower extremity edema. No calf tenderness Neuro: Oriented X 3. No motor deficit. No sensory deficit.No cerebellar signs , cranial nerves II-XII intact Medications Administered Discontinued Medications Generic Name Dose Route Start Last Admin Trade Name Freq PRN Reason Stop Dose Admin Sodium Chloride 1,000 mls @ 999 mls/hr 09/11/23 05:32 09/11/23 05:36 Ns IV 09/11/23 06:32 999 mls/hr .Q1H1M ONE Administration Insulin Human Lispro 5 unit 09/11/23 04:16 09/11/23 04:28 Insulin Lispro 100 Unit/Ml 3 Ml Vial SUBCUT 09/11/23 04:17 5 unit ONCE ONE Administration Insulin Human Lispro 14 unit 09/11/23 05:30 09/11/23 05:36 Insulin Lispro 100 Unit/Ml 3 Ml Vial SUBCUT 09/11/23 05:31 14 unit ONCE ONE Administration Medical Decision Making Medical Decision Making [facility] Narrative: Patient with mechanical fall noted to have elevated blood sugar but patient patient was not diet compliant since last evening had lamonade and high carb foods patient does have metformin and Januvia at home and very compliant has a glucometer at home will check blood sugar more frequently and follow with PCP Differential Diagnosis Differential Diagnoses: The differential diagnosis associated with the presentation includes Metabolic encephalopathy/SAH/SDH/hyperglycemia Lab Data [facility] Lab Attestation statement: I reviewed the patient's lab results. 09/11/23 04:27 09/11/23 04:27 Labs: Lab Results 09/11/23 09/11/23 09/11/23 Range/Units 04:13 04:15 04:25 WBC (4.8-10.8) X10*3/uL RBC (4.60-5.80) X10*6/uL Hgb (14.0-18.0) g/dl Hct (42.0-52.0) % MCV (80.0-98.0) fL MCH (27.0-33.0) pg MCHC (31.0-36.0) g/dl RDW (11.0-16.0) % Plt Count (160-400) X10*3/uL MPV (9.4-12.4) fL Immature Gran % (Auto) (0.0-0.4) % Neut % (Auto) (45-73) % Lymph % (Auto) (20-40) % Schley % (Auto) (2-11) % Eos % (Auto) (0-4) % Baso % (Auto) (0-2) % Lymph # (Auto) (1.2-4.9) X10*3/uL Schley # (Auto) (0.1-1.2) X10*3/uL Eos # (Auto) (0.0-0.4) X10*3/uL Baso # (Auto) (0.0-0.2) X10*3/uL Abs Immat Gran (auto) (0.00-0.03) X10*3/uL Absolute Neuts (auto) (2.0-8.3) x10*3/uL Absolute Nucleated RBC (0.0-0.012) X10*3/uL Nucleated RBC % (auto) (0.0-0.2) /100WBC Sodium (135-145) mmol/L Potassium (3.3-5.1) mmol/L Chloride (96-108) mmol/L Carbon Dioxide (22-29) mmol/L Anion Gap (12-20) BUN (9-16) mg/dL Creatinine (0.5-1.4) mg/dL Estim Creat Clear Calc Estimated GFR POC Glucose 536 H* 528 H* (60-115) mg/dL Random Glucose (60-115) mg/dL Calcium (8.4-10.2) mg/dL Total Bilirubin (0.0-1.0) mg/dL AST (5-37) U/L ALT (0-40) U/L Alkaline Phosphatase (39-117) U/L Total Protein (6.5-8.0) g/dL Albumin (3.5-5.0) g/dL Urine Color Yellow Urine Appearance Clear Urine pH 6.0 (5.0-9.0) Ur Specific [place] >= 1.030 H (1.005-1.025) Urine Protein Negative (Neg-Trace) mg/dL Urine Glucose (UA) >=1000 H (Negative) mg/dL Urine Ketones Negative (Negative) mg/dL Urine Blood Trace H (Negative) Urine Nitrite Negative (Negative) Ur Leukocyte Esterase Negative (Negative) Urine RBC 0-2 (0-2) /HPF Urine WBC 0-5 (0-5) /HPF Ur Squamous Epith Cells 0-2 (0-2) /HPF Urine Bacteria None Seen (None Seen) Hyaline Casts 0-2 (0-2) /LPF 09/11/23 09/11/23 09/11/23 Range/Units 04:27 05:28 06:30 WBC 7.9 (4.8-10.8) X10*3/uL RBC 4.61 (4.60-5.80) X10*6/uL Hgb 13.5 L (14.0-18.0) g/dl Hct 38.4 L (42.0-52.0) % MCV 83.3 (80.0-98.0) fL MCH 29.3 (27.0-33.0) pg MCHC 35.2 (31.0-36.0) g/dl RDW 12.9 (11.0-16.0) % Plt Count 252 (160-400) X10*3/uL MPV 10.8 (9.4-12.4) fL Immature Gran % (Auto) 0.6 H (0.0-0.4) % Neut % (Auto) 56.5 (45-73) % Lymph % (Auto) 25.8 (20-40) % Schley % (Auto) 13.4 H (2-11) % Eos % (Auto) 3.3 (0-4) % Baso % (Auto) 0.4 (0-2) % Lymph # (Auto) 2.0 (1.2-4.9) X10*3/uL Schley # (Auto) 1.1 (0.1-1.2) X10*3/uL Eos # (Auto) 0.3 (0.0-0.4) X10*3/uL Baso # (Auto) 0.0 (0.0-0.2) X10*3/uL Abs Immat Gran (auto) 0.05 H (0.00-0.03) X10*3/uL Absolute Neuts (auto) 4.4 (2.0-8.3) x10*3/uL Absolute Nucleated RBC 0.000 (0.0-0.012) X10*3/uL Nucleated RBC % (auto) 0.0 (0.0-0.2) /100WBC Sodium 130 L (135-145) mmol/L Potassium 4.0 (3.3-5.1) mmol/L Chloride 97 (96-108) mmol/L Carbon Dioxide 23 (22-29) mmol/L Anion Gap 14 (12-20) BUN 13 (9-16) mg/dL Creatinine 1.26 (0.5-1.4) mg/dL Estim Creat Clear Calc 73.6 Estimated GFR 60 POC Glucose 449 H* 370 H* (60-115) mg/dL Random Glucose 575 H* (60-115) mg/dL Calcium 8.9 (8.4-10.2) mg/dL Total Bilirubin 0.4 (0.0-1.0) mg/dL AST 30 (5-37) U/L ALT 33 (0-40) U/L Alkaline Phosphatase 109 (39-117) U/L Total Protein 7.3 (6.5-8.0) g/dL Albumin 4.0 (3.5-5.0) g/dL Urine Color Urine Appearance Urine pH (5.0-9.0) Ur Specific [place] (1.005-1.025) Urine Protein (Neg-Trace) mg/dL Urine Glucose (UA) (Negative) mg/dL Urine Ketones (Negative) mg/dL Urine Blood (Negative) Urine Nitrite (Negative) Ur Leukocyte Esterase (Negative) Urine RBC (0-2) /HPF Urine WBC (0-5) /HPF Ur Squamous Epith Cells (0-2) /HPF Urine Bacteria (None Seen) Hyaline Casts (0-2) /LPF Independent Interpretation I performed an independent interpretation of an: CT Scan Interpretation: nad Radiology Impression Discussion of test interpretation with radiology: I have reviewed the radiologist's reading. Discharge Plan Discharge Clinical Impression: Closed head injury, Hyperglycemia due to diabetes mellitus Patient Disposition: Home, Self-Care Instructions: Head Injury (ED), Diabetic Hyperglycemia (ED) Additional Instructions: Diet control as advised, drink plenty of fluid Check blood sugar more frequently it should be less than 200 Take her diabetic medication metformin and Januvia Tylenol for headache Your CT scan of the head and C-spine is negative for acute Controle la dieta seg?n lo recomendado, krystle mucho l?quido. Controle el nivel de az?car en vanessa con m?s frecuencia, debe ser inferior a 200. [employer] medicamento para la diabetes metformina y Januvia. Tylenol para el dolor de olegario Masters tomograf?a computarizada de la olegario y la columna vertebral es negativa para pruebas agudas. Prescriptions: No Action aspirin 81 mg tablet,delayed release (DR/EC) 81 mg PO DAILY Qty: 90 1RF Jardiance 25 mg tablet 25 mg PO QAM Qty: 30 4RF omeprazole 20 mg capsule,delayed release(DR/EC) 20 mg PO BID 90 Days Qty: 180 2RF docusate sodium 100 mg capsule 100 mg PO BEDTIME Qty: 30 3RF Rx Instructions: [place] rene capsula cada noche lisinopril 10 mg tablet 10 mg PO DAILY 90 Days Qty: 90 1RF metoprolol tartrate 50 mg tablet 50 mg PO BID Qty: 180 1RF metformin 500 mg tablet 1,000 mg PO BID Qty: 360 1RF Trulicity 0.75 mg/0.5 mL pen injector 0.75 mg subcut QWEEK 90 Days Qty: 6.5 1RF ropinirole 4 mg tablet 4 mg PO .every 6 hours 30 Days Qty: 120 3RF atorvastatin 80 mg tablet 80 mg PO DAILY Qty: 90 1RF ketorolac [Acular] 0.5 % drops 1 drp ophthalmic (eye) Q6-8H PRN (Reason: itching) Qty: 5 0RF Rx Instructions: begin 24 hours prior to surgery naproxen [Naprosyn] 500 mg tablet 500 mg PO BID Qty: 20 0RF ketorolac 10 mg tablet 10 mg PO Q6H PRN (Reason: pain) 5 Days Qty: 10 0RF Rx Instructions: Patient received Toradol in the emergency room ibuprofen 400 mg tablet 400 mg PO Q6H PRN (Reason: pain) Qty: 20 0RF cephalexin 500 mg capsule 500 mg PO BID Qty: 20 0RF doxycycline hyclate 100 mg capsule 100 mg PO BID Qty: 20 0RF ibuprofen 600 mg tablet 600 mg PO TID PRN (Reason: fever or pain) Qty: 14 0RF Brilinta 90 mg tablet 90 mg PO BID (DME) lancets [FreeStyle Lancets] 28 gauge misc See Rx Instructions .ROUTE .MEDSUPPLY Qty: 100 Rx Instructions: As directed (DME) FreeStyle Lite Strips Strip See Rx Instructions .ROUTE .MEDSUPPLY Qty: 10 Rx Instructions: As directed three times daily (DME) FreeStyle Precision Sanket Strips Strip See Rx Instructions .ROUTE .MEDSUPPLY Qty: 50 11RF Rx Instructions: As directed twice a day bisacodyl [Dulcolax (bisacodyl)] 5 mg tablet,delayed release (DR/EC) 10 mg PO ONCE 1 Days Qty: 2 0RF Rx Instructions: take 2 tabs at noon the day before your colonoscopy polyethylene glycol 3350 [Miralax] 17 gram/dose powder 238 g PO ONCE Qty: 238 0RF Rx Instructions: As directed by gastroenterology department at [facility] tadalafil 10 mg tablet 10 mg PO DAILY 90 Days Qty: 90 1RF sertraline 25 mg tablet 25 mg PO DAILY Print Language: Niuean
[2023-09-11] MEDS: Insulin Lispro 100 UNIT/ML 3 ML VIAL SUBCUT (04:28)
[2023-09-11 04:30] LABS: MANUAL DIFF FLAG NO
[2023-09-11 04:31] LABS: Basophils Percent Auto 0.4 % (0-2); Eosinophils Absolute Auto 0.3 X10*3/uL (0.0-0.4); Eosinophils Percent Auto 3.3 % (0-4); Hematocrit 38.4 % (42.0-52.0); Hemoglobin 13.5 g/dl (14.0-18.0); Imm Gran Abs Auto 0.05 X10*3/uL (0.00-0.03); Imm Gran Pct Auto 0.6 % (0.0-0.4); Lymphocytes Percent Auto 25.8 % (20-40); Mean Corpuscular HGB Conc 35.2 g/dl (31.0-36.0); Mean Corpuscular Hemoglobin 29.3 pg (27.0-33.0); Mean Corpuscular Volume 83.3 fL (80.0-98.0); Mean Platelet Volume 10.8 fL (9.4-12.4); Monocytes Absolute Auto 1.1 X10*3/uL (0.1-1.2); Monocytes Percent Auto 13.4 % (2-11); Neutrophils Absolute Auto 4.4 x10*3/uL (2.0-8.3); Neutrophils Percent Auto 56.5 % (45-73); Platelet Count 252 X10*3/uL (160-400); Red Blood Count 4.61 X10*6/uL (4.60-5.80); Red Cell Distribution Width 12.9 % (11.0-16.0); White Blood Count 7.9 X10*3/uL (4.8-10.8)
[2023-09-11 04:32] LABS: Appearance Urine Clear; Color Urine Yellow; Glucose Urine UA >=1000 mg/dL (Negative); Leukocyte Esterase Urine Negative (Negative); Nitrite Urine Negative (Negative); Specific Gravity - Urine >= 1.030 (1.005-1.025); UMIC TRIGGER UACC YES; Urine Blood Trace (Negative); Urine Ketones Negative (Negative); Urine Protein Negative (Neg-Trace)
[2023-09-11 04:35] LABS: Bacteria Urine None Seen (None Seen); Hyaline Casts Urine 0-2 /LPF (0-2); RBC Urine 0-2 /HPF (0-2); Squamous Epithelial Cell Urine 0-2 /HPF (0-2); WBC Urine 0-5 /HPF (0-5)
[2023-09-11 05:03] LABS: Alanine Aminotransferase 33 U/L (0-40); Alkaline Phosphatase 109 U/L (39-117); Anion Gap 14 (12-20); Aspartate Amino Transferase 30 U/L (5-37); Bilirubin Total 0.4 mg/dL (0.0-1.0); Blood Urea Nitrogen 13 mg/dL (9-16); Calcium 8.9 mg/dL (8.4-10.2); Carbon Dioxide 23 mmol/L (22-29); Chloride 97 mmol/L (96-108); Creatinine Clr Calc Pharmacy 73.6; Estimated Glomerular Filt Rate 60; Glucose Random 575 mg/dL (60-115); Sodium 130 mmol/L (135-145); Total Protein 7.3 g/dL (6.5-8.0)
[2023-09-11 05:32] LABS: Glucose, Whole Blood 449 mg/dL (60-115)
[2023-09-11 05:32] LABS: Glucose, Whole Blood 528 mg/dL (60-115)
[2023-09-11 05:32] LABS: Glucose, Whole Blood 536 mg/dL (60-115)
[2023-09-11] MEDS: 0.9 % Sodium Chloride 1,000 ML 999 ML IV (05:36)
[2023-09-11] MEDS: Insulin Lispro 100 UNIT/ML 3 ML VIAL 14 UNIT SUBCUT (05:36)
[2023-09-11 05:39] VITALS: BP 117/63; PULSE 85; RESP 18; TEMP 36.8; O2SAT 95
--- NOTE | 2023-09-11 05:47 | PC.NURSE ---
Pt alert and oriented. arrived from waiting room with reports of headache after a recent syncopal episode on friday morning. PT states LOC for 15 minutes. Pt since has had a headache, dizziness and unsteady gait. Pt also states he has had increase in urination. States last POC 09/10 AM was 95. PT noted to have a steady gait when ambulating to bathroom. VSS. IV line place in left ac. Medications as administered as per OCT. call hummel within reach. Plan of care ongoing.
[2023-09-11 06:34] LABS: Glucose, Whole Blood 370 mg/dL (60-115)
== END 2023-09-11 06:57 | disposition home or self-care (01) ==
PROVIDERS: Emergency Provider Internal Medicine
DX: S09.90XA Unspecified injury of head, initial encounter (principal); W00.0XXA Fall on same level due to ice and snow, initial encounter; E11.65 Type 2 diabetes mellitus with hyperglycemia; I10 Essential (primary) hypertension; E78.5 Hyperlipidemia, unspecified; E66.9 Obesity, unspecified; Z68.41 Body mass index [BMI] 40.0-44.9, adult; Y93.01 Activity, walking, marching and hiking; Y92.9 Unspecified place or not applicable; Y99.9 Unspecified external cause status; Z79.82 Long term (current) use of aspirin; Z79.85 Long-term (current) use of injectable non-insulin antidiabetic drugs; Z79.84 Long term (current) use of oral hypoglycemic drugs; Z79.02 Long term (current) use of antithrombotics/antiplatelets
CPT/HCPCS: 36415; 70450; 72125; 80053; 81001; 82947; 85025; 99284; 99285

== ENCOUNTER 2023-10-16 13:25 | Outpatient (AMB) | payer MEDICARE, MEDICAID, SELFPAY ==
[2023-10-16 13:49] VITALS: BP 150/80; PULSE 87; BMI 41.6
--- NOTE | 2023-10-16 13:49 | MHC.OFFVIS ---
Intake Vital Signs 10/16/23 13:49 10/16/23 14:21 Height 5 ft 3 in Weight 235 lb 0.204 oz BMI 41.6 BP 150/80 H 110/70 Blood Pressure Location Lt brachial Lt brachial Position Sitting Sitting Pulse 87 Pulse Source Pulse Oximeter Intake Visit Reasons: 6 MON FUP Intake Note: pt its here fpr a 6 mnth f/up pt state that he its doing good but sometimes he have some shortness of breath while walking short and long distance. Polymerization Helper Required: Yes Polymerization Helper Name: Mushtaq Brothers/federico Accompanied by: Self / Same As Patient Allergies gabapentin Adverse Reaction (Intermediate, Verified 10/19/23 23:39) sleepiness zolpidem Adverse Reaction (Intermediate, Verified 10/19/23 23:39) inadequate response Medication List - Last Reconciled 10/16/23 by Shelley Ross NP aspirin 81 mg PO DAILY atorvastatin 80 mg PO DAILY bisacodyl (Dulcolax (bisacodyl)) 10 mg (2 x 5 mg) PO ONCE 1 day blood sugar diagnostic (FreeStyle Lite Strips) As directed three times daily blood sugar diagnostic (FreeStyle Precision Sanket Strips) As directed twice a day docusate sodium 100 mg PO BEDTIME dulaglutide (Trulicity) 0.75 mg (0.5 mL) subcut QWEEK 90 days empagliflozin (Jardiance) 25 mg PO QAM ibuprofen 400 mg PO Q6H PRN ibuprofen 600 mg PO TID PRN ketorolac 0.5% (Acular) 1 drp ophthalmic (eye) Q6-8H PRN ketorolac 10 mg PO Q6H PRN 5 days lancets (FreeStyle Lancets) As directed lisinopril 10 mg PO DAILY 90 days metformin 1,000 mg (2 x 500 mg) PO BID metoprolol tartrate 50 mg PO BID naproxen (Naprosyn) 500 mg PO BID omeprazole 20 mg PO BID 90 days polyethylene glycol 3350 (Miralax) 238 grams PO ONCE ropinirole 4 mg PO .every 6 hours 30 days sertraline 25 mg PO DAILY tadalafil 10 mg PO DAILY 90 days ticagrelor (Brilinta) 90 mg PO BID HPI HPI Comments History of Present Illness Details 53-year-old male presents today for his 6 month follow-up. He states he has been getting very short of breath with ambulation. This is not new but increasing in frequency. He has a history of HI in 2018 and got LAD/circumflex stenting. Got chest pains shortly after which the cardiac catheterization showed patent stents. He then had an abnormal stress test which showed ischemia and the cardiac catheterization showed a in-stent restenosis mid LAD stent. [facility] Medical History (Updated 10/21/23 @ 12:59 by Shelley Ross NP) Shortness of breath On beta rayo at home Complex regional pain syndrome i of lower limb, bilateral Bilateral primary osteoarthritis of knee Gout Depression with anxiety SHARONDA (obstructive sleep apnea) Coarse tremors IDDM (insulin dependent diabetes mellitus) HTN (hypertension) Intractable neuropathic pain of right knee CAD (coronary artery disease) Erectile dysfunction Chronic back pain RLS (restless legs syndrome) GERD (gastroesophageal reflux disease) Kidney stones Arthritis Essential hypertension Hyperlipidemia LDL goal <70 Morbid obesity due to excess calories BMI 40.0-44.9, adult Type 2 diabetes mellitus with diabetic polyneuropathy Cardiac arrhythmia Diabetes mellitus, type 2 Surgical History History of arthroplasty of right knee Hx of left knee surgery Hx of lithotripsy H/O heart artery stent Family History Mother Diabetes Sister Diabetes Social History Household Members: Family and Friend(s) Housing: Apartment Alcohol intake: never Patient Tobacco Use Status: Never used Tobacco Smoked in Last 30 Days: No e-Cigarette/Vaping Use: Never Used Second Hand Smoke Exposure: No Use of substances other than those prescribed or required for medical reasons: No Advance Directives: No Advance Directives Information Provided: No service: No Current occupational status: disabled Cognitive needs: Yes Hearing needs: No Vision needs: No Review of Systems Const Denies chills, Denies fatigue, Denies fever(s), Denies frequent falls, Denies weakness, Denies weight gain and Denies weight loss ENT Denies dizziness Card Denies chest pain, Denies leg edema, Denies lightheadedness, Denies palpitations, Denies dyspnea and Denies dyspnea on exertion Resp Denies cough, Denies dyspnea and Denies dyspnea on exertion GI Denies hematochezia Musc Denies abnormal gait, Denies muscle weakness, Denies numbness, Denies radiating pain into limb and Denies tingling Neuro Denies abnormal gait, Denies dizziness, Denies frequent falls, Denies numbness, Denies tingling and Denies weakness Endo Denies fatigue and Denies palpitations Physical Exam Vital Signs: Last Vital Signs Pulse 87 10/16/23 13:49 BP 110/70 10/16/23 14:21 BMI result Body Mass Index 41.6 Const General: healthy appearing and no acute distress Orientation/consciousness: patient oriented x3 HEENT Head: Yes normal to inspection Eyes General: appearance normal, both eyes and all related structures Neck Neck: Yes normal visual inspection Chest Chest palpation & inspection: normal inspection of the chest Resp Effort & Inspection: normal respiratory effort Auscultation: clear to auscultation bilaterally Cardio Jugular venous distension: no JVD Palpation: normal PMI Rate: regular rate Rhythm: regular rhythm Heart sounds: S1 normal heart sound present, S2 normal heart sound present, no click, no gallops, no murmurs and no rubs GI Inspection: Yes normal to inspection Palpation (GI): Soft to palpation Skin General skin exam: no rashes or lesions noted Neuro General: patient oriented x3 Extrem General: Yes normal to inspection Psych Appearance: grossly normal Assessment & Plan Assessment & Plan (1) Shortness of breath: Code(s): R06.02 - Shortness of breath Plan: Worsening shortness of breath. Will do stress test with nuclear images to assess perfusion. Multiple risk factors including, HTN, diabetes, past stents and restenosis, and obesity. (2) Atherosclerotic cardiovascular disease: Code(s): I25.10 - Atherosclerotic heart disease of [place] coronary artery without angina pectoris Plan: Had restensosis of mid LAD with balloon angioplasty/FABI. On aspirin indefinetly and brilinta for one year post stent. On atorvastatin 80mg. (3) Essential hypertension: Code(s): I10 - Essential (primary) hypertension Plan: Blood pressure stable. On lisinopril 10mg. (4) Type 2 diabetes mellitus with diabetic polyneuropathy: Code(s): E11.42 - Type 2 diabetes mellitus with diabetic polyneuropathy Qualifiers: Diabetes mellitus terminal computer operator insulin use: without terminal computer operator use Qualified Code(s): E11.42 - Type 2 diabetes mellitus with diabetic polyneuropathy Plan: Last A1C on 04/03/23 was 6.5%. On metformin, jardiance, and trulicity. (5) Morbid obesity: Code(s): E66.01 - Morbid (severe) obesity due to excess calories Plan: Has lost weight - encourage to lose weight. Orders: Orders CA stress test Today R06.02 - Shortness of breath NM cardiolite stress test Today R06.02 - Shortness of breath Coding Level of Care Code Tele Est Pt Level 4 (44442) Diagnoses Shortness of breath R06.02 Atherosclerotic cardiovascular disease I25.10 Essential hypertension I10 Type 2 diabetes mellitus with diabetic polyneuropathy, without long-term current use of insulin E11.42 Diabetes mellitus senior living insulin use: without terminal computer operator use Morbid obesity E66.01
[2023-10-16 14:21] VITALS: BP 110/70
== END 2023-10-16 14:28 | disposition home or self-care (01) ==
PROVIDERS: PCP Internal Medicine; Visit Provider Nurse Practitioner
DX: R06.02 Shortness of breath (principal); I25.10 Atherosclerotic heart disease of native coronary artery without angina pectoris; I10 Essential (primary) hypertension; E11.42 Type 2 diabetes mellitus with diabetic polyneuropathy; E66.01 Morbid (severe) obesity due to excess calories
CPT/HCPCS: 99214

== ENCOUNTER → 2023-10-16 13:25 | Outpatient (BNVA) | payer MEDICARE, MEDICAID, SELFPAY | PROVIDERS: PCP Internal Medicine; Visit Provider Nurse Practitioner | DX: I25.10 Atherosclerotic heart disease of native coronary artery without angina pectoris (principal); R06.02 Shortness of breath; I10 Essential (primary) hypertension; E11.42 Type 2 diabetes mellitus with diabetic polyneuropathy; E66.01 Morbid (severe) obesity due to excess calories; Z68.41 Body mass index [BMI] 40.0-44.9, adult | CPT/HCPCS: 99212 ==

== ENCOUNTER 2023-10-19 23:29 | Emergency (ER) | payer MEDICARE, MEDICAID, SELFPAY ==
--- NOTE | ~2023-10-19 | XR_ITS ---
EXAMINATION: 1. Left foot. 2. Left ankle. 3. Left knee. CLINICAL INFORMATION: Pain COMPARISON: Left knee January 07, 2021 TECHNIQUE: 1. Left foot. 3 views 2. Left ankle. 3 views 3. Left knee. 4 views FINDINGS: 1. Left foot. No fracture. No dislocation. Bone and joint are normal. 2. Left ankle. No fracture. No dislocation. Ankle mortise is congruent 3. Left knee. No fracture. No dislocation. No joint effusion. Mild to moderate tricompartment degenerative change of joint narrowing and marginal bone spurs. No bone erosion. XR/XR knee LT 3V IMPRESSION: 1. Left foot. No acute abnormality. 2. Left ankle. No acute osseous abnormality. 3. Left knee. No acute abnormality. Mild to moderate tricompartment degenerative joint disease.
--- NOTE | ~2023-10-19 | XR_ITS ---
EXAMINATION: 1. Left foot. 2. Left ankle. 3. Left knee. CLINICAL INFORMATION: Pain COMPARISON: Left knee January 07, 2021 TECHNIQUE: 1. Left foot. 3 views 2. Left ankle. 3 views 3. Left knee. 4 views FINDINGS: 1. Left foot. No fracture. No dislocation. Bone and joint are normal. 2. Left ankle. No fracture. No dislocation. Ankle mortise is congruent 3. Left knee. No fracture. No dislocation. No joint effusion. Mild to moderate tricompartment degenerative change of joint narrowing and marginal bone spurs. No bone erosion. XR/XR ankle LT min 3V IMPRESSION: 1. Left foot. No acute abnormality. 2. Left ankle. No acute osseous abnormality. 3. Left knee. No acute abnormality. Mild to moderate tricompartment degenerative joint disease.
--- NOTE | ~2023-10-19 | XR_ITS ---
EXAMINATION: 1. Left foot. 2. Left ankle. 3. Left knee. CLINICAL INFORMATION: Pain COMPARISON: Left knee January 07, 2021 TECHNIQUE: 1. Left foot. 3 views 2. Left ankle. 3 views 3. Left knee. 4 views FINDINGS: 1. Left foot. No fracture. No dislocation. Bone and joint are normal. 2. Left ankle. No fracture. No dislocation. Ankle mortise is congruent 3. Left knee. No fracture. No dislocation. No joint effusion. Mild to moderate tricompartment degenerative change of joint narrowing and marginal bone spurs. No bone erosion. XR/XR foot LT min 3V IMPRESSION: 1. Left foot. No acute abnormality. 2. Left ankle. No acute osseous abnormality. 3. Left knee. No acute abnormality. Mild to moderate tricompartment degenerative joint disease.
[2023-10-19 23:39] VITALS: BP 126/80; PULSE 92; RESP 14; TEMP 36.4; O2SAT 98; BMI 41.7
--- NOTE | 2023-10-20 00:42 | ED.LOWEXIN ---
HPI - Extremity Injury (Lower) General Chief Complaint: Extremity Injury, Lower Stated Complaint: Foot pain Time Seen by Provider: 10/20/23 00:25 Source: patient Mode of arrival: ambulatory History of Present Illness HPI Narrative: 53-year-old male who presents after the left back tire strained his left ankle and endorses ankle pain as well as knee pain. Related Data Home Medications Medication Instructions Recorded Confirmed lancets 28 gauge (FreeStyle #100 ea 06/20/20 10/16/23 Lancets) blood sugar diagnostic (FreeStyle #10 ea 05/21/21 10/16/23 Lite Strips) ticagrelor 90 mg tablet (Brilinta) 90 mg PO BID 04/03/23 10/16/23 sertraline 25 mg tablet 25 mg PO DAILY 04/09/23 10/16/23 Previous Rx's Medication Instructions Recorded ketorolac 0.5 % eye drops (Acular) 1 drp ophthalmic (eye) Q6-8H PRN 08/31/21 itching #5 mL blood sugar diagnostic (FreeStyle #50 ea 12/20/21 Precision Sanket Strips) omeprazole 20 mg capsule,delayed 20 mg PO BID 90 days #180 caps 10/10/22 release docusate sodium 100 mg capsule 100 mg PO BEDTIME #30 caps 10/24/22 ketorolac 10 mg tablet 10 mg PO Q6H PRN pain 5 days #10 01/26/23 tabs tadalafil 10 mg tablet 10 mg PO DAILY sexual activity 90 02/04/23 days #90 tabs ibuprofen 400 mg tablet 400 mg PO Q6H PRN pain #20 tabs 02/23/23 bisacodyl 5 mg tablet,delayed 10 mg (2 x 5 mg) PO ONCE 1 day #2 03/07/23 release (Dulcolax (bisacodyl)) tabs polyethylene glycol 3350 17 238 g PO ONCE #238 grams 03/07/23 gram/dose oral powder (Miralax) naproxen 500 mg tablet (Naprosyn) 500 mg PO BID #20 tabs 03/17/23 metformin 500 mg tablet 1,000 mg (2 x 500 mg) PO BID #360 05/05/23 tabs metoprolol tartrate 50 mg tablet 50 mg PO BID #180 tabs 05/05/23 ropinirole 4 mg tablet 4 mg PO .every 6 hours 30 days 08/16/23 #120 tabs ibuprofen 600 mg tablet 600 mg PO TID PRN fever or pain 08/29/23 #14 tabs atorvastatin 80 mg tablet 80 mg PO DAILY #90 tabs 09/08/23 aspirin 81 mg tablet,delayed 81 mg PO DAILY #90 tabs 09/11/23 release dulaglutide 0.75 mg/0.5 mL 0.75 mg (0.5 mL) subcut QWEEK 90 09/11/23 subcutaneous pen injector days #6.5 mL (Trulicity) empagliflozin 25 mg tablet 25 mg PO QAM #30 tabs 09/11/23 (Jardiance) lisinopril 10 mg tablet 10 mg PO DAILY 90 days #90 tabs 09/11/23 Allergies Allergy/AdvReac Type Severity Reaction Status Date / Time gabapentin AdvReac Intermediate sleepiness Verified 10/19/23 23:39 zolpidem AdvReac Intermediate inadequate Verified 10/19/23 23:39 response Review of Systems Review of Systems: Pertinent positives and negatives as stated in the HPI [facility] Past Medical History Source: nursing notes reviewed Medical History On beta rayo at home Complex regional pain syndrome i of lower limb, bilateral Bilateral primary osteoarthritis of knee Gout Depression with anxiety SHARONDA (obstructive sleep apnea) Coarse tremors IDDM (insulin dependent diabetes mellitus) HTN (hypertension) Intractable neuropathic pain of right knee CAD (coronary artery disease) Erectile dysfunction Chronic back pain RLS (restless legs syndrome) GERD (gastroesophageal reflux disease) Kidney stones Arthritis Essential hypertension Hyperlipidemia LDL goal <70 Morbid obesity due to excess calories BMI 40.0-44.9, adult Type 2 diabetes mellitus with diabetic polyneuropathy Cardiac arrhythmia Diabetes mellitus, type 2 Surgical History History of arthroplasty of right knee Hx of left knee surgery Hx of lithotripsy H/O heart artery stent Family History Family History Mother Diabetes Sister Diabetes Social History Social History Household Members: Family and Friend(s) Housing: Apartment Alcohol intake: never Patient Tobacco Use Status: Never used Tobacco e-Cigarette/Vaping Use: Never Used Second Hand Smoke Exposure: No service: No Current occupational status: disabled Cognitive needs: Yes Hearing needs: No Vision needs: No Physical Exam Vital Signs: Vital Signs: Last Vital Signs Temp 97.5 F 10/19/23 23:39 Pulse 92 10/19/23 23:39 Resp 14 10/19/23 23:39 BP 126/80 10/19/23 23:39 Pulse Ox 98 10/19/23 23:39 O2 Del Method Room Air 10/19/23 23:39 BMI result Body Mass Index 41.7 VITAL SIGNS: Reviewed. GENERAL: Well developed, well nourished, in no acute distress. HEAD: Normocephalic/atraumatic EYES: PERRLA, EOMI LUNGS: Normal breath sounds. No adventitious sounds or accessory muscle use. SpO2<98> CARDIOVASCULAR: Regular rate and rhythm without noted murmurs ABDOMEN: Soft, non-tender, non-distended with bowel sounds. MUSCULOSKELETAL: No tenderness, deformities, or effusions noted on gross inspection. EXTREMITIES: No cyanosis, clubbing or edema. LLE: No tenderness to palpation at the fibular head, no effusion noted at the knee, there is mild swelling at the left lateral malleolus as well as tenderness to palpation over the dorsal aspect of the foot, otherwise neurovascular is intact SKIN: Inspection of the skin reveals no rashes NEUROLOGIC: Alert and oriented x 4. Strength and sensation to light touch were grossly intact x 4. Medical Decision Making Medical Decision Making MDM Narrative: 53-year-old male with history and clinical presentation of possible fracture/dislocation of the ankle/foot and possible injury of the left knee. Patient was provided with combination analgesics, I reviewed the x-rays and there is no evidence of acute fracture or dislocation. Anish wrap was applied to the left ankle and patient was provided with crutches. Differential Diagnosis Differential Diagnoses: The differential diagnosis associated with the presentation includes Please see the discussion above Admission/Observation Consideration of admission/observation: Escalation of care including admission/observation considered Please see the discussion above Radiology Impression Discussion of test interpretation with radiology: I have reviewed the radiologist's reading. Radiologist Impression: Please see the discussion above Discharge Plan Discharge Clinical Impression: Left ankle sprain, Knee pain, left Patient Disposition: Home, Self-Care Instructions: R.I.C.E. Treatment (ED), Crutch Instructions (ED), Ankle Sprain (ED), How to Use an Elastic Bandage (ED), Knee Pain (ED) Additional Instructions: 1. Tylenol 1000 mg, por v?a oral, cada 6 horas seg?n sea necesario para controlar el dolor. No exceda los 4000 mg en 24 horas. 2. Ibuprofeno 400 mg, por v?a oral con leche o comida, cada 6 horas seg?n sea necesario para controlar el dolor. Recomiende el uso de amita medicamento con Tylenol para mejorar el alivio de los s?ntomas. 3. Recomendar hielo sobre la piel no expuesta marlo 10 a 15 minutos, 3 a 4 veces al d?a. 4. Deber? realizar un seguimiento con masters m?dico de atenci?n primaria en los pr?ximos 1 o 2 d?as. Regrese a la tanvi de emergencias si los s?ntomas empeoran. 1. Tylenol 1000 mg, orally, every 6 hours as needed for pain control. Do not exceed 4000 mg within 24 hours. 2. Ibuprofen 400 mg, orally with milk or food, every 6 hours as needed for pain control. Recommend using this medication with Tylenol for improved symptom relief. 3. Recommend ice to unexposed skin for 10-15 minutes, 3 to 4 times a day. 4. You will need to follow-up with primary care doctor in the next 1-2 days. Return to the ER for any worsening symptoms. Prescriptions: No Action omeprazole 20 mg capsule,delayed release(DR/EC) 20 mg PO BID 90 Days Qty: 180 2RF docusate sodium 100 mg capsule 100 mg PO BEDTIME Qty: 30 3RF Rx Instructions: orlando rene capsula cada noche metoprolol tartrate 50 mg tablet 50 mg PO BID Qty: 180 1RF metformin 500 mg tablet 1,000 mg PO BID Qty: 360 1RF ropinirole 4 mg tablet 4 mg PO .every 6 hours 30 Days Qty: 120 3RF atorvastatin 80 mg tablet 80 mg PO DAILY Qty: 90 1RF aspirin 81 mg tablet,delayed release (DR/EC) 81 mg PO DAILY Qty: 90 1RF Trulicity 0.75 mg/0.5 mL pen injector 0.75 mg subcut QWEEK 90 Days Qty: 6.5 1RF Jardiance 25 mg tablet 25 mg PO QAM Qty: 30 4RF lisinopril 10 mg tablet 10 mg PO DAILY 90 Days Qty: 90 1RF ketorolac [Acular] 0.5 % drops 1 drp ophthalmic (eye) Q6-8H PRN (Reason: itching) Qty: 5 0RF Rx Instructions: begin 24 hours prior to surgery naproxen [Naprosyn] 500 mg tablet 500 mg PO BID Qty: 20 0RF ketorolac 10 mg tablet 10 mg PO Q6H PRN (Reason: pain) 5 Days Qty: 10 0RF Rx Instructions: Patient received Toradol in the emergency room ibuprofen 400 mg tablet 400 mg PO Q6H PRN (Reason: pain) Qty: 20 0RF ibuprofen 600 mg tablet 600 mg PO TID PRN (Reason: fever or pain) Qty: 14 0RF Brilinta 90 mg tablet 90 mg PO BID (DME) lancets [FreeStyle Lancets] 28 gauge misc See Rx Instructions .ROUTE .MEDSUPPLY Qty: 100 Rx Instructions: As directed (DME) FreeStyle Lite Strips Strip See Rx Instructions .ROUTE .MEDSUPPLY Qty: 10 Rx Instructions: As directed three times daily (DME) FreeStyle Precision Sanket Strips Strip See Rx Instructions .ROUTE .MEDSUPPLY Qty: 50 11RF Rx Instructions: As directed twice a day bisacodyl [Dulcolax (bisacodyl)] 5 mg tablet,delayed release (DR/EC) 10 mg PO ONCE 1 Days Qty: 2 0RF Rx Instructions: take 2 tabs at noon the day before your colonoscopy polyethylene glycol 3350 [Miralax] 17 gram/dose powder 238 g PO ONCE Qty: 238 0RF Rx Instructions: As directed by gastroenterology department at [facility] tadalafil 10 mg tablet 10 mg PO DAILY 90 Days Qty: 90 1RF sertraline 25 mg tablet 25 mg PO DAILY Print Language: Icelandic
[2023-10-20] MEDS: Ibuprofen 400 MG TABLET PO (00:52)
[2023-10-20] MEDS: Acetaminophen 325 MG TABLET 975 MG PO (00:52)
--- NOTE | 2023-10-20 01:39 | PC.NURSE ---
pt medicated according to mar. ed provider provided radha wrap cms intact. pt provided with crutches crutch education provided sanitary plumber utilized. pt calm and cooperative assisted to car via wheelchair. pt provided with discharge packet pt verbalized understanding of discharge plan
== END 2023-10-20 01:43 | disposition home or self-care (01) ==
PROVIDERS: Emergency Provider Student in an Organized Health Care Education/Training Program; PCP Internal Medicine
DX: S83.92XA Sprain of unspecified site of left knee, initial encounter (principal); S93.402A Sprain of unspecified ligament of left ankle, initial encounter; M25.562 Pain in left knee; M79.672 Pain in left foot; X58.XXXA Exposure to other specified factors, initial encounter; Y93.9 Activity, unspecified; Y92.9 Unspecified place or not applicable; Y99.8 Other external cause status
CPT/HCPCS: 73562; 73610; 73630; 99283; 99284

== ENCOUNTER 2023-11-17 20:11 | Inpatient (IN) | payer MEDICARE, MEDICAID, SELFPAY ==
--- NOTE | 2023-11-17 | ECG_ITS ---
Test Reason : FEVER Blood Pressure : / mmHG Vent. Rate : 149 BPM Atrial Rate : 149 BPM P-R Int : 134 ms QRS Dur : 074 ms QT Int : 252 ms P-R-T Axes : 047 006 042 degrees QTc Int : 396 ms Sinus tachycardia Otherwise normal ECG When compared with ECG of 06-APR-2023 10:10, Vent. rate has increased BY 72 BPM Referred By: Generic ED Physician Electronically Signed By:ED LAGUNAS
--- NOTE | ~2023-11-17 | XR_ITS ---
EXAMINATION: XR CHEST CLINICAL INFORMATION: Chest pain. COMPARISON: Chest radiograph 04/06/2023. TECHNIQUE: 2 views of the chest were obtained. FINDINGS: Stable prominence of the cardiomediastinal silhouette. Mild to moderate diffuse interstitial thickening is not significantly changed. No focal consolidation, pleural effusion or pneumothorax. No acute osseous findings. Visualized upper abdomen is within normal limits. XR/XR chest 2V IMPRESSION: Findings suggesting chronic small airways disease without superimposed consolidation or pleural effusion.
--- NOTE | ~2023-11-17 | XR_ITS ---
EXAMINATION: XR CHEST CLINICAL INFORMATION: Dyspnea. COMPARISON: 11/17/2023. TECHNIQUE: Frontal view of the chest was obtained. FINDINGS: The lung volumes are low. The cardiomediastinal silhouette is within normal limits and stable. There is lower lung field increased markings. There is no focal lung consolidation or pleural effusion. The bony structures and soft tissues are unremarkable. XR/XR chest 1V IMPRESSION: Low lung volumes. Increased markings in the lower lung ricketts likely represent vascular crowding from low lung volumes. No focal lung consolidation.
[2023-11-17 20:58] VITALS: BP 117/71; PULSE 151; RESP 20; TEMP 39.6; O2SAT 96; BMI 39.1
[2023-11-17] MEDS: Acetaminophen 325 MG TABLET 975 MG PO (21:06)
[2023-11-17 21:58] LABS: Basophils Percent Auto 0.2 % (0-2); Eosinophils Percent Auto 0.2 % (0-4); Hematocrit 40.1 % (42.0-52.0); Hemoglobin 13.7 g/dl (14.0-18.0); Imm Gran Abs Auto 0.06 X10*3/uL (0.00-0.03); Imm Gran Pct Auto 0.5 % (0.0-0.4); Lymphocytes Absolute Auto 0.9 X10*3/uL (1.2-4.9); Lymphocytes Percent Auto 7.7 % (20-40); MANUAL DIFF FLAG NO; Mean Corpuscular HGB Conc 34.2 g/dl (31.0-36.0); Mean Corpuscular Hemoglobin 28.8 pg (27.0-33.0); Mean Corpuscular Volume 84.4 fL (80.0-98.0); Mean Platelet Volume 10.2 fL (9.4-12.4); Monocytes Percent Auto 8.3 % (2-11); Neutrophils Absolute Auto 10.1 x10*3/uL (2.0-8.3); Neutrophils Percent Auto 83.1 % (45-73); Platelet Count 217 X10*3/uL (160-400); Red Blood Count 4.75 X10*6/uL (4.60-5.80); Red Cell Distribution Width 12.8 % (11.0-16.0); White Blood Count 12.1 X10*3/uL (4.8-10.8)
[2023-11-17 22:04] VITALS: BP 126/51; PULSE 142; RESP 24; TEMP 38.3; O2SAT 94
[2023-11-17 22:12] LABS: Lactic Acid 1.7 mmol/L (0.5-2.0)
[2023-11-17 22:16] LABS: Alanine Aminotransferase 39 U/L (0-40); Alkaline Phosphatase 101 U/L (39-117); Anion Gap 15 (12-20); Aspartate Amino Transferase 39 U/L (5-37); Bilirubin Total 0.7 mg/dL (0.0-1.0); Blood Urea Nitrogen 12 mg/dL (9-16); Calcium 8.7 mg/dL (8.4-10.2); Carbon Dioxide 22 mmol/L (22-29); Chloride 97 mmol/L (96-108); Estimated Glomerular Filt Rate > 60; Glucose Random 260 mg/dL (60-115); Potassium 3.6 mmol/L (3.3-5.1); Sodium 130 mmol/L (135-145); Total Protein 7.3 g/dL (6.5-8.0)
[2023-11-17 22:29] LABS: Troponin-I High Sensitivity 503.2 ng/L (<3.5-35.0)
[2023-11-17 22:35] LABS: Influenza A PCR POSITIVE (Negative); Influenza B PCR NEGATIVE (Negative); Resp Syncy Virus RNA Qual PCR NEGATIVE (Negative); SARS COV2 PCR INHOUSE NEGATIVE (Negative)
[2023-11-18] VITALS (12 sets, daily range): BP systolic 97–156; BP diastolic 55–86; PULSE 88–139; RESP 11–25; TEMP 36.3–38.4; O2SAT 93–97
[2023-11-18 00:28] LABS: Troponin-I High Sensitivity 1399.1 ng/L (<3.5-35.0)
--- NOTE | 2023-11-18 00:47 | ED.FEVER ---
HPI - Fever General Chief Complaint: Fever Stated Complaint: fever, chest pain Time Seen by Provider: 11/17/23 22:04 Source: patient Mode of arrival: wheelchair Limitations: no limitations History of Present Illness HPI Narrative: Patient comes to the emergency room complaining of fever of 105 at home, chest pain with coughing for the last 2 days, no shortness of breath. Patient states he has diffuse body aches. Patient denies chest pain at rest other than with coughing. No abdominal pain. Related Data Home Medications Medication Instructions Recorded Confirmed lancets 28 gauge (FreeStyle #100 ea 06/20/20 10/16/23 Lancets) blood sugar diagnostic (FreeStyle #10 ea 05/21/21 10/16/23 Lite Strips) Previous Rx's Medication Instructions Recorded ketorolac 0.5 % eye drops (Acular) 1 drp ophthalmic (eye) Q6-8H PRN 08/31/21 itching #5 mL blood sugar diagnostic (FreeStyle #50 ea 12/20/21 Precision Sanket Strips) docusate sodium 100 mg capsule 100 mg PO BEDTIME #30 caps 10/24/22 ketorolac 10 mg tablet 10 mg PO Q6H PRN pain 5 days #10 01/26/23 tabs tadalafil 10 mg tablet 10 mg PO DAILY sexual activity 90 02/04/23 days #90 tabs ibuprofen 400 mg tablet 400 mg PO Q6H PRN pain #20 tabs 02/23/23 bisacodyl 5 mg tablet,delayed 10 mg (2 x 5 mg) PO ONCE 1 day #2 03/07/23 release (Dulcolax (bisacodyl)) tabs polyethylene glycol 3350 17 238 g PO ONCE #238 grams 03/07/23 gram/dose oral powder (Miralax) naproxen 500 mg tablet (Naprosyn) 500 mg PO BID #20 tabs 03/17/23 metformin 500 mg tablet 1,000 mg (2 x 500 mg) PO BID #360 05/05/23 tabs ibuprofen 600 mg tablet 600 mg PO TID PRN fever or pain 08/29/23 #14 tabs atorvastatin 80 mg tablet 80 mg PO DAILY #90 tabs 09/08/23 empagliflozin 25 mg tablet 25 mg PO QAM #30 tabs 09/11/23 (Jardiance) aspirin 81 mg tablet,delayed 81 mg PO DAILY #90 tabs 11/04/23 release dulaglutide 1.5 mg/0.5 mL 1.5 mg (0.5 mL) subcut QWEEK 30 11/04/23 subcutaneous pen injector days #2.5 mL (Trulicity) lisinopril 10 mg tablet 10 mg PO DAILY 90 days #90 tabs 11/04/23 metoprolol tartrate 50 mg tablet 50 mg PO BID #180 tabs 11/04/23 omeprazole 20 mg capsule,delayed 20 mg PO BID 90 days #180 caps 11/04/23 release sertraline 25 mg tablet 25 mg PO DAILY 90 days #90 tabs 11/04/23 ticagrelor 90 mg tablet (Brilinta) 90 mg PO BID 30 days #60 tabs 11/04/23 ropinirole 4 mg tablet 4 mg PO .every 6 hours 30 days 11/16/23 #120 tabs Allergies Allergy/AdvReac Type Severity Reaction Status Date / Time gabapentin AdvReac Intermediate sleepiness Verified 11/17/23 20:58 zolpidem AdvReac Intermediate inadequate Verified 11/17/23 20:58 response Review of Systems Review of Systems: Constitutional : No Weight loss, complaining of fever, chills, fatigue and generalized malaise ENT/Mouth : No Hearing loss, No Ear Pain, No Nasal Congestion, No Sinus Pain, No Hoarseness, No sore throat, No Rhinorrhea, No Swallowing Difficulty Eyes: No Eye Pain, No Swelling, No Redness, No Foreign Body, No Discharge, No Vision Changes Cardiovascular : Complaining of chest pain only with coughing,, No SOB, No Dyspnea on Exertion, No Orthopnea, No Edema, No Palpitations Respiratory : Dry cough No Wheezing, No Smoke Exposure, No Dyspnea Gastrointestinal : No Nausea, No Vomiting, No Diarrhea, No Constipation, No abdominal Pain, No Hematochezia, No Melena Genitourinary : no irregular bleeding, No Dysuria, No Urinary Frequency, No Hematuria, No Urinary Incontinence, No Urgency, No Flank Pain, No Urinary Flow Changes, No Hesitancy Musculoskeletal : No joint pain, complaining of diffuse Myalgias, No Joint Swelling Skin : No Skin Lesions, No rash Neuro : No Weakness, No Numbness, No Paresthesias, No Loss of Consciousness, No Dizziness, No Headache Psych : No Anxiety/Panic, No Depression, No SI/HI/AH/VH, No Social Issues, Heme/Lymph: No Bruising, No Bleeding,No Lymphadenopathy Endocrine : No Polyuria, No Polydipsia, No Temperature Intolerance [facility] Past Medical History Medical History Shortness of breath On beta rayo at home Complex regional pain syndrome i of lower limb, bilateral Bilateral primary osteoarthritis of knee Gout Depression with anxiety SHARONDA (obstructive sleep apnea) Coarse tremors IDDM (insulin dependent diabetes mellitus) HTN (hypertension) Intractable neuropathic pain of right knee CAD (coronary artery disease) Erectile dysfunction Chronic back pain RLS (restless legs syndrome) GERD (gastroesophageal reflux disease) Kidney stones Arthritis Essential hypertension Hyperlipidemia LDL goal <70 Morbid obesity due to excess calories BMI 40.0-44.9, adult Type 2 diabetes mellitus with diabetic polyneuropathy Cardiac arrhythmia Diabetes mellitus, type 2 Surgical History History of arthroplasty of right knee Hx of left knee surgery Hx of lithotripsy H/O heart artery stent Family History Family History Mother Diabetes Sister Diabetes Social History Social History Household Members: Family and Friend(s) Housing: Apartment Alcohol intake: never Patient Tobacco Use Status: Never used Tobacco e-Cigarette/Vaping Use: Never Used Second Hand Smoke Exposure: No Advance Directives: No Advance Directives Information Provided: No service: No Current occupational status: disabled Cognitive needs: Yes Hearing needs: No Vision needs: No Physical Exam Vital Signs: Vital Signs: Last Vital Signs Temp 101.2 F H 11/18/23 01:12 Pulse 139 H 11/18/23 01:12 Resp 17 11/18/23 01:12 BP 119/86 11/18/23 01:12 Pulse Ox 97 11/18/23 01:12 O2 Del Method Nasal Cannula 11/18/23 01:12 O2 Flow Rate 2 11/18/23 01:12 BMI result Body Mass Index 39.1 Const: Other: Appearance: Alert. Oriented X3. No acute distress. Eyes: Pupils equal, round and reactive to light. ENT: Pharynx normal. Neck: Normal inspection. Neck supple. No lymph nodes noted. No crepitus CVS: Normal heart rate and rhythm. Pulses normal. Normal S1 and S2 Respiratory: No respiratory distress. Breath sounds normal. No Wheezing. No rales Abdomen: Soft and nontender. No rigidity. No distention. Skin: Skin warm and dry. Normal skin color. Normal skin turgor. Extremities: No lower extremity edema. No Lacerations. No Rash Neuro: Oriented X 3. No motor deficit. No sensory deficit. Moving all extremities. No slurred speech. CN 2 through 12 grossly intact Psych: calm, cooperative, normal affect Medications Administered Generic Name Dose Route Start Last Admin Trade Name Freq PRN Reason Stop Dose Admin Heparin Sodium/Sodium Chloride 25,000 unit in 250 mls @ 0 mls/hr 11/18/23 00:45 11/18/23 01:32 Heparin Sodium,Porcine/1/2ns IVCONT 14 units/kg/hr .Q0M JAC 14.92 mls/hr Administration Protocol Per Protocol Discontinued Medications Generic Name Dose Route Start Last Admin Trade Name Freq PRN Reason Stop Dose Admin Acetaminophen 975 mg 11/17/23 21:04 11/17/23 21:06 Acetaminophen 325 Mg Tablet PO 11/17/23 21:05 975 mg ONCE ONE Administration Medical Decision Making Medical Decision Making [facility] Narrative: -my interpretation of labs, white blood cell count slightly elevated 12.1, sodium 130, patient receiving IV fluids. Patient's troponin 1 was 503. the troponin #2 was 1399. Patient tested positive for influenza -my interpretation of EKG: Sinus tachycardia, heart rate 149, no ST segment depression or elevation, no T-wave inversion, QTC 396 -I discussed the patient with Dr. Angel, I suspect myocarditis. Patient will be started on heparin, will need an echocardiogram tomorrow. -patient states that he does not have any chest pain unless he coughs -I discussed the patient with Dr. Palencia, patient being admitted. Patient's heart rate still in the 140s, once the heart rate improves into the 120s or below, patient will be admitted. Patient still has a fever, patient receiving IV fluids and ice packs -patient takes Brilinta daily, we will avoid ibuprofen, patient receiving IV Tylenol Differential Diagnosis Differential Diagnoses: The differential diagnosis associated with the presentation includes (ACS, NSTEMI, myocarditis, influenza, COVID, RSV, viral syndrome) Admission/Observation Consideration of admission/observation: Escalation of care including admission/observation considered Consult Healthcare Provider Management of the patient was discussed with: Hospitalist and Baling Machine Operator Lab Data MDM Lab Attestation statement: I reviewed the patient's lab results. 11/17/23 21:50 11/17/23 21:50 Labs: Lab Results 11/17/23 11/17/23 11/18/23 Range/Units 21:50 23:56 01:01 WBC 12.1 H (4.8-10.8) X10*3/uL RBC 4.75 (4.60-5.80) X10*6/uL Hgb 13.7 L (14.0-18.0) g/dl Hct 40.1 L (42.0-52.0) % MCV 84.4 (80.0-98.0) fL MCH 28.8 (27.0-33.0) pg MCHC 34.2 (31.0-36.0) g/dl RDW 12.8 (11.0-16.0) % Plt Count 217 (160-400) X10*3/uL MPV 10.2 (9.4-12.4) fL Immature Gran % (Auto) 0.5 H (0.0-0.4) % Neut % (Auto) 83.1 H (45-73) % Lymph % (Auto) 7.7 L (20-40) % [place] % (Auto) 8.3 (2-11) % Eos % (Auto) 0.2 (0-4) % Baso % (Auto) 0.2 (0-2) % Lymph # (Auto) 0.9 L (1.2-4.9) X10*3/uL [place] # (Auto) 1.0 (0.1-1.2) X10*3/uL Eos # (Auto) 0.0 (0.0-0.4) X10*3/uL Baso # (Auto) 0.0 (0.0-0.2) X10*3/uL Abs Immat Gran (auto) 0.06 H (0.00-0.03) X10*3/uL Absolute Neuts (auto) 10.1 H (2.0-8.3) x10*3/uL Absolute Nucleated RBC 0.000 (0.0-0.012) X10*3/uL Nucleated RBC % (auto) 0.0 (0.0-0.2) /100WBC PT 12.7 (11.1-13.3) SEC INR 1.0 (0.9-1.1) APTT 33.7 (26.0-36.8) SEC Sodium 130 L (135-145) mmol/L Potassium 3.6 (3.3-5.1) mmol/L Chloride 97 (96-108) mmol/L Carbon Dioxide 22 (22-29) mmol/L Anion Gap 15 (12-20) BUN 12 (9-16) mg/dL Creatinine 1.20 (0.5-1.4) mg/dL Estim Creat Clear Calc 80.0 Estimated GFR > 60 Random Glucose 260 H (60-115) mg/dL Lactic Acid 1.7 (0.5-2.0) mmol/L Calcium 8.7 (8.4-10.2) mg/dL Total Bilirubin 0.7 (0.0-1.0) mg/dL AST 39 H (5-37) U/L ALT 39 (0-40) U/L Alkaline Phosphatase 101 (39-117) U/L Troponin I High Sens 503.2 H* D 1399.1 H* D (<3.5-35.0) ng/L Total Protein 7.3 (6.5-8.0) g/dL Albumin 4.0 (3.5-5.0) g/dL Influenza Type A (PCR) POSITIVE A (Negative) Influenza Type B (PCR) NEGATIVE (Negative) RSV RNA Qual (PCR) NEGATIVE (Negative) SARS-CoV-2 RNA (RT-PCR) NEGATIVE (Negative) Independent Interpretation I performed an independent interpretation of an: EKG Radiology Impression Discussion of test interpretation with radiology: I have reviewed the radiologist's reading. Radiologist Impression: FINDINGS: Stable prominence of the cardiomediastinal silhouette. Mild to moderate diffuse interstitial thickening is not significantly changed. No focal consolidation, pleural effusion or pneumothorax. No acute osseous findings. Visualized upper abdomen is within normal limits. XR/XR chest 2V IMPRESSION: Findings suggesting chronic small airways disease without superimposed consolidation or pleural effusion. Critical Care Time Critical Care Time Critical Care Time: Yes Total Critical Care Time: 75 Attestation: I have personally provided critical care time. Time includes review of lab data, radiology results, discussion with consultants, and monitoring for potential decompensation. Intervention performed as documented. Discharge Plan Discharge Clinical Impression: Myocarditis, Influenza A Patient Disposition: Admitted As Inpatient Prescriptions: No Action docusate sodium 100 mg capsule 100 mg PO BEDTIME Qty: 30 3RF Rx Instructions: orlando rene capsula cada noche metformin 500 mg tablet 1,000 mg PO BID Qty: 360 1RF atorvastatin 80 mg tablet 80 mg PO DAILY Qty: 90 1RF Jardiance 25 mg tablet 25 mg PO QAM Qty: 30 4RF aspirin 81 mg tablet,delayed release (DR/EC) 81 mg PO DAILY Qty: 90 1RF Trulicity 1.5 mg/0.5 mL pen injector 1.5 mg subcut QWEEK 30 Days Qty: 2.5 3RF lisinopril 10 mg tablet 10 mg PO DAILY 90 Days Qty: 90 1RF metoprolol tartrate 50 mg tablet 50 mg PO BID Qty: 180 1RF omeprazole 20 mg capsule,delayed release(DR/EC) 20 mg PO BID 90 Days Qty: 180 2RF sertraline 25 mg tablet 25 mg PO DAILY 90 Days Qty: 90 1RF Brilinta 90 mg tablet 90 mg PO BID 30 Days Qty: 60 6RF ropinirole 4 mg tablet 4 mg PO .every 6 hours 30 Days Qty: 120 3RF ketorolac [Acular] 0.5 % drops 1 drp ophthalmic (eye) Q6-8H PRN (Reason: itching) Qty: 5 0RF Rx Instructions: begin 24 hours prior to surgery naproxen [Naprosyn] 500 mg tablet 500 mg PO BID Qty: 20 0RF ketorolac 10 mg tablet 10 mg PO Q6H PRN (Reason: pain) 5 Days Qty: 10 0RF Rx Instructions: Patient received Toradol in the emergency room ibuprofen 400 mg tablet 400 mg PO Q6H PRN (Reason: pain) Qty: 20 0RF ibuprofen 600 mg tablet 600 mg PO TID PRN (Reason: fever or pain) Qty: 14 0RF (DME) lancets [FreeStyle Lancets] 28 gauge misc See Rx Instructions .ROUTE .MEDSUPPLY Qty: 100 Rx Instructions: As directed (DME) FreeStyle Lite Strips Strip See Rx Instructions .ROUTE .MEDSUPPLY Qty: 10 Rx Instructions: As directed three times daily (DME) FreeStyle Precision Sanket Strips Strip See Rx Instructions .ROUTE .MEDSUPPLY Qty: 50 11RF Rx Instructions: As directed twice a day bisacodyl [Dulcolax (bisacodyl)] 5 mg tablet,delayed release (DR/EC) 10 mg PO ONCE 1 Days Qty: 2 0RF Rx Instructions: take 2 tabs at noon the day before your colonoscopy polyethylene glycol 3350 [Miralax] 17 gram/dose powder 238 g PO ONCE Qty: 238 0RF Rx Instructions: As directed by gastroenterology department at [facility] tadalafil 10 mg tablet 10 mg PO DAILY 90 Days Qty: 90 1RF
--- NOTE | 2023-11-18 01:00 | PC.NURSE ---
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 per previous rn and supercharger mechanic labs obtained and dr martinez previously seen pt. per dr martinez pt not meeting criteria for sepsis alert.
[2023-11-18 01:13] LABS: Prothrombin Time 12.7 SEC (11.1-13.3)
[2023-11-18 01:15] LABS: Partial Thromboplastin Time 33.7 SEC (26.0-36.8)
[2023-11-18] MEDS: Heparin Sodium,Porcine/1/2NS 25,000 UNIT/250 ML IV.SOLN 14.92 UNIT IVCONT (01:32)
[2023-11-18] MEDS: Oseltamivir Phosphate 75 MG CAPSULE PO ×3 (01:39→22:35)
[2023-11-18] MEDS: Acetaminophen 1,000 MG/100 ML PIGGYBACK 400 MG IV (01:39)
--- NOTE | 2023-11-18 02:00 | PC.NURSE ---
this discussed tachycardia with dr martinez HR 130s-140s this rn asked if new orders/ medications needed. no new orders placed
--- NOTE | 2023-11-18 02:24 | P.HPHOSP_ITS ---
History of Present Illness Date of Service: 11/18/23 Attending physician on admission: Collette Gibson Chief Complaint: Cough Chirag Mckeon is a 53 years old man with past medical history significant for type 2 diabetes mellitus, obesity, coronary artery disease status post stenting, essential hypertension and hyperlipidemia complains of productive cough, sore throat, retrosternal chest pain and fever (105) since yesterday. Denies shortness on breath. He also complained of nonbloody diarrhea but denied nausea or vomiting. He denies abdominal pain or any acute urinary symptoms. He denies tobacco smoking, alcohol abuse or illicit drug use. In the ED, he was found to have marked tachycardia and fever. He was placed on 2 liters/minute supplemental oxygen via nasal cannula. Blood workup showed leukocytosis and marked hyperglycemia. Renal function is adequate. There is no lactic acidosis. Troponin increased from 503.2 to 1399. Viral testing for influenza is positive. CXR showed findings suggestive chronic small airways disease without superimposed consolidation or pleural effusions. ED tx: Tamiflu 75 mg p.o., acetaminophen 975 mg p.o., heparin IV infusion [facility] Medical History Shortness of breath On beta rayo at home Complex regional pain syndrome i of lower limb, bilateral Bilateral primary osteoarthritis of knee Gout Depression with anxiety SHARONDA (obstructive sleep apnea) Coarse tremors IDDM (insulin dependent diabetes mellitus) HTN (hypertension) Intractable neuropathic pain of right knee CAD (coronary artery disease) Erectile dysfunction Chronic back pain RLS (restless legs syndrome) GERD (gastroesophageal reflux disease) Kidney stones Arthritis Essential hypertension Hyperlipidemia LDL goal <70 Morbid obesity due to excess calories BMI 40.0-44.9, adult Type 2 diabetes mellitus with diabetic polyneuropathy Cardiac arrhythmia Diabetes mellitus, type 2 Family History Mother Diabetes Sister Diabetes Surgical History History of arthroplasty of right knee Hx of left knee surgery Hx of lithotripsy H/O heart artery stent Social History Household Members: Family and Friend(s) Housing: Apartment Alcohol intake: never Patient Tobacco Use Status: Never used Tobacco e-Cigarette/Vaping Use: Never Used Second Hand Smoke Exposure: No Advance Directives: No Advance Directives Information Provided: No service: No Current occupational status: disabled Cognitive needs: Yes Hearing needs: No Vision needs: No Meds Allergies Allergy/AdvReac Type Severity Reaction Status Date / Time gabapentin AdvReac Intermediate sleepiness Verified 11/17/23 20:58 zolpidem AdvReac Intermediate inadequate Verified 11/17/23 20:58 response Active Medications: Current Medications Heparin Sodium (Porcine) (Heparin Sodium,Porcine 5,000 Unit/Ml Vial) 4,300 unit 40 unit/kg (4300 unit) IVPUSH PROTOCOL BOLUS PRN; Protocol PRN Reason: 40 unit/kg - Heparin Protocol Heparin Sodium (Porcine) (Heparin Sodium,Porcine 5,000 Unit/Ml Vial) 8,500 unit 80 unit/kg (8500 unit) IVPUSH PROTOCOL BOLUS PRN; Protocol PRN Reason: 80 unit/kg - Heparin Protocol Heparin Sodium/Sodium Chloride (Heparin Sodium,Porcine/1/2ns) 25,000 unit in 250 mls @ 0 mls/hr IVCONT .Q0M JAC; Protocol Last Admin: 11/18/23 01:32 Dose: 14 units/kg/hr, 14.92 mls/hr Home Medications Medication Instructions Recorded Confirmed Last Taken Type lancets 28 gauge (FreeStyle #100 ea 06/20/20 10/16/23 Unknown History Lancets) blood sugar diagnostic (FreeStyle #10 ea 05/21/21 10/16/23 Unknown History Lite Strips) lisinopril 10 mg tablet 10 mg PO DAILY 11/18/23 11/18/23 Unknown History metoprolol tartrate 50 mg tablet 50 mg PO BID 11/18/23 11/18/23 Unknown History omeprazole 20 mg capsule,delayed 20 mg PO BID 11/18/23 11/18/23 Unknown History release ropinirole 4 mg tablet 8 mg PO BID 11/18/23 11/18/23 Unknown History sertraline 25 mg tablet 25 mg DAILY 11/18/23 11/18/23 Unknown History ticagrelor 90 mg tablet (Brilinta) 90 mg PO BID 11/18/23 11/18/23 Unknown History Physical Exam 2 Vital Signs and Narrative: Vital Signs: Last Vital Signs Temp 101.2 F H 11/18/23 01:12 Pulse 139 H 11/18/23 01:12 Resp 17 11/18/23 01:12 BP 119/86 11/18/23 01:12 Pulse Ox 97 11/18/23 01:12 O2 Del Method Nasal Cannula 11/18/23 01:12 O2 Flow Rate 2 11/18/23 01:12 BMI result Body Mass Index 39.1 Constitutional - Awake and Alert, No apparent distress. Acutely ill. Nasal cannula in place HEENT - Pupils equally round. Normal sclerae. Dry oral mucosa. Cardiovascular - S1S2, RRR, No edema Respiratory - Normal lung expansion, Normal respiratory effort, tachypnea. End expiratory wheezes. Gastrointestinal - NT / ND; +BS; No rebound or guarding - No CVA tenderness Extremities - no calf tenderness bilaterally, no swelling Musculoskeletal - Normal inspection, normal ROM Skin - Warm/Dry Neurological - Alert & oriented x3. No focal weakness grossly noted. Psychological - Appropriate affect Results Labs 11/17/23 21:50 11/17/23 21:50 Labs: Laboratory Results - last 24 hr 11/17/23 11/17/23 11/18/23 21:50 23:56 01:01 MCV 84.4 MCH 28.8 MCHC 34.2 RDW 12.8 Plt Count 217 MPV 10.2 Immature Gran % (Auto) 0.5 H Neut % (Auto) 83.1 H Lymph % (Auto) 7.7 L [place] % (Auto) 8.3 Eos % (Auto) 0.2 Baso % (Auto) 0.2 Lymph # (Auto) 0.9 L [place] # (Auto) 1.0 Eos # (Auto) 0.0 Baso # (Auto) 0.0 Abs Immat Gran (auto) 0.06 H Absolute Neuts (auto) 10.1 H Absolute Nucleated RBC 0.000 Nucleated RBC % (auto) 0.0 PT 12.7 INR 1.0 APTT 33.7 Anion Gap 15 Estim Creat Clear Calc 80.0 Estimated GFR > 60 Random Glucose 260 H Lactic Acid 1.7 Calcium 8.7 Total Bilirubin 0.7 AST 39 H ALT 39 Alkaline Phosphatase 101 Troponin I High Sens 503.2 H* D 1399.1 H* D Total Protein 7.3 Albumin 4.0 Influenza Type A (PCR) POSITIVE A Influenza Type B (PCR) NEGATIVE RSV RNA Qual (PCR) NEGATIVE SARS-CoV-2 RNA (RT-PCR) NEGATIVE Imaging Radiologist's Impressions: Impressions Chest X-Ray 11/17/23 21:15 IMPRESSION: Findings suggesting chronic small airways disease without superimposed consolidation or pleural effusion. Assessment and Plan (1) Influenza A: Status: Acute (2) Myocarditis: Qualifiers: Infective myocarditis organism: viral Chronicity: acute Myocarditis type: infective Qualified Code(s): I40.0 - Infective myocarditis Status: Acute (3) Morbid obesity: Status: Acute (4) SHARONDA (obstructive sleep apnea): Status: Acute (5) Type 2 diabetes mellitus with diabetic polyneuropathy: Qualifiers: Diabetes mellitus half-way insulin use: without half-way use Qualified Code(s): E11.42 - Type 2 diabetes mellitus with diabetic polyneuropathy Status: Acute (6) Hyperlipidemia LDL goal <70: Status: Acute (7) Morbid obesity due to excess calories: Status: Acute (8) Essential hypertension: Status: Acute (9) Essential hypertension: Status: Acute (10) Non-rheumatic aortic stenosis: Status: Acute Plan Chirag Mckeon is a 53 years old man admitted with: * Sepsis secondary to influenza infection associated with upper respiratory tract infection. Admit to hospitalist service. Pulse oximeter. Telemetry. Supplemental oxygen to keep oxygen saturation > 90 %. Start treatment with vancomycin (hx of MRSA nasally) and Zosyn. Complete culture Tamiflu. Bronchodilator therapy as needed. Solu-Medrol 60 mg IV x1. Blood cultures were obtained -will follow results. * Diarrhea likely secondary to influenza infection. Supportive therapy with IV fluids and antidiarrhea medications as needed. * NSTEMI vs myocarditis vs demand ischemia secondary to influenza infection. Continue heparin IV infusion per protocol. Continue Brilinta, aspirin and beta blockers IV. Cardiology consult. Continue to monitor troponin. * Type 2 diabetes mellitus. Insulin sliding scale while NPO. * Hyperlipidemia. Continue atorvastatin. * GERD. Continue PPI. * Obstructive sleep apnea. Noncompliant with CPAP. * History of moderate aortic stenosis. * Restless leg syndrome. Continue Requip or alternative. * Obesity. BMI 39.1 kg/m2. Weight loss. DVT prophylaxis: Heparin IV infusion GI prophylaxis: Protonix IV Code status: Full Patient will need hospitalization for at least 2 midnights for influenza infection with supportive therapy: IV fluids, empiric IV antibiotic therapy and supplemental oxygen oxygen as well as Tamiflu. Patient also will need close monitoring of cardiac enzymes and treatment with heparin IV infusion and evaluation by subspecialty. Quality Stroke Does the patient have a stroke diagnosis?: No VTE Prior VTE?: No VTE Risk Level:: Medical - moderate - high VTE Device Contraindication: Treatment Not Indicated VTE Drug Contraindication: N/A - Med Ordered
--- NOTE | 2023-11-18 03:00 | PC.NURSE ---
this rn received critical reporting of troponin @ 0029 of 1393.[address] martinez aware bilateral iv placed pt medicated according to mar this rn and charge loader initiated heparin gtt according to protocol.
[2023-11-18] MEDS: Metoprolol Tartrate 5 MG/5 ML VIAL 2.5 MG IVPUSH (03:41)
[2023-11-18] MEDS: 0.9 % Sodium Chloride 1,000 ML 999 ML IVCONT (03:41)
[2023-11-18] MEDS: levalbuterol HCL 1.25 MG/3 ML VIAL.NEB 3.75 MG INHALE (04:00)
[2023-11-18] MEDS: 0.9 % Sodium Chloride 500 ML 999 ML IV (04:02)
[2023-11-18] MEDS: methylPREDNISolone Sod Succ 125 MG/2 ML VIAL 60 MG IVPUSH (04:02)
[2023-11-18 04:08] LABS: Glucose, Whole Blood 194 mg/dL (60-115)
[2023-11-18] MEDS: 0.9 % Sodium Chloride 1,000 ML 100 ML IVCONT ×2 (04:12→14:51)
[2023-11-18] MEDS: Insulin Lispro 100 UNIT/ML 3 ML VIAL SUBCUT ×4 (04:13→22:36)
[2023-11-18] MEDS: Piperacillin Sodium/Tazobactam 3.375 GM in 0.9 % Sodium Chloride 50 ML IV ×4 (04:49→23:03)
[2023-11-18] MEDS: Metoprolol Tartrate 5 MG/5 ML VIAL IVPUSH (04:50)
[2023-11-18 05:09] LABS: Basophils Percent Auto 0.2 % (0-2); Eosinophils Percent Auto 0.1 % (0-4); Hematocrit 36.8 % (42.0-52.0); Hemoglobin 12.7 g/dl (14.0-18.0); Imm Gran Abs Auto 0.06 X10*3/uL (0.00-0.03); Imm Gran Pct Auto 0.5 % (0.0-0.4); Lymphocytes Absolute Auto 1.4 X10*3/uL (1.2-4.9); Lymphocytes Percent Auto 10.4 % (20-40); MANUAL DIFF FLAG NO; Mean Corpuscular HGB Conc 34.5 g/dl (31.0-36.0); Mean Corpuscular Hemoglobin 29.3 pg (27.0-33.0); Mean Platelet Volume 10.2 fL (9.4-12.4); Monocytes Absolute Auto 0.9 X10*3/uL (0.1-1.2); Monocytes Percent Auto 6.8 % (2-11); Neutrophils Absolute Auto 10.7 x10*3/uL (2.0-8.3); Platelet Count 208 X10*3/uL (160-400); Red Blood Count 4.33 X10*6/uL (4.60-5.80); Red Cell Distribution Width 12.8 % (11.0-16.0)
[2023-11-18 05:21] LABS: Lactic Acid 0.9 mmol/L (0.5-2.0)
[2023-11-18 05:26] LABS: Alanine Aminotransferase 33 U/L (0-40); Albumin Level 3.6 g/dL (3.5-5.0); Alkaline Phosphatase 90 U/L (39-117); Anion Gap 13 (12-20); Aspartate Amino Transferase 45 U/L (5-37); Bilirubin Total 0.6 mg/dL (0.0-1.0); Blood Urea Nitrogen 9 mg/dL (9-16); Calcium 7.9 mg/dL (8.4-10.2); Carbon Dioxide 22 mmol/L (22-29); Chloride 100 mmol/L (96-108); Estimated Glomerular Filt Rate > 60; Glucose Random 244 mg/dL (60-115); Potassium 3.4 mmol/L (3.3-5.1); Sodium 132 mmol/L (135-145); Total Protein 6.5 g/dL (6.5-8.0)
[2023-11-18 05:32] LABS: B Type Natriuretic Peptide 55 pg/mL (<100)
[2023-11-18] MEDS: vancomycin/NS 2,000 MG/500 ML PLAST..BAG 250 MG IV (05:42)
[2023-11-18 05:59] LABS: Appearance Urine Clear; Color Urine Yellow; Glucose Urine UA >=1000 mg/dL (Negative); Leukocyte Esterase Urine Negative (Negative); Nitrite Urine Negative (Negative); PH 5.5 (5.0-9.0); UMIC TRIGGER UACC YES; Urine Blood Trace (Negative); Urine Ketones Negative (Negative); Urine Protein 100 (2+) mg/dL (Neg-Trace)
[2023-11-18 06:02] LABS: Bacteria Urine None Seen (None Seen); Hyaline Casts Urine 0-2 /LPF (0-2); RBC Urine 0-2 /HPF (0-2); Squamous Epithelial Cell Urine 0-2 /HPF (0-2); WBC Urine 0-5 /HPF (0-5)
[2023-11-18] MEDS: levalbuterol HCL 1.25 MG/3 ML VIAL.NEB INHALE ×2 (06:34→22:57)
--- NOTE | 2023-11-18 06:40 | PC.NURSE ---
this rn made dr bermudez hospitalist of increase in wheeze from pt. placed orders for breathing tx. made aware of HR 112
--- NOTE | 2023-11-18 06:55 | PHA.PROG ---
Admission Date/Time: November 18, 2023 03:47 Indication: Sepsis Weight in k.594 kg Adjusted body weight in Kg: [place] body weight in Kg: Obesity Dosing Indication % IBW: Serum Creatinine - Last 168 Hours 11/17/23 11/18/23 21:50 05:04 Creatinine 1.20 0.99 Estimated CrCl and GFR - Last 168 Hours 11/17/23 11/18/23 21:50 05:04 Estim Creat Clear Calc 80.0 97.0 Estimated GFR > 60 > 60 Vancomycin Loading Dose: 2000mg x 1 Current Vancomycin Dosing Regimen: 1000mg Q12H Vancomycin Monitoring using AUC goal of 400 - 600 range with trough as surrogate marker: 473 mg/L Date and Time for next Vancomycin Level to be drawn: 11/19/23 @1600 Pharmacist Comments on Vancomycin Plan: Predicted trough of 14.3 mg/L; obese model being used. Will continue to monitor renal function Vancomycin dosing will take advantage of [employer] as a clinical decision support tool that uses Bayesian modeling to calculate individual patient's pharmacokinetic parameters and forecast the patient's drug concentration time course with the target goal AUC 24 range of 400 - 600 mg/L/hr.
--- NOTE | 2023-11-18 07:00 | CA_ITS ---
Transthoracic Echocardiogram Patient (Last, First, Middle): Chirag Mauricio, Gender: Male Date of : 1970 Age: 53 Procedure Date: 11/18/2023 Procedure Type: Transthoracic Echocardiogram Location: ER Height: 165.1 cm Weight: 106.6 kg BSA: 2.12 m2 Heart Rate: bpm BP: 127 / 72 mmHg Licensed Nursing Assistant: Referring MD: Lenny Angel MD Symptoms: NSTEMI Study Quality: Adequate w contrast ECG Rhythm: Sinus Conclusions: - The left ventricular systolic function is normal. The calculated ejection fraction is 58% by biplane method. - The apical inferior, basal inferior, mid inferoseptal, and basal inferolateral segments are hypokinetic. - There is moderate aortic valve stenosis. Findings Procedure Information Contrast agent, definity, is being given per protocol without apparent complications. Left Ventricle Normal left ventricular cavity size. There is moderately increased left ventricular wall thickness. The left ventricular systolic function is normal. The calculated ejection fraction is 58% by biplane method. Diastolic function is normal for age. Wall Motion Rest Echo Findings The apical inferior, basal inferior, mid inferoseptal, and basal inferolateral segments are hypokinetic. Right Ventricle Moderately increased right ventricular cavity size. There is normal right ventricular systolic function. Atria The left atrium is moderately dilated. The right atrium is normal in size. Aortic Valve The aortic valve was not well visualized. There is moderate aortic valve stenosis. The peak aortic velocity is 3.54 m/s with a calculated peak gradient of 50 mmHg. The mean gradient is 26 mmHg. The aortic valve area is 1.06 cm2. There is no aortic valve regurgitation. Mitral Valve The mitral valve appears normal. There is mild mitral annular calcification. There is no mitral valve regurgitation. There is no mitral valve stenosis. Pulmonic Valve The pulmonic valve is likely normal. Tricuspid Valve There is trace tricuspid valve regurgitation. There is no evidence of pulmonary hypertension. Great Vessels The asc aorta is normal in size. Venous The inferior vena cava was not well visualized. The inferior vena cava is normal in size. Pericardium/Pleural There is no evidence of pericardial effusion. Prior Study Comparison Changes noted compared to prior study dated: 09/26/2022. see comment on wall motion. Measurements 2D Linear Measurements IVSd: 1.34 0.6-0.9/0.6-1.0 cm LVIDd: 4.27 3.9-5.3/4.2-5.9 cm LVIDd Index: 2.01 2.4-3.2/2.2-3.1 cm/m2 LVIDs: 2.78 2.0-3.6 cm LVPWd: 1.25 0.7-1.1 cm Ao Root: 3.10 2.1-3.5 cm LA Diam: 4.20 2.7-3.8/3.0-4.0 cm LAIDs Index: 1.98 1.5-2.3 cm/m2 LV Mass: 254.77 67-162/88-224 g LV Mass Index: 120.18 43-95/49-115 g/m2 LVOT Diam: 2.00 3.0+(-)1.3 cm 2D Systolic Function EF 4C: 62.70 >55% EF 2C: 55.30 >55% EF BiP: 58.40 >55% Mitral Valve MV Pk E: 1.01 MV PK A: 0.83 MV Decel Time: 194.00 E/A: 1.20 E'Lateral: 6.74 E'Medial: 8.27 E/E' Med: 12.20 E/E' Lat: 15.00 PHT: 57.00 MVA PHT: 3.86 Decel Hart: 5.20 Aortic Valve AoV Pk Nico: 3.54 AoV Mn Nico: 2.32 AoV VTI: 0.71 AoV Pk Grad: 50.00 Aov Mn Grad: 26.00 MAR Cont.VTI: 1.06 LVOT LVOT Pk Nico: 1.16 LVOT Mn Nico: 0.84 LVOT VTI: 0.24 LVOT Pk Grad: 5.00 LVOT Mn Grad: 3.00 LVOT Diam: 2.00 LVOT Area: 3.14 Diastolic Function MV Pk E: 1.01 MV Pk A: 0.83 E/A: 1.20 E'Medial: 8.27 E/E' Med: 12.20 E' Laterial: 6.74 E/E' Lat: 15.00 Right Ventricle TAPSE (mm): 36.00 TVS' Nico: 15.00 Tricuspid Valve TR Pk Nico: 2.33 TR Pk Grad: 22.00 Great Vessels Aorta Ao Root-2D: 3.10 2.0-3.7 cm Pulmonary Valve PV Pk Nico: 1.50 Peak PV Grad: 9.00 Updated in Other Vendor System with Status of Final Lenny Angel MD electronically signed on 11/18/2023 11:41:12 AM with status of Final
[2023-11-18 07:48] LABS: Glucose, Whole Blood 277 mg/dL (60-115)
--- NOTE | 2023-11-18 08:27 | PC.NURSE ---
PTT HD order was not placed when drip was started. Per OCT, order for follow up PTT HD was placed now
--- NOTE | 2023-11-18 08:28 | PHA.MEDREC ---
Pharmacy Consult ? Medication Reconciliation Pharmacy has completed the medication reconciliation.
[2023-11-18] MEDS: lisinopriL 10 MG TABLET PO (08:53)
[2023-11-18] MEDS: Metoprolol Tartrate 50 MG TABLET PO ×2 (08:54→22:34)
[2023-11-18] MEDS: Aspirin Enteric Coated 81 MG TABLET.DR PO (08:54)
[2023-11-18] MEDS: Pantoprazole Sodium 40 MG/10 ML VIAL IVPUSH (08:54)
[2023-11-18] MEDS: Atorvastatin Calcium 80 MG TABLET PO (08:54)
[2023-11-18] MEDS: Ticagrelor 90 MG TABLET PO ×2 (08:54→22:34)
[2023-11-18 08:56] LABS: PTT Heparin Drip 91.8 SEC (53-77.9)
[2023-11-18 08:58] LABS: C Reactive Protein 15.39 mg/dL (< or = 0.50)
[2023-11-18 09:23] LABS: Erythrocyte Sedimentation Rate 30 MM/HR (0-15)
[2023-11-18] MEDS: rOPINIRole HCL 2 MG TABLET 8 MG PO ×2 (09:43→22:34)
--- NOTE | 2023-11-18 10:00 | P.CONCA_ITS ---
History of Present Illness History of Present Illness Date of Service: 11/18/23 Chief complaint: Sepsis Narrative: This is a cardiology consultation regarding non ST-elevation myocardial infarction. He is multiple medical comorbidities including coronary disease and prior PCI, aortic stenosis, diabetes, hypertension, obesity among others. Current admission is for influenza/sepsis. In this context, he also has elevated troponins. With regard to symptoms, he essentially has aches and pains everywhere. When specifically questioned about chest pain he states there is also chest pain but very difficult to say if this independently of the influenza aches and pains or something generalized. Any case, troponins were checked and they were found to be quite high and he is also diagnosed with concurrent NSTEMI. Review of Systems 2 Review of Systems: Yes all other systems are reviewed and are negative Constitutional: Constitutional: Reports as per HPI, Reports fatigue, Reports fever(s), Reports headache(s), Reports lethargy, Reports malaise and Reports poor appetite Eyes: Eyes: Reports as per HPI and Denies no additional eye complaints ENT: Denies system reviewed and no additional complaints, except as documented, Reports as per HPI and Reports headache(s) Cardiovascular: Cardiovascular: Reports as per HPI, Reports no additional cardiovascular complaints, Denies acrocyanosis, Denies cool extremities, Denies chest pain, Denies leg edema, Denies lightheadedness, Denies palpitations and Denies dyspnea Respiratory: Respiratory: Reports as per HPI, Denies no additional respiratory complaints and Denies dyspnea Gastrointestinal: Gastrointestinal: Reports as per HPI and Denies no additional gastrointestinal complaints Genitourinary: Genitourinary: Reports no additional male genitourinary complaints and Reports as per HPI Musculoskeletal: Musculoskeletal: Reports no additional musculoskeletal complaints and Reports as per HPI Integumentary/Breasts: Skin/Breast: Reports system reviewed and no additional complaints, except as docu Neurologic: Reports system reviewed and no additional complaints, except as documented, Reports as per HPI and Reports headache(s) Psychiatric: Psychiatric: Reports no additional psychiatric complaints and Reports as per HPI Endocrine: Endocrine: Reports no additional endocrine complaints, Reports as per HPI, Reports fatigue and Denies palpitations Hematologic/Lymphatic: Hematologic/Lymphatic: Reports no additional hematologic/lymphatic complaints and Reports as per HPI Allergic/Immunologic: Allergic/Immunologic: Reports no additional allergic/immunologic complaints and Reports as per HPI [facility] Past Medical History Medical History Shortness of breath On beta rayo at home Complex regional pain syndrome i of lower limb, bilateral Bilateral primary osteoarthritis of knee Gout Depression with anxiety SHARONDA (obstructive sleep apnea) Coarse tremors IDDM (insulin dependent diabetes mellitus) HTN (hypertension) Intractable neuropathic pain of right knee CAD (coronary artery disease) Erectile dysfunction Chronic back pain RLS (restless legs syndrome) GERD (gastroesophageal reflux disease) Kidney stones Arthritis Essential hypertension Hyperlipidemia LDL goal <70 Morbid obesity due to excess calories BMI 40.0-44.9, adult Type 2 diabetes mellitus with diabetic polyneuropathy Cardiac arrhythmia Diabetes mellitus, type 2 Family History Family History Mother Diabetes Sister Diabetes Surgical History Surgical History History of arthroplasty of right knee Hx of left knee surgery Hx of lithotripsy H/O heart artery stent Social History Social History Household Members: Family and Friend(s) Housing: Apartment Alcohol intake: never Patient Tobacco Use Status: Never used Tobacco Smoked in Last 30 Days: No e-Cigarette/Vaping Use: Never Used Second Hand Smoke Exposure: No Use of substances other than those prescribed or required for medical reasons: No Advance Directives: No Advance Directives Information Provided: No service: No Current occupational status: disabled Cognitive needs: Yes Hearing needs: No Vision needs: No Meds Allergies Allergy/AdvReac Type Severity Reaction Status Date / Time gabapentin AdvReac Intermediate sleepiness Verified 11/17/23 20:58 zolpidem AdvReac Intermediate inadequate Verified 11/17/23 20:58 response Active Medications: Current Medications Acetaminophen (Acetaminophen 325 Mg Tablet) 975 mg PO Q6H PRN PRN Reason: Fever Aspirin (Aspirin Enteric Coated 81 Mg Tablet.) 81 mg PO DAILY [facility] Last Admin: 11/18/23 08:54 Dose: 81 mg Atorvastatin Calcium (Atorvastatin Calcium 80 Mg Tablet) 80 mg PO DAILY [facility] Last Admin: 11/18/23 08:54 Dose: 80 mg Dextrose (Dextrose 50 % 25 Gm/50 Ml Syringe) 25 gm IVPUSH Q15M PRN; Protocol PRN Reason: per Hypoglycemia Standing Ord. Dextrose (Dextrose 50 % 25 Gm/50 Ml Syringe) 25 gm IVPUSH Q15M PRN; Protocol PRN Reason: per Hypoglycemia Standing Ord. Glucose (Glucose Gel 15 Gm Gel..Gram.) 15 gm PO Q15M PRN; Protocol PRN Reason: per Hypoglycemia Standing Ord. Glucose (Glucose Gel 15 Gm Gel..Gram.) 15 gm PO Q15M PRN; Protocol PRN Reason: per Hypoglycemia Standing Ord. Heparin Sodium (Porcine) (Heparin Sodium,Porcine 5,000 Unit/Ml Vial) 4,300 unit 40 unit/kg (4300 unit) IVPUSH PROTOCOL BOLUS PRN; Protocol PRN Reason: 40 unit/kg - Heparin Protocol Heparin Sodium (Porcine) (Heparin Sodium,Porcine 5,000 Unit/Ml Vial) 8,500 unit 80 unit/kg (8500 unit) IVPUSH PROTOCOL BOLUS PRN; Protocol PRN Reason: 80 unit/kg - Heparin Protocol Heparin Sodium/Sodium Chloride (Heparin Sodium,Porcine/1/2ns) 25,000 unit in 250 mls @ 0 mls/hr IVCONT .Q0M [facility]; Protocol Last Titration: 11/18/23 09:17 Dose: 12 units/kg/hr, 12.79 mls/hr Sodium Chloride (Ns) 1,000 mls @ 100 mls/hr IVCONT .Q10H [facility] Last Admin: 11/18/23 04:12 Dose: 100 mls/hr Piperacillin Sod/Tazobactam (Sod 3.375 gm/ Sodium Chloride) 50 mls @ 100 mls/hr IV Q6H [facility] Last Infusion: 11/18/23 05:27 Dose: Infused Vancomycin HCl 1,000 mg/ (Sodium Chloride) 270 mls @ 270 mls/hr IV Q12H [facility] Insulin Human Lispro (Insulin Lispro 100 Unit/Ml 3 Ml Vial) 0 unit SUBCUT Q6H [facility]; Protocol Last Admin: 11/18/23 04:13 Dose: 2 unit Insulin Human Lispro (Insulin Lispro 100 Unit/Ml 3 Ml Vial) 0 unit SUBCUT QIDACHS [facility]; Protocol Levalbuterol HCl (Levalbuterol Hcl 1.25 Mg/3 Ml Vial.Neb) 1.25 mg INHALE Q3H PRN PRN Reason: Shortness of Breath/Wheezing Lisinopril (Lisinopril 10 Mg Tablet) 10 mg PO DAILY [facility]; Protocol Last Admin: 11/18/23 08:53 Dose: 10 mg Metoprolol Tartrate (Metoprolol Tartrate 5 Mg/5 Ml Vial) 5 mg IVPUSH Q4H PRN PRN Reason: Heart Rate >100 Last Admin: 11/18/23 04:50 Dose: 5 mg Metoprolol Tartrate (Metoprolol Tartrate 50 Mg Tablet) 50 mg PO BID [facility]; Protocol Last Admin: 11/18/23 08:54 Dose: 50 mg Oseltamivir Phosphate (Oseltamivir Phosphate 75 Mg Capsule) 75 mg PO Q12H [facility] Stop: 11/22/23 09:01 Last Admin: 11/18/23 08:54 Dose: 75 mg Pharmacy Consult (Consult Rx Vancomycin Dosing) 1 each MISCELLANE DAILY PRN PRN Reason: Consult order Ropinirole HCl (Ropinirole Hcl 2 Mg Tablet) 8 mg PO BID [facility] Last Admin: 11/18/23 09:43 Dose: 8 mg Sodium Chloride (0.9 % Sodium Chloride Flush 3 Ml Syringe) 3 ml IVFLUSH QSHIFT [facility] Last Admin: 11/18/23 08:53 Dose: Not Given Ticagrelor (Ticagrelor 90 Mg Tablet) 90 mg PO BID [facility] Last Admin: 11/18/23 08:54 Dose: 90 mg Home Medications Medication Instructions Recorded Confirmed Last Taken Type lancets 28 gauge (FreeStyle #100 ea 06/20/20 10/16/23 Unknown History Lancets) blood sugar diagnostic (FreeStyle #10 ea 05/21/21 10/16/23 Unknown History Lite Strips) lisinopril 10 mg tablet 10 mg PO DAILY 11/18/23 11/18/23 Unknown History metoprolol tartrate 50 mg tablet 50 mg PO BID 11/18/23 11/18/23 Unknown History omeprazole 20 mg capsule,delayed 20 mg PO BID 11/18/23 11/18/23 Unknown History release ropinirole 4 mg tablet 8 mg PO BID 11/18/23 11/18/23 Unknown History sertraline 25 mg tablet 25 mg DAILY 11/18/23 11/18/23 Unknown History ticagrelor 90 mg tablet (Brilinta) 90 mg PO BID 11/18/23 11/18/23 Unknown History Physical Exam 2 Vital Signs: Vital Signs: Last Vital Signs Temp 99.1 F 11/18/23 07:30 Pulse 114 H 11/18/23 07:30 Resp 21 H 11/18/23 07:30 BP 127/72 11/18/23 07:30 Pulse Ox 97 11/18/23 07:30 O2 Del Method Nasal Cannula 11/18/23 07:30 O2 Flow Rate 2 11/18/23 07:30 BMI result Body Mass Index 39.1 Const: General: comfortable and no acute distress O rientation/consciousness: patient oriented x3 HEENT: Other: Unremarkable Head: Yes normal to inspection Neck: Neck: Yes normal visual inspection Chest: Chest palpation & inspection: normal inspection of the chest Resp: Auscultation: diminished lung sounds Cardio: Palpation: normal PMI Heart sounds: S1 normal heart sound present, S2 normal heart sound present, no gallops, no murmurs and no rubs GI: Palpation (GI): Soft to palpation Back/Spine/Pelvis: Other: unremarkable Skin: General skin exam: no rashes or lesions noted Neuro: General: patient oriented x3 Extrem: General: Yes normal to inspection Psych: Mental Status: mental status grossly normal Objective Labs and Meds 11/18/23 05:04 11/18/23 05:04 Lab results: Laboratory Results - last 24 hr 11/17/23 11/17/23 11/18/23 21:50 23:56 01:01 WBC 12.1 H RBC 4.75 Hgb 13.7 L Hct 40.1 L MCV 84.4 MCH 28.8 MCHC 34.2 RDW 12.8 Plt Count 217 MPV 10.2 Immature Gran % (Auto) 0.5 H Neut % (Auto) 83.1 H Lymph % (Auto) 7.7 L [place] % (Auto) 8.3 Eos % (Auto) 0.2 Baso % (Auto) 0.2 Lymph # (Auto) 0.9 L [place] # (Auto) 1.0 Eos # (Auto) 0.0 Baso # (Auto) 0.0 Abs Immat Gran (auto) 0.06 H Absolute Neuts (auto) 10.1 H Absolute Nucleated RBC 0.000 Nucleated RBC % (auto) 0.0 ESR PT 12.7 INR 1.0 APTT 33.7 aPTT Heparin Protocol Sodium 130 L Potassium 3.6 Chloride 97 Carbon Dioxide 22 Anion Gap 15 BUN 12 Creatinine 1.20 Estim Creat Clear Calc 80.0 Estimated GFR > 60 POC Glucose Random Glucose 260 H Lactic Acid 1.7 Calcium 8.7 Total Bilirubin 0.7 AST 39 H ALT 39 Alkaline Phosphatase 101 Troponin I High Sens 503.2 H* D 1399.1 H* D C-Reactive Protein B-Natriuretic Peptide Total Protein 7.3 Albumin 4.0 Urine Color Urine Appearance Urine pH Ur Specific [place] Urine Protein Urine Glucose (UA) Urine Ketones Urine Blood Urine Nitrite Ur Leukocyte Esterase Urine RBC Urine WBC Ur Squamous Epith Cells Urine Bacteria Hyaline Casts Influenza Type A (PCR) POSITIVE A Influenza Type B (PCR) NEGATIVE RSV RNA Qual (PCR) NEGATIVE SARS-CoV-2 RNA (RT-PCR) NEGATIVE 11/18/23 11/18/23 11/18/23 04:04 05:04 05:52 WBC 13.0 H RBC 4.33 L Hgb 12.7 L Hct 36.8 L MCV 85.0 MCH 29.3 MCHC 34.5 RDW 12.8 Plt Count 208 MPV 10.2 Immature Gran % (Auto) 0.5 H Neut % (Auto) 82.0 H Lymph % (Auto) 10.4 L [place] % (Auto) 6.8 Eos % (Auto) 0.1 Baso % (Auto) 0.2 Lymph # (Auto) 1.4 [place] # (Auto) 0.9 Eos # (Auto) 0.0 Baso # (Auto) 0.0 Abs Immat Gran (auto) 0.06 H Absolute Neuts (auto) 10.7 H Absolute Nucleated RBC 0.000 Nucleated RBC % (auto) 0.0 ESR PT INR APTT aPTT Heparin Protocol 69.0 Sodium 132 L Potassium 3.4 Chloride 100 Carbon Dioxide 22 Anion Gap 13 BUN 9 Creatinine 0.99 Estim Creat Clear Calc 97.0 Estimated GFR > 60 POC Glucose 194 H Random Glucose 244 H Lactic Acid 0.9 Calcium 7.9 L D Total Bilirubin 0.6 AST 45 H ALT 33 Alkaline Phosphatase 90 Troponin I High Sens 2674.6 H* D C-Reactive Protein B-Natriuretic Peptide 55 Total Protein 6.5 Albumin 3.6 Urine Color Yellow Urine Appearance Clear Urine pH 5.5 Ur Specific [place] 1.020 Urine Protein 100 (2+) H Urine Glucose (UA) >=1000 H Urine Ketones Negative Urine Blood Trace H Urine Nitrite Negative Ur Leukocyte Esterase Negative Urine RBC 0-2 Urine WBC 0-5 Ur Squamous Epith Cells 0-2 Urine Bacteria None Seen Hyaline Casts 0-2 Influenza Type A (PCR) Influenza Type B (PCR) RSV RNA Qual (PCR) SARS-CoV-2 RNA (RT-PCR) 11/18/23 11/18/23 07:28 08:36 WBC RBC Hgb Hct MCV MCH MCHC RDW Plt Count MPV Immature Gran % (Auto) Neut % (Auto) Lymph % (Auto) [place] % (Auto) Eos % (Auto) Baso % (Auto) Lymph # (Auto) [place] # (Auto) Eos # (Auto) Baso # (Auto) Abs Immat Gran (auto) Absolute Neuts (auto) Absolute Nucleated RBC Nucleated RBC % (auto) ESR 30 H PT INR APTT aPTT Heparin Protocol 91.8 H D Sodium Potassium Chloride Carbon Dioxide Anion Gap BUN Creatinine Estim Creat Clear Calc Estimated GFR POC Glucose 277 H Random Glucose Lactic Acid Calcium Total Bilirubin AST ALT Alkaline Phosphatase Troponin I High Sens 2856.0 H* C-Reactive Protein 15.39 H B-Natriuretic Peptide Total Protein Albumin Urine Color Urine Appearance Urine pH Ur Specific [place] Urine Protein Urine Glucose (UA) Urine Ketones Urine Blood Urine Nitrite Ur Leukocyte Esterase Urine RBC Urine WBC Ur Squamous Epith Cells Urine Bacteria Hyaline Casts Influenza Type A (PCR) Influenza Type B (PCR) RSV RNA Qual (PCR) SARS-CoV-2 RNA (RT-PCR) ECG Interpretation: EKG with sinus tachycardia at 149/Min. No ischemic changes. Imaging Radiologist's impression: Impressions Chest X-Ray 11/17/23 21:15 IMPRESSION: Findings suggesting chronic small airways disease without superimposed consolidation or pleural effusion. Assessment and Plan (1) NSTEMI (non-ST elevated myocardial infarction): Status: Acute (2) Influenza A: Status: Acute Plan Troponin levels are 503; 1399; 2674; 2856. EKG not showing any ischemic changes. Clinically, lots of aches and pains but difficult to say if he has angina as well. He is influenza A positive. Last cardiac catheterization March 2023-underwent PCI for InStent restenosis of the mid LAD stent. Ostial LAD 30-40% stenosis. Patent OM1 stent. At the current time, NSTEMI in the setting of influenza. Continue IV heparin drip, aspirin, Brilinta, beta-blockers, high-dose statins. Obtain echocardiogram. We will check with Interventional Cardiology about cardiac catheterization. Procedures Date of Service Date of Service: 11/18/23
[2023-11-18 10:30] LABS: Glucose, Whole Blood 313 mg/dL (60-115)
--- NOTE | 2023-11-18 11:34 | PC.NURSE ---
waiting to hear from Dr. Beauchamp if pt is still NPO. Holding Insulin for now, waiting to hear if I should give insulin.
[2023-11-18 11:58] LABS: Glucose, Whole Blood 323 mg/dL (60-115)
--- NOTE | 2023-11-18 12:22 | MHC.CM.PN ---
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
--- NOTE | 2023-11-18 12:40 | PC.NURSE ---
pt diet order changed. per Dr Beauchamp give lispro sliding scale with meals.
[2023-11-18 15:35] LABS: PTT Heparin Drip 75.7 SEC (53-77.9)
[2023-11-18 16:33] LABS: Glucose, Whole Blood 406 mg/dL (60-115)
--- NOTE | 2023-11-18 16:46 | PM.EVENT ---
Event Note Date of Service: 11/18/23 Event Note: Patient seen and examined hospitalist team this morning seen and examined again. Patient says the chest pain improving, still has cough and phlegm, denies any nausea vomiting Labs and vital reviewed: Fever seems to be improving blood culture pending Leukocytosis mildly trending up 13k. cxr:Findings suggesting chronic small airways disease without superimposed consolidation or pleural effusion mild hyperglycemia Physical exam: unchanged from h&P. Plan: 53 years old man admitted with: Sepsis secondary to influenza infection associated with upper respiratory tract infection. continue Pulse oximeter. Telemetry.wean off Supplemental oxygen to keep oxygen saturation > 90 %( unclear if patient was hypoxic), vancomycin (hx of MRSA nasally) and Zosyn. Complete culture Tamiflu. Bronchodilator therapy as needed. Solu-Medrol 60 mg IV x1. Blood cultures were obtained -will follow results. Diarrhea likely secondary to influenza infection: improving, Supportive therapy with IV fluids and antidiarrhea medications as needed. possible NSTEMI vs myocarditis vs demand ischemia secondary to influenza infection. trops trending [id number]. echo noted- left ventricular systolic function is normal. The calculated ejection fraction is 58% by biplane method. - The apical inferior, basal inferior, mid inferoseptal, and basal inferolateral segments are hypokinetic. - There is moderate aortic valve stenosis d/w cardiology: Continue heparin IV infusion per protocol, Brilinta, aspirin and beta blockers IV. Cardiology consult. Continue to monitor troponin. Type 2 diabetes mellitus with hyperglycemia : fs with adjusted Insulin sliding scale. Hyperlipidemia. Continue atorvastatin. GERD. Continue PPI. Obstructive sleep apnea. Noncompliant with CPAP. Restless leg syndrome. Continue Requip or alternative. morbid Obesity. BMI 39.1 kg/m2. advised for Weight loss and cut down calories. Time Spent With Patient Time: Total time managing care of this patient today ____ minutes.
[2023-11-18] MEDS: 0.9 % Sodium Chloride Flush 3 ML SYRINGE IVFLUSH ×2 (18:14→22:37)
[2023-11-18] MEDS: vancomycin HCL 1,000 MG in 0.9 % Sodium Chloride 250 ML 270 MG IV (19:51)
[2023-11-18 20:20] LABS: Glucose, Whole Blood 345 mg/dL (60-115)
[2023-11-18] MEDS: Heparin Sodium,Porcine/1/2NS 25,000 UNIT/250 ML IV.SOLN 12.79 UNIT IVCONT (20:59)
[2023-11-18 22:09] LABS: PTT Heparin Drip 78.7 SEC (53-77.9)
[2023-11-18] MEDS: Acetaminophen 325 MG TABLET 975 MG PO (22:34)
[2023-11-19] VITALS (8 sets, daily range): BP systolic 91–131; BP diastolic 49–71; PULSE 78–98; RESP 18–22; TEMP 36.1–36.6; O2SAT 91–97
[2023-11-19] MEDS: ondansetron HCL 4 MG/2 ML VIAL IVPUSH (01:55)
[2023-11-19] MEDS: traMADoL HCL 50 MG TABLET 25 MG PO (01:55)
[2023-11-19] MEDS: levalbuterol HCL 1.25 MG/3 ML VIAL.NEB INHALE (02:08)
[2023-11-19 03:38] LABS: Glucose, Whole Blood 214 mg/dL (60-115)
[2023-11-19 04:44] LABS: PTT Heparin Drip 65.5 SEC (53-77.9)
[2023-11-19] MEDS: Piperacillin Sodium/Tazobactam 3.375 GM in 0.9 % Sodium Chloride 50 ML IV ×2 (05:13→11:08)
[2023-11-19] MEDS: vancomycin HCL 1,000 MG in 0.9 % Sodium Chloride 250 ML 270 MG IV (05:13)
[2023-11-19 07:28] LABS: Creatinine Clr Calc Pharmacy 107.9; Estimated Glomerular Filt Rate > 60
[2023-11-19 07:56] LABS: Glucose, Whole Blood 183 mg/dL (60-115)
[2023-11-19] MEDS: rOPINIRole HCL 2 MG TABLET 8 MG PO (07:56)
[2023-11-19] MEDS: Aspirin Enteric Coated 81 MG TABLET.DR PO (07:57)
[2023-11-19] MEDS: Atorvastatin Calcium 80 MG TABLET PO (07:57)
[2023-11-19] MEDS: Ticagrelor 90 MG TABLET PO (07:59)
[2023-11-19] MEDS: Oseltamivir Phosphate 75 MG CAPSULE PO (07:59)
--- NOTE | 2023-11-19 10:15 | PM.PNCARD ---
Subjective Subjective Date of Service: 11/19/23 Interval history: He states he feels okay. No active chest pain. Review of Systems Review of Systems Yes all other systems are reviewed and are negative Constitutional: Reports as per HPI and Reports no additional constitutional complaints Eyes: Reports as per HPI and Denies no additional eye complaints Denies system reviewed and no additional complaints, except as documented and Reports as per HPI Cardiovascular: Reports as per HPI, Reports no additional cardiovascular complaints, Denies acrocyanosis, Denies cool extremities, Denies chest pain, Denies leg edema, Denies lightheadedness, Denies palpitations and Denies dyspnea Respiratory: Reports as per HPI, Denies no additional respiratory complaints and Denies dyspnea Gastrointestinal: Reports as per HPI and Denies no additional gastrointestinal complaints Genitourinary: Reports no additional male genitourinary complaints and Reports as per HPI Musculoskeletal: Reports no additional musculoskeletal complaints and Reports as per HPI Skin/Breast: Reports system reviewed and no additional complaints, except as docu Reports system reviewed and no additional complaints, except as documented and Reports as per HPI Psychiatric: Reports no additional psychiatric complaints and Reports as per HPI Endocrine: Reports no additional endocrine complaints, Reports as per HPI and Denies palpitations Hematologic/Lymphatic: Reports no additional hematologic/lymphatic complaints and Reports as per HPI Allergic/Immunologic: Reports no additional allergic/immunologic complaints and Reports as per HPI Physical Exam Vital Signs: Last Vital Signs Temp 97.9 F 11/19/23 07:36 Pulse 86 11/19/23 07:36 Resp 18 11/19/23 07:36 BP 99/61 11/19/23 07:36 Pulse Ox 96 11/19/23 07:36 O2 Del Method Room Air 11/19/23 07:36 O2 Flow Rate 2 11/19/23 00:00 BMI result Body Mass Index 39.1 Const General: comfortable and no acute distress Orientation/consciousness: patient oriented x3 HEENT Other: Unremarkable Head: Yes normal to inspection Neck Neck: Yes normal visual inspection Chest Chest palpation & inspection: normal inspection of the chest Resp Auscultation: clear to auscultation bilaterally Cardio Palpation: normal PMI Heart sounds: S1 normal heart sound present, S2 normal heart sound present, no gallops, no murmurs and no rubs GI Palpation (GI): Soft to palpation Back/Spine/Pelvis Other: unremarkable Skin General skin exam: no rashes or lesions noted Neuro General: patient oriented x3 Extrem General: Yes normal to inspection Psych Mental Status: mental status grossly normal Objective Labs and Meds 11/18/23 05:04 11/19/23 04:27 Lab results: Laboratory Results - last 24 hr 11/18/23 11/18/23 11/18/23 10:26 11:52 15:16 aPTT Heparin Protocol 75.7 Creatinine Estim Creat Clear Calc Estimated GFR POC Glucose 313 H 323 H 11/18/23 11/18/23 11/18/23 16:28 20:17 21:52 aPTT Heparin Protocol 78.7 H Creatinine Estim Creat Clear Calc Estimated GFR POC Glucose 406 H* 345 H 11/19/23 11/19/23 11/19/23 03:31 04:27 07:45 aPTT Heparin Protocol 65.5 Creatinine 0.89 Estim Creat Clear Calc 107.9 Estimated GFR > 60 POC Glucose 214 H 183 H Imaging Radiologist's impression: Impressions Chest X-Ray 11/19/23 02:40 IMPRESSION: Low lung volumes. Increased markings in the lower lung ricketts likely represent vascular crowding from low lung volumes. No focal lung consolidation. Progress Note: A&P Assessment and plan (1) NSTEMI (non-ST elevated myocardial infarction): Status: Acute (2) Influenza A: Status: Acute Plan Troponin levels are 503; 1399; 2674; 2856. EKG not showing any ischemic changes. Echocardiogram with LVEF 50%. Inferior/inferoseptal/inferolateral wall motion abnormalities. Moderate aortic stenosis. Last cardiac catheterization March 2023-underwent PCI for InStent restenosis of the mid LAD stent. Ostial LAD 30-40% stenosis. Patent OM1 stent. Overall, NSTEMI in the setting of influenza. Continue IV heparin drip, aspirin, Brilinta, beta-blockers, high-dose statins. Obtain echocardiogram. Will transferred to [facility] for cardiac catheterization. Time Spent With Patient Time: Total time managing care of this patient today ____ minutes. Progress Note: Quality Stroke Does the patient have a stroke diagnosis?: No Procedures Date of Service Date of Service: 11/19/23
--- NOTE | 2023-11-19 11:17 | PM.DS ---
DS: Providers Provider Date of Service: 11/19/23 Date of admission: 11/18/23 03:47 Date of discharge: 11/19/23 Primary care physician: Unknown Physician Consults: 11/18/23 04:32 Consult to Cardiology Routine Consulting Provider: [facility] [place] Cardi[facility] Reason for consultation: Sepsis, check pain, elevated troponin Has provider been notified: Yes Attending physician on discharge: Marco Beauchamp Discharging clinician: Marco Beauchamp DS: Diagnosis Discharge Diagnosis (1) NSTEMI (non-ST elevated myocardial infarction): Status: Acute (2) Influenza A: Status: Acute DS: Summary Hospital Course Hospital Course: 53 years old man with past medical history significant for type 2 diabetes mellitus, obesity, coronary artery disease status post stenting, essential hypertension and hyperlipidemia complains of productive cough, sore throat, retrosternal chest pain and fever (105) since yesterday. Denies shortness on breath. He also complained of nonbloody diarrhea but denied nausea or vomiting. He denies abdominal pain or any acute urinary symptoms. He denies tobacco smoking, alcohol abuse or illicit drug use. In the ED, he was found to have marked tachycardia and fever. He was placed on 2 liters/minute supplemental oxygen via nasal cannula. Blood workup showed leukocytosis and marked hyperglycemia. Renal function is adequate. There is no lactic acidosis. Troponin increased from 503.2 to 1399. Viral testing for influenza is positive. CXR showed findings suggestive chronic small airways disease without superimposed consolidation or pleural effusions. ED tx: Tamiflu 75 mg p.o., acetaminophen 975 mg p.o., heparin IV infusion. Hospital course: Sepsis secondary to influenza infection associated with upper respiratory tract infection -has mild leukocytosis, chest x-ray negative,viral serology positive for Influenza A- started on Tamiflu ,also given nebulizers, and IV antibiotics for possible superimposed bacterial bronchitis: Patient shortness of breath seems to be improving, has cough, blood culture negative at 24 hours: Continue Tamiflu 75 mg p.o. b.i.d.(7 more doses ), nebs p.r.n., antibiotics switched doxycycline and Augmentin-for 7 days. Diarrhea probably viral improving, no abdominal pain. tolerating diet. htn : blood pressure softer ,hold lisinopril ,moniter blood pressure closely. Nsetmi: Patient is already on aspirin, Brilinta, statin, beta-rayo, added IV heparin drip, monitor PT PT per protocol, patient was seen by Cardiology recommended to transfer to [facility] for further cardiac workup and and intervention including cardiac catheterization. plan: nstemi-please see above. Tamiflu 75 mg p.o. b.i.d.(7 more doses ), nebs p.r.n., antibiotics switched doxycycline and Augmentin-for 7 days. blood pressure softer ,hold lisinopril ,moniter blood pressure closely. Assessment plan coordination time spent 50 minute. Time Attestation Total time managing care of this patient today: 50 mintues. Discharge Coordination Time (in mins): 50 Quality: Safe Use of Opioids Does Pt have an Active Cancer Diagnosis on the Problem List?: No Quality: Stroke Does the patient have a stroke diagnosis?: No Physical Exam Vital Signs: Vital Signs: Last Vital Signs Temp 97.9 F 11/19/23 07:36 Pulse 86 11/19/23 07:36 Resp 18 11/19/23 07:36 BP 99/61 11/19/23 07:36 Pulse Ox 96 11/19/23 07:36 O2 Del Method Room Air 11/19/23 07:36 O2 Flow Rate 2 11/19/23 00:00 BMI result Body Mass Index 39.1 Appearance: Alert.? Oriented X3.? cvs: rrr, [id number] , no murmur res: air entry fair ,few rhonchii, no rales abd: no rebound or guarding ,nt, bs present. ext pulses present , no cyanosis . neuro: axo3 , nonfocal. DS: Data Data Completed and Pending Labs on day of discharge: Laboratory Results - last 24 hr 11/18/23 11/18/23 11/18/23 11:52 15:16 16:28 aPTT Heparin Protocol 75.7 Creatinine Estim Creat Clear Calc Estimated GFR POC Glucose 323 H 406 H* 11/18/23 11/18/23 11/19/23 20:17 21:52 03:31 aPTT Heparin Protocol 78.7 H Creatinine Estim Creat Clear Calc Estimated GFR POC Glucose 345 H 214 H 11/19/23 11/19/23 04:27 07:45 aPTT Heparin Protocol 65.5 Creatinine 0.89 Estim Creat Clear Calc 107.9 Estimated GFR > 60 POC Glucose 183 H Preliminary micro results at discharge 11/17/23 21:51 Blood Culture - Preliminary Blood - Venous No growth after 24 hours. 11/17/23 21:50 Blood Culture - Preliminary Blood - Venous No growth after 24 hours. Imaging Chest x-ray: Radiologist's impression: ITS Impressions Chest X-Ray 11/17/23 21:15 IMPRESSION: Findings suggesting chronic small airways disease without superimposed consolidation or pleural effusion. Chest X-Ray 11/19/23 02:40 IMPRESSION: Low lung volumes. Increased markings in the lower lung ricketts likely represent vascular crowding from low lung volumes. No focal lung consolidation. Discharge Plan Discharge Anticipated Discharge Date/Time: 11/19/23 10:54 Patient Disposition: Xfer Acute Care Hospital Discharge Diagnosis: nstemi,influenza A. Referrals: Physician,Unknown J [Primary Care Provider] - 1 Week Discharge Medications: New levalbuterol HCl 1.25 mg/3 mL Solution For Nebulization 1.25 mg inhalation Q3H PRN (Reason: Shortness Of Breath/Wheezing) Qty: 1 0RF heparin(porcine) in 0.45% NaCl 25,000 unit/250 mL Parenteral Solution 25,000 unit continuous IV infusion .Q0M Qty: 1 0RF Rx Instructions: continue current rate heparin drip, moniter pt/ptt. oseltamivir [Tamiflu] 75 mg Capsule 75 mg PO Q12H Qty: 7 0RF guaifenesin 100 mg/5 mL Liquid 100 mg PO Q4H PRN (Reason: Cough) Qty: 1 0RF Continued atorvastatin 80 mg tablet 80 mg PO DAILY Qty: 90 1RF aspirin 81 mg tablet,delayed release (DR/EC) 81 mg PO DAILY Qty: 90 1RF Trulicity 1.5 mg/0.5 mL pen injector 1.5 mg subcut QWEEK 30 Days Qty: 2.5 3RF Brilinta 90 mg tablet 90 mg PO BID metoprolol tartrate 50 mg tablet 50 mg PO BID omeprazole 20 mg capsule,delayed release(DR/EC) 20 mg PO BID ropinirole 4 mg tablet 8 mg PO BID sertraline 25 mg tablet 25 mg DAILY (DME) lancets [FreeStyle Lancets] 28 gauge misc See Rx Instructions .ROUTE .MEDSUPPLY Qty: 100 Rx Instructions: As directed (DME) FreeStyle Lite Strips Strip See Rx Instructions .ROUTE .MEDSUPPLY Qty: 10 Rx Instructions: As directed three times daily (DME) FreeStyle Precision Sanket Strips Strip See Rx Instructions .ROUTE .MEDSUPPLY Qty: 50 11RF Rx Instructions: As directed twice a day Held lisinopril 10 mg tablet 10 mg PO DAILY Hold Instructions: Resume on 11/21/23. on hold due to boderline bp. Discharge Orders: Discharge Order (Routine); Ordered 11/19/23 Ordered By: Marco Beauchamp Diet: Advance to usual diet Activity on Discharge: As tolerated Stand Alone Forms: Patient Portal Discharge page Care Plan Goals: Sepsis secondary to influenza infection associated with upper respiratory tract infection -has mild leukocytosis, chest x-ray negative,viral serology positive for Influenza A- started on Tamiflu ,also given nebulizers, and IV antibiotics for possible superimposed bacterial bronchitis: Patient shortness of breath seems to be improving, has cough, blood culture negative at 24 hours: Continue Tamiflu 75 mg p.o. b.i.d.(7 more doses ), nebs p.r.n., antibiotics switched doxycycline and Augmentin-for 7 days. Diarrhea probably viral improving, no abdominal pain. tolerating diet. htn : blood pressure softer ,hold lisinopril ,moniter blood pressure closely. Nsetmi: Patient is already on aspirin, Brilinta, statin, beta-rayo, added IV heparin drip, monitor PT PT per protocol, patient was seen by Cardiology recommended to transfer to [facility] for further cardiac workup and and intervention including cardiac catheterization. Health Concerns: As above. Plan of Treatment: As above. Assessment: As above.
[2023-11-19 11:24] LABS: PTT Heparin Drip 53.2 SEC (53-77.9)
[2023-11-19] MEDS: guaiFENesin 200 MG/10 ML 10 ML LIQUID PO (11:26)
[2023-11-19] MEDS: Amoxicillin/Potassium Clav 875 MG TABLET PO (11:30)
[2023-11-19] MEDS: Doxycycline Monohydrate 100 MG CAPSULE PO (11:30)
[2023-11-19 11:42] LABS: Glucose, Whole Blood 229 mg/dL (60-115)
--- NOTE | 2023-11-19 11:42 | P.CDIM_ITS ---
PROVIDER RESPONSE TEXT: To clarify, the appropriate diagnosis supported by the clinical indicators: Other (explain): pseudohyponatremia sec to hyperglycemia . QUERY TEXT: PHYSICIAN'S DOCUMENTATION REQUEST Date of Query: 11/19/2023 08:21 AM EDT Patient Name: Chirag Mauricio Admit Date: 11/18/2023 Dear Marco Beauchamp, A review of the medical record indicates additional documentation may be needed. Please review below and update the documentation accordingly. Clinical Indicators: LAB FINDINGS: 130 L 132 L Fluids Based on the above, is there a diagnosis that correlates with these lab findings: Hyponatremia resolved, suspected etc. Labs indicate a diagnosis of (please specify) Other (explain) Clinically unable to determine (explain) Thank you, Tere Esquivel, CCS, CDIS Use of terms such as suspected, likely, concern for, or probable (associated with a specific diagnosi s that is being evaluated, monitored, or treated as if it exists) are acceptable and can be coded in the inpatient se tting, when documented at the time of discharge. Please use your independent medical judgment in providing your response. THIS QUERY IS PART OF THE PERMANENT MEDICAL RECORD
[2023-11-19] MEDS: Insulin Lispro 100 UNIT/ML 3 ML VIAL SUBCUT (12:17)
[2023-11-19 16:41] LABS: Glucose, Whole Blood 260 mg/dL (60-115)
== END 2023-11-19 17:00 | disposition short-term general hospital (02) | DRG 871 ==
LOC: HO.ED 11-18 01:44 → HO.EDOVER 11-18 03:52 → HO.IMC 11-18 15:44
PROVIDERS: Internal Medicine; Student in an Organized Health Care Education/Training Program; Admitting Provider Internal Medicine; Emergency Provider Emergency Medicine; PCP Internal Medicine; Visit Provider Internal Medicine
DX: A41.89 Other specified sepsis (principal); I21.4 Non-ST elevation (NSTEMI) myocardial infarction; J10.82 Influenza due to other identified influenza virus with myocarditis; I25.10 Atherosclerotic heart disease of native coronary artery without angina pectoris; G47.33 Obstructive sleep apnea (adult) (pediatric); E78.5 Hyperlipidemia, unspecified; J10.2 Influenza due to other identified influenza virus with gastrointestinal manifestations; I35.0 Nonrheumatic aortic (valve) stenosis; E11.65 Type 2 diabetes mellitus with hyperglycemia; G25.81 Restless legs syndrome; Z68.39 Body mass index [BMI] 39.0-39.9, adult; E66.01 Morbid (severe) obesity due to excess calories; E11.42 Type 2 diabetes mellitus with diabetic polyneuropathy; I10 Essential (primary) hypertension; Z20.822 Contact with and (suspected) exposure to COVID-19; Z95.5 Presence of coronary angioplasty implant and graft; Z91.199 Patient's noncompliance with other medical treatment and regimen due to unspecified reason; Z79.4 Long term (current) use of insulin; Z79.82 Long term (current) use of aspirin; Z79.84 Long term (current) use of oral hypoglycemic drugs; Z79.899 Other long term (current) drug therapy
CPT/HCPCS: 0241U; 36415; 71045; 71046; 80053; 81001; 81003; 82565; 82947; 83605; 83880; 84484; 85025; 85610; 85652; 85730; 86140; 87040; 93005; 93306; 94640; 99285; C9113; J0131; J1644; J2405; J2543; J2930; J3370; Q9957

== ENCOUNTER → 2023-11-17 21:53 | Outpatient (BNV) | payer MEDICARE, MEDICAID, SELFPAY | PROVIDERS: Admitting Provider Internal Medicine; Emergency Provider Emergency Medicine; Visit Provider Internal Medicine | DX: R00.0 Tachycardia, unspecified (principal) | CPT/HCPCS: 93010 ==

== ENCOUNTER → 2023-11-18 03:47 | Outpatient (BNV) | payer MEDICARE, MEDICAID, SELFPAY | PROVIDERS: Admitting Provider Internal Medicine; Emergency Provider Emergency Medicine; Visit Provider Internal Medicine | DX: I21.4 Non-ST elevation (NSTEMI) myocardial infarction (principal); J10.1 Influenza due to other identified influenza virus with other respiratory manifestations; I35.0 Nonrheumatic aortic (valve) stenosis | CPT/HCPCS: 93306; 99223; 99233 ==

== ENCOUNTER → 2023-11-18 03:47 | Outpatient (BNV) | payer MEDICARE, MEDICAID, SELFPAY | PROVIDERS: Admitting Provider Internal Medicine; Emergency Provider Emergency Medicine; Visit Provider Internal Medicine | DX: I21.4 Non-ST elevation (NSTEMI) myocardial infarction (principal); J10.1 Influenza due to other identified influenza virus with other respiratory manifestations; E11.65 Type 2 diabetes mellitus with hyperglycemia | CPT/HCPCS: 99223; 99239; 99499 ==

== ENCOUNTER → 2023-11-20 23:59 | Outpatient (BNV) | payer MEDICARE, MEDICAID, SELFPAY | PROVIDERS: PCP Internal Medicine; Visit Provider Internal Medicine Cardiovascular Disease | DX: I21.4 Non-ST elevation (NSTEMI) myocardial infarction (principal) | CPT/HCPCS: 93458; 99152 ==

== ENCOUNTER 2023-12-06 23:02 | Emergency (ER) | payer MEDICARE, MEDICAID, SELFPAY ==
--- NOTE | ~2023-12-06 | XR_ITS ---
EXAMINATION: XR CHEST CLINICAL INFORMATION: Cough. Hemoptysis. COMPARISON: 11/19/2023 TECHNIQUE: Frontal view of the chest was obtained. FINDINGS: The cardiomediastinal silhouette is within normal limits. There is no focal lung consolidation or pleural effusion. The bony structures and soft tissues are unremarkable. XR/XR chest 1V IMPRESSION: No acute cardiopulmonary process.
[2023-12-06 23:40] VITALS: BP 144/90; PULSE 88; RESP 16; TEMP 37.3; O2SAT 97; BMI 39.7
[2023-12-07 02:10] VITALS: BP 135/90; PULSE 108; RESP 20; O2SAT 95
--- NOTE | 2023-12-07 02:36 | ED.URI ---
HPI - URI/Sore Throat General Chief Complaint: Upper Respiratory Symptoms Stated Complaint: Coughing up blood Time Seen by Provider: 12/07/23 02:28 Source: patient Mode of arrival: ambulatory Limitations: no limitations History of Present Illness HPI Narrative: Patient with history of coronary artery disease status post stent on Brilinta diagnosed with influenza A on 11/17/23 since then patient has been coughing followed by vomiting with slight motor bright blood no significant shortness of breath no chest cough is mostly dry no fever no chills no abdominal pain no melena Related Data Home Medications ?Medication ?Instructions ?Recorded ?Confirmed lancets 28 gauge (FreeStyle #100 ea 06/20/20 10/16/23 Lancets) blood sugar diagnostic (FreeStyle #10 ea 05/21/21 10/16/23 Lite Strips) lisinopril 10 mg tablet 10 mg PO DAILY 11/18/23 11/18/23 metoprolol tartrate 50 mg tablet 50 mg PO BID 11/18/23 11/18/23 omeprazole 20 mg capsule,delayed 20 mg PO BID 11/18/23 11/18/23 release ropinirole 4 mg tablet 8 mg PO BID 11/18/23 11/18/23 sertraline 25 mg tablet 25 mg DAILY 11/18/23 11/18/23 ticagrelor 90 mg tablet (Brilinta) 90 mg PO BID 11/18/23 11/18/23 Previous Rx's ?Medication ?Instructions ?Recorded blood sugar diagnostic (FreeStyle #50 ea 12/20/21 Precision Sanket Strips) atorvastatin 80 mg tablet 80 mg PO DAILY #90 tabs 09/08/23 aspirin 81 mg tablet,delayed 81 mg PO DAILY #90 tabs 11/04/23 release dulaglutide 1.5 mg/0.5 mL 1.5 mg (0.5 mL) subcut QWEEK 30 11/04/23 subcutaneous pen injector days #2.5 mL (Trulicity) guaifenesin 100 mg/5 mL oral liquid 100 mg (5 mL) PO Q4H PRN Cough #1 11/19/23 mL heparin (porcine) 25,000 unit/250 25,000 unit (250 mL) continuous IV 11/19/23 mL in 0.45 % sodium chloride IV infusion .Q0M #1 mL soln levalbuterol HCl 1.25 mg/3 mL 1.25 mg (3 mL) inhalation Q3H PRN 11/19/23 solution for nebulization Shortness Of Breath/Wheezing #1 mL oseltamivir 75 mg capsule (Tamiflu) 75 mg PO Q12H #7 caps 11/19/23 benzonatate 200 mg capsule 200 mg PO TID PRN cough #30 caps 12/07/23 codeine 10 mg-guaifenesin 100 mg/5 10 ml PO Q6H PRN cough #237 mL 12/07/23 mL oral liquid Allergies Allergy/AdvReac Type Severity Reaction Status Date / Time gabapentin AdvReac Intermediate sleepiness Verified 12/06/23 23:44 zolpidem AdvReac Intermediate inadequate Verified 11/17/23 20:58 response Review of Systems Review of Systems: Yes all other systems are reviewed and are negative FOR[facility]LY [facility] Past Medical History Medical History Shortness of breath On beta rayo at home Complex regional pain syndrome i of lower limb, bilateral Bilateral primary osteoarthritis of knee Gout Depression with anxiety SHARONDA (obstructive sleep apnea) Coarse tremors IDDM (insulin dependent diabetes mellitus) HTN (hypertension) Intractable neuropathic pain of right knee CAD (coronary artery disease) Erectile dysfunction Chronic back pain RLS (restless legs syndrome) GERD (gastroesophageal reflux disease) Kidney stones Arthritis Essential hypertension Hyperlipidemia LDL goal <70 Morbid obesity due to excess calories BMI 40.0-44.9, adult Type 2 diabetes mellitus with diabetic polyneuropathy Cardiac arrhythmia Diabetes mellitus, type 2 Surgical History History of arthroplasty of right knee Hx of left knee surgery Hx of lithotripsy H/O heart artery stent Family History Family History Mother Diabetes Sister Diabetes Social History Social History Household Members: Family Housing: Apartment Do you presently have visiting nurse or other home services: Yes Alcohol intake: never Patient Tobacco Use Status: Never used Tobacco e-Cigarette/Vaping Use: Never Used Second Hand Smoke Exposure: No Advance Directives: No Advance Directives Information Provided: No service: No Current occupational status: disabled Cognitive needs: Yes Hearing needs: No Vision needs: No Physical Exam Vital Signs: Vital Signs: Last Vital Signs Temp 99.1 F 12/06/23 23:40 Pulse 103 H 12/07/23 04:37 Resp 16 12/07/23 04:37 BP 126/95 H 12/07/23 04:37 Pulse Ox 97 12/07/23 04:37 O2 Del Method Room Air 12/07/23 04:37 BMI result Body Mass Index 39.7 Appearance: Alert. Oriented X3. No acute distress. Eyes: No pallor or icterus ENT: Pharynx normal. Oral Mucosa moist Neck: Normal inspection. Neck supple. CVS: Normal heart rate and rhythm. Pulses normal. Respiratory: No respiratory distress. Equal air entry bilateral, no wheezing/rales/rhonchi Abdomen: Soft and nontender. Bowel sounds are present, no mass palpable, no CVA tenderness Skin: Skin warm and dry. Normal skin color. Normal skin turgor. Extremities: No lower extremity edema. No calf tenderness Neuro: Oriented X 3. Medications Administered Discontinued Medications Generic Name Dose Route Start Last Admin Trade Name Freq PRN Reason Stop Dose Admin Guaifenesin/Codeine Phosphate 10 ml 12/07/23 02:42 12/07/23 03:21 Guaifen/Codeine Sf 200/20/10ml 10 Ml Liquid PO 12/07/23 02:43 10 ml ONCE ONE Administration Medical Decision Making Medical Decision Making [facility] Narrative: Patient with influenza a with cough with) bleeding on Brilinta likely the cause chest x-rays negative for infiltrate. Will discharge patient home on Tessalon to decrease the cough. Advised to follow with PCP if not better Independent Interpretation I performed an independent interpretation of an: Plain X-Ray Radiology Impression Discussion of test interpretation with radiology: I have reviewed the radiologist's reading. Discharge Plan Discharge Clinical Impression: Influenza A, Bronchitis Patient Disposition: Home, Self-Care Instructions: Influenza (ED), Acute Bronchitis (ED) Additional Instructions: Take cough syrup for cough as advised Your chest x-ray is negative for pneumonia Report to the ER if bleeding continues Prescriptions: New codeine-guaifenesin 10-100 mg/5 mL liquid 10 ml PO Q6H PRN (Reason: cough) Qty: 237 0RF benzonatate 200 mg capsule 200 mg PO TID PRN (Reason: cough) Qty: 30 0RF No Action atorvastatin 80 mg tablet 80 mg PO DAILY Qty: 90 1RF aspirin 81 mg tablet,delayed release (DR/EC) 81 mg PO DAILY Qty: 90 1RF Trulicity 1.5 mg/0.5 mL pen injector 1.5 mg subcut QWEEK 30 Days Qty: 2.5 3RF Brilinta 90 mg tablet 90 mg PO BID lisinopril 10 mg tablet 10 mg PO DAILY Hold Instructions: Resume on 11/21/23. on hold due to boderline bp. metoprolol tartrate 50 mg tablet 50 mg PO BID omeprazole 20 mg capsule,delayed release(DR/EC) 20 mg PO BID ropinirole 4 mg tablet 8 mg PO BID sertraline 25 mg tablet 25 mg DAILY levalbuterol HCl 1.25 mg/3 mL Solution For Nebulization 1.25 mg inhalation Q3H PRN (Reason: Shortness Of Breath/Wheezing) Qty: 1 0RF heparin(porcine) in 0.45% NaCl 25,000 unit/250 mL Parenteral Solution 25,000 unit continuous IV infusion .Q0M Qty: 1 0RF Rx Instructions: continue current rate heparin drip, moniter pt/ptt. oseltamivir [Tamiflu] 75 mg Capsule 75 mg PO Q12H Qty: 7 0RF guaifenesin 100 mg/5 mL Liquid 100 mg PO Q4H PRN (Reason: Cough) Qty: 1 0RF (DME) lancets [FreeStyle Lancets] 28 gauge misc See Rx Instructions .ROUTE .MEDSUPPLY Qty: 100 Rx Instructions: As directed (DME) FreeStyle Lite Strips Strip See Rx Instructions .ROUTE .MEDSUPPLY Qty: 10 Rx Instructions: As directed three times daily (DME) FreeStyle Precision Sanket Strips Strip See Rx Instructions .ROUTE .MEDSUPPLY Qty: 50 11RF Rx Instructions: As directed twice a day Print Language: Icelandic
[2023-12-07] MEDS: guaiFEN/Codeine SF 200/20/10ML 10 ML LIQUID PO (03:21)
[2023-12-07 04:37] VITALS: BP 126/95; PULSE 103; RESP 16; O2SAT 97
[2023-12-07 07:15] VITALS: BP 126/95; PULSE 103; RESP 16; TEMP -17.7; TEMP 0; O2SAT 97
== END 2023-12-07 04:30 | disposition home or self-care (01) ==
PROVIDERS: Emergency Provider Internal Medicine; PCP Internal Medicine
DX: J10.1 Influenza due to other identified influenza virus with other respiratory manifestations (principal); J40 Bronchitis, not specified as acute or chronic; R04.2 Hemoptysis
CPT/HCPCS: 71045; 99283

== ENCOUNTER 2023-12-09 09:55 | Outpatient (AMB) | payer MEDICARE, MEDICAID, SELFPAY ==
--- NOTE | 2023-12-09 10:01 | MHC.PC.OV ---
Vital Signs 12/09/23 10:04 Height 5 ft 3 in Weight 227 lb BMI 40.2 BP 112/80 Blood Pressure Location Lt brachial Position Sitting Intake Visit Reasons: Annual exam Intake Note: Patient here for an annual physical exam Tour Conductor Required: No Accompanied by: Self / Same As Patient Allergies gabapentin Adverse Reaction (Intermediate, Verified 12/09/23 10:19) sleepiness zolpidem Adverse Reaction (Intermediate, Verified 12/09/23 10:19) inadequate response Medication List - Last Reconciled 12/09/23 by Peggy Brown MD aspirin 81 mg PO DAILY atorvastatin 80 mg PO DAILY blood sugar diagnostic (FreeStyle Lite Strips) As directed three times daily blood sugar diagnostic (FreeStyle Precision Sanket Strips) As directed twice a day dulaglutide (Trulicity) 1.5 mg (0.5 mL) subcut QWEEK 30 days lancets (FreeStyle Lancets) As directed levalbuterol HCl 1.25 mg (3 mL) inhalation Q3H PRN lisinopril 10 mg PO DAILY metformin 1,000 mg PO BID metoprolol tartrate 50 mg PO BID omeprazole 20 mg PO BID ropinirole 8 mg PO BID sertraline 25 mg DAILY ticagrelor (Brilinta) 90 mg PO BID Tobacco use date assessed: 12/09/23 Dental Screening Dental Screen Date: 12/09/23 Did you have a dental visit in the last 12 months?: No Did you have a dental problem in the last 6 months where you did not have access to dental care?: No Was dental information given to patient?: Patient has dentist HPI HPI Comments History of Present Illness Details This is a 53-year-old male with morbid obesity and diabetes mellitus type 2 that comes for his physical exam. Was advised to diet and exercise for his weight. A1c not on goal and I will start him on insulin. Diabetic eye exam was less than a year ago. Colonoscopy is on hold due to Brilinta. Denies any chest pain or shortness of breath. [facility] Medical History (Updated 12/09/23 @ 12:19 by Peggy Brown MD) Shortness of breath On beta rayo at home Complex regional pain syndrome i of lower limb, bilateral Bilateral primary osteoarthritis of knee Gout Depression with anxiety SHARONDA (obstructive sleep apnea) Coarse tremors IDDM (insulin dependent diabetes mellitus) HTN (hypertension) Intractable neuropathic pain of right knee CAD (coronary artery disease) Erectile dysfunction Chronic back pain RLS (restless legs syndrome) GERD (gastroesophageal reflux disease) Kidney stones Arthritis Essential hypertension Hyperlipidemia LDL goal <70 Morbid obesity due to excess calories BMI 40.0-44.9, adult Type 2 diabetes mellitus with diabetic polyneuropathy Cardiac arrhythmia Diabetes mellitus, type 2 Surgical History (Updated 12/09/23 @ 10:24 by Peggy Brown MD) History of arthroplasty of right knee Hx of lithotripsy H/O heart artery stent Family History (Updated 12/09/23 @ 10:24 by Peggy Brown MD) Mother Diabetes Sister Diabetes CAD (coronary artery disease) Social History Household Members: Family Housing: Apartment Do you presently have visiting nurse or other home services: Yes Alcohol intake: never Patient Tobacco Use Status: Never used Tobacco e-Cigarette/Vaping Use: Never Used Second Hand Smoke Exposure: No service: No Current occupational status: disabled Cognitive needs: Yes Hearing needs: No Vision needs: No Questionnaire PHQ-9 Over the last 2 weeks, how often have you been bothered by any of the following problems? 1. Little interest or pleasure in doing things: not at all 2. Feeling down, depressed, or hopeless: not at all 3. Trouble falling or staying asleep, or sleeping too much: not at all 4. Feeling tired or having little energy: not at all 5. Poor appetite or overeating: not at all 6. Feeling bad about yourself - or that you are a failure or have let yourself or your family down: not at all 7. Trouble concentrating on things, such as reading the newspaper or watching television: not at all 8. Moving or speaking so slowly that other people could have noticed. Or the opposite - being so fidgety or restless that you have been moving around a lot more than usual: not at all 9. Thoughts that you would be better off or of hurting yourself in some way: not at all Total score: 0 Depression Screening Interpretation: Negative Depression Screening Done: Yes 63607 - PHQ-9 Billing: Yes Source: Developed by Drs. Cipriano Durand, Klaudia BManinder Lugo and colleagues, with an educational krishna from [employer]. Thrive Questionnaire Date Thrive assessed: 12/09/23 I am a: Patient What is your living situation today?: I have a steady place to live Within the past 12 months, did the food you bought not last and you didn't have the money to get more?: Never true Within the past 12 months, did you worry whether your food would run out before you got money to buy more?: Never true Do you have trouble paying for medicines?: No Do you have trouble getting transportation to medical appointments?: No Do you have trouble paying your heating and electricity bill?: No Do you have trouble taking care of your child, family member or friend?: No Do you have trouble with day-to-day activities such as bathing, preparing meals, shopping, managing finances, etc.?: No Are you currently unemployed and looking for a job?: No Are you interested in more education?: No Please select the resources that you would like help with: None Currently or been in a relationship where the following occur: no concerns reported THRIVE Score: 0 AUDIT C Alcohol Use Questionnaire (AUDIT-C) 1. How often do you have a drink containing alcohol?: Never Total Score: 0 MORRO-7 AMB Questionnaire MORRO-7 Date MORRO - 7 assessed: 12/09/23 Feeling nervous, anxious, or on edge: 0 = Not at all Not being able to stop or control worryin = Not at all Worrying too much about different things: 0 = Not at all Trouble relaxin = Not at all Being so restless that it is hard to sit still: 0 = Not at all Becoming easily annoyed or irritable: 0 = Not at all Feeling afraid as if something awful might happen: 0 = Not at all Total MORRO-7 score (0-4 normal; 5-9 mild; 10-14 moderate; 15-21 severe): 0 Source: Developed by Drs. Cipriano Durand, Maninder Gonzalez and colleagues, with an educational krishna from [employer]. MORRO-7 Assessment Billing MORRO-7 Assessment Tool: MORRO-7 Assessment 79922 Review of Systems Const All systems reviewed & are unremarkable except as noted in HPI and below Eyes Reports no additional complaints, Denies change in vision and Denies other visual disturbances Card Denies chest pain at rest, Denies chest pain with activity, Denies edema, Denies irregular heart rhythm, Denies claudication, Denies dyspnea, Denies dyspnea on exertion, Denies orthopnea, Denies paroxysmal nocturnal dyspnea and Denies slow heart rate Resp Denies cough, Denies dyspnea and Denies dyspnea on exertion GI Denies abdominal pain, Denies change in bowel habits, Denies excessive flatus, Denies nausea and Denies vomiting Denies urinary hesitancy, Denies urinary incontinence and Denies urinary urgency Physical exam (Primary Care) Vital Signs: Last Vital Signs BP 112/80 12/09/23 10:04 BMI result Body Mass Index 40.2 Tobacco/Smoking Status: Tobacco use Status Tobacco use date assessed 12/09/23 12/09/23 10:12 Patient Tobacco Use Status Never used Tobacco 12/09/23 10:12 e-Cigarette/Vaping Use Never Used 12/09/23 10:12 PHQ-9: PHQ-9 Score PHQ-9: Total score 0 12/09/23 10:25 Depression Screening Interpretation: Negative Thrive Assessment: Date of Thrive Assessment Date Thrive assessed 12/09/23 12/09/23 10:12 Currently or been in a relationship where the following occur: no concerns reported Const Orientation/consciousness: patient oriented x3 [facility] Head: Yes normal to inspection, Yes normocephalic and Yes atraumatic Ears: external ears normal Eyes General: appearance normal, both eyes and all related structures Eyelids: Yes eyelids normal Conjunctivae: conjunctivae normal Neck Neck: Yes normal visual inspection and Yes supple Resp Effort & Inspection: normal respiratory effort Auscultation: clear to auscultation bilaterally Cardio Jugular venous distension: no JVD Rate: regular rate Rhythm: regular rhythm Heart sounds: Murmur heart sound present systolic GI Inspection: Yes normal to inspection Palpation (GI): Soft to palpation and nontender Auscultation: normal bowel sounds Skin General skin exam: no rashes or lesions noted Neuro General: patient oriented x3 and no focal motor deficits Extrem General: Yes full ROM Psych Appearance: grossly normal Results AMB Hemoglobin A1c AMB Hemoglobin A1c 12.7 % Last Edit by ODALYS Giron on 12/09/23 10:16 Results Reviewed Results Reviewed: Laboratory Last Values Hgb A1c (Clinic) 12.7 % (4.0-6.0) H 12/09/23 10:01 Assessment and Plan Assessment & Plan (1) Physical exam: Code(s): Z00.00 - Encounter for general adult medical examination without abnormal findings Plan: Repeat in a year. (2) Diabetes: Code(s): E11.9 - Type 2 diabetes mellitus without complications Qualifiers: Diabetes mellitus type: type 2 Diabetes mellitus senior care insulin use: with termite control representative use Diabetes mellitus complication status: with hyperglycemia Qualified Code(s): E11.65 - Type 2 diabetes mellitus with hyperglycemia; Z79.4 - custodial (current) use of insulin Plan: Continue metformin. Discontinue Trulicity. Start Ozempic. Start insulin. A1c goal is equal or less than 7%. (3) Morbid obesity with BMI of 40.0-44.9, adult: Code(s): E66.01 - Morbid (severe) obesity due to excess calories; Z68.41 - Body mass index [BMI] 40.0-44.9, adult Plan: Start diet and exercise. BMI goal is less than 30. Orders: Orders AMB Hemoglobin A1c Today E11.42 - Type 2 diabetes mellitus with diabetic polyneuropathy IRON PROFILE Today D64.9 - Anemia, unspecified Vitamin B12 and Folate Today E53.8 - Deficiency of other specified B group vitamins Lipid Panel Today E78.5 - Hyperlipidemia, unspecified Microalbumin, Random (w Creat) Today E11.9 - Type 2 diabetes mellitus without complications Complete Blood Count Auto Diff Today D64.9 - Anemia, unspecified Vitamin D 25-OH Total Today E55.9 - Vitamin D deficiency, unspecified Comprehensive [place]. Panel Fast Today E11.9 - Type 2 diabetes mellitus without complications Medications: New insulin glargine (Lantus Solostar U-100 Insulin) 10 units (0.1 mL) subcut QPM 9 mL 3RF 90 days E11.9 - Type 2 diabetes mellitus without complications pen needle, diabetic (1st Tier Unifine Pentips) Use 1 pen needle once a day 100 ea 3RF E11.9 - Type 2 diabetes mellitus without complications semaglutide (Ozempic) for 4 weeks 0.25 mg (0.368 mL) subcut QWEEK 1.84 mL 0RF 30 days E11.9 - Type 2 diabetes mellitus without complications Discontinued dulaglutide (Trulicity) Discontinued Reason: Patient Completed Course 1.5 mg (0.5 mL) subcut QWEEK 30 days 2.5 mL 3RF Coding Level of Care Code Est Pt Level 4 (63125) Diagnoses Physical exam Z00.00 Type 2 diabetes mellitus with hyperglycemia, with long-term current use of insulin E11.65; Z79.4 Diabetes mellitus type: type 2 Diabetes mellitus senior care insulin use: with termite control representative use Diabetes mellitus complication status: with hyperglycemia Morbid obesity with BMI of 40.0-44.9, adult E66.01; Z68.41 Additional Codes MORRO-7 Assessment Billing - MORRO-7 Assessment Tool: MORRO-7 Assessment 19571 ([id number]) Time Spent (min) 34
[2023-12-09 10:04] VITALS: BP 112/80; BMI 40.2
== END 2023-12-09 10:35 | disposition home or self-care (01) ==
PROVIDERS: Visit Provider Internal Medicine
DX: E11.65 Type 2 diabetes mellitus with hyperglycemia (principal); E66.01 Morbid (severe) obesity due to excess calories; Z68.41 Body mass index [BMI] 40.0-44.9, adult; Z79.4 Long term (current) use of insulin; E11.42 Type 2 diabetes mellitus with diabetic polyneuropathy
CPT/HCPCS: 83036; 99214

== ENCOUNTER 2023-12-14 03:02 | Emergency (ER) | payer MEDICARE, MEDICAID, SELFPAY ==
[2023-12-14 03:15] VITALS: BP 145/83; PULSE 87; RESP 16; TEMP 37.1; O2SAT 98; BMI 41.5
[2023-12-14 03:39] LABS: MANUAL DIFF FLAG NO
[2023-12-14 03:40] LABS: Basophils Percent Auto 0.4 % (0-2); Eosinophils Absolute Auto 0.5 X10*3/uL (0.0-0.4); Hematocrit 37.1 % (42.0-52.0); Hemoglobin 13.1 g/dl (14.0-18.0); Imm Gran Abs Auto 0.06 X10*3/uL (0.00-0.03); Imm Gran Pct Auto 0.6 % (0.0-0.4); Lymphocytes Absolute Auto 2.8 X10*3/uL (1.2-4.9); Mean Corpuscular HGB Conc 35.3 g/dl (31.0-36.0); Mean Corpuscular Volume 82.1 fL (80.0-98.0); Mean Platelet Volume 10.2 fL (9.4-12.4); Monocytes Percent Auto 8.9 % (2-11); Neutrophils Absolute Auto 6.3 x10*3/uL (2.0-8.3); Neutrophils Percent Auto 59.1 % (45-73); Platelet Count 310 X10*3/uL (160-400); Red Blood Count 4.52 X10*6/uL (4.60-5.80); Red Cell Distribution Width 12.9 % (11.0-16.0); White Blood Count 10.7 X10*3/uL (4.8-10.8)
[2023-12-14 04:00] LABS: Alanine Aminotransferase 24 U/L (0-40); Alkaline Phosphatase 101 U/L (39-117); Anion Gap 15 (12-20); Aspartate Amino Transferase 17 U/L (5-37); Bilirubin Total 0.4 mg/dL (0.0-1.0); Blood Urea Nitrogen 11 mg/dL (9-16); Calcium 9.2 mg/dL (8.4-10.2); Carbon Dioxide 25 mmol/L (22-29); Chloride 96 mmol/L (96-108); Creatinine Clr Calc Pharmacy 99.2; Estimated Glomerular Filt Rate > 60; Glucose Random 389 mg/dL (60-115); Potassium 3.8 mmol/L (3.3-5.1); Sodium 132 mmol/L (135-145); Total Protein 7.4 g/dL (6.5-8.0)
== END 2023-12-14 07:36 | disposition left against medical advice (07) ==
PROVIDERS: Emergency Provider Emergency Medicine; PCP Internal Medicine
DX: R22.1 Localized swelling, mass and lump, neck (principal)
CPT/HCPCS: 36415; 80053; 85025; 99281; 99283

== ENCOUNTER → 2024-04-06 23:59 | Outpatient (BNV) | payer MEDICARE, MEDICAID, SELFPAY | PROVIDERS: PCP Internal Medicine; Visit Provider Internal Medicine | DX: E11.69 Type 2 diabetes mellitus with other specified complication (principal); I10 Essential (primary) hypertension; I25.110 Atherosclerotic heart disease of native coronary artery with unstable angina pectoris | CPT/HCPCS: G0179 ==

== ENCOUNTER 2024-06-11 21:00 | Emergency (ER) | payer MEDICARE, MEDICAID, SELFPAY ==
--- NOTE | 2024-06-11 | ECG_ITS ---
Test Reason : CHEST PAIN Blood Pressure : / mmHG Vent. Rate : 122 BPM Atrial Rate : 122 BPM P-R Int : 144 ms QRS Dur : 074 ms QT Int : 320 ms P-R-T Axes : 036 000 030 degrees QTc Int : 456 ms Sinus tachycardia Otherwise normal ECG When compared with ECG of 17-NOV-2023 21:53, No significant change was found Referred By: Generic ED Physician Electronically Signed By:MONAE SANCHEZ MD
--- NOTE | 2024-06-11 | ECG_ITS ---
Test Reason : CHEST PAIN Blood Pressure : / mmHG Vent. Rate : 116 BPM Atrial Rate : 116 BPM P-R Int : 146 ms QRS Dur : 074 ms QT Int : 322 ms P-R-T Axes : 046 012 040 degrees QTc Int : 447 ms Sinus tachycardia Otherwise normal ECG When compared with ECG of 11-JUN-2024 21:02, No significant change was found Referred By: Jose Alejandro Harris Electronically Signed By:MONAE SANCHEZ MD
--- NOTE | ~2024-06-11 | XR_ITS ---
EXAMINATION: XR CHEST CLINICAL INFORMATION: Chest pain and cough. COMPARISON: Chest radiograph dated December 07, 2023. TECHNIQUE: 2 views of the chest were obtained. FINDINGS: The heart is normal in size. The lungs are clear. No pleural effusion. No pneumothorax. No acute osseous abnormality. XR/XR chest 2V IMPRESSION: No acute cardiopulmonary disease. Electronically signed by: Elliott Minor DO 06/12/2024 12:11 AM EDT
[2024-06-11 21:13] VITALS: BP 125/78; PULSE 121; RESP 22; TEMP 37; O2SAT 96; BMI 40.7
[2024-06-11 21:23] LABS: MANUAL DIFF FLAG NO
[2024-06-11 21:38] LABS: Basophils Percent Auto 0.4 % (0-2); Eosinophils Absolute Auto 0.6 X10*3/uL (0.0-0.4); Eosinophils Percent Auto 7.2 % (0-4); Hematocrit 35.4 % (42.0-52.0); Hemoglobin 12.3 g/dl (14.0-18.0); Imm Gran Abs Auto 0.04 X10*3/uL (0.00-0.03); Imm Gran Pct Auto 0.5 % (0.0-0.4); Lymphocytes Absolute Auto 2.1 X10*3/uL (1.2-4.9); Lymphocytes Percent Auto 26.5 % (20-40); Mean Corpuscular HGB Conc 34.7 g/dl (31.0-36.0); Mean Corpuscular Hemoglobin 29.6 pg (27.0-33.0); Mean Corpuscular Volume 85.3 fL (80.0-98.0); Mean Platelet Volume 10.5 fL (9.4-12.4); Monocytes Absolute Auto 0.8 X10*3/uL (0.1-1.2); Monocytes Percent Auto 10.1 % (2-11); Neutrophils Absolute Auto 4.4 x10*3/uL (2.0-8.3); Neutrophils Percent Auto 55.3 % (45-73); Platelet Count 301 X10*3/uL (160-400); Red Blood Count 4.15 X10*6/uL (4.60-5.80); Red Cell Distribution Width 14.5 % (11.0-16.0)
[2024-06-11 21:39] LABS: Alanine Aminotransferase 18 U/L (0-40); Alkaline Phosphatase 88 U/L (39-117); Anion Gap 13 (12-20); Aspartate Amino Transferase 16 U/L (5-37); Bilirubin Total 0.4 mg/dL (0.0-1.0); Blood Urea Nitrogen 13 mg/dL (9-16); Calcium 8.9 mg/dL (8.4-10.2); Carbon Dioxide 23 mmol/L (22-29); Chloride 107 mmol/L (96-108); Creatinine Clr Calc Pharmacy 92.5; Estimated Glomerular Filt Rate > 60; Glucose Random 189 mg/dL (60-115); Potassium 3.9 mmol/L (3.3-5.1); Sodium 139 mmol/L (135-145)
[2024-06-11 21:47] LABS: Troponin-I High Sensitivity < 2.7 ng/L (<3.5-35.0)
[2024-06-11 22:01] VITALS: BP 127/76; PULSE 116; RESP 18; TEMP 36.8; O2SAT 96
[2024-06-11 22:08] LABS: Influenza A PCR NEGATIVE (Negative); Influenza B PCR NEGATIVE (Negative); Resp Syncy Virus RNA Qual PCR NEGATIVE (Negative); SARS COV2 PCR INHOUSE NEGATIVE (Negative)
--- NOTE | 2024-06-11 22:35 | ED_ITS ---
HPI - Chest Pain General Chief Complaint: Chest Pain Stated Complaint: chest pain Time Seen by Provider: 06/11/24 22:26 Source: patient Mode of arrival: ambulatory Limitations: no limitations History of Present Illness ED Provider: zane STRICKLAND narrative: Patient with history of diabetes, aortic stenosis aortic area 1.06 cm2 history of coronary artery disease status post LAD stent comes here for chest pain for last 6 hours with cough and shortness a breath patient has had a cardiac catheterization in 11/22 which showed patent stent comes here for about 1 week of chest pain bilateral shoulder pain increases on movements also feel short of breath patient is on aspirin and Brilinta patient had cardiac enzymes done prior to my evaluation which were normal EKG showed tachycardia without any ischemic changes patient does use cocaine last use was 5 days ago Related Data Home Medications ?Medication ?Instructions ?Recorded ?Confirmed lancets 28 gauge (FreeStyle #100 ea 06/20/20 12/09/23 Lancets) blood sugar diagnostic (FreeStyle #10 ea 05/21/21 12/09/23 Lite Strips) lisinopril 10 mg tablet 10 mg PO DAILY 11/18/23 12/09/23 omeprazole 20 mg capsule,delayed 20 mg PO BID 11/18/23 12/09/23 release ropinirole 4 mg tablet 8 mg PO BID 11/18/23 12/09/23 sertraline 25 mg tablet 25 mg DAILY 11/18/23 12/09/23 ticagrelor 90 mg tablet (Brilinta) 90 mg PO BID 11/18/23 12/09/23 metformin 500 mg tablet 1,000 mg PO BID 12/09/23 12/09/23 Previous Rx's ?Medication ?Instructions ?Recorded blood sugar diagnostic (FreeStyle #50 ea 12/20/21 Precision Sanket Strips) aspirin 81 mg tablet,delayed 81 mg PO DAILY #90 tabs 11/04/23 release levalbuterol HCl 1.25 mg/3 mL 1.25 mg (3 mL) inhalation Q3H PRN 11/19/23 solution for nebulization Shortness Of Breath/Wheezing #1 mL pen needle, diabetic 32 gauge x #100 ea 12/09/23 (1st Tier Unifine Pentips) atorvastatin 80 mg tablet 80 mg PO DAILY #90 tabs 03/05/24 insulin glargine 100 unit/mL (3 10 unit (0.1 mL) subcut QPM 90 03/09/24 mL) subcutaneous pen (Lantus days #9 mL Solostar U-100 Insulin) semaglutide 0.25 mg or 0.5 mg (2 0.25 mg (0.368 mL) subcut QWEEK 30 05/20/24 mg/3 mL) subcutaneous pen injector days #1.84 mL (Ozempic) metoprolol tartrate 50 mg tablet 50 mg PO BID #180 tabs 05/27/24 Allergies Allergy/AdvReac Type Severity Reaction Status Date / Time gabapentin AdvReac Intermediate sleepiness Verified 06/11/24 21:17 zolpidem AdvReac Intermediate inadequate Verified 06/11/24 21:17 response Review of Systems 2 Review of Systems: Yes all other systems are reviewed and are negative [facility] Past Medical History Medical History Myocarditis Essential hypertension Non-rheumatic aortic stenosis Shortness of breath On beta rayo at home Complex regional pain syndrome i of lower limb, bilateral Bilateral primary osteoarthritis of knee Gout Depression with anxiety SHARONDA (obstructive sleep apnea) Coarse tremors IDDM (insulin dependent diabetes mellitus) HTN (hypertension) Intractable neuropathic pain of right knee CAD (coronary artery disease) Erectile dysfunction Chronic back pain RLS (restless legs syndrome) GERD (gastroesophageal reflux disease) Kidney stones Arthritis Essential hypertension Hyperlipidemia LDL goal <70 Morbid obesity due to excess calories BMI 40.0-44.9, adult Type 2 diabetes mellitus with diabetic polyneuropathy Cardiac arrhythmia Diabetes mellitus, type 2 Surgical History History of arthroplasty of right knee Hx of lithotripsy H/O heart artery stent Family History Family History Mother Diabetes Sister Diabetes CAD (coronary artery disease) Social History Social History Household Members: Family Housing: Apartment Do you presently have visiting nurse or other home services: Yes Alcohol intake: never Patient Tobacco Use Status: Never used Tobacco Smoked in Last 30 Days: No e-Cigarette/Vaping Use: Never Used Second Hand Smoke Exposure: No Use of substances other than those prescribed or required for medical reasons: No Advance Directives: No Advance Directives Information Provided: No service: No Current occupational status: disabled Cognitive needs: Yes Hearing needs: No Vision needs: No Physical Exam 2 Vital Signs: Vital Signs: Last Vital Signs Temp 98.9 F 06/12/24 02:25 Pulse 100 06/12/24 02:25 Resp 13 06/12/24 02:25 BP 122/67 06/12/24 02:25 Pulse Ox 97 06/12/24 02:25 O2 Del Method Room Air 06/12/24 02:25 O2 Flow Rate 2 06/11/24 23:46 BMI result Body Mass Index 40.7 Appearance: Alert. Oriented X3. No acute distress. Eyes: PERRLA, No Nystagmus ENT: Pharynx normal. Oral Mucosa moist Neck: Normal inspection. Neck supple. CVS: Regular tachycardic heart rate Pulses normal. Systolic murmur at the base Respiratory: No respiratory distress. Equal air entry bilateral, no wheezing/rales/rhonchi Abdomen: Soft and nontender. Bowel sounds are present, no mass palpable, no CVA tenderness Skin: Skin warm and dry. Normal skin color. Normal skin turgor. Extremities: No lower extremity edema. No calf tenderness bilateral tenderness of the shoulder increases on movements the arm Neuro: Oriented X 3. No motor deficit. Medications Administered Discontinued Medications Generic Name Dose Route Start Last Admin Trade Name Ilirq PRN Reason Stop Dose Admin Morphine Sulfate 4 mg 06/11/24 22:58 06/11/24 23:19 Morphine Sulfate 4 Mg/Ml Cartridge IVPUSH 06/11/24 22:59 4 mg ONCE ONE Administration Protocol Nitroglycerin 0.5 inch 06/11/24 22:58 06/11/24 23:16 Nitroglycerin 2 % Oint 1 Gm Packet TRANSDERMA 06/11/24 22:59 0.5 inch ONCE ONE Administration Ondansetron HCl 4 mg 06/11/24 22:58 06/11/24 23:19 Ondansetron Hcl 4 Mg/2 Ml Vial IVPUSH 06/11/24 22:59 4 mg ONCE ONE Administration Medical Decision Making Medical Decision Making [facility] Narrative: Patient has significant coronary disease status post stent comes with a chest pain for last 1 week 3 sets of cardiac enzymes negative for delta change EKG without any ischemic changes will discharge patient home advised to follow up with telehealth coordinator patient does take Brilinta and aspirin Differential Diagnosis Differential Diagnoses: The differential diagnosis associated with the presentation includes Lab Data MDM Lab Attestation statement: I reviewed the patient's lab results. 06/11/24 21:13 06/11/24 21:13 Labs: Lab Results 06/11/24 06/11/24 06/11/24 Range/Units 21:13 21:23 23:33 WBC 8.0 (4.8-10.8) X10*3/uL RBC 4.15 L (4.60-5.80) X10*6/uL Hgb 12.3 L (14.0-18.0) g/dl Hct 35.4 L (42.0-52.0) % MCV 85.3 (80.0-98.0) fL MCH 29.6 (27.0-33.0) pg MCHC 34.7 (31.0-36.0) g/dl RDW 14.5 (11.0-16.0) % Plt Count 301 (160-400) X10*3/uL MPV 10.5 (9.4-12.4) fL Immature Gran % (Auto) 0.5 H (0.0-0.4) % Neut % (Auto) 55.3 (45-73) % Lymph % (Auto) 26.5 (20-40) % [place] % (Auto) 10.1 (2-11) % Eos % (Auto) 7.2 H (0-4) % Baso % (Auto) 0.4 (0-2) % Lymph # (Auto) 2.1 (1.2-4.9) X10*3/uL [place] # (Auto) 0.8 (0.1-1.2) X10*3/uL Eos # (Auto) 0.6 H (0.0-0.4) X10*3/uL Baso # (Auto) 0.0 (0.0-0.2) X10*3/uL Abs Immat Gran (auto) 0.04 H (0.00-0.03) X10*3/uL Absolute Neuts (auto) 4.4 (2.0-8.3) x10*3/uL Absolute Nucleated RBC 0.000 (0.0-0.012) X10*3/uL Nucleated RBC % (auto) 0.0 (0.0-0.2) /100WBC Sodium 139 (135-145) mmol/L Potassium 3.9 (3.3-5.1) mmol/L Chloride 107 (96-108) mmol/L Carbon Dioxide 23 (22-29) mmol/L Anion Gap 13 (12-20) BUN 13 (9-16) mg/dL Creatinine 0.99 (0.5-1.4) mg/dL Estim Creat Clear Calc 92.5 Estimated GFR > 60 Random Glucose 189 H (60-115) mg/dL Calcium 8.9 (8.4-10.2) mg/dL Total Bilirubin 0.4 (0.0-1.0) mg/dL AST 16 (5-37) U/L ALT 18 (0-40) U/L Alkaline Phosphatase 88 (39-117) U/L Troponin I High Sens < 2.7 D 4.2 D (<3.5-35.0) ng/L Total Protein 7.0 (6.5-8.0) g/dL Albumin 4.0 (3.5-5.0) g/dL Influenza Type A (PCR) NEGATIVE (Negative) Influenza Type B (PCR) NEGATIVE (Negative) RSV RNA Qual (PCR) NEGATIVE (Negative) SARS-CoV-2 RNA (RT-PCR) NEGATIVE (Negative) 06/12/24 Range/Units 02:01 WBC (4.8-10.8) X10*3/uL RBC (4.60-5.80) X10*6/uL Hgb (14.0-18.0) g/dl Hct (42.0-52.0) % MCV (80.0-98.0) fL MCH (27.0-33.0) pg MCHC (31.0-36.0) g/dl RDW (11.0-16.0) % Plt Count (160-400) X10*3/uL MPV (9.4-12.4) fL Immature Gran % (Auto) (0.0-0.4) % Neut % (Auto) (45-73) % Lymph % (Auto) (20-40) % [place] % (Auto) (2-11) % Eos % (Auto) (0-4) % Baso % (Auto) (0-2) % Lymph # (Auto) (1.2-4.9) X10*3/uL [place] # (Auto) (0.1-1.2) X10*3/uL Eos # (Auto) (0.0-0.4) X10*3/uL Baso # (Auto) (0.0-0.2) X10*3/uL Abs Immat Gran (auto) (0.00-0.03) X10*3/uL Absolute Neuts (auto) (2.0-8.3) x10*3/uL Absolute Nucleated RBC (0.0-0.012) X10*3/uL Nucleated RBC % (auto) (0.0-0.2) /100WBC Sodium (135-145) mmol/L Potassium (3.3-5.1) mmol/L Chloride (96-108) mmol/L Carbon Dioxide (22-29) mmol/L Anion Gap (12-20) BUN (9-16) mg/dL Creatinine (0.5-1.4) mg/dL Estim Creat Clear Calc Estimated GFR Random Glucose (60-115) mg/dL Calcium (8.4-10.2) mg/dL Total Bilirubin (0.0-1.0) mg/dL AST (5-37) U/L ALT (0-40) U/L Alkaline Phosphatase (39-117) U/L Troponin I High Sens 4.1 (<3.5-35.0) ng/L Total Protein (6.5-8.0) g/dL Albumin (3.5-5.0) g/dL Influenza Type A (PCR) (Negative) Influenza Type B (PCR) (Negative) RSV RNA Qual (PCR) (Negative) SARS-CoV-2 RNA (RT-PCR) (Negative) Independent Interpretation I performed an independent interpretation of an: EKG Interpretation: Sinus tachycardia heart rate 116 beats per minute normal interval normal axis no acute ST-T changes no acute ischemia Discharge Plan Discharge Clinical Impression: Chest pain Patient Disposition: Home, Self-Care Instructions: Chest Pain (ED) Additional Instructions: Continue medications as prescribed by a telehealth coordinator and follow up with them At this time there is no evidence of cardiac damage Do not use cocaine Prescriptions: No Action aspirin 81 mg tablet,delayed release (/EC) 81 mg PO DAILY Qty: 90 1RF atorvastatin 80 mg tablet 80 mg PO DAILY Qty: 90 1RF insulin glargine [Lantus Solostar U-100 Insulin] 100 unit/mL (3 mL) insulin pen 10 unit subcut QPM 90 Days Qty: 9 3RF Ozempic 0.25 mg or 0.5 mg (2 mg/3 mL) pen injector 0.25 mg subcut QWEEK 30 Days Qty: 1.84 1RF Rx Instructions: for 4 weeks metoprolol tartrate 50 mg tablet 50 mg PO BID Qty: 180 1RF Brilinta 90 mg tablet 90 mg PO BID lisinopril 10 mg tablet 10 mg PO DAILY omeprazole 20 mg capsule,delayed release(DR/EC) 20 mg PO BID ropinirole 4 mg tablet 8 mg PO BID sertraline 25 mg tablet 25 mg DAILY levalbuterol HCl 1.25 mg/3 mL Solution For Nebulization 1.25 mg inhalation Q3H PRN (Reason: Shortness Of Breath/Wheezing) Qty: 1 0RF metformin 500 mg tablet 1,000 mg PO BID (DME) pen needle, diabetic [1st Tier Unifine Pentips] 32 gauge x 5/32 needle See Rx Instructions .Route Qty: 100 3RF Rx Instructions: Use 1 pen needle once a day (DME) lancets [FreeStyle Lancets] 28 gauge misc See Rx Instructions .ROUTE .MEDSUPPLY Qty: 100 Rx Instructions: As directed (DME) FreeStyle Lite Strips Strip See Rx Instructions .ROUTE .MEDSUPPLY Qty: 10 Rx Instructions: As directed three times daily (DME) FreeStyle Precision Sanket Strips Strip See Rx Instructions .ROUTE .MEDSUPPLY Qty: 50 11RF Rx Instructions: As directed twice a day Print Language: [place]an
[2024-06-11 22:42] VITALS: BP 122/82; PULSE 114; RESP 19; O2SAT 98
--- NOTE | 2024-06-11 22:59 | PC.NURSE ---
pt had a second of being 74% on RA with good pleath on monitor, PCT and this RN entered room pt is axox4 speakin full clear sentences. sats up to 98% on own, lung sounds cta. IV established. repeat ekg obtained. Dr. Harris made aware and to bedside.
[2024-06-11 23:16] VITALS: BP 129/79; PULSE 112
[2024-06-11] MEDS: Nitroglycerin 2 % Oint 1 GM Packet 0.5 INCH TRANSDERMA (23:16)
[2024-06-11] MEDS: ondansetron HCL 4 MG/2 ML VIAL IVPUSH (23:19)
[2024-06-11] MEDS: Morphine Sulfate 4 MG/ML CARTRIDGE IVPUSH (23:19)
[2024-06-11 23:35] VITALS: BP 131/78; PULSE 105; RESP 15; O2SAT 96
[2024-06-11 23:46] VITALS: O2SAT 84; O2SAT 98
--- NOTE | 2024-06-11 23:46 | PC.NURSE ---
pt placed on 2L NC. arousable to name. aware.
[2024-06-11 23:56] LABS: Troponin-I High Sensitivity 4.2 ng/L (<3.5-35.0)
--- NOTE | 2024-06-12 02:08 | PC.NURSE ---
pt appears more comfortable. cp 10/11. skin wpd. pt reports he feels he is able to rest better with o2 on. pt states he has sleep apnea does not use cpap as it gives him anxiety. vss. awaiting 3rd repeat troponin.
[2024-06-12 02:25] VITALS: BP 122/67; PULSE 100; RESP 13; TEMP 37.2; O2SAT 97
[2024-06-12 02:26] LABS: Troponin-I High Sensitivity 4.1 ng/L (<3.5-35.0)
[2024-06-12 03:54] LABS: Amphetamine Screen Urine Not Detected (Not Detect); Barbiturates, Urine Not Detected (Not Detect); Benzodiazepines Screen Urine Not Detected (Not Detect); Buprenorphine Scr Not Detected (Not Detect); Cannabinoid Screen Urine Not Detected (Not Detect); Cocaine Screen Urine POSITIVE (Not Detect); Fentanyl, urine Not Detected (Not Detect); Methadone Screen, Urine Not Detected (Not Detect); Opiate Screen Urine POSITIVE (Not Detect); Oxycodone Screen Urine Not Detected (Not Detect); Phencyclidine Screen Urine Not Detected (Not Detect)
[2024-06-12 04:18] VITALS: BP 114/68; PULSE 99; RESP 15; TEMP 37.2; O2SAT 96
== END 2024-06-12 04:22 | disposition home or self-care (01) ==
PROVIDERS: Emergency Provider Internal Medicine; PCP Internal Medicine
DX: R07.9 Chest pain, unspecified (principal); R05.9 Cough, unspecified; R00.0 Tachycardia, unspecified; E11.9 Type 2 diabetes mellitus without complications; I10 Essential (primary) hypertension; E78.5 Hyperlipidemia, unspecified; Z03.818 Encounter for observation for suspected exposure to other biological agents ruled out; Z79.4 Long term (current) use of insulin; Z79.02 Long term (current) use of antithrombotics/antiplatelets; Z79.899 Other long term (current) drug therapy
CPT/HCPCS: 0241U; 36415; 71046; 80053; 80307; 84484; 85025; 93005; 96374; 96375; 99284; 99285; J2270; J2405

== ENCOUNTER → 2024-06-11 21:02 | Outpatient (BNV) | payer MEDICARE, MEDICAID, SELFPAY | PROVIDERS: Emergency Provider Internal Medicine; PCP Internal Medicine; Visit Provider Internal Medicine Cardiovascular Disease | DX: R00.0 Tachycardia, unspecified (principal) | CPT/HCPCS: 93010 ==

== ENCOUNTER 2024-09-01 23:10 | Emergency (ER) | payer MEDICARE, MEDICAID, SELFPAY ==
[2024-09-01 23:54] VITALS: BP 157/89; PULSE 99; RESP 18; TEMP 37; O2SAT 97; BMI 41.2
[2024-09-02 00:17] LABS: MANUAL DIFF FLAG NO
[2024-09-02 00:18] LABS: Basophils Percent Auto 0.4 % (0-2); Eosinophils Absolute Auto 0.3 X10*3/uL (0.0-0.4); Eosinophils Percent Auto 3.5 % (0-4); Hematocrit 39.2 % (42.0-52.0); Imm Gran Abs Auto 0.02 X10*3/uL (0.00-0.03); Imm Gran Pct Auto 0.3 % (0.0-0.4); Lymphocytes Absolute Auto 2.7 X10*3/uL (1.2-4.9); Lymphocytes Percent Auto 36.1 % (20-40); Mean Corpuscular HGB Conc 35.7 g/dl (31.0-36.0); Mean Corpuscular Hemoglobin 29.8 pg (27.0-33.0); Mean Corpuscular Volume 83.4 fL (80.0-98.0); Mean Platelet Volume 10.1 fL (9.4-12.4); Monocytes Absolute Auto 0.7 X10*3/uL (0.1-1.2); Monocytes Percent Auto 9.8 % (2-11); Neutrophils Absolute Auto 3.7 x10*3/uL (2.0-8.3); Neutrophils Percent Auto 49.9 % (45-73); Platelet Count 287 X10*3/uL (160-400); Red Cell Distribution Width 12.6 % (11.0-16.0); White Blood Count 7.5 X10*3/uL (4.8-10.8)
[2024-09-02 00:22] LABS: Glucose, Whole Blood 372 mg/dL (60-115)
--- NOTE | 2024-09-02 00:22 | ED_ITS ---
HPI - Recheck/Abnormal Lab/Rx General Chief Complaint: Recheck/Abnormal Lab/Rx Stated Complaint: high sugar Time Seen by Provider: 09/02/24 00:21 Source: patient Limitations: language barrier History of Present Illness ED Provider: Nena Jamil PA-C HPI narrative: 54-year-old male with a history of diabetes, morbid obesity, prior NSTEMI, hyperlipidemia, hypertension presents with hyperglycemia. Patient states he has been getting elevated blood sugar readings at home. He states he has been adherent with his insulin, he takes 15 units of Lantus, he also takes 1000 mg of metformin. Denies abdominal pain nausea, vomiting, fever, cough or cold symptoms. Related Data Home Medications ?Medication ?Instructions ?Recorded ?Confirmed lancets 28 gauge (FreeStyle #100 ea 06/20/20 12/09/23 Lancets) blood sugar diagnostic (FreeStyle #10 ea 05/21/21 12/09/23 Lite Strips) lisinopril 10 mg tablet 10 mg PO DAILY 11/18/23 12/09/23 omeprazole 20 mg capsule,delayed 20 mg PO BID 11/18/23 12/09/23 release ropinirole 4 mg tablet 8 mg PO BID 11/18/23 12/09/23 sertraline 25 mg tablet 25 mg DAILY 11/18/23 12/09/23 ticagrelor 90 mg tablet (Brilinta) 90 mg PO BID 11/18/23 12/09/23 metformin 500 mg tablet 1,000 mg PO BID 12/09/23 12/09/23 Previous Rx's ?Medication ?Instructions ?Recorded blood sugar diagnostic (FreeStyle #50 ea 12/20/21 Precision Sanket Strips) aspirin 81 mg tablet,delayed 81 mg PO DAILY #90 tabs 11/04/23 release levalbuterol HCl 1.25 mg/3 mL 1.25 mg (3 mL) inhalation Q3H PRN 11/19/23 solution for nebulization Shortness Of Breath/Wheezing #1 mL pen needle, diabetic 32 gauge x #100 ea 12/09/23 (1st Tier Unifine Pentips) insulin glargine 100 unit/mL (3 10 unit (0.1 mL) subcut QPM 90 03/09/24 mL) subcutaneous pen (Lantus days #9 mL Solostar U-100 Insulin) semaglutide 0.25 mg or 0.5 mg (2 0.25 mg (0.368 mL) subcut QWEEK 30 05/20/24 mg/3 mL) subcutaneous pen injector days #1.84 mL (Ozempic) metoprolol tartrate 50 mg tablet 50 mg PO BID #180 tabs 05/27/24 atorvastatin 80 mg tablet 80 mg PO DAILY #90 tabs 08/31/24 Allergies Allergy/AdvReac Type Severity Reaction Status Date / Time gabapentin AdvReac Intermediate sleepiness Verified 09/01/24 23:58 zolpidem AdvReac Intermediate inadequate Verified 09/01/24 23:58 response Review of Systems 2 Review of Systems: Yes all other systems are reviewed and are negative Constitutional: Constitutional: Denies fatigue and Denies fever(s) Cardiovascular: Cardiovascular: Denies chest pain and Denies dyspnea Respiratory: Respiratory: Denies chest congestion, Denies cough and Denies dyspnea Gastrointestinal: Gastrointestinal: Denies abdominal pain, Denies diarrhea, Denies nausea and Denies vomiting Endocrine: Endocrine: Denies fatigue [facility]LY [facility] Past Medical History Attestation statement: The following information was validated with the patient. Medical History Myocarditis Essential hypertension Non-rheumatic aortic stenosis Shortness of breath On beta rayo at home Complex regional pain syndrome i of lower limb, bilateral Bilateral primary osteoarthritis of knee Gout Depression with anxiety SHARONDA (obstructive sleep apnea) Coarse tremors IDDM (insulin dependent diabetes mellitus) HTN (hypertension) Intractable neuropathic pain of right knee CAD (coronary artery disease) Erectile dysfunction Chronic back pain RLS (restless legs syndrome) GERD (gastroesophageal reflux disease) Kidney stones Arthritis Essential hypertension Hyperlipidemia LDL goal <70 Morbid obesity due to excess calories BMI 40.0-44.9, adult Type 2 diabetes mellitus with diabetic polyneuropathy Cardiac arrhythmia Diabetes mellitus, type 2 Surgical History History of arthroplasty of right knee Hx of lithotripsy H/O heart artery stent Family History Family History Mother Diabetes Sister Diabetes CAD (coronary artery disease) Social History Social History Household Members: Family Housing: Apartment Do you presently have visiting nurse or other home services: Yes Alcohol intake: never Patient Tobacco Use Status: Never used Tobacco e-Cigarette/Vaping Use: Never Used Second Hand Smoke Exposure: No Advance Directives: No Advance Directives Information Provided: Yes service: No Current occupational status: disabled Cognitive needs: Yes Hearing needs: No Vision needs: No Physical Exam 2 Vital Signs: Vital Signs: Last Vital Signs Temp 98.6 F 09/01/24 23:54 Pulse 99 09/01/24 23:54 Resp 18 09/01/24 23:54 BP 157/89 H 09/01/24 23:54 Pulse Ox 97 09/01/24 23:54 O2 Del Method Room Air 09/01/24 23:54 BMI result Body Mass Index 41.2 Const: Other: Alert, well-appearing, does appear older than stated age Orientation/consciousness: patient oriented x3 Resp: Effort & Inspection: normal respiratory effort Cardio: Other: Normal peripheral perfusion Skin: Other: Warm dry no rash Neuro: General: patient oriented x3, no focal motor deficits and CN's II-XI intact bilaterally Psych: Other: Cooperative Medications Administered Generic Name Dose Route Start Last Admin Trade Name Freq PRN Reason Stop Dose Admin Sodium Chloride 1,000 mls @ 999 mls/hr 09/02/24 00:30 09/02/24 00:29 Ns IV 09/02/24 01:30 999 mls/hr .Q1H1M JAC Administration Medical Decision Making Medical Decision Making MDM Narrative: 54-year-old male with a history of diabetes, morbid obesity, prior NSTEMI, hyperlipidemia, hypertension presents with hyperglycemia. Patient states he has been getting elevated blood sugar readings at home. He states he has been adherent with his insulin, he takes 15 units of Lantus, he also takes 1000 mg of metformin. Denies abdominal pain nausea, vomiting, fever, cough or cold symptoms. Problem: Diabetes History: Per patient I have considered the following differential diagnoses: Hyperglycemia, HHS, electrolyte abnormality, DKA, infection Plan: Patient has no infectious signs symptoms to account for his elevated sugars. Perhaps it is dietary. This is not DKA, he has no gap on screening labs, I added a beta hydroxy that is negative as well. His sugars are 300s right now, we will give IV fluid and reassess his point of care. I did discuss the patient's diet with him, it sounds as if he is eating as if he is not diabetic. I have independently reviewed the following tests: Labs: No leukocytosis not anemic, no electrolyte abnormality, no gap, beta hydroxy not elevated it is 0.08 Lab Data 09/02/24 00:13 09/02/24 00:13 Labs: Lab Results 09/02/24 09/02/24 Range/Units 00:12 00:13 WBC 7.5 (4.8-10.8) X10*3/uL RBC 4.70 (4.60-5.80) X10*6/uL Hgb 14.0 (14.0-18.0) g/dl Hct 39.2 L (42.0-52.0) % MCV 83.4 (80.0-98.0) fL MCH 29.8 (27.0-33.0) pg MCHC 35.7 (31.0-36.0) g/dl RDW 12.6 (11.0-16.0) % Plt Count 287 (160-400) X10*3/uL MPV 10.1 (9.4-12.4) fL Immature Gran % (Auto) 0.3 (0.0-0.4) % Neut % (Auto) 49.9 (45-73) % Lymph % (Auto) 36.1 (20-40) % [place]ws[place] % (Auto) 9.8 (2-11) % Eos % (Auto) 3.5 (0-4) % Baso % (Auto) 0.4 (0-2) % Lymph # (Auto) 2.7 (1.2-4.9) X10*3/uL [place] # (Auto) 0.7 (0.1-1.2) X10*3/uL Eos # (Auto) 0.3 (0.0-0.4) X10*3/uL Baso # (Auto) 0.0 (0.0-0.2) X10*3/uL Abs Immat Gran (auto) 0.02 (0.00-0.03) X10*3/uL Absolute Neuts (auto) 3.7 (2.0-8.3) x10*3/uL Absolute Nucleated RBC 0.000 (0.0-0.012) X10*3/uL Nucleated RBC % (auto) 0.0 (0.0-0.2) /100WBC Sodium 134 L (135-145) mmol/L Potassium 3.8 (3.3-5.1) mmol/L Chloride 102 (96-108) mmol/L Carbon Dioxide 23 (22-29) mmol/L Anion Gap 13 (12-20) BUN 10 (9-16) mg/dL Creatinine 0.92 (0.5-1.4) mg/dL Estim Creat Clear Calc 99.0 Estimated GFR > 60 POC Glucose 372 H* (60-115) mg/dL Random Glucose 371 H* (60-115) mg/dL Calcium 9.0 (8.4-10.2) mg/dL Total Bilirubin 0.2 (0.0-1.0) mg/dL AST 17 (5-37) U/L ALT 17 (0-40) U/L Alkaline Phosphatase 98 (39-117) U/L Total Protein 7.5 (6.5-8.0) g/dL Albumin 4.0 (3.5-5.0) g/dL Beta-Hydroxybutyrate 0.08 (0.02-0.27) mmol/L Discharge Plan Discharge Clinical Impression: Hyperglycemia Patient Disposition: Home, Self-Care Instructions: Meal Planning with Diabetes Exchanges (DC), Diabetic Hyperglycemia (ED) Additional Instructions: All of your labs were normal, your blood sugar was mildly elevated. See home care instructions. You need to continue to take your home medications as directed. You also need to be sure that you are eating a diabetic type diet. I have provided you with information to read about. Exercise and weight loss or also instrumental in controlling your blood sugar. Follow up with your primary care provider next week for further discussion about your current regimen for your diabetes related medications. Prescriptions: No Action aspirin 81 mg tablet,delayed release (DR/EC) 81 mg PO DAILY Qty: 90 1RF insulin glargine [Lantus Solostar U-100 Insulin] 100 unit/mL (3 mL) insulin pen 10 unit subcut QPM 90 Days Qty: 9 3RF Ozempic 0.25 mg or 0.5 mg (2 mg/3 mL) pen injector 0.25 mg subcut QWEEK 30 Days Qty: 1.84 1RF Rx Instructions: for 4 weeks metoprolol tartrate 50 mg tablet 50 mg PO BID Qty: 180 1RF atorvastatin 80 mg tablet 80 mg PO DAILY Qty: 90 1RF Brilinta 90 mg tablet 90 mg PO BID lisinopril 10 mg tablet 10 mg PO DAILY omeprazole 20 mg capsule,delayed release(DR/EC) 20 mg PO BID ropinirole 4 mg tablet 8 mg PO BID sertraline 25 mg tablet 25 mg DAILY levalbuterol HCl 1.25 mg/3 mL Solution For Nebulization 1.25 mg inhalation Q3H PRN (Reason: Shortness Of Breath/Wheezing) Qty: 1 0RF metformin 500 mg tablet 1,000 mg PO BID (DME) pen needle, diabetic [1st Tier Unifine Pentips] 32 gauge x / needle See Rx Instructions .Route Qty: 100 3RF Rx Instructions: Use 1 pen needle once a day (DME) lancets [FreeStyle Lancets] 28 gauge misc See Rx Instructions .ROUTE .MEDSUPPLY Qty: 100 Rx Instructions: As directed (DME) FreeStyle Lite Strips Strip See Rx Instructions .ROUTE .MEDSUPPLY Qty: 10 Rx Instructions: As directed three times daily (DME) FreeStyle Precision Sanket Strips Strip See Rx Instructions .ROUTE .MEDSUPPLY Qty: 50 11RF Rx Instructions: As directed twice a day Print Language: American
[2024-09-02] MEDS: 0.9 % Sodium Chloride 1,000 ML 999 ML IV (00:29)
[2024-09-02 00:35] LABS: Beta-Hydroxybutyrate 0.08 mmol/L (0.02-0.27)
[2024-09-02 00:39] LABS: Alanine Aminotransferase 17 U/L (0-40); Alkaline Phosphatase 98 U/L (39-117); Anion Gap 13 (12-20); Aspartate Amino Transferase 17 U/L (5-37); Bilirubin Total 0.2 mg/dL (0.0-1.0); Blood Urea Nitrogen 10 mg/dL (9-16); Carbon Dioxide 23 mmol/L (22-29); Chloride 102 mmol/L (96-108); Estimated Glomerular Filt Rate > 60; Glucose Random 371 mg/dL (60-115); Potassium 3.8 mmol/L (3.3-5.1); Sodium 134 mmol/L (135-145); Total Protein 7.5 g/dL (6.5-8.0)
[2024-09-02 01:39] VITALS: BP 139/85; PULSE 106; RESP 18; TEMP 36.7; O2SAT 97
== END 2024-09-02 02:02 | disposition home or self-care (01) ==
PROVIDERS: Physician Assistant Medical; Emergency Provider Emergency Medicine
DX: E11.65 Type 2 diabetes mellitus with hyperglycemia (principal); R79.89 Other specified abnormal findings of blood chemistry; I10 Essential (primary) hypertension; Z79.899 Other long term (current) drug therapy; Z79.4 Long term (current) use of insulin
CPT/HCPCS: 36415; 80053; 82010; 82947; 85025; 96360; 96361; 99283; 99284

== ENCOUNTER 2024-10-06 20:27 | Emergency (ER) | payer MEDICARE, MEDICAID, SELFPAY ==
[2024-10-06 20:46] VITALS: BP 138/88; PULSE 76; RESP 18; TEMP 36.9; O2SAT 97; BMI 41.5
[2024-10-06 23:19] LABS: IDNOW Serial# 58CA691E; Strep A Nucleic Acid Negative (Negative)
[2024-10-06 23:40] LABS: Influenza A PCR NEGATIVE (Negative); Influenza B PCR NEGATIVE (Negative); Resp Syncy Virus RNA Qual PCR NEGATIVE (Negative); SARS COV2 PCR INHOUSE NEGATIVE (Negative)
--- NOTE | 2024-10-07 00:17 | ED_ITS ---
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 He notes a lot of pain with swelling. No rash or itching MD complaint: sore throat Onset (ago): day(s) (1) Location: mouth Radiation: non-radiation Severity: moderate Quality: aching Pain Consistency: intermittent Relieving factors: none Exacerbating factors: other (swallowing) Associated symptoms: denies other symptoms Treatments prior to arrival: NSAID Related Data Home Medications ?Medication ?Instructions ?Recorded ?Confirmed lancets 28 gauge (FreeStyle #100 ea 06/20/20 12/09/23 Lancets) blood sugar diagnostic (FreeStyle #10 ea 05/21/21 12/09/23 Lite Strips) lisinopril 10 mg tablet 10 mg PO DAILY 11/18/23 12/09/23 omeprazole 20 mg capsule,delayed 20 mg PO BID 11/18/23 12/09/23 release ropinirole 4 mg tablet 8 mg PO BID 11/18/23 12/09/23 sertraline 25 mg tablet 25 mg DAILY 11/18/23 12/09/23 ticagrelor 90 mg tablet (Brilinta) 90 mg PO BID 11/18/23 12/09/23 metformin 500 mg tablet 1,000 mg PO BID 12/09/23 12/09/23 Previous Rx's ?Medication ?Instructions ?Recorded blood sugar diagnostic (FreeStyle #50 ea 12/20/21 Precision Sanket Strips) aspirin 81 mg tablet,delayed 81 mg PO DAILY #90 tabs 11/04/23 release levalbuterol HCl 1.25 mg/3 mL 1.25 mg (3 mL) inhalation Q3H PRN 11/19/23 solution for nebulization Shortness Of Breath/Wheezing #1 mL pen needle, diabetic 32 gauge x #100 ea 12/09/23 (1st Tier Unifine Pentips) insulin glargine 100 unit/mL (3 10 unit (0.1 mL) subcut QPM 90 03/09/24 mL) subcutaneous pen (Lantus days #9 mL Solostar U-100 Insulin) semaglutide 0.25 mg or 0.5 mg (2 0.25 mg (0.368 mL) subcut QWEEK 30 05/20/24 mg/3 mL) subcutaneous pen injector days #1.84 mL (Ozempic) metoprolol tartrate 50 mg tablet 50 mg PO BID #180 tabs 05/27/24 atorvastatin 80 mg tablet 80 mg PO DAILY #90 tabs 08/31/24 azithromycin 250 mg tablet 250 mg PO DAILY 4 days #4 tabs 10/07/24 Allergies Allergy/AdvReac Type Severity Reaction Status Date / Time gabapentin AdvReac Intermediate sleepiness Verified 10/06/24 20:52 zolpidem AdvReac Intermediate inadequate Verified 10/06/24 20:52 response Review of Systems Review of Systems: Constitutional : No Fever, No Chills, No Fatigue ENT/Mouth : pos sore throat, No Rhinorrhea Eyes: No Eye Pain, No Swelling, No Redness Cardiovascular : No Chest Pain, No SOB, No Dyspnea on Exertion Respiratory : No Cough, No Sputum Gastrointestinal : No Nausea, No Vomiting, No Diarrhea, No abdominal Pain Genitourinary : No Dysuria, No Urinary Frequency, No Hematuria, Musculoskeletal : No joint pain, No Myalgias, No Joint Swelling Skin : No Skin Lesions, No rash Neuro : No Weakness, No Numbness, No Dizziness, positive Headache All other systems reviewed and are negative PMFSH Past Medical History Attestation statement: The following information was validated with the patient. Source: old records reviewed Medical History Myocarditis Essential hypertension Non-rheumatic aortic stenosis Shortness of breath On beta rayo at home Complex regional pain syndrome i of lower limb, bilateral Bilateral primary osteoarthritis of knee Gout Depression with anxiety SHARONDA (obstructive sleep apnea) Coarse tremors IDDM (insulin dependent diabetes mellitus) HTN (hypertension) Intractable neuropathic pain of right knee CAD (coronary artery disease) Erectile dysfunction Chronic back pain RLS (restless legs syndrome) GERD (gastroesophageal reflux disease) Kidney stones Arthritis Essential hypertension Hyperlipidemia LDL goal <70 Morbid obesity due to excess calories BMI 40.0-44.9, adult Type 2 diabetes mellitus with diabetic polyneuropathy Cardiac arrhythmia Diabetes mellitus, type 2 Surgical History History of arthroplasty of right knee Hx of lithotripsy H/O heart artery stent Family History Family History Mother Diabetes Sister Diabetes CAD (coronary artery disease) Social History Social History Household Members: Family Housing: Apartment Do you presently have visiting nurse or other home services: Yes Alcohol intake: never Patient Tobacco Use Status: Never used Tobacco e-Cigarette/Vaping Use: Never Used Second Hand Smoke Exposure: No Advance Directives: No Advance Directives Information Provided: No service: No Current occupational status: disabled Cognitive needs: Yes Hearing needs: No Vision needs: No Physical Exam ED Vital Signs: Vital Signs - 24 hr 10/06/24 20:46 Temperature 98.5 F Pulse Rate 76 Respiratory Rate 18 Blood Pressure 138/88 Pulse Oximetry 97 Oxygen Delivery Method Room Air BMI result Body Mass Index 41.5 Appearance: Alert. Oriented X3. No acute distress. Eyes: Pupils equal, round and reactive to light. ENT: Pharynx normal. uvula itself is red swollen and very small clear fluid filled area at base of the uvula - scant petechia noted on uvula Neck: Normal inspection. Neck supple. no stridor CVS: Normal heart rate and rhythm. Pulses normal. Respiratory: No respiratory distress. Breath sounds normal. Abdomen: Soft and nontender. Skin: Skin warm and dry. Normal skin color. Normal skin turgor. Extremities: No lower extremity edema. No calf ttp Neuro: Oriented X 3. No motor deficit. No sensory deficit. CN2-12 intact Medical Decision Making Medical Decision Making MDM Narrative: 54 yo male with PMH of DM, HTN, CAD, GERD here with c/o sore throat but no fevers and no change in voice. He has inflammed uvula on exam otherwise exam is normal there is redness, petechia scant on uvula and very small clear fluid sac he has no allergy symptoms at this time given isolated uvulitis will treat with one dose of dexamethasone and zpak. Given precautions to return Differential Diagnosis Differential Diagnoses: The differential diagnosis associated with the presentation includes uvulitis, pharynbitis Admission/Observation Consideration of admission/observation: Escalation of care including admission/observation considered not toxic no progression of swelling can be managed as outpatient Lab Data MDM Lab Attestation statement: I reviewed the patient's lab results. Labs: Lab Results 10/06/24 Range/Units 22:58 Influenza Type A (PCR) NEGATIVE (Negative) Influenza Type B (PCR) NEGATIVE (Negative) RSV RNA Qual (PCR) NEGATIVE (Negative) SARS-CoV-2 RNA (RT-PCR) NEGATIVE (Negative) S. pyogenes GrpA DENISHA Negative (Negative) External Record Review External record reviewed: Outpatient record Prescription Management I considered prescription management with: Antibiotic Discharge Plan Discharge Clinical Impression: Uvulitis Patient Disposition: Home, Self-Care Instructions: Uvulitis (ED) Additional Instructions: return for worsening pain, fevers, unable to eat or drink or any other concerns take tylenol or motrin as needed for pain Prescriptions: New azithromycin 250 mg tablet 250 mg PO DAILY 4 Days Qty: 4 0RF Rx Instructions: start on day 2 of therapy No Action aspirin 81 mg tablet,delayed release (DR/EC) 81 mg PO DAILY Qty: 90 1RF insulin glargine [Lantus Solostar U-100 Insulin] 100 unit/mL (3 mL) insulin pen 10 unit subcut QPM 90 Days Qty: 9 3RF Ozempic 0.25 mg or 0.5 mg (2 mg/3 mL) pen injector 0.25 mg subcut QWEEK 30 Days Qty: 1.84 1RF Rx Instructions: for 4 weeks metoprolol tartrate 50 mg tablet 50 mg PO BID Qty: 180 1RF atorvastatin 80 mg tablet 80 mg PO DAILY Qty: 90 1RF Brilinta 90 mg tablet 90 mg PO BID lisinopril 10 mg tablet 10 mg PO DAILY omeprazole 20 mg capsule,delayed release(DR/EC) 20 mg PO BID ropinirole 4 mg tablet 8 mg PO BID sertraline 25 mg tablet 25 mg DAILY levalbuterol HCl 1.25 mg/3 mL Solution For Nebulization 1.25 mg inhalation Q3H PRN (Reason: Shortness Of Breath/Wheezing) Qty: 1 0RF metformin 500 mg tablet 1,000 mg PO BID (DME) pen needle, diabetic [1st Tier Unifine Pentips] 32 gauge x 5/32 needle See Rx Instructions .Route Qty: 100 3RF Rx Instructions: Use 1 pen needle once a day (DME) lancets [FreeStyle Lancets] 28 gauge misc See Rx Instructions .ROUTE .MEDSUPPLY Qty: 100 Rx Instructions: As directed (DME) FreeStyle Lite Strips Strip See Rx Instructions .ROUTE .MEDSUPPLY Qty: 10 Rx Instructions: As directed three times daily (DME) FreeStyle Precision Sanket Strips Strip See Rx Instructions .ROUTE .MEDSUPPLY Qty: 50 11RF Rx Instructions: As directed twice a day Print Language: [place]
[2024-10-07] MEDS: dexAMETHasone sod phosphate 4 MG/ML VIAL 8 MG PO (00:26)
[2024-10-07] MEDS: Azithromycin 500 MG TABLET PO (00:26)
[2024-10-07] MEDS: Acetaminophen 325 MG TABLET 975 MG PO (00:26)
[2024-10-07 00:33] VITALS: BP 131/81; PULSE 71; RESP 16; TEMP 36.8; O2SAT 96
== END 2024-10-07 00:34 | disposition home or self-care (01) ==
PROVIDERS: Physician Assistant Medical; Emergency Provider Emergency Medicine; PCP Internal Medicine
DX: J02.9 Acute pharyngitis, unspecified (principal); K12.2 Cellulitis and abscess of mouth; E11.9 Type 2 diabetes mellitus without complications; I10 Essential (primary) hypertension; Z03.818 Encounter for observation for suspected exposure to other biological agents ruled out; Z79.4 Long term (current) use of insulin
CPT/HCPCS: 0241U; 87651; 99283; J1100

== ENCOUNTER 2024-12-15 08:52 | Outpatient (AMB) | payer MEDICARE, MEDICAID, SELFPAY ==
--- NOTE | 2024-12-15 09:28 | AM.OFFVISMDC ---
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 Required: No Accompanied by: Self / Same As Patient Allergies gabapentin Adverse Reaction (Intermediate, Verified 12/15/24 09:59) sleepiness zolpidem Adverse Reaction (Intermediate, Verified 12/15/24 09:59) inadequate response Medication List - Last Reconciled 12/15/24 by Peggy Brown MD aspirin 81 mg PO DAILY atorvastatin 80 mg PO DAILY azithromycin 250 mg PO DAILY 4 days blood sugar diagnostic (FreeStyle Lite Strips) As directed three times daily blood sugar diagnostic (FreeStyle Precision [place] Strips) As directed twice a day insulin glargine (Lantus Solostar U-100 Insulin) 10 units (0.1 mL) subcut QPM 90 days lancets (FreeStyle Lancets) As directed levalbuterol HCl 1.25 mg (3 mL) inhalation Q3H PRN lisinopril 10 mg PO DAILY metformin 1,000 mg PO BID metoprolol tartrate 50 mg PO BID omeprazole 20 mg PO BID pen needle, diabetic (1st Tier Unifine Pentips) Use 1 pen needle once a day ropinirole 8 mg PO BID semaglutide (Ozempic) 0.25 mg (0.368 mL) subcut QWEEK 30 days sertraline 25 mg DAILY ticagrelor (Brilinta) 90 mg PO BID HPI HPI Comments History of Present Illness Details The patient is a 54 year old male presenting with a need for a Medicare Annual Wellness Exam. He has a medical history of uncontrolled Type 2 Diabetes Mellitus with a current HbA1c level of 11.9%, indicating poor glycemic control. He has been on metformin 1000 mg twice daily and insulin glargine (Lantus) at 10 units but ran out of the medication. He also has a history of Essential Hypertension, which has been well-managed with lisinopril, although the dosage was reduced to protect renal function. His blood pressure during this visit was 126/80 mmHg. The patient has a significant cardiac history including diagnosed Coronary Artery Disease and experienced a myocardial infarction in 2022, for which a stent placement was required. He is also on treatment with atorvastatin 80 mg and ticagrelor (Brilinta) due to the cardiac history. Moreover, he discusses depressive symptoms and expresses interest in counseling, noting that recent personal stressors may have exacerbated these symptoms. He went to [facility] for 2 months due to sexual prostitution charges and also drug possession charges. He has a recorded PHQ-9 score of 13, indicating moderate depression, and is currently on sertraline 25 mg. The patient reports previous cocaine use, which showed up in a previous urine toxicology screen in June, though he has since stopped. He has a lesion in penis and sexually transmitted disease were ordered. He had HIV negative in alf as per patient. The social and family histories reveal that his mother from diabetes and his father young from heart disease. He is not currently employed and lives with his sister, who assists him with meals, citing this as part of his current functional status. He denies the use of tobacco and alcohol. He expresses concerns about potential Hepatitis C exposure due to past social drug use and desires testing for STIs as a precautionary measure. - Pneumococcal vaccine is due for administration today. - Patient qualifies for Cologuard testing for colorectal cancer screening. - Lab work needed for diabetes, lipid profile, and cardiac follow-up. - Ongoing monitoring of hypertension with lisinopril. - Depression screening with PHQ-9 (current score 13). - Chronic disease management discussion, including diabetes management and lifestyle modification advice. [facility] Medical History (Updated 12/15/24 @ 10:33 by Peggy Brown MD) Morbid obesity with BMI of 40.0-44.9, adult Erectile dysfunction associated with type 2 diabetes mellitus Morbid obesity Myocarditis Essential hypertension Non-rheumatic aortic stenosis Shortness of breath On beta rayo at home Complex regional pain syndrome i of lower limb, bilateral Bilateral primary osteoarthritis of knee Gout Depression with anxiety SHARONDA (obstructive sleep apnea) Coarse tremors IDDM (insulin dependent diabetes mellitus) HTN (hypertension) Intractable neuropathic pain of right knee CAD (coronary artery disease) Erectile dysfunction Chronic back pain RLS (restless legs syndrome) GERD (gastroesophageal reflux disease) Kidney stones Arthritis Essential hypertension Hyperlipidemia LDL goal <70 Morbid obesity due to excess calories BMI 40.0-44.9, adult Type 2 diabetes mellitus with diabetic polyneuropathy Cardiac arrhythmia Diabetes mellitus, type 2 Surgical History History of arthroplasty of right knee Hx of lithotripsy H/O heart artery stent Family History (Updated 12/15/24 @ 10:05 by Peggy Brown MD) Mother Diabetes Sister Diabetes CAD (coronary artery disease) Father CAD (coronary artery disease) Social History Household Members: Family Housing: Apartment Do you presently have visiting nurse or other home services: Yes Alcohol intake: never Patient Tobacco Use Status: Never used Tobacco e-Cigarette/Vaping Use: Never Used Second Hand Smoke Exposure: No service: No Current occupational status: disabled Cognitive needs: Yes Hearing needs: No Vision needs: No Questionnaire Medicare Wellness Checkup What gender do you identify with?: male During the past 4 weeks, how much have you been bothered by emotional problems such as feeling anxious, depressed, irritable, sad or downhearted, and blue?: moderately During the past 4 weeks, has your physical & emotional health limited your social activities with family, friends, neighbors, or groups?: not at all During the past 4 weeks, how much bodily pain have you generally had?: severe pain During the past 4 weeks, was someone available to help you if you needed & wanted help?: yes, quite a bit During the past 4 weeks, what was the hardest physical activity you could do for at least 2 minutes?: very light Can you get to places out of walking distance without help? (For eg., can you travel alone on buses, taxis or drive your car?): No Can you go shopping for groceries or clothes without someone's help?: No Can you prepare your own meals?: Yes Can you do your housework without help?: No Because of any health problems, do you need the help of another person with your personal care needs such as eating, bathing, dressing or getting around the house?: Yes Can you handle your own money without help?: Yes During the past 4 weeks, how would you rate your health in general?: fair During the past 4 weeks how have things been going for you?: good & bad parts about equal Are you having difficulties driving your car?: no Do you always fasten your seat belt when you are in a car?: yes, usually During past 4 weeks, have you been bothered by the following: never: Falling or dizzy when standing up, Trouble eating well?, Teeth or denture problems? and Problems using the telephone? and often: Sexual problems? and Tiredness or fatigue? Have you fallen 2 or more times in the past year?: Yes Are you afraid of falling?: Yes Are you a smoker?: no During the past 4 weeks, how many drinks of wine, beer, or other alcoholic beverages did you have?: 2-5 drinks per week Do you exercise for about 20 minutes 3 or more times a week?: no, I usually do not exercise this much Have you been given information to help with the following?: no: Hazards in your house that might hurt you? and no: Keeping track of your medications? How often do you have trouble taking medicines the way you have been told to take them?: I always take medicine as prescribed How confident are you that you can control & manage most of your health problems?: very confident What is your race?: or origin or descent Mini Mental State Exam (MMSE) Orientation What is the (year) (season) (date) (day) (month)?: year, season, date, day and month Where are we (state) (county) (town or city) (hospital) (floor)?: state, county, town or city, hospital/clinic and floor Registration Name of 3 unrelated objects clearly and slowly, then ask patient to repeat all 3 of them. (1st repeat determines score. Make sure they can repeat all three): object 1, object 2 and object 3 Attention & Calculation (CHOOSE ONE) Ask pt to begin with 100 & count backward by 7. Stop after 5 repeats. If pt cannot ask them to spell the word WORLD backward.: 93, 86, 79, 72 and 65 Recall Ask patient to repeat the 3 items from question #3.: object 1, object 2 and object 3 Language Show patient a wristwatch & ask what it is. Repeat for pencil.: watch and pencil Ask the patient to repeat the phrase 'No ifs, ands, or buts' after you.: correct Ask the patient to 'take a piece of paper with their right hand' 'fold paper in half' 'place paper on floor': take paper in right hand, fold paper in half and place paper on floor Print the sentence 'CLOSE YOUR EYES' on a piece. If patient actually closes eyes then score.: followed written direction Give patient a blank piece of paper & ask to write a sentence. Score if it contains a noun & verb.: sentence contains subject and verb Ask patient to copy figure of intersecting pentagons exactly. Score if all 10 angles & 2 intersects are included.: all 10 angles present & 2 are intersected Score Score: 30 Activity of Daily Living Bathing - sponge bath, tub bath or shower: receives no assistance (gets in/out by self, if usual bathing means Dressing - getting clothes from closets & drawers, including inner/outer garments & fasteners.: gets clothes & gets completely dressed without help Toileting - going to the 'toilet room' for urine/bowel elimination & cleaning self/arranging clothes: goes to toilet room, cleans self, arranges clothes without help Transfer: moves in & out of bed and chair without help (may use support object) Continence: controls urination/bowel movements completely by self Feeding: feeds self without help Total Score: 0 Information obtained from: patient Using telephone: independent Traveling: independent Shopping: independent Preparing meals: independent Housework: independent Taking medicine: independent Managing money: independent PHQ-9 Over the last 2 weeks, how often have you been bothered by any of the following problems? 1. Little interest or pleasure in doing things: nearly every day 2. Feeling down, depressed, or hopeless: nearly every day 3. Trouble falling or staying asleep, or sleeping too much: several days 4. Feeling tired or having little energy: nearly every day 5. Poor appetite or overeating: several days 6. Feeling bad about yourself - or that you are a failure or have let yourself or your family down: several days 7. Trouble concentrating on things, such as reading the newspaper or watching television: not at all 8. Moving or speaking so slowly that other people could have noticed. Or the opposite - being so fidgety or restless that you have been moving around a lot more than usual: several days 9. Thoughts that you would be better off or of hurting yourself in some way: not at all Total score: 13 Depression Screening Interpretation: Positive Depression Screening Follow-up: Existing condition, In treatment and Follow-up Visit Requested Depression Screening Done: Yes 88234 - PHQ-9 Billing: Yes Source: Developed by Drs. Cipriano Durand, Klaudia Yu, Maninder Del Castillo and colleagues, with an educational krishna from [employer]. AUDIT C Alcohol Use Questionnaire (AUDIT-C) 1. How often do you have a drink containing alcohol?: Never Total Score: 0 Score Reviewed/Action Taken: No MORRO-7 AMB Questionnaire MORRO-7 Date MORRO - 7 assessed: 12/15/24 Feeling nervous, anxious, or on edge: 1 = Several days Not being able to stop or control worryin = More than half the days Worrying too much about different things: 2 = More than half the days Trouble relaxin = Several days Being so restless that it is hard to sit still: 0 = Not at all Becoming easily annoyed or irritable: 0 = Not at all Feeling afraid as if something awful might happen: 1 = Several days Total MORRO-7 score (0-4 normal; 5-9 mild; 10-14 moderate; 15-21 severe): 7 Source: Developed by Drs. Cipriano Durand, Maninder Gonzalez and colleagues, with an educational krishna from [employer]. MORRO-7 Assessment Billing MORRO-7 Assessment Tool: MORRO-7 Assessment 18778 Thrive Questionnaire Date Thrive assessed: 12/09/23 I am a: Patient What is your living situation today?: I choose not to answer this question Within the past 12 months, did the food you bought not last and you didn't have the money to get more?: I choose not to answer this question Within the past 12 months, did you worry whether your food would run out before you got money to buy more?: I choose not to answer this question Do you have trouble paying for medicines?: Yes Do you have trouble getting transportation to medical appointments?: I choose not to answer this question Do you have trouble paying your heating and electricity bill?: I choose not to answer this question Do you have trouble taking care of your child, family member or friend?: I choose not to answer this question Do you have trouble with day-to-day activities such as bathing, preparing meals, shopping, managing finances, etc.?: I choose not to answer this question Are you currently unemployed and looking for a job?: I choose not to answer this question Are you interested in more education?: I choose not to answer this question Please select the resources that you would like help with: None Currently or been in a relationship where the following occur: I choose not to answer THRIVE Score: 0 Physical Exam Vital Signs: Last Vital Signs BP 126/80 12/15/24 09:50 BMI result Body Mass Index 39.0 Results AMB Hemoglobin A1c AMB Hemoglobin A1c 11.9 % Last Edit by ODALYS Giron on 12/15/24 09:55 Immunizations pneumoc 20-kat conj-dip cr(PF) 0.5 mL IM syringe Performing Provider: Peggy Brown MD [facility] Administered by: ODALYS Giron on 12/15/24 10:20 Dose Route Admin Location Dispensed Lot Number Expiration Date NDC [employer] 0.5 mL IM Left Deltoid 0.5 mL [id number] 10/02/25 0085-6682-04 [employer] VIS Given Date VIS Provided VIS Publication Date 12/15/24 Single Vaccine 23 Eligibility Eligibility Date Funding Source Not [facility] Eligible 12/15/24 Private Results Reviewed Results Reviewed: Laboratory Last Values Hgb A1c (Clinic) 11.9 % (4.0-6.0) H 12/15/24 09:25 Assessment & Plan Assessment & Plan (1) Encounter for Medicare annual wellness exam: Code(s): Z00.00 - Encounter for general adult medical examination without abnormal findings (2) Moderate recurrent major depression: Code(s): F33.1 - Major depressive disorder, recurrent, moderate (3) NSTEMI (non-ST elevated myocardial infarction): Code(s): I21.4 - Non-ST elevation (NSTEMI) myocardial infarction (4) Lesion of penis: Code(s): N48.9 - Disorder of penis, unspecified (5) Cocaine use disorder, mild, in early remission: Code(s): F14.11 - Cocaine abuse, in remission (6) Diabetes: Code(s): E11.9 - Type 2 diabetes mellitus without complications Qualifiers: Diabetes mellitus type: type 2 Diabetes mellitus penitentiary insulin use: with terminal operations supervisor use Diabetes mellitus complication status: with hyperglycemia Qualified Code(s): E11.65 - Type 2 diabetes mellitus with hyperglycemia; Z79.4 - oil heaterman (current) use of insulin Plan To manage the patient's significantly elevated A1c, maintain the current regimen of metformin and insulin glargine, with additional lab monitoring to fine-tune control. Essential Hypertension will be supported by a low dose of lisinopril. Preventive cardiology measures continue with atorvastatin and ticagrelor following the stent placement. Considering a PHQ-9 score indicative of moderate depression, the current sertraline dosage should persist, along with a referral to counseling. Due to the past substance use, relevant screenings like Hepatitis C testing is arranged to catch any latent risks early on. We will administer the pneumococcal vaccine today and dispatch a Cologuard kit for cancer screening convenience at home. Continue to encourage the patient to maintain collaboration with healthcare providers and adhere to medication regimens and preventive strategies. Patient was informed and verbally consented to the use of an ambient scribe for clinic note documentation during this visit. During today's visit, we reviewed management strategies for the patient's Type 2 Diabetes Mellitus with poor glycemic control, including continuing metformin and insulin. I explained our cardiovascular plan which includes maintaining statin therapy with atorvastatin and ticagrelor, and appropriately managing hypertension with lisinopril. I discussed depression symptoms and the importance of counseling, which the patient agreed would be beneficial. I addressed past drug use with an emphasis on the health implications, proposing Hepatitis C screening as a precaution. The patient expressed understanding and consent for all proposed treatments, vaccinations, and screenings, including the pneumococcal vaccine today and Cologuard for colorectal cancer. Orders: Orders Lipid Panel 4 Months E78.5 - Hyperlipidemia, unspecified Microalbumin, Random (w Creat) 4 Months R80.9 - Proteinuria, unspecified Vitamin D 25-OH Total 4 Months E55.9 - Vitamin D deficiency, unspecified Hepatitis C Antibody Today F14.11 - Cocaine abuse, in remission Syphilis Screen Today N48.9 - Disorder of penis, unspecified Herpes Simplex Virus Ab IgG Today N48.9 - Disorder of penis, unspecified AMB Hemoglobin A1c Today E11.65 - Type 2 diabetes mellitus with hyperglycemia, Z79.4 - oil heaterman (current) use of insulin Pneumococcal 20 Immunization Today Z23 - Encounter for immunization Vitamin B12 and Folate 4 Months E53.8 - Deficiency of other specified B group vitamins Comprehensive [place]. Panel Fast 4 Months I21.4 - Non-ST elevation (NSTEMI) myocardial infarction HIV Ab/Ag Today F14.11 - Cocaine abuse, in remission CT NG by PCR Today N48.9 - Disorder of penis, unspecified Referrals Counseling Referral F33.1 - Major depressive disorder, recurrent, moderate Cologuard Test Z12.11 - Encounter for screening for malignant neoplasm of colon, Z12.12 - Encounter for screening for malignant neoplasm of rectum Medications: New clotrimazole-betamethasone 1-0.05 % 1 appl topical BID 2 weeks 15 grams 1RF N48.9 - Disorder of penis, unspecified lisinopril 2.5 mg PO DAILY 90 days 90 tabs 1RF Changed From omeprazole 20 mg PO DAILY To omeprazole 20 mg PO DAILY 90 days 90 caps 0RF From metformin 1,000 mg PO BID To metformin 1,000 mg (2 x 500 mg) PO BID 90 days 360 tabs 1RF Refilled aspirin 81 mg PO DAILY 90 tabs 1RF semaglutide (Ozempic) for 4 weeks 0.25 mg (0.368 mL) subcut QWEEK 30 days 1.84 mL 1RF E11.65 - Type 2 diabetes mellitus with hyperglycemia, I21.4 - Non-ST elevation (NSTEMI) myocardial infarction, Z79.4 - halfway (current) use of insulin atorvastatin 80 mg PO DAILY 90 tabs 1RF insulin glargine (Lantus Solostar U-100 Insulin) 10 units (0.1 mL) subcut QPM 90 days 9 mL 3RF E11.9 - Type 2 diabetes mellitus without complications metoprolol tartrate 50 mg PO BID 180 tabs 1RF pen needle, diabetic (1st Tier Unifine Pentips) Use 1 pen needle once a day 100 ea 3RF E11.9 - Type 2 diabetes mellitus without complications Discontinued azithromycin start on day 2 of therapy Discontinued Reason: Patient Completed Course 250 mg PO DAILY 4 days 4 tabs 0RF Patient Instructions: - Continue medications as prescribed: metformin, insulin, atorvastatin, Brilinta, lisinopril, and sertraline. - Schedule and undergo Cologuard testing for colorectal cancer. - Attend scheduled counseling sessions to address depression symptoms. - Follow up on lab work for monitoring diabetes, cholesterol levels, and Hepatitis C screening. - Receive pneumococcal vaccination today. - Adhere to lifestyle modifications aimed at improving general wellness and disease control. - Return for follow-up visits as agreed or if symptoms change or worsen. Quality Reporting (2019) Depression/Bipolar (159/160/161/177) PHQ-9: Total score: 13 Coding Level of Care Code Medicare First (G0438) Est Pt Level 4 (87382) Diagnoses Encounter for Medicare annual wellness exam Z00.00 Moderate recurrent major depression F33.1 NSTEMI (non-ST elevated myocardial infarction) I21.4 Lesion of penis N48.9 Cocaine use disorder, mild, in early remission F14.11 Type 2 diabetes mellitus with hyperglycemia, with long-term current use of insulin E11.65; Z79.4 Diabetes mellitus type: type 2 Diabetes mellitus penitentiary insulin use: with terminal operations supervisor use Diabetes mellitus complication status: with hyperglycemia Additional Codes PHQ-9 - 04552 - PHQ-9 Billing: Yes ([id number]) MORRO-7 Assessment Billing - MORRO-7 Assessment Tool: MORRO-7 Assessment [id number] ([id number]) Time Spent (min) 40 Advance Care Planning Advance Care Planning discussion: Declined forms
[2024-12-15 09:50] VITALS: BP 126/80; BMI 39.0
== END 2024-12-15 10:24 | disposition home or self-care (01) ==
PROVIDERS: PCP Internal Medicine; Visit Provider Internal Medicine
DX: Z00.00 Encounter for general adult medical examination without abnormal findings (principal); E11.65 Type 2 diabetes mellitus with hyperglycemia; F33.1 Major depressive disorder, recurrent, moderate; Z79.4 Long term (current) use of insulin; F14.11 Cocaine abuse, in remission; I25.2 Old myocardial infarction; N48.9 Disorder of penis, unspecified; Z23 Encounter for immunization

== ENCOUNTER → 2024-12-15 08:52 | Outpatient (BNVA) | payer MEDICARE, MEDICAID, SELFPAY | PROVIDERS: PCP Internal Medicine; Visit Provider Internal Medicine | DX: Z00.00 Encounter for general adult medical examination without abnormal findings (principal); Z23 Encounter for immunization; F33.1 Major depressive disorder, recurrent, moderate; F14.11 Cocaine abuse, in remission; E11.65 Type 2 diabetes mellitus with hyperglycemia; I25.2 Old myocardial infarction; Z79.4 Long term (current) use of insulin; Z79.84 Long term (current) use of oral hypoglycemic drugs; Z79.899 Other long term (current) drug therapy | CPT/HCPCS: 83036; 90471; 90677; 96127; 99212 ==

== ENCOUNTER 2025-01-07 17:49 | Emergency (ER) | payer MEDICARE, MEDICAID, SELFPAY ==
[2025-01-07 18:34] VITALS: BP 125/80; PULSE 99; RESP 16; TEMP 36.8; O2SAT 99; BMI 39.0
--- NOTE | 2025-01-07 18:34 | ED.GENADULT ---
HPI - General Adult General Chief complaint: Ear Problems Stated complaint: R ear pain Time Seen by Provider: 01/07/25 20:56 Source: patient and old records reviewed Mode of arrival: ambulatory Limitations: no limitations History of Present Illness ED Provider: JULIO STRICKLAND narrative: 54 yo male with PMH of gout, CAD, NSTEMI here with c/o R ear pain atraumatic x 3 days - no fevers, no drainage, no confusion, no headache, has pain in lymph node near ear. He tried OTC meds no relief. NO recent URI. MD complaint: ear pain Onset (ago): day(s) (few) Location: face Radiation: non-radiation Severity: moderate Quality: aching Pain Consistency: constant Relieving factors: none Exacerbating factors: movement Associated symptoms: denies other symptoms Treatments prior to arrival: none Related Data Home Medications ?Medication ?Instructions ?Recorded ?Confirmed lancets 28 gauge (FreeStyle #100 ea 06/20/20 12/15/24 Lancets) blood sugar diagnostic (FreeStyle #10 ea 05/21/21 12/15/24 Lite Strips) ropinirole 4 mg tablet 8 mg PO BID 11/18/23 12/15/24 sertraline 25 mg tablet 25 mg DAILY 11/18/23 12/15/24 ticagrelor 90 mg tablet (Brilinta) 90 mg PO BID 11/18/23 12/15/24 Previous Rx's ?Medication ?Instructions ?Recorded blood sugar diagnostic (FreeStyle #50 ea 12/20/21 Precision Sanket Strips) levalbuterol HCl 1.25 mg/3 mL 1.25 mg (3 mL) inhalation Q3H PRN 11/19/23 solution for nebulization Shortness Of Breath/Wheezing #1 mL aspirin 81 mg tablet,delayed 81 mg PO DAILY #90 tabs 12/15/24 release atorvastatin 80 mg tablet 80 mg PO DAILY #90 tabs 12/15/24 clotrimazole-betamethasone 1 1 appl topical BID 2 weeks #15 12/15/24 %-0.05 % topical cream grams insulin glargine 100 unit/mL (3 10 unit (0.1 mL) subcut QPM 90 12/15/24 mL) subcutaneous pen (Lantus days #9 mL Solostar U-100 Insulin) lisinopril 2.5 mg tablet 2.5 mg PO DAILY 90 days #90 tabs 12/15/24 metformin 500 mg tablet 1,000 mg (2 x 500 mg) PO BID 90 12/15/24 days #360 tabs metoprolol tartrate 50 mg tablet 50 mg PO BID #180 tabs 12/15/24 omeprazole 20 mg capsule,delayed 20 mg PO DAILY 90 days #90 caps 12/15/24 release pen needle, diabetic 32 gauge x #100 ea 12/15/24 (1st Tier Unifine Pentips) semaglutide 0.25 mg or 0.5 mg (2 0.25 mg (0.368 mL) subcut QWEEK 30 12/15/24 mg/3 mL) subcutaneous pen injector days #1.84 mL (Ozempic) amoxicillin 875 mg-potassium 1 tab PO BID #14 tabs 01/07/25 clavulanate 125 mg tablet ofloxacin 0.3 % ear drops 10 drp otic (ears) DAILY 7 days #5 01/07/25 mL Allergies Allergy/AdvReac Type Severity Reaction Status Date / Time gabapentin AdvReac Intermediate sleepiness Verified 01/07/25 18:36 zolpidem AdvReac Intermediate inadequate Verified 01/07/25 18:36 response Review of Systems Review of Systems: Constitutional : No Fever, No Chills, pos lymph node ENT/Mouth : No swallowing difficulty, no change in voice, positive ear pain Eyes: No Eye Pain, No Swelling Cardiovascular : No Chest Pain, No SOB Respiratory : No Cough, No Sputum Gastrointestinal : No Nausea, No Vomiting, No Diarrhea Genitourinary : No Dysuria Musculoskeletal : No Myalgias Skin : No rash Neuro : No Weakness, No Numbness, No Headache all other systems reviewed and are negative [facility] Past Medical History Attestation statement: The following information was validated with the patient. Source: old records reviewed Medical History Morbid obesity with BMI of 40.0-44.9, adult Erectile dysfunction associated with type 2 diabetes mellitus Morbid obesity Myocarditis Essential hypertension Non-rheumatic aortic stenosis Shortness of breath On beta rayo at home Complex regional pain syndrome i of lower limb, bilateral Bilateral primary osteoarthritis of knee Gout Depression with anxiety SHARONDA (obstructive sleep apnea) Coarse tremors IDDM (insulin dependent diabetes mellitus) HTN (hypertension) Intractable neuropathic pain of right knee CAD (coronary artery disease) Erectile dysfunction Chronic back pain RLS (restless legs syndrome) GERD (gastroesophageal reflux disease) Kidney stones Arthritis Essential hypertension Hyperlipidemia LDL goal <70 Morbid obesity due to excess calories BMI 40.0-44.9, adult Type 2 diabetes mellitus with diabetic polyneuropathy Cardiac arrhythmia Diabetes mellitus, type 2 Surgical History History of arthroplasty of right knee Hx of lithotripsy H/O heart artery stent Family History Family History (Updated 12/15/24 @ 10:05 by Peggy Brown MD) Mother Diabetes Sister Diabetes CAD (coronary artery disease) Father CAD (coronary artery disease) Social History Social History Household Members: Family Housing: Apartment Do you presently have visiting nurse or other home services: Yes Alcohol intake: never Patient Tobacco Use Status: Never used Tobacco e-Cigarette/Vaping Use: Never Used Second Hand Smoke Exposure: No Advance Directives: No Advance Directives Information Provided: No service: No Current occupational status: disabled Cognitive needs: Yes Hearing needs: No Vision needs: No Physical Exam ED Vital Signs: Vital Signs - 24 hr 01/07/25 18:34 Temperature 98.3 F Pulse Rate 99 Respiratory Rate 16 Blood Pressure 125/80 Pulse Oximetry 99 Oxygen Delivery Method Room Air BMI result Body Mass Index 39.0 Appearance: Alert. Oriented X3. No acute distress. Eyes: Pupils equal, round and reactive to light. ENT: Pharynx normal. No trismus, no mastoid ttp, ext ear normal R preauricular lymph node mild ttp no overlying erythema, ear canal is red and swollen, ext ear normal, TM red and bulging soft wax noted overlying inf part of TM Neck: Normal inspection. Neck supple. CVS: Normal heart rate and rhythm. Pulses normal. Respiratory: No respiratory distress. Breath sounds normal. Abdomen: Soft and nontender. Skin: Skin warm and dry. Normal skin color. Extremities: No lower extremity edema. Neuro: Oriented X 3. No motor deficit. No sensory deficit. CN2-12 intact Course Course Course Narrative: This is an RME performed by Dick Swartz CNP: Additional HPI, ROS, PE not included below will be deferred to primary provider. 54 yo male with pmhx HTN, T2DM ID, GERD, HLD, presents to ED due to R sided ear and cervical neck pain. He denies any drainage from the ear. PE: cerumen impaction on R side cannot visualize TM, mild adenopathy of R cervical nodes. Plan: viral swabs, ear irrigation Medical Decision Making Medical Decision Making MDM Narrative: 54 yo male with PMH of gout, CAD, NSTEMI here with c/o R ear pain x 3 days and states he tried OTC drops but no relief. NO fevers, no jaw pain, no neck swelling, no rash, no confusion - at this time clinical exam consistent with OA and AOM - no signs of mastoid ttp and no neck pain or ropy cord. He is not altered. Differential Diagnosis Differential Diagnoses: The differential diagnosis associated with the presentation includes AOM, otitis externa Lab Data Labs: Lab Results 01/07/25 Range/Units 18:45 Influenza Type A (PCR) NEGATIVE (Negative) Influenza Type B (PCR) NEGATIVE (Negative) RSV RNA Qual (PCR) NEGATIVE (Negative) SARS-CoV-2 RNA (RT-PCR) NEGATIVE (Negative) External Record Review External record reviewed: Outpatient record Prescription Management I considered prescription management with: Antibiotic Discharge Plan Discharge Clinical Impression: Otitis externa Qualifiers: Otitis externa type: diffuse Chronicity: acute Laterality: right Qualified Code(s): H60.311 - Diffuse otitis externa, right ear Otitis media Qualifiers: Otitis media type: suppurative Chronicity: acute Laterality: right Recurrence: non-recurrent Spontaneous tympanic membrane rupture: without spontaneous rupture Qualified Code(s): H66.001 - Acute suppurative otitis media without spontaneous rupture of ear drum, right ear Patient Disposition: Home, Self-Care Instructions: How to Use Ear Drops (ED), Ear Infection (ED) Additional Instructions: return for worsening pain, swelling, unable to open jaw, facial swelling, redness or any other concerns On amoxicillin-clavulanate, softer bowel movements are to be expected. Call your provider if you move your bowels more than 4 times a day, your bowel movements are almost all liquid, or you get a rash.? Prescriptions: New amoxicillin-pot clavulanate 875-125 mg tablet 1 tab PO BID Qty: 14 0RF ofloxacin 0.3 % drops 10 drp otic (ears) DAILY 7 Days Qty: 5 0RF No Action Brilinta 90 mg tablet 90 mg PO BID ropinirole 4 mg tablet 8 mg PO BID sertraline 25 mg tablet 25 mg DAILY levalbuterol HCl 1.25 mg/3 mL Solution For Nebulization 1.25 mg inhalation Q3H PRN (Reason: Shortness Of Breath/Wheezing) Qty: 1 0RF (DME) lancets [FreeStyle Lancets] 28 gauge misc See Rx Instructions .ROUTE .MEDSUPPLY Qty: 100 Rx Instructions: As directed (DME) FreeStyle Lite Strips Strip See Rx Instructions .ROUTE .MEDSUPPLY Qty: 10 Rx Instructions: As directed three times daily (DME) FreeStyle Precision Sanket Strips Strip See Rx Instructions .ROUTE .MEDSUPPLY Qty: 50 11RF Rx Instructions: As directed twice a day Ozempic 0.25 mg or 0.5 mg (2 mg/3 mL) pen injector 0.25 mg subcut QWEEK 30 Days Qty: 1.84 1RF Rx Instructions: for 4 weeks aspirin 81 mg tablet,delayed release (DR/EC) 81 mg PO DAILY Qty: 90 1RF atorvastatin 80 mg tablet 80 mg PO DAILY Qty: 90 1RF insulin glargine [Lantus Solostar U-100 Insulin] 100 unit/mL (3 mL) insulin pen 10 unit subcut QPM 90 Days Qty: 9 3RF metformin 500 mg tablet 1,000 mg PO BID 90 Days Qty: 360 1RF metoprolol tartrate 50 mg tablet 50 mg PO BID Qty: 180 1RF (DME) pen needle, diabetic [1st Tier Unifine Pentips] 32 gauge x 5/32 needle See Rx Instructions .Route Qty: 100 3RF Rx Instructions: Use 1 pen needle once a day omeprazole 20 mg capsule,delayed release(DR/EC) 20 mg PO DAILY 90 Days Qty: 90 0RF clotrimazole-betamethasone 1-0.05 % cream 1 appl topical BID 14 Days Qty: 15 1RF lisinopril 2.5 mg tablet 2.5 mg PO DAILY 90 Days Qty: 90 1RF Print Language: Slovenian
[2025-01-07 19:51] LABS: Influenza A PCR NEGATIVE (Negative); Influenza B PCR NEGATIVE (Negative); Resp Syncy Virus RNA Qual PCR NEGATIVE (Negative); SARS COV2 PCR INHOUSE NEGATIVE (Negative)
[2025-01-07 21:34] VITALS: BP 145/89; PULSE 94; RESP 15; TEMP 36.6; O2SAT 97
[2025-01-07 21:43] VITALS: BP 145/89; PULSE 94; RESP 15; TEMP 36.6; O2SAT 97
== END 2025-01-07 21:45 | disposition home or self-care (01) ==
PROVIDERS: Nurse Practitioner Family; Emergency Provider Emergency Medicine; PCP Internal Medicine
DX: H66.001 Acute suppurative otitis media without spontaneous rupture of ear drum, right ear (principal); H60.311 Diffuse otitis externa, right ear; H92.01 Otalgia, right ear; Z03.818 Encounter for observation for suspected exposure to other biological agents ruled out
CPT/HCPCS: 0241U; 99282; 99283

== ENCOUNTER 2025-01-27 13:08 | Outpatient (AMB) | payer MEDICARE, MEDICAID, SELFPAY ==
[2025-01-27 13:23] VITALS: BP 120/86; PULSE 91; O2SAT 97; BMI 38.9
--- NOTE | 2025-01-27 13:23 | MHC.PC.OV ---
Vital Signs 01/27/25 13:23 Height 5 ft 3 in Weight 219 lb 6 oz BMI 38.9 BP 120/86 Blood Pressure Location Lt brachial Position Sitting Pulse 91 Pulse Source Pulse Oximeter Pulse Oximetry (%) 97 Oxygen Delivery Method Room Air Intake Visit Reasons: [facility] ear pain Food Equipment Service Technician Required: Yes Food Equipment Service Technician Name: [id number]/Ame Accompanied by: Self / Same As Patient Allergies gabapentin Adverse Reaction (Intermediate, Verified 01/27/25 13:53) sleepiness zolpidem Adverse Reaction (Intermediate, Verified 01/27/25 13:53) inadequate response Medication List - Last Reconciled 01/27/25 by LAMINE Madison amoxicillin-pot clavulanate 875-125 mg 1 tab PO BID aspirin 81 mg PO DAILY atorvastatin 80 mg PO DAILY blood sugar diagnostic (FreeStyle Lite Strips) As directed three times daily blood sugar diagnostic (FreeStyle Precision Sanket Strips) As directed twice a day clotrimazole-betamethasone 1-0.05 % 1 appl topical BID 2 weeks insulin glargine (Lantus Solostar U-100 Insulin) 10 units (0.1 mL) subcut QPM 90 days lancets (FreeStyle Lancets) As directed levalbuterol HCl 1.25 mg (3 mL) inhalation Q3H PRN lisinopril 2.5 mg PO DAILY 90 days metformin 1,000 mg (2 x 500 mg) PO BID 90 days metoprolol tartrate 50 mg PO BID ofloxacin 0.3% 10 drps otic (ears) DAILY 7 days omeprazole 20 mg PO DAILY 90 days pen needle, diabetic (1st Tier Unifine Pentips) Use 1 pen needle once a day ropinirole 8 mg PO BID semaglutide (Ozempic) 0.25 mg (0.368 mL) subcut QWEEK 30 days sertraline 25 mg DAILY ticagrelor (Brilinta) 90 mg PO BID Tobacco use date assessed: 01/27/25 Dental Screening Dental Screen Date: 01/27/25 Did you have a dental visit in the last 12 months?: No Did you have a dental problem in the last 6 months where you did not have access to dental care?: No Was dental information given to patient?: Patient has dentist HPI [facility] ear pain HPI Details The patient is a 54-year-old male presenting with severe right ear pain and suspected swelling of the parotid gland. On 01/07/2025 the patient went to [facility] with complaint of right ear pain he was diagnosed with otitis media. Patient was given Augmentin x7 days and ofloxacin ear drops times 5 days. The patient comes in the office today with no relief of ear pain. He reports that initially, the pain was less intense but has progressively worsened. He reports a sensation of swelling and pulsations in the ear area, which is also affecting his ability to sleep. The pain is unilateral and began spontaneously without an identifiable cause. He completed a seven-day course of oral antibiotics, however, the symptoms have persisted and intensified. There is a concern for involvement of the parotid gland due to noticeable swelling, indicating a possible parotitis. The patient denies any allergies except to gabapentin and mentions experiencing pulsations in the affected area. Denies chest pain, SOB, heart palpitation, dizziness. Denies difficulty swallowing, however have some difficulty chewing due to right jawline pain. [facility] Medical History Morbid obesity with BMI of 40.0-44.9, adult Erectile dysfunction associated with type 2 diabetes mellitus Morbid obesity Myocarditis Essential hypertension Non-rheumatic aortic stenosis Shortness of breath On beta rayo at home Complex regional pain syndrome i of lower limb, bilateral Bilateral primary osteoarthritis of knee Gout Depression with anxiety SHARONDA (obstructive sleep apnea) Coarse tremors IDDM (insulin dependent diabetes mellitus) HTN (hypertension) Intractable neuropathic pain of right knee CAD (coronary artery disease) Erectile dysfunction Chronic back pain RLS (restless legs syndrome) GERD (gastroesophageal reflux disease) Kidney stones Arthritis Essential hypertension Hyperlipidemia LDL goal <70 Morbid obesity due to excess calories BMI 40.0-44.9, adult Type 2 diabetes mellitus with diabetic polyneuropathy Cardiac arrhythmia Diabetes mellitus, type 2 Surgical History History of arthroplasty of right knee Hx of lithotripsy H/O heart artery stent Family History Mother Diabetes Sister Diabetes CAD (coronary artery disease) Father CAD (coronary artery disease) Social History Household Members: Family Housing: Apartment Do you presently have visiting nurse or other home services: Yes Alcohol intake: never Patient Tobacco Use Status: Never used Tobacco e-Cigarette/Vaping Use: Never Used Second Hand Smoke Exposure: No service: No Current occupational status: disabled Cognitive needs: Yes Hearing needs: No Vision needs: No Questionnaire PHQ-9 Over the last 2 weeks, how often have you been bothered by any of the following problems? 1. Little interest or pleasure in doing things: nearly every day 2. Feeling down, depressed, or hopeless: nearly every day 3. Trouble falling or staying asleep, or sleeping too much: several days 4. Feeling tired or having little energy: nearly every day 5. Poor appetite or overeating: several days 6. Feeling bad about yourself - or that you are a failure or have let yourself or your family down: several days 7. Trouble concentrating on things, such as reading the newspaper or watching television: not at all 8. Moving or speaking so slowly that other people could have noticed. Or the opposite - being so fidgety or restless that you have been moving around a lot more than usual: several days 9. Thoughts that you would be better off or of hurting yourself in some way: not at all Total score: 13 Depression Screening Interpretation: Positive Depression Screening Follow-up: Existing condition, In treatment and Follow-up Visit Requested Depression Screening Done: Yes 63006 - PHQ-9 Billing: Yes Source: Developed by Drs. Cipriano Durand, Klaudia Yu, Maninder Del Castillo and colleagues, with an educational krishna from [employer]. Thrive Questionnaire Date Thrive assessed: 01/27/25 I am a: Patient What is your living situation today?: I choose not to answer this question Within the past 12 months, did the food you bought not last and you didn't have the money to get more?: I choose not to answer this question Within the past 12 months, did you worry whether your food would run out before you got money to buy more?: I choose not to answer this question Do you have trouble paying for medicines?: Yes Do you have trouble getting transportation to medical appointments?: I choose not to answer this question Do you have trouble paying your heating and electricity bill?: I choose not to answer this question Do you have trouble taking care of your child, family member or friend?: I choose not to answer this question Do you have trouble with day-to-day activities such as bathing, preparing meals, shopping, managing finances, etc.?: I choose not to answer this question Are you currently unemployed and looking for a job?: I choose not to answer this question Are you interested in more education?: I choose not to answer this question Please select the resources that you would like help with: None Currently or been in a relationship where the following occur: I choose not to answer THRIVE Score: 0 AUDIT C Alcohol Use Questionnaire (AUDIT-C) 1. How often do you have a drink containing alcohol?: Never 3. How often do you have six or more drinks on one occasion?: Never Total Score: 0 Score Reviewed/Action Taken: No MORRO-7 AMB Questionnaire MORRO-7 Date MORRO - 7 assessed: 01/27/25 Feeling nervous, anxious, or on edge: 1 = Several days Not being able to stop or control worryin = More than half the days Worrying too much about different things: 2 = More than half the days Trouble relaxin = Several days Being so restless that it is hard to sit still: 0 = Not at all Becoming easily annoyed or irritable: 0 = Not at all Feeling afraid as if something awful might happen: 1 = Several days Total MORRO-7 score (0-4 normal; 5-9 mild; 10-14 moderate; 15-21 severe): 7 Source: Developed by Drs. Cipriano Durand, Klaudia Yu, Maninder Del Castillo and colleagues, with an educational krishna from [employer]. Review of Systems Const Denies chills, Denies fever(s) and Denies headache(s) Eyes Denies loss of vision ENT Denies vertigo, Denies dizziness, Denies ear discharge, Reports otalgia, Denies headache(s), Denies hearing loss, Denies hoarseness, Denies mouth lesions, Denies neck mass and Denies sore throat Card Denies chest pain, Denies leg edema and Denies lightheadedness Resp Denies cough, Denies hemoptysis and Denies wheezing Neuro Denies vertigo, Denies dizziness, Denies headache(s) and Denies loss of vision Aller/Immun Denies wheezing Physical exam (Primary Care) Vital Signs: Last Vital Signs Pulse 91 01/27/25 13:23 BP 120/86 01/27/25 13:23 Pulse Ox 97 01/27/25 13:23 Oxygen Delivery Method Room Air 01/27/25 13:23 BMI result Body Mass Index 38.9 Tobacco/Smoking Status: Tobacco use Status Tobacco use date assessed 01/27/25 01/27/25 13:27 Patient Tobacco Use Status Never used Tobacco 01/27/25 13:27 e-Cigarette/Vaping Use Never Used 01/27/25 13:27 PHQ-9: PHQ-9 Score PHQ-9: Total score 13 01/27/25 13:56 Depression Screening Interpretation: Positive Depression Screening Follow-up: Existing condition, In treatment and Follow-up Visit Requested Thrive Assessment: Date of Thrive Assessment Date Thrive assessed 01/27/25 01/27/25 13:27 Currently or been in a relationship where the following occur: I choose not to answer Const General: healthy appearing, no acute distress, alert and awake Nutritional Appearance: well nourished Orientation/consciousness: oriented to person, oriented to place and oriented to time HENMT Ears: hearing grossly normal bilaterally, TM normal on the left, mastoids normal on the right edematous and tender, external ear abnormal auricular hematoma on the right and auricular tenderness, periauricular adenopathy, unable to visualize TM on the right (Due to swelling) and other (Parotid gland area swollen and tender to touch, pain right jawline) General nose exam: Normal nasal mucous membranes and turbinates present Mouth: trismus Eyes Conjunctivae: conjunctivae normal Sclerae: sclerae normal Pupils: Equal, round and reactive pupils present Neck Neck: Yes no lymphadenopathy and Yes no JVD Thyroid: Thyroid normal Carotids: no bruits Resp Effort & Inspection: normal respiratory effort and not tachypneic Auscultation: no crackles, no rales, no rhonchi and no wheezes Cardio Rate: regular rate Rhythm: regular rhythm Heart sounds: no murmurs and normal S1 and S2 Neuro General: oriented to person, oriented to place and oriented to time Cranial nerves: Yes Equal, round and reactive pupils present Coding Level of Care Code Est Pt Level 3 (95612) Diagnoses Swelling of right parotid gland R60.0 Parotiditis K11.20 Otalgia of right ear H92.01 Additional Codes PHQ-9 - 81908 - PHQ-9 Billing: Yes ([id number]) Time Spent (min) 37 Assessment & Plan Assessment & Plan (1) Swelling of right parotid gland: Code(s): R60.0 - Localized edema Category: Medical (2) Parotiditis: Code(s): K11.20 - Sialoadenitis, unspecified Category: Medical (3) Otalgia of right ear: Code(s): H92.01 - Otalgia, right ear Category: Medical Plan I suspect parotitis due to the severe ear pain and swelling of the parotid gland. I prescribed a new antibiotic regimen to cover potential infections and ordered an urgent ultrasound to assess the swelling and confirm the diagnosis. Blood work will be performed to check for infection. The patient should complete these tests promptly and await further instructions for the ultrasound. He is advised to eat with the antibiotics and to go to the ER if symptoms worsen or if he starts developing shortness of breath or throat swelling. Patient was informed and verbally consented to the use of an ambient scribe for clinic note documentation during this visit. Orders: Orders US soft tiss head and/or neck Today K11.20 - Sialoadenitis, unspecified, R60.0 - Localized edema Complete Blood Count Auto Diff Today K11.20 - Sialoadenitis, unspecified CRP High Sensitivity Today K11.20 - Sialoadenitis, unspecified Erythrocyte Sedimentation Rate Today K11.20 - Sialoadenitis, unspecified Medications: New levofloxacin 500 mg PO DAILY 10 days 10 tabs 0RF
== END 2025-01-27 14:24 | disposition home or self-care (01) ==
LOC: HO.HMCH 13:09
PROVIDERS: PCP Internal Medicine
DX: R60.0 Localized edema (principal); K11.20 Sialoadenitis, unspecified; H92.01 Otalgia, right ear

== ENCOUNTER 2025-01-27 13:08 | Outpatient (REF) | payer MEDICARE, MEDICAID, SELFPAY ==
[2025-01-27 23:28] LABS: CT PCR NOT DETECTED (Not Detect.); NG PCR NOT DETECTED (Not Detect.)
[2025-01-28 06:48] LABS: Herpes Simplex Type 1 IgG >58.00 index; Herpes Simplex Type 2 IgG 1.25 index
[2025-01-28 08:09] LABS: Syphilis Screen Nonreactive (Nonreactive)
[2025-01-28 08:14] LABS: HIV AB/AG Nonreactive (Nonreactive); HIV Num 1 0.06 S/CO (0.00-0.99); ~HepC Num1 0.25 S/CO (0.00-0.79); ~Hepatitis C Antibody Nonreactive (Nonreactive)
== END 2025-01-27 13:09 | disposition home or self-care (01) ==
LOC: HO.LAB 13:08
PROVIDERS: PCP Internal Medicine
DX: N48.9 Disorder of penis, unspecified (principal); R60.0 Localized edema; K11.20 Sialoadenitis, unspecified; F14.11 Cocaine abuse, in remission; H92.01 Otalgia, right ear; Z13.30 Encounter for screening examination for mental health and behavioral disorders, unspecified
CPT/HCPCS: 86695; 86696; 86780; 86803; 87389; 87491; 87591; 96127; 99212

== ENCOUNTER 2025-01-31 19:59 | Emergency (ER) | payer MEDICARE, MEDICAID, SELFPAY ==
--- NOTE | ~2025-01-31 | CT_ITS ---
CLINICAL HISTORY: Right mandibular swelling CT soft tissue neck with contrast Comparison: None Findings: No discrete mass lesion identified. Mildly prominent bilateral jugular lymph nodes. These are not considered pathologically enlarged. No abnormal fluid collection seen to suggest abscess. Mild induration within the subcutaneous fat within the pre mental region. No mass lesions are seen at the base of the tongue. Upper airway is patent. Lung apices are clear. No acute bony lesions. IMPRESSION: Mild induration within the pre mental soft tissues. No discrete fluid collection seen to suggest abscess. This document has been electronically signed by: Dieudonne Villa MD on 02/01/2025 01:54:05
[2025-01-31 20:24] VITALS: BP 132/88; PULSE 95; RESP 18; TEMP 36.1; O2SAT 98; BMI 40.4
--- NOTE | 2025-01-31 20:30 | ED.EAR ---
HPI - Ear Problem General Chief complaint: Ear Problems Stated complaint: right ear pain Time Seen by Provider: 01/31/25 23:00 Source: patient Mode of arrival: ambulatory Limitations: no limitations History of Present Illness ED Provider: HPI Narrative: patient is diabetic complaining of pain in the right ear for last 1 month treated with Augmentin and ofloxacin ear drops initially for otitis externa and now taking Levaquin still having the pain since yesterday patient noticed swelling of the right angle of the jaw no fever no chills no dental pain it increases on chewing Related Data Home Medications ?Medication ?Instructions ?Recorded ?Confirmed lancets 28 gauge (FreeStyle #100 ea 06/20/20 01/27/25 Lancets) blood sugar diagnostic (FreeStyle #10 ea 05/21/21 01/27/25 Lite Strips) ropinirole 4 mg tablet 8 mg PO BID 11/18/23 01/27/25 sertraline 25 mg tablet 25 mg DAILY 11/18/23 01/27/25 ticagrelor 90 mg tablet (Brilinta) 90 mg PO BID 11/18/23 01/27/25 Previous Rx's ?Medication ?Instructions ?Recorded blood sugar diagnostic (FreeStyle #50 ea 12/20/21 Precision Sanket Strips) levalbuterol HCl 1.25 mg/3 mL 1.25 mg (3 mL) inhalation Q3H PRN 11/19/23 solution for nebulization Shortness Of Breath/Wheezing #1 mL aspirin 81 mg tablet,delayed 81 mg PO DAILY #90 tabs 12/15/24 release atorvastatin 80 mg tablet 80 mg PO DAILY #90 tabs 12/15/24 clotrimazole-betamethasone 1 1 appl topical BID 2 weeks #15 12/15/24 %-0.05 % topical cream grams insulin glargine 100 unit/mL (3 10 unit (0.1 mL) subcut QPM 90 12/15/24 mL) subcutaneous pen (Lantus #9 mL Solostar U-100 Insulin) lisinopril 2.5 mg tablet 2.5 mg PO DAILY 90 days #90 tabs 12/15/24 metformin 500 mg tablet 1,000 mg (2 x 500 mg) PO BID 90 12/15/24 days #360 tabs metoprolol tartrate 50 mg tablet 50 mg PO BID #180 tabs 12/15/24 omeprazole 20 mg capsule,delayed 20 mg PO DAILY 90 days #90 caps 12/15/24 release pen needle, diabetic 32 gauge x #100 ea 12/15/24 (1st Tier Unifine Pentips) semaglutide 0.25 mg or 0.5 mg (2 0.25 mg (0.368 mL) subcut QWEEK 30 12/15/24 mg/3 mL) subcutaneous pen injector days #1.84 mL (Ozempic) amoxicillin 875 mg-potassium 1 tab PO BID #14 tabs 01/07/25 clavulanate 125 mg tablet ofloxacin 0.3 % ear drops 10 drp otic (ears) DAILY 7 days #5 01/07/25 mL levofloxacin 500 mg tablet 500 mg PO DAILY 10 days #10 tabs 01/27/25 cefuroxime axetil 500 mg tablet 500 mg PO BID 7 days #14 tabs 02/01/25 [id number] 3.3 4 drp otic (ear) right QID #10 mL 02/01/25 mg-3 mg-10 mg-0.5 mg/mL ear drops,susp (Cortisporin-TC) oxycodone 5 mg tablet 5 mg PO Q6H PRN pain #20 tabs 02/01/25 Allergies Allergy/AdvReac Type Severity Reaction Status Date / Time gabapentin AdvReac Intermediate sleepiness Verified 01/31/25 20:26 zolpidem AdvReac Intermediate inadequate Verified 01/31/25 20:26 response Review of Systems Review of Systems: Yes all other systems are reviewed and are negative COUNT INCLUDES THE [facility] Past Medical History Medical History Morbid obesity with BMI of 40.0-44.9, adult Erectile dysfunction associated with type 2 diabetes mellitus Morbid obesity Myocarditis Essential hypertension Non-rheumatic aortic stenosis Shortness of breath On beta rayo at home Complex regional pain syndrome i of lower limb, bilateral Bilateral primary osteoarthritis of knee Gout Depression with anxiety SHARONDA (obstructive sleep apnea) Coarse tremors IDDM (insulin dependent diabetes mellitus) HTN (hypertension) Intractable neuropathic pain of right knee CAD (coronary artery disease) Erectile dysfunction Chronic back pain RLS (restless legs syndrome) GERD (gastroesophageal reflux disease) Kidney stones Arthritis Essential hypertension Hyperlipidemia LDL goal <70 Morbid obesity due to excess calories BMI 40.0-44.9, adult Type 2 diabetes mellitus with diabetic polyneuropathy Cardiac arrhythmia Diabetes mellitus, type 2 Surgical History History of arthroplasty of right knee Hx of lithotripsy H/O heart artery stent Family History Family History Mother Diabetes Sister Diabetes CAD (coronary artery disease) Father CAD (coronary artery disease) Social History Social History Household Members: Family Housing: Apartment Do you presently have visiting nurse or other home services: Yes Alcohol intake: never Patient Tobacco Use Status: Never used Tobacco e-Cigarette/Vaping Use: Never Used Second Hand Smoke Exposure: No service: No Current occupational status: disabled Cognitive needs: Yes Hearing needs: No Vision needs: No Physical Exam Vital Signs: Vital Signs: Last Vital Signs Temp 97.9 F 02/01/25 03:57 Pulse 97 02/01/25 03:57 Resp 16 02/01/25 03:57 BP 109/58 L 02/01/25 03:57 Pulse Ox 98 02/01/25 03:57 O2 Del Method Room Air 02/01/25 03:57 BMI result Body Mass Index 40.4 Appearance: Alert. Oriented X3. No acute distress. Eyes: PERRLA, No Nystagmus ENT: Pharynx normal. Oral Mucosa moist right EAC swollen unable to see the tympanic membrane no discharge swelling of the right angle of the jaw no dental tenderness Neck: Normal inspection. Neck supple. CVS: Normal heart rate and rhythm. Pulses normal. Respiratory: No respiratory distress. Equal air entry bilateral, no wheezing/rales/rhonchi Abdomen: Soft and nontender. Bowel sounds are present, no mass palpable, no CVA tenderness Skin: Skin warm and dry. Normal skin color. Normal skin turgor. Extremities: No lower extremity edema. No calf tenderness Neuro: Oriented X 3. Course Course Course Narrative: This is an RME: Additional HPI, ROS, PE not included below will be deferred to primary provider. RME assessment and note performed by: Uma Flor PA-C This is a 54-year old male, with a history of diabetes, hypertension, hyperlipidemia, who presents emergency department with concerns of ear pain. Patient was seen here about 1 month ago and was prescribed ofloxacin And Augmentin. he was then seen by his primary care physician on January 27 and was prescribed Levaquin and advised to get an ultrasound of his parotid gland MARTITA, he has been awaiting for the appointment. patient with preauricular and parotid lymphadenopathy with faint erythema noted, exquisitely tender. Right ear canal is very edematous, unable to see TM. Plan: labs, further ER evaluation needed. Medications Administered Discontinued Medications Generic Name Dose Route Start Last Admin Trade Name Freq PRN Reason Stop Dose Admin Ceftriaxone Sodium 1 gm 02/01/25 01:45 02/01/25 02:02 Ceftriaxone Sodium 1 Gm Vial IVPUSH 02/01/25 01:46 1 gm ONCE ONE Administration Iohexol 65 ml 02/01/25 00:58 02/01/25 00:58 Iohexol 350 Mg/Ml 100 Ml Infus..Btl IV 02/01/25 00:59 65 ml ONCE ONE Administration Morphine Sulfate 4 mg 02/01/25 01:45 02/01/25 02:02 Morphine Sulfate 4 Mg/Ml Cartridge IVPUSH 02/01/25 01:46 4 mg ONCE ONE Administration Protocol Ondansetron HCl 4 mg 02/01/25 01:45 02/01/25 02:02 Ondansetron Hcl 4 Mg/2 Ml Vial IVPUSH 02/01/25 01:46 4 mg ONCE ONE Administration Medical Decision Making Medical Decision Making [facility] Narrative: patient's cellulitic changes of the right pre auricle with swelling of the EAC no fluid collection noticed in the CT scan no abscess patient advised to continue Levaquin will add cefuroxime advised to follow up with ENT also patient was given ear drops Differential Diagnosis Differential Diagnoses: The differential diagnosis associated with the presentation includes parotitis/abscess/ otitis externa/ otitis media/ cellulitis Lab Data [facility] Lab Attestation statement: I reviewed the patient's lab results. 01/31/25 21:43 01/31/25 21:43 Labs: Lab Results 01/31/25 Range/Units 21:43 WBC 8.5 (4.8-10.8) X10*3/uL RBC 4.70 (4.60-5.80) X10*6/uL Hgb 13.9 L (14.0-18.0) g/dl Hct 39.1 L (42.0-52.0) % MCV 83.2 (80.0-98.0) fL MCH 29.6 (27.0-33.0) pg MCHC 35.5 (31.0-36.0) g/dl RDW 12.6 (11.0-16.0) % Plt Count 290 (160-400) X10*3/uL MPV 10.0 (9.4-12.4) fL Immature Gran % (Auto) 0.4 (0.0-0.4) % Neut % (Auto) 60.3 (45-73) % Lymph % (Auto) 26.5 (20-40) % [place] % (Auto) 8.3 (2-11) % Eos % (Auto) 4.0 (0-4) % Baso % (Auto) 0.5 (0-2) % Lymph # (Auto) 2.3 (1.2-4.9) X10*3/uL [place] # (Auto) 0.7 (0.1-1.2) X10*3/uL Eos # (Auto) 0.3 (0.0-0.4) X10*3/uL Baso # (Auto) 0.0 (0.0-0.2) X10*3/uL Abs Immat Gran (auto) 0.03 (0.00-0.03) X10*3/uL Absolute Neuts (auto) 5.1 (2.0-8.3) x10*3/uL Absolute Nucleated RBC 0.000 (0.0-0.012) X10*3/uL Nucleated RBC % (auto) 0.0 (0.0-0.2) /100WBC ESR 15 (0-15) MM/HR Sodium 140 (135-145) mmol/L Potassium 4.0 (3.3-5.1) mmol/L Chloride 106 (96-108) mmol/L Carbon Dioxide 27 (22-29) mmol/L Anion Gap 11 L (12-20) BUN 9 (9-16) mg/dL Creatinine 0.97 (0.5-1.4) mg/dL Estim Creat Clear Calc 92.9 Estimated GFR > 60 Random Glucose 184 H (60-115) mg/dL Calcium 9.0 (8.4-10.2) mg/dL Total Bilirubin 0.3 (0.0-1.0) mg/dL Direct Bilirubin 0.1 (0.0-0.5) mg/dL AST 21 (5-37) U/L ALT 21 (0-40) U/L Alkaline Phosphatase 94 (39-117) U/L C-Reactive Protein 0.27 (< or = 0.50) mg/dL Total Protein 7.2 (6.5-8.0) g/dL Albumin 4.3 (3.5-5.0) g/dL Radiology Impression Discussion of test interpretation with radiology: I have reviewed the radiologist's reading. Radiologist Impression: [place] [id number] CT Scan Report Signed Patient: Chirag Mauricio MR#: [id number] : 1970 Acct:[id number] Age/Sex: 54 / M ADM Date: 01/31/25 Loc: .ED Attending Dr: Ordering Physician: Jose Alejandro Harris MD Date of Service: 02/01/25 Procedure(s): CT soft tissue neck w IV con Accession Number(s): [id number] cc: Peggy Barber MD; Jose Alejandro Harris MD~ Report Number: [id number]: Total DLP = 748.00 mGy-cm CLINICAL HISTORY: Right mandibular swelling CT soft tissue neck with contrast Comparison: None Findings: No discrete mass lesion identified. Mildly prominent bilateral jugular lymph nodes. These are not considered pathologically enlarged. No abnormal fluid collection seen to suggest abscess. Mild induration within the subcutaneous fat within the pre mental region. No mass lesions are seen at the base of the tongue. Upper airway is patent. Lung apices are clear. No acute bony lesions. IMPRESSION: Mild induration within the pre mental soft tissues. No discrete fluid collection seen to suggest abscess. This document has been electronically signed by: Dieudonne Villa MD on 02/01/2025 01:54:05 Discharge Plan Discharge Clinical Impression: Otitis externa in other diseases classified elsewhere, right ear, Cellulitis Patient Disposition: Home, Self-Care Instructions: Cellulitis (ED), Swimmer's Ear (ED) Additional Instructions: continue your Levaquin antibiotic as prescribed by the physician start taking Ceftin also 1 tablet twice a day for 10 days ear drops as advised follow up with ENT if not better Prescriptions: New Cortisporin-TC 3.3-3-10-0.5 mg/mL drops,suspension 4 drp otic (ear) right QID Qty: 10 0RF cefuroxime axetil 500 mg tablet 500 mg PO BID 7 Days Qty: 14 0RF oxycodone 5 mg tablet 5 mg PO Q6H PRN (Reason: pain) Qty: 20 0RF Rx Instructions: Partial Fill upon patient request. No Action Brilinta 90 mg tablet 90 mg PO BID ropinirole 4 mg tablet 8 mg PO BID sertraline 25 mg tablet 25 mg DAILY levalbuterol HCl 1.25 mg/3 mL Solution For Nebulization 1.25 mg inhalation Q3H PRN (Reason: Shortness Of Breath/Wheezing) Qty: 1 0RF amoxicillin-pot clavulanate 875-125 mg tablet 1 tab PO BID Qty: 14 0RF ofloxacin 0.3 % drops 10 drp otic (ears) DAILY 7 Days Qty: 5 0RF (DME) lancets [FreeStyle Lancets] 28 gauge misc See Rx Instructions .ROUTE .MEDSUPPLY Qty: 100 Rx Instructions: As directed (DME) FreeStyle Lite Strips Strip See Rx Instructions .ROUTE .MEDSUPPLY Qty: 10 Rx Instructions: As directed three times daily (DME) FreeStyle Precision Sanket Strips Strip See Rx Instructions .ROUTE .MEDSUPPLY Qty: 50 11RF Rx Instructions: As directed twice a day levofloxacin 500 mg tablet 500 mg PO DAILY 10 Days Qty: 10 0RF Ozempic 0.25 mg or 0.5 mg (2 mg/3 mL) pen injector 0.25 mg subcut QWEEK 30 Days Qty: 1.84 1RF Rx Instructions: for 4 weeks aspirin 81 mg tablet,delayed release (DR/EC) 81 mg PO DAILY Qty: 90 1RF atorvastatin 80 mg tablet 80 mg PO DAILY Qty: 90 1RF insulin glargine [Lantus Solostar U-100 Insulin] 100 unit/mL (3 mL) insulin pen 10 unit subcut QPM 90 Days Qty: 9 3RF metformin 500 mg tablet 1,000 mg PO BID 90 Days Qty: 360 1RF metoprolol tartrate 50 mg tablet 50 mg PO BID Qty: 180 1RF (DME) pen needle, diabetic [1st Tier Unifine Pentips] 32 gauge x 5/32 needle See Rx Instructions .Route Qty: 100 3RF Rx Instructions: Use 1 pen needle once a day omeprazole 20 mg capsule,delayed release(DR/EC) 20 mg PO DAILY 90 Days Qty: 90 0RF clotrimazole-betamethasone 1-0.05 % cream 1 appl topical BID 14 Days Qty: 15 1RF lisinopril 2.5 mg tablet 2.5 mg PO DAILY 90 Days Qty: 90 1RF Referrals: Davin Garcia [Physician] - 5 days Interventions: ED Discharge Assessment Last Done: 02/01/25 03:57 Discharge Date/Time: 02/01/25 03:58 Print Language: Tajik
[2025-01-31 21:47] LABS: MANUAL DIFF FLAG NO
[2025-01-31 21:48] LABS: Basophils Percent Auto 0.5 % (0-2); Eosinophils Absolute Auto 0.3 X10*3/uL (0.0-0.4); Hematocrit 39.1 % (42.0-52.0); Hemoglobin 13.9 g/dl (14.0-18.0); Imm Gran Abs Auto 0.03 X10*3/uL (0.00-0.03); Imm Gran Pct Auto 0.4 % (0.0-0.4); Lymphocytes Absolute Auto 2.3 X10*3/uL (1.2-4.9); Lymphocytes Percent Auto 26.5 % (20-40); Mean Corpuscular HGB Conc 35.5 g/dl (31.0-36.0); Mean Corpuscular Hemoglobin 29.6 pg (27.0-33.0); Mean Corpuscular Volume 83.2 fL (80.0-98.0); Monocytes Absolute Auto 0.7 X10*3/uL (0.1-1.2); Monocytes Percent Auto 8.3 % (2-11); Neutrophils Absolute Auto 5.1 x10*3/uL (2.0-8.3); Neutrophils Percent Auto 60.3 % (45-73); Platelet Count 290 X10*3/uL (160-400); Red Cell Distribution Width 12.6 % (11.0-16.0); White Blood Count 8.5 X10*3/uL (4.8-10.8)
[2025-01-31 22:14] LABS: Alanine Aminotransferase 21 U/L (0-40); Albumin Level 4.3 g/dL (3.5-5.0); Alkaline Phosphatase 94 U/L (39-117); Anion Gap 11 (12-20); Aspartate Amino Transferase 21 U/L (5-37); Bilirubin Direct 0.1 mg/dL (0.0-0.5); Bilirubin Total 0.3 mg/dL (0.0-1.0); Blood Urea Nitrogen 9 mg/dL (9-16); C Reactive Protein 0.27 mg/dL (< or = 0.50); Carbon Dioxide 27 mmol/L (22-29); Chloride 106 mmol/L (96-108); Creatinine Clr Calc Pharmacy 92.9; Estimated Glomerular Filt Rate > 60; Glucose Random 184 mg/dL (60-115); Sodium 140 mmol/L (135-145); Total Protein 7.2 g/dL (6.5-8.0)
[2025-01-31 22:21] LABS: Erythrocyte Sedimentation Rate 15 MM/HR (0-15)
[2025-01-31 23:57] VITALS: BP 135/91; PULSE 84; RESP 20; TEMP 36.6; O2SAT 97
[2025-02-01] MEDS: iohexoL 350 MG/ML 100 ML INFUS..BTL 65 ML IV (00:58)
[2025-02-01 02:01] VITALS: BP 130/80; PULSE 90; RESP 20; TEMP 37.1; O2SAT 98
[2025-02-01] MEDS: Morphine Sulfate 4 MG/ML CARTRIDGE IVPUSH (02:02)
[2025-02-01] MEDS: ondansetron HCL 4 MG/2 ML VIAL IVPUSH (02:02)
[2025-02-01] MEDS: cefTRIAXone sodium 1 GM VIAL IVPUSH (02:02)
[2025-02-01 03:57] VITALS: BP 109/58; PULSE 97; RESP 16; TEMP 36.6; O2SAT 98
== END 2025-02-01 03:58 | disposition home or self-care (01) ==
PROVIDERS: Physician Assistant Medical; Emergency Provider Internal Medicine; PCP Internal Medicine
DX: H60.11 Cellulitis of right external ear (principal); H92.01 Otalgia, right ear; H60.91 Unspecified otitis externa, right ear; E11.9 Type 2 diabetes mellitus without complications; I10 Essential (primary) hypertension; Z79.4 Long term (current) use of insulin; Z79.899 Other long term (current) drug therapy
CPT/HCPCS: 36415; 70491; 80048; 80076; 85025; 85652; 86140; 96374; 96375; 99284; J0696; J2270; J2405; Q9967

== ENCOUNTER → 2025-02-01 00:01 | Outpatient (BNV) | payer MEDICARE, MEDICAID, SELFPAY | PROVIDERS: Emergency Provider Internal Medicine; PCP Internal Medicine; Visit Provider Radiology Diagnostic Radiology | DX: R22.0 Localized swelling, mass and lump, head (principal) | CPT/HCPCS: 70491 ==

== ENCOUNTER 2025-04-18 13:47 | Outpatient (AMB) | payer MEDICARE, MEDICAID, SELFPAY ==
--- NOTE | 2025-04-18 13:52 | MHC.PC.OV ---
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 Accompanied by: Self / Same As Patient Allergies gabapentin Adverse Reaction (Intermediate, Verified 04/18/25 14:06) sleepiness zolpidem Adverse Reaction (Intermediate, Verified 04/18/25 14:06) inadequate response Medication List - Last Reconciled 04/18/25 by Peggy Brown MD amoxicillin-pot clavulanate 875-125 mg 1 tab PO BID aspirin 81 mg PO DAILY atorvastatin 80 mg PO DAILY blood sugar diagnostic (FreeStyle Lite Strips) As directed three times daily blood sugar diagnostic (FreeStyle Precision Sanket Strips) As directed twice a day cefuroxime axetil 500 mg PO BID 7 days clotrimazole-betamethasone 1-0.05 % 1 appl topical BID 2 weeks insulin glargine (Lantus Solostar U-100 Insulin) 10 units (0.1 mL) subcut QPM 90 days lancets (FreeStyle Lancets) As directed levalbuterol HCl 1.25 mg (3 mL) inhalation Q3H PRN levofloxacin 500 mg PO DAILY 10 days lisinopril 2.5 mg PO DAILY 90 days metformin 1,000 mg (2 x 500 mg) PO BID 90 days metoprolol tartrate 50 mg PO BID lpjksieh-ugnbye-VT-thonzonium 3.3-3-10-0.5 mg/mL (Cortisporin-TC) 4 drps otic (ear) right QID ofloxacin 0.3% 10 drps otic (ears) DAILY 7 days omeprazole 20 mg PO DAILY 90 days oxycodone 5 mg PO Q6H PRN pen needle, diabetic (1st Tier Unifine Pentips) Use 1 pen needle once a day ropinirole 8 mg PO BID semaglutide (Ozempic) 0.25 mg (0.368 mL) subcut QWEEK 30 days sertraline 25 mg DAILY ticagrelor (Brilinta) 90 mg PO BID Tobacco use date assessed: 04/18/25 Dental Screening Dental Screen Date: 04/18/25 Did you have a dental visit in the last 12 months?: No Did you have a dental problem in the last 6 months where you did not have access to dental care?: No Was dental information given to patient?: Patient has dentist HPI HPI Comments History of Present Illness Details The patient is a 54-year-old male presenting for follow-up of diabetes management and other chronic conditions. The patient has a history of diabetes mellitus, for which he is currently on Metformin and Ozempic. He reports no side effects from Ozempic, such as diarrhea or constipation. His hemoglobin A1c was noted to be 7.1% during the last evaluation. The patient also has a history of hypertension, which is well-controlled with Lisinopril and Metoprolol. He is on Atorvastatin for hyperlipidemia, with plans to check LDL levels in four months. He has a history of insomnia, for which Zolpidem was previously prescribed but found ineffective. The patient does not smoke and has never smoked. He has lost approximately five pounds since his last visit in January. His renal function was normal with a GFR over 60, and liver function tests were also normal. [facility] Medical History (Updated 04/18/25 @ 14:25 by Peggy Brown MD) GERD (gastroesophageal reflux disease) Essential hypertension Hyperlipidemia LDL goal <70 Morbid obesity with BMI of 40.0-44.9, adult Erectile dysfunction associated with type 2 diabetes mellitus Morbid obesity Myocarditis Essential hypertension Non-rheumatic aortic stenosis Shortness of breath On beta rayo at home Complex regional pain syndrome i of lower limb, bilateral Bilateral primary osteoarthritis of knee Gout Depression with anxiety SHARONDA (obstructive sleep apnea) Coarse tremors IDDM (insulin dependent diabetes mellitus) HTN (hypertension) Intractable neuropathic pain of right knee CAD (coronary artery disease) Erectile dysfunction Chronic back pain RLS (restless legs syndrome) Kidney stones Arthritis Morbid obesity due to excess calories BMI 40.0-44.9, adult Type 2 diabetes mellitus with diabetic polyneuropathy Cardiac arrhythmia Diabetes mellitus, type 2 Surgical History History of arthroplasty of right knee Hx of lithotripsy H/O heart artery stent Family History Mother Diabetes Sister Diabetes CAD (coronary artery disease) Father CAD (coronary artery disease) Social History Household Members: Family Housing: Apartment Do you presently have visiting nurse or other home services: Yes Alcohol intake: never Patient Tobacco Use Status: Never used Tobacco e-Cigarette/Vaping Use: Never Used Second Hand Smoke Exposure: No service: No Current occupational status: disabled Cognitive needs: Yes Hearing needs: No Vision needs: No Questionnaire PHQ-9 Over the last 2 weeks, how often have you been bothered by any of the following problems? 1. Little interest or pleasure in doing things: nearly every day 2. Feeling down, depressed, or hopeless: nearly every day 3. Trouble falling or staying asleep, or sleeping too much: several days 4. Feeling tired or having little energy: nearly every day 5. Poor appetite or overeating: several days 6. Feeling bad about yourself - or that you are a failure or have let yourself or your family down: several days 7. Trouble concentrating on things, such as reading the newspaper or watching television: not at all 8. Moving or speaking so slowly that other people could have noticed. Or the opposite - being so fidgety or restless that you have been moving around a lot more than usual: several days 9. Thoughts that you would be better off or of hurting yourself in some way: not at all Total score: 13 Depression Screening Interpretation: Positive Depression Screening Follow-up: Existing condition, In treatment and Follow-up Visit Requested Depression Screening Done: Yes 64762 - PHQ-9 Billing: Yes Source: Developed by Drs. Cipriano Durand, Klaudia Yu, Maninder Del Castillo and colleagues, with an educational krishna from [employer]. Thrive Questionnaire Date Thrive assessed: 04/18/25 I am a: Patient What is your living situation today?: I choose not to answer this question Within the past 12 months, did the food you bought not last and you didn't have the money to get more?: I choose not to answer this question Within the past 12 months, did you worry whether your food would run out before you got money to buy more?: I choose not to answer this question Do you have trouble paying for medicines?: Yes Do you have trouble getting transportation to medical appointments?: I choose not to answer this question Do you have trouble paying your heating and electricity bill?: I choose not to answer this question Do you have trouble taking care of your child, family member or friend?: I choose not to answer this question Do you have trouble with day-to-day activities such as bathing, preparing meals, shopping, managing finances, etc.?: I choose not to answer this question Are you currently unemployed and looking for a job?: I choose not to answer this question Are you interested in more education?: I choose not to answer this question Please select the resources that you would like help with: None Currently or been in a relationship where the following occur: I choose not to answer THRIVE Score: 0 AUDIT C Alcohol Use Questionnaire (AUDIT-C) 1. How often do you have a drink containing alcohol?: Never 3. How often do you have six or more drinks on one occasion?: Never Total Score: 0 Score Reviewed/Action Taken: No MORRO-7 AMB Questionnaire MORRO-7 Date MORRO - 7 assessed: 04/18/25 Feeling nervous, anxious, or on edge: 1 = Several days Not being able to stop or control worryin = More than half the days Worrying too much about different things: 2 = More than half the days Trouble relaxin = Several days Being so restless that it is hard to sit still: 0 = Not at all Becoming easily annoyed or irritable: 0 = Not at all Feeling afraid as if something awful might happen: 1 = Several days Total MORRO-7 score (0-4 normal; 5-9 mild; 10-14 moderate; 15-21 severe): 7 Source: Developed by Drs. Cipriano Durand, Klaudia Yu, Maninder Del Castillo and colleagues, with an educational krishna from [employer]. MORRO-7 Assessment Billing MORRO-7 Assessment Tool: MORRO-7 Assessment 39725 Review of Systems Const All systems reviewed & are unremarkable except as noted in HPI and below Card Denies chest pain at rest, Denies chest pain with activity, Denies edema, Denies irregular heart rhythm, Denies claudication, Denies dyspnea, Denies dyspnea on exertion, Denies orthopnea, Denies paroxysmal nocturnal dyspnea and Denies slow heart rate Resp Denies cough, Denies dyspnea and Denies dyspnea on exertion GI Denies abdominal pain, Denies change in bowel habits, Denies excessive flatus, Denies nausea and Denies vomiting Physical exam (Primary Care) Vital Signs: Last Vital Signs Temp 97.1 F 04/18/25 13:54 Pulse 94 04/18/25 13:54 Resp 18 04/18/25 13:54 BP 136/82 04/18/25 13:54 Pulse Ox 98 04/18/25 13:54 Oxygen Delivery Method Room Air 04/18/25 13:54 BMI result Body Mass Index 39.6 BMI Assessment/Plan discussion: High BMI High, discussed plan: lifestyle, weight reduction, dietary and physical activity Tobacco/Smoking Status: Tobacco use Status Tobacco use date assessed 04/18/25 04/18/25 14:02 Patient Tobacco Use Status Never used Tobacco 04/18/25 13:52 e-Cigarette/Vaping Use Never Used 04/18/25 13:52 PHQ-9: PHQ-9 Score PHQ-9: Total score 13 04/18/25 14:25 Depression Screening Interpretation: Positive Depression Screening Follow-up: Existing condition, In treatment and Follow-up Visit Requested Thrive Assessment: Date of Thrive Assessment Date Thrive assessed 04/18/25 04/18/25 14:02 Currently or been in a relationship where the following occur: I choose not to answer Resp Effort & Inspection: normal respiratory effort Auscultation: clear to auscultation bilaterally Cardio Jugular venous distension: no JVD Rate: regular rate Rhythm: regular rhythm Heart sounds: S1 normal heart sound present and S2 normal heart sound present Extrem General: Yes full ROM Results AMB Hemoglobin A1c AMB Hemoglobin A1c 7.1 % Last Edit by Lynn Spencer MA on 04/18/25 14:26 Results Reviewed Results Reviewed: Laboratory Last Values Hgb A1c (Clinic) 7.1 % (4.0-6.0) H 04/18/25 14:06 Coding Level of Care Code Est Pt Level 4 (08688) Complex EM visit Add On G2211 Diagnoses Moderate recurrent major depression F33.1 Type 2 diabetes mellitus with hyperglycemia, with long-term current use of insulin E11.65; Z79.4 Diabetes mellitus complication status: with hyperglycemia Diabetes mellitus [facility] insulin use: with [facility] use Diabetes mellitus type: type 2 Essential hypertension I10 Hyperlipidemia LDL goal <70 E78.5 Gastroesophageal reflux disease, unspecified whether esophagitis present K21.9 Esophagitis presence: esophagitis presence not specified Additional Codes MORRO-7 Assessment Billing - MORRO-7 Assessment Tool: MORRO-7 Assessment 12594 ([id number]) PHQ-9 - 20517 - PHQ-9 Billing: Yes ([id number]) Time Spent (min) 22 Assessment & Plan Assessment & Plan (1) Moderate recurrent major depression: Code(s): F33.1 - Major depressive disorder, recurrent, moderate Category: Medical (2) Diabetes: Code(s): E11.9 - Type 2 diabetes mellitus without complications Category: Medical Qualifiers: Diabetes mellitus complication status: with hyperglycemia 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 Diabetes mellitus type: type 2 Qualified Code(s): E11.65 - Type 2 diabetes mellitus with hyperglycemia; Z79.4 - [employer] (current) use of insulin (3) Essential hypertension: Code(s): I10 - Essential (primary) hypertension Category: Medical (4) Hyperlipidemia LDL goal <70: Code(s): E78.5 - Hyperlipidemia, unspecified Category: Medical (5) GERD (gastroesophageal reflux disease): Code(s): K21.9 - Gastro-esophageal reflux disease without esophagitis Category: Medical Qualifiers: Esophagitis presence: esophagitis presence not specified Qualified Code(s): K21.9 - Gastro-esophageal reflux disease without esophagitis Plan The plan includes continuing current medications for diabetes, hypertension, and hyperlipidemia, with a focus on optimizing diabetes management. The Ozempic dose may be increased to 0.5 mg to improve glycemic control, with monitoring for any potential side effects. The patient will continue with lifestyle modifications, including weight management, as he has successfully lost five pounds since the last visit. Follow-up labs, including LDL cholesterol and protein in urine, are planned for the next visit in four months. Patient was informed and verbally consented to the use of an ambient scribe for clinic note documentation during this visit. Orders: Orders AMB Hemoglobin A1c Today Z13.9 - Encounter for screening, unspecified Lipid Panel 4 Months E78.5 - Hyperlipidemia, unspecified Comprehensive [place]. Panel Fast 4 Months E11.65 - Type 2 diabetes mellitus with hyperglycemia, Z79.4 - [facility] (current) use of insulin Microalbumin, Random (w Creat) 4 Months R80.9 - Proteinuria, unspecified Complete Blood Count Auto Diff 4 Months D64.9 - Anemia, unspecified Vitamin B12 and Folate 4 Months E53.8 - Deficiency of other specified B group vitamins Vitamin D 25-OH Total 4 Months E55.9 - Vitamin D deficiency, unspecified IRON PROFILE 4 Months D64.9 - Anemia, unspecified Medications: New semaglutide (Ozempic) 0.5 mg (0.736 mL) subcut QWEEK 2.944 mL 0RF 4 weeks E11.65 - Type 2 diabetes mellitus with hyperglycemia, Z79.4 - [facility] (current) use of insulin Discontinued semaglutide (Ozempic) for 4 weeks Discontinued Reason: Patient Completed Course 0.25 mg (0.368 mL) subcut QWEEK 30 days 1.84 mL 1RF E11.65 - Type 2 diabetes mellitus with hyperglycemia, I21.4 - Non-ST elevation (NSTEMI) myocardial infarction, Z79.4 - [employer] (current) use of insulin
[2025-04-18 13:54] VITALS: BP 136/82; PULSE 94; RESP 18; TEMP 36.2; O2SAT 98; BMI 39.6
== END 2025-04-18 14:16 | disposition home or self-care (01) ==
LOC: HO.HMCH 13:48
PROVIDERS: PCP Internal Medicine; Visit Provider Internal Medicine
DX: F33.1 Major depressive disorder, recurrent, moderate (principal); E11.65 Type 2 diabetes mellitus with hyperglycemia; Z79.4 Long term (current) use of insulin; I10 Essential (primary) hypertension; E78.5 Hyperlipidemia, unspecified; K21.9 Gastro-esophageal reflux disease without esophagitis; Z13.9 Encounter for screening, unspecified

== ENCOUNTER → 2025-04-18 13:47 | Outpatient (BNVA) | payer MEDICARE, MEDICAID, SELFPAY | PROVIDERS: PCP Internal Medicine; Visit Provider Internal Medicine | DX: F33.1 Major depressive disorder, recurrent, moderate (principal); E11.65 Type 2 diabetes mellitus with hyperglycemia; I10 Essential (primary) hypertension; E78.5 Hyperlipidemia, unspecified; K21.9 Gastro-esophageal reflux disease without esophagitis; Z79.4 Long term (current) use of insulin | CPT/HCPCS: 83036; 96127; 99212 ==